=== PATIENT | male | born 1945 | race Caucasian/White ===

== ENCOUNTER 2016-04-01 11:05 | Observation (INO) | payer MEDICARE ==
[~2016-04-01] VITALS: Ht 172.7 cm; Wt 95.3 kg
[~2016-04-01 11:05] MED LIST: ALLO300T2 PO; ALLP300T PO; ATEN-155 PO; ATEN25TA PO; CHOL200025 PO; DOXY100C2 PO; ENAL20TA PO; HCTZ12.5T GT; HYDR-1231 PO; HYDR12.56 PO; NAPR220T66 PO; ONDA8TAB9 PO; OSLT75C PO; PRAV10TA PO; PRD20T PO; PROM25TA14 PO; SCOP1PAT TOP
--- OUTSIDE RECORDS SUMMARY | 2016-04-01 11:11 | XMS REPORT | Continuity of Care Document ---
Author Author [facility] Organization [facility] Address Unknown Phone Unavailable Care Team Providers Care Production Supply Equipment Tender Name Role Phone TETO TORRES MD PCP Insurance Providers Payer Name Policy Number Subscriber Name Relationship s Medicare [id number] Gabe Gli 18 Self / Same As Patient Advance Directives Directive Response Recorded Date/Time Advance Directives No 01/22/14 2:03pm Health Care Power of Gas Operations Superintendent No 01/22/14 2:03pm Organ Donor Yes 01/22/14 2:03pm Resuscitation Status Full Code 01/22/14 2:03pm Problems Medical Problems Problem Onset Date Status Knee pain Unknown Active Chondrocalcinosis of knee Unknown Active Knee effusion, left Unknown Active Knee pain Unknown Active Medications Medication Dose Route Sig Days/Qty Instructions Order Date Discontinued Date Status Allopurinol 300 Mg PO DAILY 03/24/11 Active Enalapril Maleate 20 Mg PO DAILY 03/24/11 Active Atenolol 25 Mg PO DAILY 03/24/11 Active Doxycycline Hyclate (Vibramycin) 1 Each PO TWICE A DAY 10 Days 07/21/13 Discontinued Oseltamivir Phosphate 75 Mg PO TWICE A DAY 5 Days 03/24/11 07/21/13 Discontinued Pravastatin Sodium 10 Mg PO BEDTIME 07/21/13 Active Hydrochlorothiazide 12.5 Mg GT 07/21/13 Active Hydrocodone Bit/Acetaminophen 1 Tab PO EVERY 4HRS PRN PAIN 14 Qty 01/22 Active Prednisone 20 Mg PO DAILY 10 Qty 01/22/14 Active Social History Social History Problem Response Recorded Date/Time Alcohol Use Denies Use 01/22/2014 2:03pm Recreational Drug Use No 01/22/2014 2:03pm Recent Foreign Travel No 01/22/2014 2:01pm Smoking Status Never a Smoker 01/22/2014 2:03pm Query Response Start Date Stop Date Smoking Status Never a Smoker Hospital Discharge Instructions No hospital discharge instructions. Plan of Care No plan of care. Functional Status No functional status results. Allergies, Adverse Reactions, Alerts Allergen Type Severity Reaction Status Last Updated No Known Drug Allergies Active 03/24/11 Immunizations No immunization records. Vital Signs Acute Vital Signs Vital Response Date/Time Temperature (Fahrenheit) 98.0 degrees F (97.6 - 99.5) Temperature (Calculated Celsius) 36.42430 degrees C (36.4 - 37.5) Pulse Rate (adult) 74 bpm (60 - 90) Respiratory Rate 20 bpm (12 - 24) O2 Sat by Pulse Oximetry 97 % (88 - 100) Blood Pressure 200/102 mm Hg Pain Pain Intensity 6 Pain Pain Intensity 6 Height (Feet) 5 feet Height (Inches) 8.00 inches Height (Calculated Centimeters) 172.312742 cm Weight (Pounds) 205 pounds Weight (Calculated Grams) 83365.437 gm Weight (Calculated Kilograms) 92.801493 kilograms Calculated BMI 28.12 Results No known relevant diagnostic tests, laboratory data and/or discharge summary. Procedures No known history of procedures. Encounters Encounter Location Date/Time Departed Emergency Room [facility] 01/22/14 1:46pm Recent Diagnosis
[2016-04-01] MEDS ORDERED: OMEG300C3 PO (11:18)
[2016-04-01] MEDS ORDERED: NS IV 1000 ML 1,000 ML IV ONE (11:35)
[2016-04-01] MEDS ORDERED: ASPI-808 PO (11:39)
--- NOTE | 2016-04-01 11:41 | ED Abdominal Pain ---
General Chief Complaint: -Male Stated Complaint: R SIDE PAIN/DIFF URINATING/FEVER/COUGH Nursing Triage Note: Ambulatory to ED 4 with with reports of trouble urinating, intermittent right abdominal-flank pain, intermittent fevers at home for the past 4 days. Patient denies any other complaints at this time. Sepsis Screen: No Definite Risk Source of Information: Patient, Family Exam Limitations: No Limitations History of Present Illness Time Seen By Provider: 11:28 Initial Comments Here with report of not feeling well over the last 4 days. Does report fever, right flank abdominal pain, decreased urination and diarrhea currently. He reports constipation prior to this and took a laxative a few days ago and now has had diarrhea. States he is not eating or drinking well because he is not feeling well. Does have sinus congestion and did have a nosebleed on the right side the other day. That has subsequently resolved with respect to bleeding but he still has congestion. Does have mild cough without shortness of breath. Timing/Duration: 3-4 Days Severity/Quality: Mild, Moderate, Aching Location: RUQ, Flank Radiation: No Radiation Activities at Onset: None Modifying Factors: Worsens With Eating, Worsens With Movement Associated Symptoms: No Chest Pain, No Diaphoresis, Fever/Chills FatigueNo Headache, No Nausea/Vomiting, No Shortness of Air, Weakness Allergies and Home Medications Allergies Coded Allergies: No Known Drug Allergies (Unverified , 08/11/15) Home Medications Allopurinol 300 Mg Tablet 300 MG PO DAILY (Reported) Aspirin 325 Mg Tablet 325 MG PO PRN PRN PRN HEADACHE (Reported) Atenolol 25 Mg Tablet 25 MG PO DAILY (Reported) Cholecalciferol (Vitamin D3) 2,000 Unit Tablet 2,000 UNIT PO DAILY (Reported) Enalapril Maleate 20 Mg Tablet 40 MG PO DAILY (Reported) TAKES 2 (20MG) TABLETS Hydrochlorothiazide 12.5 Mg Tablet 12.5 MG PO DAILY (Reported) Naproxen Sodium 220 Mg Tablet 440 MG PO BID PRN PRN PAIN (Reported) TAKES 2 (220MG) TABLETS [place]-3 Fatty Acids 300 Mg Capsule Unknown Dose PO (Reported) Pravastatin Sodium 10 Mg Tablet 10 MG PO HS (Reported) Review of Systems Constitutional: see HPI chills fever EENTM: See HPI Nose Congestion Respiratory: See HPI Cough Shortness of Air (mild)Denies Wheezing Cardiovascular: No Symptoms Reported Gastrointestinal: See HPI Abdominal Pain Diarrhea Genitourinary: No Symptoms Reported Musculoskeletal: no symptoms reported Skin: no symptoms reported Psychiatric/Neurological: See HPI Headache Endocrine: No Symptoms Reported All Other Systems Reviewed Negative Unless Noted: Yes Past Ijwpfio-Chsrbb-Diwphv Hx Patient Social History Alcohol Use: Rarely Uses Recreational Drug Use: No Smoking Status: Never a Smoker Former Smoker/When Quit: Feb 19, 2001 2nd Hand Smoke Exposure: No Recent Foreign Travel: No Contact w/Someone Who Travel: No Recent Infectious Disease Expo: No Recent Hopitalizations: No Immunizations Up To Date Tetanus Booster (TDap): Less than 5yrs Seasonal Allergies Seasonal Allergies: No Surgeries HX Surgeries: Yes (RICHARD) Surgeries: Abdominal Respiratory Hx Respiratory Disorders: No Cardiovascular Hx Cardiac Disorders: Yes Cardiac Disorders: High Cholesterol, Hypertension Neurological Hx Neurological Disorders: No Reproductive System Hx Reproductive Disorders: No Sexually Transmitted Disease: No HIV/AIDS: No Genitourinary Hx Genitourinary Disorders: No Gastrointestinal Hx Gastrointestinal Disorders: Yes (RICHARD FUNDOPLICATION) Musculoskeletal Hx Musculoskeletal Disorders: Yes Musculoskeletal Disorders: Gout Endocrine Hx Endocrine Disorders: No HEENT HX ENT Disorders: No Loss of Vision: Denies Hearing Impairment: Denies Cancer Hx Cancer: Yes Cancer: Skin Psychosocial Hx Psychiatric Problems: No Integumentary HX Skin/Integumentary Disorder: Yes (SKIN CANCER) Blood Transfusions Hx Blood Disorders: No Reviewed Nursing Assessment Reviewed/Agree w Nursing PMH: Yes Family Medical History Significant Family History: No Pertinent Family Hx Family Medial History: CVA Physical Exam Vital Signs VS - Last 72 Hours, by Label 04/01/16 11:07 Temp 97.8 Pulse 75 Resp 18 B/P 155/73 Pulse Ox 96 O2 Delivery Room Air Capillary Refill : Less Than 3 Seconds General Appearance: WD/WN no apparent distress HEENT: PERRL/EOMI pharynx normal Neck: full range of motion supple Respiratory: lungs clear normal breath sounds Cardiovascular: regular rate, rhythm no murmur Gastrointestinal: softNo guarding, No rebound, tenderness (right upper quadrant into a lesser extent left upper quadrant and right lower quadrant.)No mass, No hepatomegaly, No spleenomegaly Extremities: non-tender normal inspection Back: normal inspection no CVA tenderness no vertebral tenderness Neurologic/Psychiatric: alert oriented x 3 Skin: normal color warm/dry Progress/Results/Core Measures Results/Orders Lab Results Laboratory Tests Test 04/01/16 11:30 04/01/16 12:45 Range/Units Alanine Aminotransferase (ALT/SGPT) 13 0-55 U/L Albumin 3.7 3.2-4.5 G/DL Alkaline Phosphatase 92 40-136 U/L Amylase Level 38 25-125 U/L Anion Gap 12 5-14 MMOL/L Aspartate Amino Transf (AST/SGOT) 17 5-34 U/L BUN/Creatinine Ratio 16 Band Neutrophils 2 % Basophils # (Auto) 0.0 0.0-0.1 10^3/uL Basophils % (Manual) 0 % Basophils (%) (Auto) 0 0-10 % Blood Morphology Comment NORMAL Blood Urea Nitrogen 31 H 7-18 MG/DL C-Reactive Protein High Sensitivity 22.67 H 0.00-0.50 MG/DL Calcium Level 9.5 8.5-10.1 MG/DL Carbon Dioxide Level 22 21-32 MMOL/L Chloride Level 102 98-107 MMOL/L Creatinine 1.96 H 0.60-1.30 MG/DL Eosinophils # (Auto) 0.1 0.0-0.3 10^3/uL Eosinophils % (Manual) 0 % Eosinophils (%) (Auto) 0 0-10 % Estimat Glomerular Filtration Rate 34 Glucose Level 110 H 70-105 MG/DL Hematocrit 42 40-54 % Hemoglobin 14.3 13.3-17.7 G/DL Lipase 14 8-78 U/L Lymphocytes # (Auto) 2.0 1.0-4.0 X 10^3 Lymphocytes % (Manual) 11 % Lymphocytes (%) (Auto) 10 L 12-44 % Mean Corpuscular Hemoglobin 30 25-34 PG Mean Corpuscular Hemoglobin Concent 34 32-36 G/DL Mean Corpuscular Volume 87 80-99 FL Mean Platelet Volume 12.2 H 7.4-10.4 FL Monocytes # (Auto) 2.2 H 0.0-1.0 X 10^3 Monocytes % (Manual) 12 % Monocytes (%) (Auto) 11 0-12 % Neutrophils # (Auto) 15.8 H 1.8-7.8 X 10^3 Neutrophils % (Manual) 75 % Neutrophils (%) (Auto) 78 H 42-75 % Platelet Count 183 130-400 10^3/uL Potassium Level 4.7 3.6-5.0 MMOL/L Red Blood Count 4.77 4.35-5.85 10^6/uL Red Cell Distribution Width 14.4 10.0-14.5 % Sodium Level 136 135-145 MMOL/L Total Bilirubin 1.1 H 0.1-1.0 MG/DL Total Protein 7.2 6.4-8.2 G/DL Urine Bacteria FEW H /HPF Urine Bilirubin 1+ H NEGATIVE Urine Casts PRESENT /LPF Urine Clarity CLEAR Urine Color YELLOW Urine Crystals NONE /LPF Urine Culture Indicated YES Urine Glucose (UA) NEGATIVE NEGATIVE Urine Granular Casts 2-5 H /LPF Urine Hyaline Casts 5-10 H /LPF Urine Ketones NEGATIVE NEGATIVE Urine Leukocyte Esterase 2+ H NEGATIVE Urine Mucus SMALL H /LPF Urine Nitrite NEGATIVE NEGATIVE Urine Protein 3+ H NEGATIVE Urine RBC NONE /HPF Urine RBC (Auto) 2+ H NEGATIVE Urine Specific [place] 1.015 L 1.016-1.022 Urine Squamous Epithelial Cells 2-5 /HPF Urine Urobilinogen 4 H NORMAL MG/DL Urine WBC 25-50 H /HPF Urine pH 5 5-9 White Blood Count 20.2 H 4.3-11.0 10^3/uL Lactic Acid Level 1.1 0.5-2.0 MMOL/L Micro Results Microbiology 04/01/16 Influenza Types A,B Antigen (AMY) - Final, Complete My Orders Orders-CHARITY WERNER MD Amylase (04/01/16 11:35) Cbc With Automated Diff (04/01/16 11:35) Comprehensive Metabolic Panel (04/01/16 11:35) Hs C Reactive Protein (04/01/16 11:35) Lipase (04/01/16 11:35) Ua Culture If Indicated (04/01/16 11:35) Influenza A And B Antigens (04/01/16 11:35) Saline Lock/Iv-Start (04/01/16 11:35) Ns Iv 1000 Ml (Sodium Chloride 0.9%) (04/01/16 11:35) Manual Differential (04/01/16 11:30) Urine Culture (04/01/16 11:30) Enoxaparin Injection (Lovenox Injection) (04/01/16 12:00) Blood Culture (04/01/16 12:25) Chest Pa/Lat (2 View) (04/01/16 12:25) Lactic Acid Analyzer (04/01/16 12:25) Ct Abdomen/Pelvis Wo (04/01/16 12:59) General/Regular (04/01/16 Lunch) Ceftriaxone Injection (Rocephin Injectio (04/01/16 14:15) Ceftriaxone Injection (Rocephin Injectio (04/01/16 14:17) Ns (Ivpb) (Sodium Chloride 0.9% Ivpb Bag (04/01/16 14:17) Medications Given in ED Current Medications Medications Dose Ordered Sig/Avel Route Start Time Stop Time Status Last Admin Dose Admin Ceftriaxone Sodium/Sodium Chloride 50 ml @ 100 mls/hr ONCE ONCE IV 04/01/16 14:15 04/01/16 14:44 04/01/16 14:22 100 MLS/HR Sodium Chloride 1,000 ml @ 0 mls/hr Q0M ONCE IV 04/01/16 11:35 04/01/16 11:36 DC 04/01/16 11:41 0 MLS/HR Vital Signs/I&O Vital Sign - Last 12Hours 04/01/16 11:07 Temp 97.8 Pulse 75 Resp 18 B/P 155/73 Pulse Ox 96 O2 Delivery Room Air Blood Pressure Mean: 100 Progress Note : Progress Note Seen and evaluated. IV, labs, UA, normal saline 1 L bolus and influenza screen ordered. Monitor patient. Chest x-ray and CT of abdomen and pelvis ordered. White count is markedly elevated. Lactic acid and blood cultures ordered. 1353 : Case discussed with Dr. Piedra. We'll admit the patient, inpatient status due to pyelonephritis findings. He does have some chronic findings on his lungs which could represent infiltrate although it does appear to be chronic area we will treat for pyelonephritis as we do not believe he has pneumonia currently. This is discussed with Dr. Piedra who agrees. Findings and concerns discussed with patient and family who agree with admission. Diagnostic Imaging Diagonstic Imaging: Xray Plain Films/CT/US/NM/MRI: chest Comments [facility] [place] [place] NAME: [facility] REC#: [id number] PT STATUS: REG ER : 1945 PHYSICIAN: CHARITY WERNER MD ADMIT DATE: 04/01/16/ER Draft Date of Exam:04/01/16 CHEST PA/LAT (2 VIEW) INDICATION: Fever for 4 days, right flank pain, difficulty urinating. EXAMINATION: Two-view chest 04/01/2016 COMPARISON: 03/24/2011 FINDINGS: Heart is stable. There is pulmonary vascular congestion. There is an infiltrate in the left infrahilar region suspected but correlate with symptoms. Perihilar densities are stable from previous imaging and perhaps due to chronic scarring. There is no effusion. There is no pneumothorax. IMPRESSION: 1. Chronic changes throughout the lungs with more focal perihilar infiltrate or pulmonary vasculature congestion suspected correlate with symptoms. Left infrahilar infiltrate is possible as well and followup is recommended to assure improvement of findings. Dictated on workstation # [id number] Dict: 04/01/16 1256 Trans: 04/01/16 1259 [facility] [id number] Interpreted by: MARIA TERESA MEJIA MD Electronically signed by: Reviewed: Reviewed by Me Diagonstic Imaging: CT Plain Films/CT/US/NM/MRI: abdomen, pelvis Comments VIA [place], [place] NAME: GAB[facility] GIL [facility] REC#: [id number] PT STATUS: REG ER : 1945 PHYSICIAN: CHARITY WERNER MD ADMIT DATE: 04/01/16/ER Draft Date of Exam:04/01/16 CT ABDOMEN/PELVIS WO PROCEDURE: CT abdomen and pelvis without contrast. TECHNIQUE: Multiple contiguous axial images were obtained through the abdomen and pelvis without the use of intravenous contrast. INDICATION: Fever for 4 days. Pain and shortness of breath. Esophagus and stomach pain. EXAMINATION: CT abdomen and pelvis without contrast 04/01/2016 . COMPARISON: None. FINDINGS: Pleural thickening and calcification is noted within the posterior aspect of the the left lung base. The remaining visualized lung bases demonstrate linear scar or atelectasis with calcifications laterally in the visualized left midlung anteriorly also noted. Within the abdomen and pelvis evaluation is somewhat limited due to lack of contrast. However there is marked diffuse fat stranding about the left kidney. The course of the left ureter demonstrates fat stranding as well but does not appear dilated. No significant hydronephrosis is seen. There are vague hypodensities in left kidney poorly characterized without contrast. The right kidney demonstrates similar findings with fat stranding in a perinephric distribution. Some atrophy of the right kidney is noted perhaps due to old infectious processes. No nephrolithiasis or hydronephrosis is seen. There are no ureteral stones. Bladder wall is slightly thickened but could be due to underdistention versus cystitis. The appendix is unremarkable. Atherosclerotic disease seen throughout the course of the aorta. No evidence for free air or free fluid and no lymphadenopathy. There is no acute osseous abnormality. IMPRESSION: 1. Perinephric stranding about both kidneys nonspecific but perhaps due to polynephritis, correlate with symptoms and history. No stones seen in the kidneys with no hydronephrosis. No ureteral stones. 2. Mild wall thickening of the urinary bladder which could be due to cystitis versus underdistention again correlate clinically. 3. Other incidental findings as discussed above including evidence of likely old asbestos exposure. Dictated on workstation # [id number] Dict: 04/01/16 1324 Trans: 04/01/16 1335 [facility] [id number] Interpreted by: MARIA TERESA MEJIA MD Electronically signed by: Reviewed: Reviewed by Me Departure Communication Time/Spoke to Admitting Phy: 13:53 Impression Impression: Primary Impression: Pyelonephritis Disposition: ADMITTED INPATIENT Condition: Stable Decision to Admit Reason: Admit from ER (General) Decision to Admit/Date: Apr 01, 2016 Time/Decision to Admit Time: 13:53 Departure-Patient Inst. Referrals: TETO TORRES MD (PCP/Family) Primary Care Physician CHARITY WERNER MD Apr 01, 2016 11:41
[2016-04-01 11:44] LABS: BASOPHILS % (AUTO) 0 % (0-10); EOSINOPHILS # (AUTO) 0.1 10^3/uL (0.0-0.3); EOSINOPHILS % (AUTO) 0 % (0-10); KETONES,URINE NEGATIVE (NEGATIVE); LEUKOCYTE ESTERASE ,URINE 2+ (NEGATIVE); LYMPHOCYTES % (AUTO) 10 % (12-44); MEAN CORPUSCULAR HEMOGLOBIN 30 PG (25-34); MEAN CORPUSCULAR HGB CONC 34 G/DL (32-36); MEAN CORPUSCULAR VOLUME 87 FL (80-99); MEAN PLATELET VOLUME 12.2 FL (7.4-10.4); MONOCYTES # (AUTO) 2.2 X 10^3 (0.0-1.0); MONOCYTES % (AUTO) 11 % (0-12); NEUTROPHILS # (AUTO) 15.8 X 10^3 (1.8-7.8); NEUTROPHILS % (AUTO) 78 % (42-75); NITRITE,URINE NEGATIVE (NEGATIVE); PH,URINE 5 (5-9); PLATELET COUNT 183 10^3/uL (130-400); PROTEIN,URINE 3+ (NEGATIVE); RED BLOOD COUNT 4.77 10^6/uL (4.35-5.85); RED CELL DISTRIBUTION WIDTH 14.4 % (10.0-14.5); UROBILINOGEN,URINE 4 MG/DL (NORMAL); WHITE BLOOD COUNT 20.2 10^3/uL (4.3-11.0)
[2016-04-01 11:53] LABS: BILIRUBIN,URINE 1+ (NEGATIVE); WBC,URINE 25-50 /HPF
[2016-04-01] MEDS ORDERED: ENOXAPARIN 100 MG/1 ML (LOVENOX) SYR SC ONE (12:00)
[2016-04-01 12:07] LABS: ALBUMIN 3.7 G/DL (3.2-4.5); BILIRUBIN,TOTAL 1.1 MG/DL (0.1-1.0); CALCIUM 9.5 MG/DL (8.5-10.1); CREATININE SERUM 1.96 MG/DL (0.60-1.30); POTASSIUM 4.7 MMOL/L (3.6-5.0); TOTAL PROTEIN 7.2 G/DL (6.4-8.2)
[2016-04-01 12:08] LABS: hs C REACTIVE PROTEIN 22.67 MG/DL (0.00-0.50)
[2016-04-01 12:10] LABS: BAND NEUTROPHILS 2 %; BASOPHILS % (MANUAL) 0 %; EOSINOPHILS % (MANUAL) 0 %; LYMPHOCYTES % (MANUAL) 11 %; NEUTROPHILS % (MANUAL) 75 %
--- NOTE | 2016-04-01 13:00 | Diagnostic Imaging Report ---
INDICATION: Fever for 4 days, right flank pain, difficulty urinating. EXAMINATION: Two-view chest 04/01/2016 COMPARISON: 03/24/2011 FINDINGS: Heart is stable. There is pulmonary vascular congestion. There is an infiltrate in the left infrahilar region suspected but correlate with symptoms. Perihilar densities are stable from previous imaging and perhaps due to chronic scarring. There is no effusion. There is no pneumothorax. IMPRESSION: 1. Chronic changes throughout the lungs with more focal perihilar infiltrate or pulmonary vasculature congestion suspected correlate with symptoms. Left infrahilar infiltrate is possible as well and followup is recommended to assure improvement of findings. Dictated by: Dictated on workstation # [id number]
--- NOTE | 2016-04-01 13:35 | Diagnostic Imaging Report ---
PROCEDURE: CT abdomen and pelvis without contrast. TECHNIQUE: Multiple contiguous axial images were obtained through the abdomen and pelvis without the use of intravenous contrast. INDICATION: Fever for 4 days. Pain and shortness of breath. Esophagus and stomach pain. EXAMINATION: CT abdomen and pelvis without contrast 04/01/2016 . COMPARISON: None. FINDINGS: Pleural thickening and calcification is noted within the posterior aspect of the the left lung base. The remaining visualized lung bases demonstrate linear scar or atelectasis with calcifications laterally in the visualized left midlung anteriorly also noted. Within the abdomen and pelvis evaluation is somewhat limited due to lack of contrast. However there is marked diffuse fat stranding about the left kidney. The course of the left ureter demonstrates fat stranding as well but does not appear dilated. No significant hydronephrosis is seen. There are vague hypodensities in left kidney poorly characterized without contrast. The right kidney demonstrates similar findings with fat stranding in a perinephric distribution. Some atrophy of the right kidney is noted perhaps due to old infectious processes. No nephrolithiasis or hydronephrosis is seen. There are no ureteral stones. Bladder wall is slightly thickened but could be due to underdistention versus cystitis. The appendix is unremarkable. Atherosclerotic disease seen throughout the course of the aorta. No evidence for free air or free fluid and no lymphadenopathy. There is no acute osseous abnormality. IMPRESSION: 1. Perinephric stranding about both kidneys nonspecific but perhaps due to polynephritis, correlate with symptoms and history. No stones seen in the kidneys with no hydronephrosis. No ureteral stones. 2. Mild wall thickening of the urinary bladder which could be due to cystitis versus underdistention again correlate clinically. 3. Other incidental findings as discussed above including evidence of likely old asbestos exposure. Dictated by: Dictated on workstation # [id number]
[2016-04-01] MEDS ORDERED: cefTRIAXone INJECTION 1,000 MG in NS (IVPB) 50 ML IV ONE (14:15)
[2016-04-01] MEDS ORDERED: cefTRIAXone 1 GM (ROCEPHIN) VIAL ONE (14:17)
[2016-04-01] MEDS ORDERED: NS (IVPB) 50 ML ONE (14:17)
[2016-04-01] MEDS ORDERED: CATHETER FLUSH 10 ML SYR IV PRN (15:15)
[2016-04-01 15:30] VITALS: BP 179/90
[2016-04-01] MEDS: NS IV 1000 ML 1,000 ML IV SCH (15:32)
[2016-04-01] MEDS ORDERED: FLU TRIvalent (5 YOA+) 2016-17 (AFLURIA) 0.5 ML IM ONE (16:00)
[2016-04-01 18:59] VITALS: BP 166/74
[2016-04-01] MEDS: ACETAMINOPHEN 500 MG TAB (TYLENOL) PO PRN (19:30)
[2016-04-01] MEDS ORDERED: ACETAMINOPHEN 500 MG TAB (TYLENOL) PO PRN (19:30)
[2016-04-01 20:00] VITALS: BP 146/67
[2016-04-01] MEDS ORDERED: NON-FORMULARY MEDICATION 1 EA EA (Pravastatin Sodium 10 MG) PO SCH (21:00)
[2016-04-02] VITALS: BP 136/68
[2016-04-02] MEDS: NS IV 1000 ML 1,000 ML IV SCH ×2 (01:35→11:15)
[2016-04-02 04:00] VITALS: BP 172/70
[2016-04-02 04:36] LABS: BASOPHILS % (AUTO) 0 % (0-10); EOSINOPHILS # (AUTO) 0.2 10^3/uL (0.0-0.3); EOSINOPHILS % (AUTO) 3 % (0-10); LYMPHOCYTES # (AUTO) 1.4 X 10^3 (1.0-4.0); LYMPHOCYTES % (AUTO) 15 % (12-44); MEAN CORPUSCULAR HEMOGLOBIN 30 PG (25-34); MEAN CORPUSCULAR HGB CONC 34 G/DL (32-36); MEAN CORPUSCULAR VOLUME 88 FL (80-99); MONOCYTES # (AUTO) 0.9 X 10^3 (0.0-1.0); MONOCYTES % (AUTO) 9 % (0-12); NEUTROPHILS # (AUTO) 6.8 X 10^3 (1.8-7.8); NEUTROPHILS % (AUTO) 73 % (42-75); PLATELET COUNT 146 10^3/uL (130-400); RED BLOOD COUNT 4.58 10^6/uL (4.35-5.85); RED CELL DISTRIBUTION WIDTH 14.3 % (10.0-14.5); WHITE BLOOD COUNT 9.3 10^3/uL (4.3-11.0)
[2016-04-02 05:04] LABS: ALBUMIN 3.2 G/DL (3.2-4.5); BILIRUBIN,TOTAL 0.6 MG/DL (0.1-1.0); CALCIUM 8.7 MG/DL (8.5-10.1); CREATININE SERUM 1.63 MG/DL (0.60-1.30); POTASSIUM 3.8 MMOL/L (3.6-5.0); TOTAL PROTEIN 6.3 G/DL (6.4-8.2)
[2016-04-02] MEDS: ACETAMINOPHEN 500 MG TAB (TYLENOL) PO PRN ×3 (06:19→20:23)
[2016-04-02 08:00] VITALS: BP 169/71
[2016-04-02] MEDS: HYDROCHLOROTHIAZIDE 25 MG (HCTZ) TAB PO SCH ×2 (08:38→09:08)
[2016-04-02] MEDS: ATENOLOL 25 MG (TENORMIN) TAB PO SCH ×2 (08:38→09:08)
[2016-04-02] MEDS: ENALAPRIL 10 MG (VASOTEC) TAB PO SCH ×2 (08:39→09:08)
[2016-04-02] MEDS: ALLOPURINOL 300 MG (ZYLOPRIM) TAB PO SCH ×2 (08:39→09:15)
[2016-04-02] MEDS ORDERED: ENALAPRIL MALEATE 40 MG PO SCH (09:00)
[2016-04-02 12:00] VITALS: BP 137/91
--- NOTE | 2016-04-02 12:22 | History & Physical-Hospitalist ---
HPI History of Present Illness: HPI/Chief Complaint Mr. Monsalve 70-year-old white male who reports 4-5 day history of cough and congestion he's had some intermittent small volume epistaxis with this. He denied shortness of breath. He did report some diarrhea without evidence for blood. For the past several years. 2-3 and decreased stream. It got markedly worse over the past 2-3 days to the point that he was dribbling only which was the major impetus for him coming to the emergency room. He was having pelvic pain and some right upper quadrant and right flank pain with fever and mild chills the day of his admission. He denies any previous history of urinary tract infection. He is retired with no recent travel history. As noted no blood in his urine Date Seen 04/02/[address] Piedra MD PCP Geoff Diez MD Referring Physician Date of Admission Apr 01, 2016 at 14:23 Home Medications & Allergies Home Medications Reviewed patient Home Medication Reconciliation Form Allergies Coded Allergies: No Known Drug Allergies (Unverified , 08/11/15) Past Stknued-Nkbxek-Sotlgb Hx Patient Social History Alcohol Use: Rarely Uses Recreational Drug Use: No Smoking Status: Former Smoker Former smoker/When Quit: Feb 19, 2001 2nd Hand Smoke Exposure: No Physical Abuse Screen: No Sexual Abuse: No Recent Foreign Travel: No Contact w/other who traveled: No Recent Hopitalizations: No Recent Infectious Disease Expo: No Immunizations Up To Date Tetanus Booster (TDap): Less than 5yrs Seasonal Allergies Seasonal Allergies: No Surgeries HX Surgeries: Yes (RICHARD) Surgeries: Abdominal Respiratory Hx Respiratory Disorders: No Cardiovascular Hx Cardiovascular Disorders: Yes Cardiac Disorders: High Cholesterol, Hypertension Neurological Hx Neurological Disorders: No Reproductive System Hx Reproductive Disorders: No Sexually Transmitted Disease: No HIV/AIDS: No Genitourinary Hx Genitourinary Disorders: No Gastrointestinal Hx Gastrointestinal Disorders: Yes (RICHARD FUNDOPLICATION) Musculoskeletal Hx Musculoskeletal Disorders: Yes Musculoskeletal Disorders: Gout Endocrine Hx Endocrine Disorders: No HEENT HX ENT Disorders: No Loss of Vision: Denies Hearing Impairment: Denies Cancer Hx Cancer: Yes Cancer: Skin Psychosocial Hx Psychiatric Problems: No Integumentary HX Skin/Integumentary Disorder: Yes (SKIN CANCER) Blood Transfusions Hx Blood Disorders: No Reviewed Nursing Assessment Reviewed/Agree w Nursing PMH: Yes Family Medical History Significant Family History: No Pertinent Family Hx Family Hx: CVA Review of Systems Constitutional: see HPI chills diaphoresis weakness Respiratory: No no symptoms reported, No see HPI, cough (nonproductive) dyspnea on exertionNo hemoptysis, No orthopnea, No phlegm, No short of breath, No stridor, No wheezing Cardiovascular: No chest pain, No edema, No Hx of Intervention, No syncope, No vascular heart diseas Gastrointestinal: RUQ Genitourinary: No no symptoms reported, No see HPI, decreased outputNo discharge, No dysuria, frequencyNo hematuria, hesitancyNo incontinence, nocturiaNo pain Physical Exam Physical Exam Vital Signs Vital Sign - Last 12Hours 04/01/16 11:07 Temp 97.8 Pulse 75 Resp 18 B/P 155/73 Pulse Ox 96 O2 Delivery Room Air Capillary Refill : Less Than 3 Seconds General Appearance: Anxious Mild Distress Neck: Full Range of Motion Normal Inspection Non Tender Respiratory: Chest Non Tender No Accessory Muscle Use No Respiratory Distress Crackles (in both lung bases that clear with several inspirations. No wheezing or rhonchi are noted) Cardiovascular: Regular Rate, Rhythm No Edema No Gallop No JVD No Murmur Normal Peripheral Pulses Gastrointestinal: Normal Bowel Sounds No Organomegaly No Pulsatile Mass Non Tender Soft Extremity: Normal Capillary Refill Normal Inspection Normal Range of Motion Non Tender No Calf Tenderness No Pedal Edema Neurologic/Psychiatric: Alert Oriented x3 Results Results/Procedures Lab Laboratory Tests 04/01/16 11:30 04/02/16 04:26 Assessment/Plan Admission Diagnosis 1. Acute pyelonephritis possible bilateral disease with likely acute on chronic renal disease with underlying hypertensive nephropathy. Patient is growing Escherichia coli and I expect hayden sensitivity. We'll continue Rocephin. 2. Prostatism most likely major risk factor for number 1 we'll initiate alpha helio therapy. 3. Blood pressure is coming up we will reinitiate antihypertensive therapy. Clinical Quality Measures DVT/VTE Risk/Contraindication: Risk Factor Score Per Nursin RFS Level Per Nursing on Admit: 2=Moderate LANE PIEDRA MD Apr 02, 2016 12:22
[2016-04-02] MEDS ORDERED: cefTRIAXone 1 GM/NS 50 ML IVPB IV SCH ×2 (14:00)
[2016-04-02] MEDS: MEROPENEM 1,000 MG in NS (IVPB) 100 ML IV SCH ×2 (16:40→22:25)
[2016-04-02 16:51] VITALS: BP 159/72
[2016-04-02] MEDS ORDERED: ALFUZOSIN HCL 10 MG TAB (UROXATRAL) PO SCH (18:00)
[2016-04-02 20:00] VITALS: BP 156/70
[2016-04-02] MEDS ORDERED: SIMvastatin 10 MG (ZOCOR) TAB PO SCH (21:00)
[2016-04-03] VITALS: BP 170/74
[2016-04-03] MEDS: MEROPENEM 1,000 MG in NS (IVPB) 100 ML IV SCH ×2 (05:28→13:38)
[2016-04-03 08:39] VITALS: BP 128/69
[2016-04-03] MEDS: HYDROCHLOROTHIAZIDE 25 MG (HCTZ) TAB PO SCH (08:56)
[2016-04-03] MEDS: ATENOLOL 25 MG (TENORMIN) TAB PO SCH (08:56)
[2016-04-03] MEDS: ENALAPRIL 10 MG (VASOTEC) TAB PO SCH (08:56)
[2016-04-03] MEDS: ALLOPURINOL 300 MG (ZYLOPRIM) TAB PO SCH (08:56)
[2016-04-03] MEDS ORDERED: ATENOLOL 25 MG (TENORMIN) TAB PO SCH (09:00)
[2016-04-03] MEDS ORDERED: ENALAPRIL 20 MG TAB PO SCH (09:00)
[2016-04-03] MEDS ORDERED: HYDROCHLOROTHIAZIDE 12.5 MG PO SCH (09:00)
[2016-04-03] MEDS ORDERED: ALLOPURINOL 300 MG (ZYLOPRIM) TAB PO SCH (09:00)
[2016-04-03] MEDS ORDERED: PATIENT MAY USE OWN MEDS, ALL MC SCH (09:00)
[2016-04-03] MEDS ORDERED: OMEG-160 PO (09:33)
[2016-04-03] MEDS: ACETAMINOPHEN 500 MG TAB (TYLENOL) PO PRN (10:18)
--- NOTE | 2016-04-03 12:48 | Progress Note-Hospitalist ---
Standard Progress Note Progress Notes/Assess & Plan Date Seen 04/03/16 Diagnosis 1. Acute pyelonephritis possible bilateral disease with likely acute on chronic renal disease with underlying hypertensive nephropathy. Patient is growing Escherichia coli and I expect hayden sensitivity. We'll continue Rocephin. 2. Prostatism most likely major risk factor for number 1 we'll initiate alpha helio therapy. 3. Blood pressure is coming up we will reinitiate antihypertensive therapy. Assess & Plan/Chief Complaint The patient is a 70-year-old white male. He had presented to the emergency room on 04/01 largely because of inability to empty his bladder. He was found to have evidence of urinary tract infection at that point in time as well. His white count fell from 20,000-9000 after a dose of Rocephin. Subsequently sensitivities have shown a rather broad resistance to everything but amikacin, meropenem and Macrodantin. At this time his performance status suggests that he could be discharged on Macrodantin. He will also need an alpha helio for improved emptying. Physical exam: The patient is well-developed and cheerful he is up and about in his room. Lungs are clear to auscultation. CV is regular without murmur. Abdomen is quite obese. Extremities show no pedal edema. Impression: Urinary tract infection with multiply drug-resistant coli. 2.historically, prostatism with limited bladder emptying Plan: Discharge after next dose of meropenem. By mouth Macrodantin. Appointment with Dr. Diez within the week. The patient will be discharged on Uroxatral. Dr. Diez will discuss Proscar or other testosterone blockers at next appointment. Labs Laboratory Tests 04/02/16 04:26 Copy Copies To 1: TETO DIEZ MD, RODNEY K MD Apr 03, 2016 12:48
[2016-04-03] MEDS ORDERED: ALFU10TA11 PO (12:49)
[2016-04-03 12:51] VITALS: BP 144/82
[2016-04-03] MEDS ORDERED: NITR-68 PO (12:51)
--- NOTE | 2016-04-03 12:52 | Discharge Inst-Simple/Standard ---
Discharge Inst-Standard Discharge Medications New, Converted or Re-Newed RX: Transmitted to Pharmacy Patient Instructions/Follow Up Plan of Care/Instructions/FU: Take Macrodantin as prescribed. First dose tonight after supper. Medications as on the med list. Appointment with Dr. Diez within the week. Activity as Tolerated: Yes Goal: Clearance of infection Improved urine flow Discharge Diet: No Restrictions Return to The Hospital For: Decline in performance RADHA LANIER MD Apr 03, 2016 12:52
[2016-04-03] MEDS ORDERED: PRAVASTATIN 10 MG PO SCH (21:00)
== END 2016-04-03 14:25 | disposition home or self-care (01) ==
LOC: EDUNIT# 11:05 → ER 11:07 → 4TH 14:23 → INTOOBSV 14:23
PROVIDERS: ADMIT Internal Medicine; ATTEND Internal Medicine
DX: N10 Acute pyelonephritis (principal); N40.0 Benign prostatic hyperplasia without lower urinary tract symptoms; B96.20 Unspecified Escherichia coli [E. coli] as the cause of diseases classified elsewhere
CPT/HCPCS: 36415; 71020; 74176; 80053; 81000; 82150; 83605; 83690; 85007; 85025; 85027; 86141; 87040; 87077; 87088; 87186; 87804; 94760; 96361; 96365; G0378

== ENCOUNTER 2016-04-20 12:38 | Inpatient (IN) | payer MEDICARE ==
[~2016-04-20] VITALS: Ht 172.7 cm; Wt 98.0 kg
[~2016-04-20 12:38] MED LIST changes: +ALFU10TA11 PO; +ASPI-808 PO; +NITR-68 PO; +OMEG-160 PO; +OMEG300C3 PO
--- OUTSIDE RECORDS SUMMARY | 2016-04-20 12:45 | XMS REPORT | Continuity of Care Document ---
Author Author [facility] Organization [facility] Address Unknown Phone Unavailable Care Team Providers Care [place] Technician Name Role Phone TETO DIEZ MD PCP Insurance Providers Payer Name Policy Number Subscriber Name Relationship s Medicare [id number] Gabe Gil 18 Self / Same As Patient Advance Directives Directive Response Recorded Date/Time Advance Directives No 04/01/16 3:40pm Health Care Power of Security Advisor No 04/01/16 3:40pm Organ Donor No 04/01/16 3:40pm Resuscitation Status Full Code 04/01/16 3:40pm Chief Complaint and Reason for Visit Chief Complaint PYELONEPHRITIS Reason for Visit Pyelonephritis Problems Active Problems Medical Problem Onset Date Status Chondrocalcinosis of knee Unknown Acute Dehydration Unknown Acute Intractable nausea and vomiting Unknown Acute Knee effusion, left Unknown Acute Knee pain Unknown Acute Knee pain Unknown Acute Pyelonephritis Unknown Acute Medications Current Home Medications Medication Dose Units Route Directions Days/Qty Instructions Start Date Cholecalciferol (Vitamin D3) 2,000 Unit 2,000 Unit Oral Daily Naproxen Sodium 220 Mg 440 Mg Oral Twice A Day as needed for Headache TAKES 2 (220MG) TABLETS 08/11/15 Pravastatin Sodium 10 Mg 10 Mg Oral Bedtime 08/11/15 Hydrochlorothiazide 12.5 Mg 12.5 Mg Oral Daily 06/22/16 Atenolol 25 Mg 25 Mg Oral Daily 08/11/15 Allopurinol 300 Mg 300 Mg Oral Daily 08/11/15 Enalapril Maleate 20 Mg 40 Mg Oral Daily TAKES 2 (20MG) TABLETS Aspirin 325 Mg 325 Mg Oral Daily as needed for Headache 04/01/16 [place]-3/Dha/Epa/Fish Oil 1 Each 1,000 Mg Oral Daily 04/03/16 Alfuzosin Hcl 10 Mg 10 Mg Oral Daily@1800 30 04/03/16 Nitrofurantoin Macrocrystal 100 Mg 100 Mg Oral Twice A Day 04/03/16 Past Home Medications Medication Directions Ordered Status Allopurinol 300 Mg Tab, 300 Mg Oral Daily 03/24/11 Discontinued Enalapril Maleate 20 Mg Tablet, 20 Mg Oral Daily 03/24/11 Discontinued Atenolol 25 Mg Tablet, 25 Mg Oral Daily 03/24/11 Discontinued Doxycycline Hyclate (Vibramycin) 100 Mg Capsule, 1 Each Oral Twice A Day 04/30 Discontinued Oseltamivir Phosphate 75 Mg Cap, 75 Mg Oral Twice A Day 03/24/11 Discontinued Hydrochlorothiazide 12.5 Mg Cap, 12.5 Mg G Tube 07/21/13 Discontinued Hydrocodone Bit/Acetaminophen 1 Tab Tablet, 1 Tab Oral Every 4HRS as needed for Pain 01/22/14 Discontinued Prednisone 20 Mg Tablet, 20 Mg Oral Daily 01/22/14 Discontinued [place]-3 Fatty Acids 300 Mg Capsule, Unknown Dose Oral 04/01/16 Discontinued Social History Social History Problem Response Recorded Date/Time Alcohol Use Denies Use 08/11/2015 3:47pm Recreational Drug Use No 08/11/2015 3:47pm Recent Foreign Travel No 04/01/2016 3:34pm Recent Infectious Disease Exposure No 04/01/2016 3:34pm Hospitalization with Isolation Denies 04/03/2016 2:31pm Sexually Transmitted Disease No 04/01/2016 3:39pm HIV/AIDS No 04/01/2016 3:39pm Smoking Status Former Smoker 04/01/2016 3:37pm Do you dip or chew tobacco? No 08/11/2015 8:10am Recent Hopitalizations No 04/01/2016 3:39pm Sexually Transmitted Disease No 04/01/2016 3:39pm Hospitalization with Isolation Denies 04/03/2016 2:31pm Query Response Start Date Stop Date Smoking Status Former Smoker 02/19/2001 Hospital Discharge Instructions Patient Instructions Physician Instructions New, Converted or Re-Newed RX: Transmitted to Pharmacy Plan of Care/Instructions/FU: Take Macrodantin as prescribed. First dose tonight after supper. Medications as on the med list. Appointment with Dr. Diez within the week. Activity as Tolerated: Yes Goal: Clearance of infection Improved urine flow Discharge Diet: No Restrictions Return to The Hospital For: Decline in performance Care Plan Patient Instructions:: Take Macrodantin as prescribed. First dose tonight after supper.Medications as on the med list.Appointment with Dr. Diez within the week. Goal:: Clearance of infectionImproved urine flow Plan of Care Discharge Date 04/03/16 2:25pm Disposition 01 HOME, SELF-CARE Instructions/Education Provided Extended-Spectrum Beta Lactamase Infection Prescriptions See Medication Section Referrals TETO DIEZ MD (Unspecified) - Address: [place] [id number] [id number] Reason(s) for Referral: Follow up with Dr. Diez April 05 at 3:30pm Care Plan and Goals See Discharge Instructions Section Functional Status Query Response Date Recorded Patient Orientation Person Place Time Situation Eyes Open April 03, 2016 2:31pm Comprehension Ability Understands Concepts April 02, 2016 9:00am Allergies, Adverse Reactions, Alerts No known allergies. Immunizations Name Given Type FLU TRIvalent 5 years - Adult 04/01/16 Administered Vital Signs Acute Vital Signs Vital Response Date/Time Temperature (Fahrenheit) 97.8 degrees F (97.6 - 99.5) 04/03/2016 12:51pm Temperature (Calculated Celsius) 36.37117 degrees C (36.4 - 37.5) 04/03/2016 12:51pm Temperature Source Tympanic 04/03/2016 12:51pm Pulse Rate (adult) 73 bpm (60 - 90) 04/03/2016 12:51pm Respiratory Rate 20 bpm (12 - 24) 04/03/2016 12:51pm O2 Sat by Pulse Oximetry 96 % (88 - 100) 04/03/2016 12:51pm Blood Pressure 144/82 mm Hg 04/03/2016 12:51pm Blood Pressure Mean 102 mm Hg 04/03/2016 12:51pm Pain Numeric Pain Scale 0-No Pain 04/03/2016 12:51pm Height (Feet) 5 feet 04/01/2016 3:34pm Height (Inches) 8.00 inches 04/01/2016 3:34pm Height (Calculated Centimeters) 172.936812 cm 04/01/2016 3:34pm Weight (Pounds) 210 pounds 04/01/2016 3:34pm Weight (Ounces) 0.0 oz 04/01/2016 3:34pm Weight (Calculated Grams) 54758.40 gm 04/01/2016 3:34pm Weight (Calculated Kilograms) 95.135440 kilograms 04/01/2016 3:34pm Calculated BMI 31.9 04/01/2016 3:34pm Capillary Refill Capillary Refill Less Than 3 Seconds 04/01/2016 11:07am Results Laboratory Results Test Name Result Units Flags Reference Collection Date/Time Result Date/ Time Comments White Blood Count 9.3 10^3/uL 4.3-11.0 04/02/2016 4:am 04/02/2016 4: 44am Red Blood Count 4.58 10^6/uL 4.35-5.85 04/02/2016 4:04/02/2016 4: 44am Hemoglobin 13.6 G/DL 13.3-17.7 04/02/2016 4:04/02/2016 4:44am Hematocrit 40 % 40-54 04/02/2016 4:04/02/2016 4:44am Mean Corpuscular Volume 88 FL 80-99 04/02/2016 4:04/02/2016 4: 44am Mean Corpuscular Hemoglobin 30 PG 25-34 04/02/2016 4:04/02/2016 4: 44am Mean Corpuscular Hemoglobin Concent 34 G/DL 32-36 04/02/2016 4:01/2017 4:44am Red Cell Distribution Width 14.3 % 10.0-14.5 04/02/2016 4:2016 4:44am Platelet Count 146 10^3/uL 130-400 04/02/2016 4:04/02/2016 4:44am Mean Platelet Volume 12.0 FL H 7.4-10.4 04/02/2016 4:04/02/2016 4: 44am Neutrophils (%) (Auto) 73 % 42-75 04/02/2016 4:04/02/2016 4:44am Lymphocytes (%) (Auto) 15 % 12-44 04/02/2016 4:04/02/2016 4:44am Monocytes (%) (Auto) 9 % 0-12 04/02/2016 4:04/02/2016 4:44am Eosinophils (%) (Auto) 3 % 0-10 04/02/2016 4:04/02/2016 4:44am Basophils (%) (Auto) 0 % 0-10 04/02/2016 4:04/02/2016 4:44am Neutrophils # (Auto) 6.8 X 10^3 1.8-7.8 04/02/2016 4:04/02/2016 4: 44am Lymphocytes # (Auto) 1.4 X 10^3 1.0-4.0 04/02/2016 4:04/02/2016 4: 44am Monocytes # (Auto) 0.9 X 10^3 0.0-1.0 04/02/2016 4:04/02/2016 4: 44am Eosinophils # (Auto) 0.2 10^3/uL 0.0-0.3 04/02/2016 4:04/02/2016 4 :44am Basophils # (Auto) 0.0 10^3/uL 0.0-0.1 04/02/2016 4:04/02/2016 4: 44am Neutrophils % (Manual) 75 % 04/01/2016 11:30am 04/01/2016 12:10pm Band Neutrophils 2 % 04/01/2016 11:30am 04/01/2016 12:10pm Lymphocytes % (Manual) 11 % 04/01/2016 11:30am 04/01/2016 12:10pm Monocytes % (Manual) 12 % 04/01/2016 11:30am 04/01/2016 12:10pm Eosinophils % (Manual) 0 % 04/01/2016 11:30am 04/01/2016 12:10pm Basophils % (Manual) 0 % 04/01/2016 11:30am 04/01/2016 12:10pm Blood Morphology Comment NORMAL 04/01/2016 11:3004/01/2016 12: 10pm Urine Color YELLOW 04/01/2016 11:30am 04/01/2016 11:54am Urine Clarity CLEAR 04/01/2016 11:30am 04/01/2016 11:54am Urine pH 5 5-9 04/01/2016 11:30am 04/01/2016 11:54am Urine Specific [place] 1.015 * 1.016-1.022 04/01/2016 11:30am 2016 11:54am Urine Protein 3+ * NEGATIVE 04/01/2016 11:30am 04/01/2016 11:54am Urine Glucose (UA) NEGATIVE NEGATIVE 04/01/2016 11:30am 04/01/2016 11 :54am Urine RBC (Auto) 2+ * NEGATIVE 04/01/2016 11:30am 04/01/2016 11:54am Urine Ketones NEGATIVE NEGATIVE 04/01/2016 11:30am 04/01/2016 11: 54am Urine Nitrite NEGATIVE NEGATIVE 04/01/2016 11:30am 04/01/2016 11: 54am Urine Bilirubin 1+ * NEGATIVE 04/01/2016 11:30am 04/01/2016 11:54am ICTOTEST=NEGATIVE Urine Urobilinogen 4 MG/DL * NORMAL 04/01/2016 11:30am 04/01/2016 11: 54am Urine Leukocyte Esterase 2+ * NEGATIVE 04/01/2016 11:30am 04/01/2016 11 :54am Urine RBC NONE /HPF 04/01/2016 11:30am 04/01/2016 11:54am Urine WBC 25-50 /HPF * 04/01/2016 11:30am 04/01/2016 11:54am Urine Bacteria FEW /HPF * 04/01/2016 11:30am 04/01/2016 11:54am Urine Squamous Epithelial Cells 2-5 /HPF 04/01/2016 11:30am 2016 11:54am Urine Crystals NONE /LPF 04/01/2016 11:30am 04/01/2016 11:54am Urine Casts PRESENT /LPF 04/01/2016 11:30am 04/01/2016 11:54am Urine Hyaline Casts 5-10 /LPF * 04/01/2016 11:30am 04/01/2016 11:54am Urine Granular Casts 2-5 /LPF * 04/01/2016 11:30am 04/01/2016 11:54am Urine Mucus SMALL /LPF * 04/01/2016 11:30am 04/01/2016 11:54am Urine Culture Indicated YES 04/01/2016 11:30am 04/01/2016 11:54am Sodium Level 138 MMOL/L 135-145 04/02/2016 4:04/02/2016 5:05am Potassium Level 3.8 MMOL/L 3.6-5.0 04/02/2016 4:04/02/2016 5:05am Chloride Level 108 MMOL/L H 98-107 04/02/2016 4:04/02/2016 5:05am Carbon Dioxide Level 21 MMOL/L 21-32 04/02/2016 4:04/02/2016 5: 05am Anion Gap 9 MMOL/L 5-14 04/02/2016 4:04/02/2016 5:05am Blood Urea Nitrogen 38 MG/DL H 7-18 04/02/2016 4:04/02/2016 5:05am Creatinine 1.63 MG/DL H 0.60-1.30 04/02/2016 4:04/02/2016 5:05am BUN/Creatinine Ratio 23 04/02/2016 4:04/02/2016 5:05am Estimat Glomerular Filtration Rate 42 04/02/2016 4:04/02/2016 5:05am GFR INTERPRETIVE DATA UNITS FOR ESTIMATED GFR (eGFR): mL/min/1.73 M2 REFERENCE RANGE FOR ESTIMATED GFR (eGFR) eGFR NORMAL eGFR >60 MODERATELY DECREASED eGFR 30-59 SEVERLY DECREASED eGFR 15-29 KIDNEY FAILURE <15 (OR DIALYSIS) Glucose Level 120 MG/DL H 70-105 04/02/2016 4:04/02/2016 5:05am Calcium Level 8.7 MG/DL 8.5-10.1 04/02/2016 4:04/02/2016 5:05am Total Bilirubin 0.6 MG/DL 0.1-1.0 04/02/2016 4:04/02/2016 5:05am Alkaline Phosphatase 84 U/L 40-136 04/02/2016 4:04/02/2016 5:05am Aspartate Amino Transf (AST/SGOT) 21 U/L 5-34 04/02/2016 4:26am 2016 5:05am Alanine Aminotransferase (ALT/SGPT) 14 U/L 0-55 04/02/2016 4:26am 04/02 5:05am Total Protein 6.3 G/DL L 6.4-8.2 04/02/2016 4:26am 04/02/2016 5:05am Albumin 3.2 G/DL 3.2-4.5 04/02/2016 4:26am 04/02/2016 5:05am Amylase Level 38 U/L 25-125 04/01/2016 11:30am 04/01/2016 12:09pm Lipase 14 U/L 8-78 04/01/2016 11:30am 04/01/2016 12:09pm Lactic Acid Level 1.1 MMOL/L 0.5-2.0 04/01/2016 12:45pm 04/01/2016 1: 13pm Lactic acid levels can appear lower than actual values in patients receiving NAC (N-Acetyl Cysteine). C-Reactive Protein High Sensitivity 22.67 MG/DL H 0.00-0.50 04/01/2016 11: 30am 04/01/2016 12:09pm Microbiology Results Procedure Source Result Collection Date/Time Result Date/Time Urine Culture Urine, Clean Catch ESCHERICHIA COLI 04/01/2016 11:30am 2016 10:06am Blood Culture Peripheral, Rt Ac No growth 04/01/2016 12:45pm 04/02/2016 5: 13pm Blood Culture Peripheral, Lt Ac No growth 04/01/2016 12:48pm 04/02/2016 5: 13pm Procedures No known history of procedures. Encounters Encounter Location Arrival/Admit Date Discharge/Depart Date Attending Provider Admitted Inpatient (obs) [facility] 04/01/16 2:23pm LANE GRIFFIN MD Recent Diagnosis Pyelonephritis
[2016-04-20 13:32] LABS: BASOPHILS % (AUTO) 0 % (0-10); EOSINOPHILS % (AUTO) 0 % (0-10); LYMPHOCYTES # (AUTO) 0.9 X 10^3 (1.0-4.0); LYMPHOCYTES % (AUTO) 6 % (12-44); MEAN CORPUSCULAR HEMOGLOBIN 30 PG (25-34); MEAN CORPUSCULAR HGB CONC 34 G/DL (32-36); MEAN CORPUSCULAR VOLUME 87 FL (80-99); MEAN PLATELET VOLUME 11.9 FL (7.4-10.4); MONOCYTES # (AUTO) 1.2 X 10^3 (0.0-1.0); MONOCYTES % (AUTO) 8 % (0-12); NEUTROPHILS # (AUTO) 12.4 X 10^3 (1.8-7.8); NEUTROPHILS % (AUTO) 85 % (42-75); PLATELET COUNT 211 10^3/uL (130-400); RED BLOOD COUNT 4.15 10^6/uL (4.35-5.85); RED CELL DISTRIBUTION WIDTH 13.9 % (10.0-14.5); WHITE BLOOD COUNT 14.6 10^3/uL (4.3-11.0)
[2016-04-20 13:33] LABS: BILIRUBIN,URINE NEGATIVE (NEGATIVE); KETONES,URINE NEGATIVE (NEGATIVE); LEUKOCYTE ESTERASE ,URINE 3+ (NEGATIVE); NITRITE,URINE NEGATIVE (NEGATIVE); PH,URINE 5 (5-9); PROTEIN,URINE 3+ (NEGATIVE); UROBILINOGEN,URINE 4 MG/DL (NORMAL)
[2016-04-20] MEDS ORDERED: TYLENOL (13:34)
[2016-04-20 13:42] LABS: WBC,URINE >100 /HPF
--- NOTE | 2016-04-20 13:47 | ED General ---
General Chief Complaint: General Problems/Pain Stated Complaint: FEVER/CHILLS HEADACHE NAUSEA Nursing Triage Note: PT C/O DYSURIA, FEVER, CHILLS, SEGAL, N/V. WAS ADMITTED TO HOSPITAL RECENTLY FOR UTI ET "PROSTATE PROBLEMS." IS SCHEDULED TO SEE DR MARCUS 05/02/16 FOR F/U. C/O INTERMITTENT RIGHT FLANK PAIN ET PAIN OVER UMBILICUS. Nursing Sepsis Screen: Possible Sepsis Risk Source of Information: Patient Exam Limitations: No Limitations History of Present Illness Time Seen by Provider: 13:42 Initial Comments tHE PATIENT IS A 70-YEAR-OLD WHITE MALE KNOWN TO ME FROM A PREVIOUS VISIT LAST MONTH. He was found to have what appeared to be bilateral pyelonephritis. This appeared to be on the basis of rather severe BPH and urinary retention. He was placed on an alpha agonist and Proscar. He continues to have difficulties with the frequency, nocturia and now dysuria. He reports that over the last day or 2 he has had severe urgency and when he gets to the bathroom he has either been incontinent or produces only a very small amount of urine. Today he notes fever and chills. He is to see Dr. Marcus but not for 2 more weeks yet. Timing/Duration: 2-3 Days Associated Systoms: Diaphoresis Fever/Chills Loss of Appetite Nausea/Vomiting Weakness Allergies and Home Medications Allergies Coded Allergies: No Known Drug Allergies (Unverified , 08/11/15) Home Medications (Reported) Alfuzosin HCl 10 Mg Tab.er.24h #30 10 MG PO DAILY@1800 Prescribed by: RADHA LANIER on 04/03/16 1249 Allopurinol 300 Mg Tablet 300 MG PO DAILY (Reported) Atenolol 25 Mg Tablet 25 MG PO DAILY (Reported) Cholecalciferol (Vitamin D3) 2,000 Unit Tablet 2,000 UNIT PO DAILY (Reported) Enalapril Maleate 20 Mg Tablet 40 MG PO DAILY (Reported) TAKES 2 (20MG) TABLETS Hydrochlorothiazide 12.5 Mg Tablet 12.5 MG PO DAILY (Reported) [place]-3/Dha/Epa/Fish Oil 1 Each Capsule 1,000 MG PO DAILY (Reported) Pravastatin Sodium 10 Mg Tablet 10 MG PO HS (Reported) Constitutional: see HPI EENTM: no symptoms reported Respiratory: no symptoms reported Cardiovascular: no symptoms reported Gastrointestinal: nausea Genitourinary: decreased output frequency incontinence nocturia Musculoskeletal: no symptoms reported Skin: no symptoms reported Psychiatric/Neurological: No Symptoms Reported Past Mgwikwo-Cdhytv-Givybw Hx Patient Social History Former Smoker/When Quit: Feb 19, 2001 2nd Hand Smoke Exposure: No Recent Foreign Travel: No Contact w/Someone Who Travel: No Recent Infectious Disease Expo: No Recent Hopitalizations: No Immunizations Up To Date Tetanus Booster (TDap): Less than 5yrs Seasonal Allergies Seasonal Allergies: No Surgeries HX Surgeries: Yes (RICHARD) Surgeries: Abdominal Respiratory Hx Respiratory Disorders: No Cardiovascular Hx Cardiac Disorders: Yes Cardiac Disorders: High Cholesterol, Hypertension Neurological Hx Neurological Disorders: No Reproductive System Hx Reproductive Disorders: No Sexually Transmitted Disease: No HIV/AIDS: No Genitourinary Hx Genitourinary Disorders: No Gastrointestinal Hx Gastrointestinal Disorders: Yes (RICHARD FUNDOPLICATION) Musculoskeletal Hx Musculoskeletal Disorders: Yes Musculoskeletal Disorders: Gout Endocrine Hx Endocrine Disorders: No HEENT HX ENT Disorders: No Loss of Vision: Denies Hearing Impairment: Denies Cancer Hx Cancer: Yes Cancer: Skin Psychosocial Hx Psychiatric Problems: No Integumentary HX Skin/Integumentary Disorder: Yes (SKIN CANCER) Blood Transfusions Hx Blood Disorders: No Family Medical History Significant Family History: No Pertinent Family Hx Family Medial History: CVA Physical Exam-Suspected Sepsis Physical Exam Vital Signs Vital Sign - Last 12Hours 04/20/16 13:10 Temp 103.1 Pulse 84 Resp 28 B/P 156/63 Pulse Ox 96 O2 Delivery Nasal Cannula O2 Flow Rate 2 Capillary Refill : Less Than 3 Seconds Blood Pressure Mean: 94 General Appearance: Mild Distress Moderate Distress Eyes: Bilateral Eye Normal Inspection HEENT: Normal ENT Inspection Neck: Normal Inspection Respiratory: Chest Non Tender Lungs Clear Normal Breath Sounds No Accessory Muscle Use No Respiratory Distress Cardiovascular: Regular Rate, Rhythm No Edema No Gallop No JVD No Murmur Gastrointestinal: Tenderness (generalized tenderness. Bilateral flank pain to percussion) Back: Normal Inspection No CVA Tenderness No Vertebral Tenderness Extremity: Normal Capillary Refill Normal Inspection Normal Range of Motion Non Tender No Calf Tenderness No Pedal Edema Neurologic/Psychiatric: Alert Oriented x3 No Motor/Sensory Deficits Normal Mood/Affect Skin: normal color Lymphatic: No Adenopathy Progress/Results/Core Measures Suspected Sepsis Recent Fever Within 48 Hours: Yes Infection Criteria Present: Suspected New Infection New/Unexplained Altered Menta: No Sepsis Screen: Possible Sepsis Risk Sepsis Diagnosis: SIRS Temperature:103.1 Pulse: 84 Respiratory Rate: 28 Laboratory Tests 04/20/16 13:20: White Blood Count 14.6H Blood Pressure 156 /63 Mean: 94 Laboratory Tests 04/20/16 13:20: Creatinine 2.59H, Platelet Count 211, Total Bilirubin 0.9 Results/Orders Lab Results Laboratory Tests Test 04/20/16 13:17 04/20/16 13:20 Range/Units Urine Bacteria MODERATE H /HPF Urine Bilirubin NEGATIVE NEGATIVE Urine Casts NONE /LPF Urine Clarity CLEAR Urine Color YELLOW Urine Crystals NONE /LPF Urine Culture Indicated YES Urine Glucose (UA) NEGATIVE NEGATIVE Urine Ketones NEGATIVE NEGATIVE Urine Leukocyte Esterase 3+ H NEGATIVE Urine Mucus NEGATIVE /LPF Urine Nitrite NEGATIVE NEGATIVE Urine Protein 3+ H NEGATIVE Urine RBC >100 H /HPF Urine RBC (Auto) 5+ H NEGATIVE Urine Renal Epithelial Cells 5-10 /HPF Urine Specific [place] 1.015 L 1.016-1.022 Urine Urobilinogen 4 H NORMAL MG/DL Urine WBC >100 H /HPF Urine pH 5 5-9 Alanine Aminotransferase (ALT/SGPT) 18 0-55 U/L Albumin 3.3 3.2-4.5 G/DL Alkaline Phosphatase 85 40-136 U/L Anion Gap 10 5-14 MMOL/L Aspartate Amino Transf (AST/SGOT) 19 5-34 U/L BUN/Creatinine Ratio 16 Band Neutrophils 10 % Basophils # (Auto) 0.0 0.0-0.1 10^3/uL Basophils % (Manual) 0 % Basophils (%) (Auto) 0 0-10 % Blood Morphology Comment NORMAL Blood Urea Nitrogen 41 H 7-18 MG/DL Calcium Level 8.9 8.5-10.1 MG/DL Carbon Dioxide Level 19 L 21-32 MMOL/L Chloride Level 105 98-107 MMOL/L Creatinine 2.59 H 0.60-1.30 MG/DL Eosinophils # (Auto) 0.0 0.0-0.3 10^3/uL Eosinophils % (Manual) 0 % Eosinophils (%) (Auto) 0 0-10 % Estimat Glomerular Filtration Rate 25 Glucose Level 140 H 70-105 MG/DL Hematocrit 36 L 40-54 % Hemoglobin 12.3 L 13.3-17.7 G/DL Lymphocytes # (Auto) 0.9 L 1.0-4.0 X 10^3 Lymphocytes % (Manual) 3 % Lymphocytes (%) (Auto) 6 L 12-44 % Mean Corpuscular Hemoglobin 30 25-34 PG Mean Corpuscular Hemoglobin Concent 34 32-36 G/DL Mean Corpuscular Volume 87 80-99 FL Mean Platelet Volume 11.9 H 7.4-10.4 FL Monocytes # (Auto) 1.2 H 0.0-1.0 X 10^3 Monocytes % (Manual) 9 % Monocytes (%) (Auto) 8 0-12 % Neutrophils # (Auto) 12.4 H 1.8-7.8 X 10^3 Neutrophils % (Manual) 78 % Neutrophils (%) (Auto) 85 H 42-75 % Platelet Count 211 130-400 10^3/uL Potassium Level 5.0 3.6-5.0 MMOL/L Red Blood Count 4.15 L 4.35-5.85 10^6/uL Red Cell Distribution Width 13.9 10.0-14.5 % Sodium Level 134 L 135-145 MMOL/L Total Bilirubin 0.9 0.1-1.0 MG/DL Total Protein 6.4 6.4-8.2 G/DL Toxic Granulation 1+ White Blood Count 14.6 H 4.3-11.0 10^3/uL My Orders Orders-RADHA LANIER MD Cbc With Automated Diff (04/20/16 12:44) Comprehensive Metabolic Panel (04/20/16 12:44) Ua Culture If Indicated (04/20/16 12:44) Chest 1 View, Ap/Pa Only (04/20/16 12:44) Manual Differential (04/20/16 13:20) Urine Culture (04/20/16 13:17) Lactic Acid Analyzer (04/20/16 14:28) Vital Signs/I&O Vital Sign - Last 12Hours 04/20/16 13:10 Temp 103.1 Pulse 84 Resp 28 B/P 156/63 Pulse Ox 96 O2 Delivery Nasal Cannula O2 Flow Rate 2 Capillary Refill : Less Than 3 Seconds Blood Pressure Mean: 94 Departure Communication Progress Notes Laboratory yields UA with WBCs too numerous to count. It is noted that on his previous admission he had Escherichia coli which was ESBL positive. Discussed with Dr. Cummings at 1440 and he will be admitted Impression Impression: Primary Impression: pyelonephritis Disposition: ADMITTED INPATIENT Condition: Stable/Unchanged Decision to Admit Reason: Admit from ER (General) Decision to Admit/Date: Apr 20, 2016 Time/Decision to Admit Time: 14:42 Departure-Patient Inst. Referrals: TETO TORRES MD (PCP/Family) Primary Care Physician RADHA LANIER MD Apr 20, 2016 13:46
[2016-04-20 13:53] LABS: ALBUMIN 3.3 G/DL (3.2-4.5); BILIRUBIN,TOTAL 0.9 MG/DL (0.1-1.0); CALCIUM 8.9 MG/DL (8.5-10.1); CREATININE SERUM 2.59 MG/DL (0.60-1.30); TOTAL PROTEIN 6.4 G/DL (6.4-8.2)
[2016-04-20 13:54] LABS: BAND NEUTROPHILS 10 %; BASOPHILS % (MANUAL) 0 %; EOSINOPHILS % (MANUAL) 0 %; LYMPHOCYTES % (MANUAL) 3 %; NEUTROPHILS % (MANUAL) 78 %
--- NOTE | 2016-04-20 14:01 | Diagnostic Imaging Report ---
Portable erect AP chest at 1:46 p.m. INDICATION: Fever, chills. FINDINGS: The heart size is within normal limits and stable when compared to 04/01/2016. The chronic pulmonary changes involving both lungs seen on previous study are again evident and do not appear to have changed significantly. There is still no evidence for acute pneumonia or for a pleural effusion or failure. The mediastinum is not widened. The osseous structures are intact. IMPRESSION: There is chronic pulmonary disease but there is no acute abnormality identified. Overall, there has been no significant change when compared to the prior exam. Dictated by: Dictated on workstation # [id number]
[2016-04-20] MEDS ORDERED: NS IV 1000 ML 1,000 ML IV SCH (14:45)
[2016-04-20] MEDS ORDERED: NS (IVPB) 100 ML ONE (15:12)
[2016-04-20] MEDS ORDERED: MEROPENEM 500 MG VIAL (MERREM) IV ONE (15:12)
[2016-04-20] MEDS ORDERED: ACETAMINOPHEN 500 MG TAB (TYLENOL) ONE (15:25)
[2016-04-20] MEDS ORDERED: SENNA W/DOCUSATE (SENOKOT S) TABLET PO PRN (15:30)
[2016-04-20] MEDS ORDERED: IBUPROFEN TABLET 200 MG TAB PO PRN (15:30)
[2016-04-20] MEDS ORDERED: ONDANSETRON 4 MG/2 ML (SDV) Z0FRAN IVP PRN (15:30)
[2016-04-20] MEDS ORDERED: ACETAMINOPHEN 500 MG TAB (TYLENOL) PO ONE (15:30)
[2016-04-20 15:51] VITALS: BP 125/74
[2016-04-20] MEDS ORDERED: CATHETER FLUSH 10 ML SYR IV PRN (16:00)
[2016-04-20] MEDS: NS IV 1000 ML 1,000 ML IV SCH ×2 (16:05→23:59)
[2016-04-20] MEDS ORDERED: ACET-93 PO (16:10)
[2016-04-20] MEDS ORDERED: FLU TRIvalent (5 YOA+) 2016-17 (AFLURIA) 0.5 ML IM ONE (18:45)
[2016-04-20 18:56] VITALS: BP 165/72
[2016-04-20] MEDS: ACETAMINOPHEN 500 MG TAB (TYLENOL) PO PRN (19:35)
[2016-04-20] MEDS: MEROPENEM 500 MG/NS 100 ML IVPB IV SCH ×2 (21:30)
[2016-04-20] MEDS ORDERED: RT-ALBUTEROL/IPRATROPIUM 3 ML (DUONEB) VIAL ONE (21:45)
[2016-04-20] MEDS ORDERED: MEROPENEM 1,000 MG in NS (IVPB) 100 ML IV SCH ×4 (22:00)
[2016-04-20] MEDS ORDERED: RT-ALBUTEROL/IPRATROPIUM 3 ML (DUONEB) VIAL INH PRN (22:30)
[2016-04-21] VITALS: BP 118/58
[2016-04-21] MEDS: ACETAMINOPHEN 500 MG TAB (TYLENOL) PO PRN ×3 (01:39→15:34)
[2016-04-21 04:00] VITALS: BP 124/80
[2016-04-21] MEDS: MEROPENEM 500 MG/NS 100 ML IVPB IV SCH ×4 (05:33→18:53)
[2016-04-21 06:41] LABS: BASOPHILS % (AUTO) 0 % (0-10); EOSINOPHILS % (AUTO) 0 % (0-10); LYMPHOCYTES # (AUTO) 0.4 X 10^3 (1.0-4.0); LYMPHOCYTES % (AUTO) 3 % (12-44); MEAN CORPUSCULAR HEMOGLOBIN 29 PG (25-34); MEAN CORPUSCULAR HGB CONC 34 G/DL (32-36); MEAN CORPUSCULAR VOLUME 88 FL (80-99); MEAN PLATELET VOLUME 12.9 FL (7.4-10.4); MONOCYTES # (AUTO) 0.7 X 10^3 (0.0-1.0); MONOCYTES % (AUTO) 6 % (0-12); NEUTROPHILS % (AUTO) 90 % (42-75); PLATELET COUNT 176 10^3/uL (130-400); RED BLOOD COUNT 3.98 10^6/uL (4.35-5.85); RED CELL DISTRIBUTION WIDTH 14.1 % (10.0-14.5); WHITE BLOOD COUNT 11.1 10^3/uL (4.3-11.0)
[2016-04-21 07:08] LABS: ALBUMIN 3.1 G/DL (3.2-4.5); BILIRUBIN,TOTAL 0.7 MG/DL (0.1-1.0); CALCIUM 8.6 MG/DL (8.5-10.1); CREATININE SERUM 3.13 MG/DL (0.60-1.30); POTASSIUM 4.8 MMOL/L (3.6-5.0); TOTAL PROTEIN 6.1 G/DL (6.4-8.2)
[2016-04-21] MEDS: RT-ALBUTEROL/IPRATROPIUM 3 ML (DUONEB) VIAL INH SCH ×2 (07:49→19:11)
[2016-04-21 08:00] VITALS: BP 153/68
[2016-04-21] MEDS: NS IV 1000 ML 1,000 ML IV SCH ×2 (09:03→17:28)
[2016-04-21] MEDS: FINASTERIDE (PROSCAR) 5 MG TAB PO SCH (09:09)
[2016-04-21] MEDS ORDERED: ACETAMINOPHEN 500 MG TAB (TYLENOL) PO PRN (09:15)
[2016-04-21] MEDS ORDERED: LIDOCAINE UROJET 2% GEL 10 ML PKG ONE (09:27)
--- NOTE | 2016-04-21 10:15 | History & Physical-Hospitalist ---
HPI History of Present Illness: HPI/Chief Complaint CC: Fever and unable to urinate HPI: This is a 70yoWM pt. of Dr. Horton with past medical hx of BPH, Gout, HTN and HLP that presents to ER with above complaints. Pt was previously hospitalized Apr 01 for similar issues, and followed up with PCP following DC. Pt's symptoms returned and he has been readmitted. Blood Cx was positive, and pt is on antibiotics. Creat was 2.59 on admission, now 3.13 even though aggressive IV fluids of NS is infusing. Dr. Gomez has been consulted and will work with pt in the future to prevent return of symptoms. Patient Interview: Pt states that he has seen Dr. Gomez. Dr. Darling informs pt that Dr. Gomez will be working with pt regarding preventing symptoms from reoccurring. Pt has some pain in his head, but is otherwise comfortable. Pt states that he was last hospitalized Apr 01. Dr. Darling informs pt that he has bacteria in blood, and is on a strong antibiotic. Physical exam stable. Pt confirms that Dr. Diez is PCP. Pt followed-up with Dr. Diez after previous hospitalization. Scribed by Ezio Martinez under the direct supervision of Dr. Darling. Source: patient Exam Limitations: no limitations Date Seen 04/21/16 Attending Physician Briseida Darling Douglas K MD Referring Physician Date of Admission Apr 20, 2016 at 14:49 Home Medications & Allergies Home Medications Reviewed patient Home Medication Reconciliation Form Allergies Coded Allergies: No Known Drug Allergies (Unverified , 08/11/15) Past Wgmtszs-Fzdhlf-Eabpys Hx Patient Social History Marrital Status: Employed/Student: retired Alcohol Use: Rarely Uses Recreational Drug Use: No Smoking Status: Former Smoker Former smoker/When Quit: Feb 19, 2001 2nd Hand Smoke Exposure: No Physical Abuse Screen: No Sexual Abuse: No Recent Foreign Travel: No Contact w/other who traveled: No Recent Hopitalizations: No Recent Infectious Disease Expo: No Immunizations Up To Date Tetanus Booster (TDap): Less than 5yrs Seasonal Allergies Seasonal Allergies: No Surgeries HX Surgeries: Yes (RICHARD) Surgeries: Abdominal Respiratory Hx Respiratory Disorders: No Cardiovascular Hx Cardiovascular Disorders: Yes Cardiac Disorders: High Cholesterol, Hypertension Neurological Hx Neurological Disorders: No Reproductive System Hx Reproductive Disorders: No Sexually Transmitted Disease: No HIV/AIDS: No Genitourinary Hx Genitourinary Disorders: Yes Genitourinary Disorders: Benign Prostatic Hyperpl, Prostate Problems, Renal Failure Gastrointestinal Hx Gastrointestinal Disorders: Yes (RICHARD FUNDOPLICATION) Musculoskeletal Hx Musculoskeletal Disorders: Yes Musculoskeletal Disorders: Gout Endocrine Hx Endocrine Disorders: No HEENT HX ENT Disorders: No Loss of Vision: Denies Hearing Impairment: Denies Cancer Hx Cancer: Yes Cancer: Skin Psychosocial Hx Psychiatric Problems: No Integumentary HX Skin/Integumentary Disorder: Yes (SKIN CANCER) Blood Transfusions Hx Blood Disorders: No Family Medical History Significant Family History: No Pertinent Family Hx Family Hx: CVA Review of Systems Constitutional: chills diaphoresis dizziness fever malaise weakness EENTM: no symptoms reported Respiratory: no symptoms reported Cardiovascular: no symptoms reported Gastrointestinal: nausea vomiting Genitourinary: decreased output dysuria frequency hematuria hesitancy incontinence pain Musculoskeletal: no symptoms reported Skin: no symptoms reported Psychiatric/Neurological: No Symptoms Reported All Other Systems Reviewed Negative Unless Noted: Yes Physical Exam Physical Exam Vital Signs Vital Sign - Last 12Hours 04/20/16 13:10 Temp 103.1 Pulse 84 Resp 28 B/P 156/63 Pulse Ox 96 O2 Delivery Nasal Cannula O2 Flow Rate 2 Capillary Refill : Less Than 3 Seconds General Appearance: WD/WN Moderate Distress Obese Other (acutely ill but stable at bedside) Eyes: Bilateral Eye Normal Inspection, Bilateral Eye PERRL HEENT: PERRL/EOMI Normal ENT Inspection Pharynx Normal Neck: Full Range of Motion Normal Inspection Non Tender Supple Carotid Bruit Respiratory: Chest Non Tender Lungs Clear Normal Breath Sounds No Accessory Muscle Use No Respiratory Distress Cardiovascular: Regular Rate, Rhythm No Edema No Gallop No JVD No Murmur Normal Peripheral Pulses Tachycardia Gastrointestinal: Normal Bowel Sounds No Organomegaly No Pulsatile Mass Non Tender Soft Back: Normal Inspection No CVA Tenderness No Vertebral Tenderness Extremity: Normal Capillary Refill Normal Inspection Normal Range of Motion Non Tender No Calf Tenderness No Pedal Edema Neurologic/Psychiatric: Alert Oriented x3 No Motor/Sensory Deficits Normal Mood/Affect Skin: Normal Color Warm/Dry Lymphatic: No Adenopathy Results Results/Procedures Lab Laboratory Tests 04/20/16 13:20 04/21/16 05:37 Assessment/Plan Admission Diagnosis Assessment: Sepsis with pyelonephritis and outlet obstruction due to BPH presumed Acute on chronic renal failure HTN HLP Gout Assessment and Plan Plan: Maintain antibiotic for bacteria in blood and severe illness Remain at [facility] over the weekend. Pt will follow-up with Dr. Gomez and we appreciate his guidance Reconcile all home meds but held ALIZE inhibitor, HCTZ and allopurinol due to kidney function Clinical Quality Measures DVT/VTE Risk/Contraindication: Risk Factor Score Per Nursin RFS Level Per Nursing on Admit: 4+=Very High BRISEIDA DARLING DO Apr 21, 2016 10:15
--- NOTE | 2016-04-21 10:36 | CONSULTATION REPORT ---
DATE OF CONSULTATION: 04/21/2016 ATTENDING PHYSICIAN: Dr. Cummings. SUMMARY: After reviewing the patient's record, interviewing him and examining him; this is a 70-year-old white man readmitted after a month where he was in the hospital because of a UTI. The infection at that time showed ESBL and was treated accordingly. He was started at that time on Flomax or Uroxatral. The patient and over the last year, does have voiding symptoms in the form of frequency, urgency, nocturia, weak stream, question emptying. He was admitted with a diagnosis of bilateral pyelonephritis based on mild changes in the CAT scan, which really does not impress me at all. There were no other problems from the previous CAT scan a month ago. The symptoms looks to be more like prostatitis and really pyelonephritis, but he does not have really the criteria of pyelonephritis clinically speaking. ALLERGIES: He has no known drug allergies. MEDICATIONS: 1. Uroxatral 10 mg daily. 2. Allopurinol 300 mg daily. 3. Atenolol 25 mg daily. 4. Vitamin D3 2000 units daily. 5. Enalapril 20 mg 2 a day. 6. Hydrochlorothiazide 12.5 mg daily. 7. Fish oil. 8. Pravastatin 10 mg daily. MEDICAL ILLNESSES INCLUDE: 1. Gout. 2. Hypertension. 3. Hyperlipidemia, with some vitamin D deficiency. REVIEW OF SYSTEMS: Negative for all systems, otherwise, except related to the infection, like weakness, nausea, not feeling too well and fever. SOCIAL HISTORY: Quit smoking 2001. No alcohol. No drugs. ALLERGIES: Has no seasonal allergies. SURGERY FOSTER: Had surgery for what sounded like a ruptured duodenal ulcer and a Noemi fundoplication. FAMILY HISTORY: Noncontributory but does have a history of CVA. VITAL SIGNS: His vitals per chart. PHYSICAL EXAMINATION: GENERAL: Well-nourished, well-developed, looks kind of mildly distressed with fever effect. HEAD: Normocephalic. ENT: Unremarkable. NECK: Supple. No bruits. CHEST: Clear, nontender. HEART: Rate rhythm. No murmur. ABDOMEN: Soft. There is no CVA tenderness. EXTREMITIES: Lower extremity no edema or cyanosis. NEUROLOGICAL EXAM: Grossly intact. Oriented x3. RECTAL EXAM: Deferred because of the possibility of acute prostatitis. IMPRESSION: 1. Prostatitis with possible sepsis, doubt bilateral pyelonephritis. 2. Hypertension. 3. Hyperlipidemia. PLAN: 1. Renal ultrasound to check for hydronephrosis. 2. We inserted a Hyde catheter first to check his residual and also give him comfort. Cool off the prostate and to help him with his frequency and urgency symptoms. 3. Continue antibiotic per cultures. 4. Continue Uroxatral. 5. Add Proscar. 6. Later on after he recovers from this infection, at the office as an outpatient, we will proceed with studies including cystoscopy and ultrasound of the prostate. If he has no catheter at that time, we will also do a flow study the bladder sonogram. The plan was fully explained to the patient and his and all of his questions were answered. Job ID: [id number] Dictated Date: 04/21/2016 08:43:30 Manager Truck Date: 04/21/2016 10:22:10/em
[2016-04-21] MEDS ORDERED: ATENOLOL 25 MG (TENORMIN) TAB ONE (11:34)
--- NOTE | 2016-04-21 11:46 | Diagnostic Imaging Report ---
Renal ultrasound. INDICATION: Prostatitis and renal failure. FINDINGS: The right kidney is 11.9 cm, and the left kidney is 12.9 cm in length. There is no hydronephrosis seen in either kidney. The upper pole of the right kidney is partially obscured. The urinary bladder is empty and is not well evaluated. IMPRESSION: No hydronephrosis in either kidney. The upper pole of the right kidney is not well evaluated. Consider CT scan or MRI evaluation if better evaluation is needed. Dictated by: Dictated on workstation # [id number]
[2016-04-21 12:00] VITALS: BP 145/86
[2016-04-21] MEDS: ATENOLOL 25 MG (TENORMIN) TAB PO SCH (12:56)
[2016-04-21] MEDS: HYDROcodone/APAP 5 MG/325 MG (LORTAB) TAB PO PRN (15:37)
[2016-04-21 16:00] VITALS: BP 152/67
[2016-04-21] MEDS: ALFUZOSIN HCL 10 MG TAB (UROXATRAL) PO SCH (18:51)
[2016-04-21 19:44] VITALS: BP 135/70
[2016-04-21] MEDS: SIMvastatin 10 MG (ZOCOR) TAB PO SCH (20:45)
[2016-04-21] MEDS: ALPRAZolam 0.25 MG (XANAX) TAB PO PRN (20:45)
[2016-04-22] VITALS: BP 159/73
[2016-04-22] MEDS: ACETAMINOPHEN 500 MG TAB (TYLENOL) PO PRN ×3 (00:41→14:30)
[2016-04-22] MEDS: NS IV 1000 ML 1,000 ML IV SCH ×4 (03:10→21:01)
[2016-04-22 04:00] VITALS: BP 143/75
[2016-04-22] MEDS: MEROPENEM 500 MG/NS 100 ML IVPB IV SCH ×4 (05:52→17:42)
[2016-04-22 07:13] LABS: BASOPHILS % (AUTO) 0 % (0-10); EOSINOPHILS # (AUTO) 0.1 10^3/uL (0.0-0.3); EOSINOPHILS % (AUTO) 2 % (0-10); LYMPHOCYTES # (AUTO) 0.8 X 10^3 (1.0-4.0); LYMPHOCYTES % (AUTO) 12 % (12-44); MEAN CORPUSCULAR HEMOGLOBIN 29 PG (25-34); MEAN CORPUSCULAR HGB CONC 34 G/DL (32-36); MEAN CORPUSCULAR VOLUME 87 FL (80-99); MEAN PLATELET VOLUME 12.9 FL (7.4-10.4); MONOCYTES # (AUTO) 0.4 X 10^3 (0.0-1.0); MONOCYTES % (AUTO) 6 % (0-12); NEUTROPHILS # (AUTO) 5.5 X 10^3 (1.8-7.8); NEUTROPHILS % (AUTO) 80 % (42-75); PLATELET COUNT 155 10^3/uL (130-400); RED BLOOD COUNT 4.02 10^6/uL (4.35-5.85); RED CELL DISTRIBUTION WIDTH 14.4 % (10.0-14.5); WHITE BLOOD COUNT 6.8 10^3/uL (4.3-11.0)
[2016-04-22 07:33] LABS: ALBUMIN 2.8 G/DL (3.2-4.5); BILIRUBIN,TOTAL 0.4 MG/DL (0.1-1.0); CALCIUM 8.5 MG/DL (8.5-10.1); CREATININE SERUM 3.08 MG/DL (0.60-1.30); POTASSIUM 3.9 MMOL/L (3.6-5.0)
[2016-04-22] MEDS: RT-ALBUTEROL/IPRATROPIUM 3 ML (DUONEB) VIAL INH SCH ×3 (07:39→19:59)
[2016-04-22 08:00] VITALS: BP 157/68
[2016-04-22] MEDS ORDERED: ALLOPURINOL 300 MG (ZYLOPRIM) TAB PO SCH (09:00)
[2016-04-22] MEDS: ATENOLOL 25 MG (TENORMIN) TAB PO SCH (09:17)
[2016-04-22] MEDS: FINASTERIDE (PROSCAR) 5 MG TAB PO SCH (09:17)
[2016-04-22] MEDS: VITAMIN D3 1,000 UNITS (CHOLECALCIFEROL) TABLET PO SCH (09:17)
[2016-04-22 12:00] VITALS: BP 135/86
--- NOTE | 2016-04-22 12:32 | Progress Note-Hospitalist ---
Standard Progress Note Progress Notes/Assess & Plan Date Seen 04/22/16 Diagnosis Assessment: Sepsis with pyelonephritis and outlet obstruction due to BPH presumed Acute on chronic renal failure HTN HLP Gout Assess & Plan/Chief Complaint The patient is a 70-year-old white male. He is known to me from a previous admission last month and again from his presentation in the emergency room on 04/20. As had been anticipated he again grew Escherichia coli which is ESBL positive from the urine. His MAXIMUM TEMPERATURE for the last 24 hours was 102.3 at 1600 hours on 04/21. He reports he is beginning to get a bit of appetite back. Dr. Gomez has seen him in consultation and has filed his observations and opinions. Physical exam: The patient is alert and oriented. He is sitting up at the bedside eating lunch. Lungs are clear to auscultation. CV is regular without murmur. Impression: Recurrent urinary tract infection with Escherichia coli/ESBL +. 2.consider prostate as the source of this recurrent infection. Plan: Leave Hyde catheter in at present. 2.continue meropenem Labs Laboratory Tests 04/20/16 13:20 04/21/16 05:37 04/22/16 06:40 RADHA LANIER MD Apr 22, 2016 12:31
[2016-04-22 16:18] VITALS: BP 141/75
[2016-04-22] MEDS: ALFUZOSIN HCL 10 MG TAB (UROXATRAL) PO SCH (17:41)
[2016-04-22 20:38] VITALS: BP 167/72
[2016-04-22] MEDS: SIMvastatin 10 MG (ZOCOR) TAB PO SCH (21:00)
[2016-04-22] MEDS: ALPRAZolam 0.25 MG (XANAX) TAB PO PRN (21:00)
[2016-04-22] MEDS: HYDROcodone/APAP 5 MG/325 MG (LORTAB) TAB PO PRN (22:54)
[2016-04-23] VITALS: BP 121/94
[2016-04-23] MEDS: MEROPENEM 500 MG/NS 100 ML IVPB IV SCH ×4 (05:48→17:44)
[2016-04-23] MEDS: NS IV 1000 ML 1,000 ML IV SCH ×3 (05:48→23:37)
[2016-04-23 07:02] LABS: CALCIUM 8.3 MG/DL (8.5-10.1); CREATININE SERUM 2.48 MG/DL (0.60-1.30); POTASSIUM 4.3 MMOL/L (3.6-5.0)
[2016-04-23] MEDS: RT-ALBUTEROL/IPRATROPIUM 3 ML (DUONEB) VIAL INH SCH ×3 (07:58→19:31)
[2016-04-23 08:00] VITALS: BP 147/72
[2016-04-23] MEDS: ATENOLOL 25 MG (TENORMIN) TAB PO SCH (08:13)
[2016-04-23] MEDS: HYDROcodone/APAP 5 MG/325 MG (LORTAB) TAB PO PRN ×2 (08:13→14:21)
[2016-04-23] MEDS: FINASTERIDE (PROSCAR) 5 MG TAB PO SCH (08:13)
[2016-04-23] MEDS: VITAMIN D3 1,000 UNITS (CHOLECALCIFEROL) TABLET PO SCH (08:13)
--- NOTE | 2016-04-23 12:00 | Progress Note-Hospitalist ---
Standard Progress Note Progress Notes/Assess & Plan Date Seen 04/23/16 Diagnosis Assessment: Sepsis with pyelonephritis and outlet obstruction due to BPH presumed Acute on chronic renal failure HTN HLP Gout Assess & Plan/Chief Complaint The patient reports that he feels considerably better today than he did yesterday. MAXIMUM TEMPERATURE was 100.6. He is quite hard of hearing but has no other complaints at this time. He then reported that he had had a black stool but this morning stool was green. It would not appear that he is on any iron or bismuth-containing products stool for occult blood was positive. A hemoglobin will be obtained. There is no abdominal pain. Physical exam: Lungs are clear to auscultation. CV is regular without murmur. Abdomen is soft without tenderness to palpation Impression: Escherichia coli/ESBL. 2.prostatitis versus pyelonephritis Labs Laboratory Tests 04/22/16 06:40 04/23/16 05:55 RADHA LANIER MD Apr 23, 2016 12:00
[2016-04-23 12:26] LABS: BASOPHILS % (AUTO) 0 % (0-10); EOSINOPHILS # (AUTO) 0.2 10^3/uL (0.0-0.3); EOSINOPHILS % (AUTO) 4 % (0-10); LYMPHOCYTES % (AUTO) 18 % (12-44); MEAN CORPUSCULAR HEMOGLOBIN 29 PG (25-34); MEAN CORPUSCULAR HGB CONC 33 G/DL (32-36); MEAN CORPUSCULAR VOLUME 87 FL (80-99); MONOCYTES # (AUTO) 0.6 X 10^3 (0.0-1.0); MONOCYTES % (AUTO) 11 % (0-12); NEUTROPHILS # (AUTO) 3.9 X 10^3 (1.8-7.8); NEUTROPHILS % (AUTO) 67 % (42-75); PLATELET COUNT 155 10^3/uL (130-400); RED CELL DISTRIBUTION WIDTH 14.6 % (10.0-14.5); WHITE BLOOD COUNT 5.7 10^3/uL (4.3-11.0)
[2016-04-23 16:00] VITALS: BP 165/69
[2016-04-23] MEDS: ALFUZOSIN HCL 10 MG TAB (UROXATRAL) PO SCH (17:43)
[2016-04-23] MEDS: SIMvastatin 10 MG (ZOCOR) TAB PO SCH (21:07)
[2016-04-24] VITALS: BP 149/71
[2016-04-24] MEDS: ACETAMINOPHEN 500 MG TAB (TYLENOL) PO PRN (00:04)
[2016-04-24] MEDS: MEROPENEM 500 MG/NS 100 ML IVPB IV SCH ×2 (05:40)
[2016-04-24] MEDS: NS IV 1000 ML 1,000 ML IV SCH (06:45)
[2016-04-24] MEDS: RT-ALBUTEROL/IPRATROPIUM 3 ML (DUONEB) VIAL INH SCH (07:33)
[2016-04-24 08:00] VITALS: BP 161/75
[2016-04-24] MEDS: FINASTERIDE (PROSCAR) 5 MG TAB PO SCH (09:07)
[2016-04-24] MEDS: ATENOLOL 25 MG (TENORMIN) TAB PO SCH (09:07)
[2016-04-24] MEDS: VITAMIN D3 1,000 UNITS (CHOLECALCIFEROL) TABLET PO SCH (09:07)
--- NOTE | 2016-04-24 09:41 | Progress Note-Urology ---
Progress Note-Urology Progress Notes/Assess & Plan Progress/Assessment & Plan progressing well, office in 3 weeks for w/u, after full course on IV ABX put on Macrobid BID for 10 days Final Diagnosis prostatitis TUSHAR MARCUS MD Apr 24, 2016 9:41 am
[2016-04-24 10:23] LABS: BASOPHILS % (AUTO) 0 % (0-10); EOSINOPHILS # (AUTO) 0.2 10^3/uL (0.0-0.3); EOSINOPHILS % (AUTO) 4 % (0-10); LYMPHOCYTES # (AUTO) 1.2 X 10^3 (1.0-4.0); LYMPHOCYTES % (AUTO) 21 % (12-44); MEAN CORPUSCULAR HEMOGLOBIN 29 PG (25-34); MEAN CORPUSCULAR HGB CONC 34 G/DL (32-36); MEAN CORPUSCULAR VOLUME 87 FL (80-99); MEAN PLATELET VOLUME 11.9 FL (7.4-10.4); MONOCYTES # (AUTO) 0.6 X 10^3 (0.0-1.0); MONOCYTES % (AUTO) 10 % (0-12); NEUTROPHILS # (AUTO) 3.6 X 10^3 (1.8-7.8); NEUTROPHILS % (AUTO) 65 % (42-75); PLATELET COUNT 163 10^3/uL (130-400); RED BLOOD COUNT 3.57 10^6/uL (4.35-5.85); RED CELL DISTRIBUTION WIDTH 14.5 % (10.0-14.5); WHITE BLOOD COUNT 5.5 10^3/uL (4.3-11.0)
[2016-04-24 10:43] LABS: ALBUMIN 2.7 G/DL (3.2-4.5); BILIRUBIN,TOTAL 0.4 MG/DL (0.1-1.0); CALCIUM 8.5 MG/DL (8.5-10.1); CREATININE SERUM 2.36 MG/DL (0.60-1.30); POTASSIUM 4.5 MMOL/L (3.6-5.0); TOTAL PROTEIN 5.7 G/DL (6.4-8.2)
--- NOTE | 2016-04-24 11:00 | Discharge Summary-Hospitalist ---
Diagnosis/Chief Complaint Date of Admission Apr 20, 2016 at 14:49 Date of Discharge Admission Diagnosis Assessment: Sepsis with pyelonephritis and outlet obstruction due to BPH presumed Acute on chronic renal failure HTN HLP Gout Discharge Diagnosis Assessment: Sepsis with pyelonephritis and outlet obstruction due to BPH requiring catheter urology consultation Acute on chronic renal failure HTN HLP Gout Plan: Maintain antibiotic for bacteria in blood and severe illness Remain at [facility] over the weekend. Pt will follow-up with Dr. Gomez and we appreciate his guidance Reconcile all home meds but held ALIZE inhibitor, HCTZ and allopurinol due to kidney function Reason Hospital Visit/Course CC: Fever and unable to urinate HPI: This is a 70yoWM pt. of Dr. Horton with past medical hx of BPH, Gout, HTN and HLP that presents to ER with above complaints. Pt was previously hospitalized Apr 01 for similar issues, and followed up with PCP following DC. Pt's symptoms returned and he has been readmitted. Blood Cx was positive, and pt is on antibiotics. Creat was 2.59 on admission, now 3.13 even though aggressive IV fluids of NS is infusing. Dr. Gomez has been consulted and will work with pt in the future to prevent return of symptoms. Patient Interview: Pt states that he has seen Dr. Gomez. Dr. Darling informs pt that Dr. Gomez will be working with pt regarding preventing symptoms from reoccurring. Pt has some pain in his head, but is otherwise comfortable. Pt states that he was last hospitalized Apr 01. Dr. Darling informs pt that he has bacteria in blood, and is on a strong antibiotic. Physical exam stable. Pt confirms that Dr. Diez is PCP. Pt followed-up with Dr. Diez after previous hospitalization. Scribed by Ezio Martinez under the direct supervision of Dr. Darling. Notes from 04/25/2016: Chart Review: Max fever 100.2 WBC 5.7 yesterday Creat down to 2.48, will repeat today Review: Dr. Gomez states that pt will be placed on Macrobid for 10 days, and the catheter is able to DC at any time. Patient Interview: Pt states that he had a rough weekend, but is feeling improved now. Pt states that he still has a cough and SEGAL. Pt states that he is eating and drinking regularly, and is having regular BMs. Physical exam reveals fluid on lungs. Pt does not use breathing treatments at home. Pt states that Dr. Gomez will follow-up with pt [address] Darling discusses swingbed with pt in order to maintain IV antibiotics for a few more days. vital signs stable, pleasant, improved, up in chair, at bedside Regular rate and rhythm, clear to auscultation bilaterally except coarseness in the bases No edema Laboratory Tests 04/23/16 12:23 04/24/16 10:16 Plan: SW consult with pt regarding finances IS Macrobid Check labs Swingbed eval Rehab eval PT/OT Scribed by Ezio Martinez under the direct supervision of Dr. Darling. Hospital course: Patient had an uneventful hospital course he was placed on empiric antibiotic treatment due to ESBL history with bacteremia on all blood cultures so meropenem was tolerated well renal insufficiency was monitored closely along with IV fluid resuscitation and on day of swing bed transition his creatinine was 2.36. Overall he did well I did confer with urology and the plan will be to be placed on Macrobid for 10 days after discharge after completing IV antibiotics for this week and work on strengthening to be able to discontinue catheter likely tomorrow to evaluate for any urinary retention issues and will have close follow-up in his office in 3 weeks. Due to the critical illness and bacteremia he does require IV antibiotics of meropenem until the end of this week and we'll discharge home on Macrobid. Discharge Summary Discharge Physical Examination Allergies: Coded Allergies: No Known Drug Allergies (Unverified , 08/11/15) Vitals & I&Os Vital Signs Date Time Temp Pulse Resp B/P Pulse Ox O2 Delivery O2 Flow Rate FiO2 04/24/16 08:00 97 Nasal Cannula 0.50 04/24/16 08:00 97.8 89 20 161/75 Hospital Course Labs (last 24 hrs) Laboratory Tests 04/23/16 12:23: Basophils # (Auto) 0.0, Basophils (%) (Auto) 0, Eosinophils # (Auto) 0.2, Eosinophils (%) (Auto) 4, Hematocrit 31L, Hemoglobin 10.2L, Lymphocytes # (Auto ) 1.0, Lymphocytes (%) (Auto) 18, Mean Corpuscular Hemoglobin 29, Mean Corpuscular Hemoglobin Concent 33, Mean Corpuscular Volume 87, Mean Platelet Volume 12.0H, Monocytes # (Auto) 0.6, Monocytes (%) (Auto) 11, Neutrophils # ( Auto) 3.9, Neutrophils (%) (Auto) 67, Platelet Count 155, Red Blood Count 3.50L , Red Cell Distribution Width 14.6H, White Blood Count 5.7 04/24/16 10:16: Basophils # (Auto) 0.0, Basophils (%) (Auto) 0, Eosinophils # (Auto) 0.2, Eosinophils (%) (Auto) 4, Hematocrit 31L, Hemoglobin 10.5L, Lymphocytes # (Auto ) 1.2, Lymphocytes (%) (Auto) 21, Mean Corpuscular Hemoglobin 29, Mean Corpuscular Hemoglobin Concent 34, Mean Corpuscular Volume 87, Mean Platelet Volume 11.9H, Monocytes # (Auto) 0.6, Monocytes (%) (Auto) 10, Neutrophils # ( Auto) 3.6, Neutrophils (%) (Auto) 65, Platelet Count 163, Red Blood Count 3.57L , Red Cell Distribution Width 14.5, White Blood Count 5.5, Alanine Aminotransferase (ALT/SGPT) 45, Albumin 2.7L, Alkaline Phosphatase 97, Anion Gap 10, Aspartate Amino Transf (AST/SGOT) 50H, BUN/Creatinine Ratio 18, Blood Urea Nitrogen 43H, Calcium Level 8.5, Carbon Dioxide Level 14L, Chloride Level 114H, Creatinine 2.36H, Estimat Glomerular Filtration Rate 28, Glucose Level 98 , Potassium Level 4.5, Sodium Level 138, Total Bilirubin 0.4, Total Protein 5.7L Microbiology 04/20/16 Blood Culture - Final, Complete Escherichia Coli 04/22/16 C. difficile GD Antigen & Toxins - Final, Complete 04/20/16 Urine Culture - Final, Complete Escherichia Coli Pending Labs Laboratory Tests 04/24/16 10:16: Alanine Aminotransferase (ALT/SGPT) 45, Albumin 2.7, Alkaline Phosphatase 97, Anion Gap 10, Aspartate Amino Transf (AST/SGOT) 50, BUN/Creatinine Ratio 18, Basophils # (Auto) 0.0, Basophils (%) (Auto) 0, Blood Urea Nitrogen 43, Calcium Level 8.5, Carbon Dioxide Level 14, Chloride Level 114, Creatinine 2.36, Eosinophils # (Auto) 0.2, Eosinophils (%) (Auto) 4, Estimat Glomerular Filtration Rate 28, Glucose Level 98, Hematocrit 31, Hemoglobin 10.5, Lymphocytes # (Auto) 1.2, Lymphocytes (%) (Auto) 21, Mean Corpuscular Hemoglobin 29, Mean Corpuscular Hemoglobin Concent 34, Mean Corpuscular Volume 87, Mean Platelet Volume 11.9, Monocytes # (Auto) 0.6, Monocytes (%) (Auto) 10, Neutrophils # (Auto) 3.6, Neutrophils (%) (Auto) 65, Platelet Count 163, Potassium Level 4.5, Red Blood Count 3.57, Red Cell Distribution Width 14.5, Sodium Level 138, Total Bilirubin 0.4, Total Protein 5.7, White Blood Count 5.5 Discharge Home Medications: Active Scripts Active Alfuzosin HCl ER (Alfuzosin HCl) 10 Mg Tab.er.24h 10 Mg PO DAILY@1800 Reported Acetaminophen 500 Mg Tablet 500 Mg PO Q6H PRN Fish Oil 1,000 mg Softgel ([place]-3/Dha/Epa/Fish Oil) 1 Each Capsule 1,000 Mg PO Q48H Enalapril Maleate 20 Mg Tablet 40 Mg PO DAILY TAKES 2 (20MG) TABLETS Allopurinol 300 Mg Tablet 300 Mg PO DAILY Atenolol 25 Mg Tablet 25 Mg PO DAILY Hydrochlorothiazide 12.5 Mg Tablet 12.5 Mg PO DAILY Pravastatin Sodium 10 Mg Tablet 10 Mg PO HS Vitamin D3 (Cholecalciferol (Vitamin D3)) 2,000 Unit Tablet 2,000 Unit PO DAILY Instructions to patient/family Please see electonic discharge instructions given to patient. Clinical Quality Measures DVT/VTE Risk/Contraindication: Risk Factor Score Per Nursin RFS Level Per Nursing on Admit: 4+=Very High ROBYN DARLING DO Apr 24, 2016 11:00
--- NOTE | 2016-04-24 11:58 | Physical Therapy Evaluation ---
PT Evaluation-General Medical Diagnosis Admission Date Apr 20, 2016 at 14:49 Medical Diagnosis: pyelonephritis Onset Date: Apr 20, 2016 Therapy Diagnosis Therapy Diagnosis: general debility/weakness Height/Weight Height (Feet): 5 Height (Inches): 8.00 Weight (Pounds): 216 Weight (Ounces): 0.0 Precautions Precautions/Isolations: Contact Isolation, Fall Prevention Referral Physician: Zoila Reason for Referral: Evaluation/Treatment Medical History Pertinent Medical History: HTN, Renal Insufficiency, Smoking Additional Medical History BPH Current History right flank pain;fever;chills, SEGAL; nausea Reviewed History: Yes Social History Home: Single Level Current Living Status: Spouse Prior/Core FIM Prior Level of Function Functional [place] Measure 0=Not Assessed/NA 4=Minimal Assistance 1=Total Assistance 5=Supervision or Setup 2=Maximal Assistance 6=Modified [place] 3=Moderate Assistance 7=Complete [place] Bed Mobility: 7 Transfers (B,C,W/C) (FIM): 7 Gait: 7 PT Evaluation-Current Subjective Patient agrees to PT. Pain Numeric Pain Scale: 0-No Pain Location: No Pain Reported Objective Patient Orientation: Normal For Age Problem Solving: Good Attachments: Oxygen, Hyde Catheter, IV ROM/Strength ROM Lower Extremities bilateral LE WFL Strenght Lower Extremities right knee flexion/extension 4/5; hip flexion 4/5; ankle dorsi/plantarflexion 4/ 5 left knee flexion/extension 4/5; hip flexion 4/5; ankle dorsi/plantarflexion 4/5 Integumentary/Posture Integumentary refer to nursing notes Bowel Incontinence: No Bladder Incontinence: Hyde Cath Posture WNL Neuromuscular (Tone, Coordination, Reflexes) grossly intact Sensory Vision: Functional Hearing: Impaired Sensation Right Lower Extremit: Impaired Sensation Left Lower Extremity: Impaired Transfers Functional [place] Measure 0=Not Assessed/NA 4=Minimal Assistance 1=Total Assistance 5=Supervision or Setup 2=Maximal Assistance 6=Modified [place] 3=Moderate Assistance 7=Complete [place] Transfers (B, C, W/C) (FIM): 6 Scootin Supine to/from Sit: 6 Sit to/from Stand: 6 Gait Mode of Locomotion: Walk Anticipated Mode of Locomotion: Walk Gait (FIM): 6 Distance (FIM): 3=150 ft Distance: 300' Gait Level of Assist: 6 Gait Assistive Device: FWW Comments/Gait Description safe and functional with FWW Balance Sitting Static: Normal Sitting Dynamic: Normal Standing Static: Normal Standing Dynamic: Normal Assessment/Needs 70 y.o. male, will benefit from short term skilled PT to address functional strength and mobility to improve current LOF and to safely return to home with spouse at independent PLOF. Rehab Potential: Good PT Wide Piece Goods Inspector Goals Senior Living Goals PT Wide Piece Goods Inspector Goals Time Frame: May 01, 2016 Transfers (B,C,W/C) (FIM): 7 Gait (FIM): 6 Gait distance (FIM): 3=150 ft Distance: 400' Gait Level of Assist: 6 Gait Assistive Device: None, FWW PT Plan Treatment/Plan Treatment Plan: Continue Plan of Care Treatment Plan: Education, Functional Activity [place], Functional Strength, Gait , Safety, Therapeutic Exercise Treatment Duration: May 01, 2016 # of days/week 5-6 Visits Per Week: 5-6 Pt/Family Agrees w/Plan: Yes Safety Risks/Education Patient Education: Gait Training Teaching Recipient: Patient Teaching Methods: Demonstration Response to Teaching: Return Demonstration Discharge Recommendations Therapy D/C Recommendations: Home w/ Family Support Time/GCodes Time In: 1112 Time Out: 1132 Total Billed Treatment Time: 20 Total Billed Treatment 1 visit EVModC 20 min G Codes Necessary: LELE Lopez PT Apr 24, 2016 11:58
== END 2016-04-24 12:03 | disposition swing bed (61) | DRG 872 ==
LOC: EDUNIT# 12:38 → ER 12:42 → 4TH 14:49
PROVIDERS: ADMIT Internal Medicine; ATTEND Internal Medicine
DX: A41.51 Sepsis due to Escherichia coli [E. coli] (principal); N12 Tubulo-interstitial nephritis, not specified as acute or chronic; N41.9 Inflammatory disease of prostate, unspecified; N17.9 Acute kidney failure, unspecified; N40.1 Benign prostatic hyperplasia with lower urinary tract symptoms; R33.8 Other retention of urine; R35.0 Frequency of micturition; R32 Unspecified urinary incontinence; R35.1 Nocturia; R31.9 Hematuria, unspecified; R30.0 Dysuria; I12.9 Hypertensive chronic kidney disease with stage 1 through stage 4 chronic kidney disease, or unspecified chronic kidney disease; N18.9 Chronic kidney disease, unspecified; M10.9 Gout, unspecified; E78.5 Hyperlipidemia, unspecified; E78.00 Pure hypercholesterolemia, unspecified; E55.9 Vitamin D deficiency, unspecified; Z85.828 Personal history of other malignant neoplasm of skin; Z87.891 Personal history of nicotine dependence
CPT/HCPCS: 36415; 71010; 76770; 80048; 80053; 81000; 82274; 83605; 85007; 85025; 85027; 87040; 87077; 87088; 87186; 87324; 87449; 94640; 94760; 96365

== ENCOUNTER 2016-04-24 11:48 | Inpatient (IN) | payer MEDICARE ==
[~2016-04-24] VITALS: Ht 172.7 cm; Wt 98.0 kg
[~2016-04-24 11:48] MED LIST changes: +ACET-93 PO; +TYLENOL
[2016-04-24] MEDS ORDERED: ALPRAZolam 0.25 MG (XANAX) TAB PO PRN (12:15)
[2016-04-24] MEDS ORDERED: MEROPENEM 500 MG in NS (IVPB) 100 ML IV SCH (12:15)
[2016-04-24] MEDS ORDERED: RT-ALBUTEROL/IPRATROPIUM 3 ML (DUONEB) VIAL INH PRN (12:15)
[2016-04-24] MEDS ORDERED: ONDANSETRON 4 MG/2 ML (SDV) Z0FRAN IVP PRN (12:15)
[2016-04-24] MEDS ORDERED: SENNA W/DOCUSATE (SENOKOT S) TABLET PO PRN (12:15)
--- OUTSIDE RECORDS SUMMARY | 2016-04-24 12:28 | XMS REPORT | Continuity of Care Document ---
Author Author [facility] Organization [facility] Address Unknown Phone Unavailable Care Team Providers Care Quality Control Lead Name Role Phone TETO DIEZ MD PCP Insurance Providers Payer Name Policy Number Subscriber Name Relationship s Medicare [id number] Gabe Gil 18 Self / Same As Patient Advance Directives Directive Response Recorded Date/Time Advance Directives No 04/01/16 3:40pm Health Care Power of Heavy Duty Press Operator No 04/01/16 3:40pm Organ Donor No 04/01/16 [...] Oral Daily as needed for Headache 04/01/16 [place]-3/Dha/Epa/Fish Oil 1 Each 1,000 Mg Oral Daily [...] Tablet, 20 Mg Oral Daily 01/22/14 Discontinued [place]-3 Fatty Acids 300 Mg Capsule, Unknown Dose [...] Referrals TETO DIEZ MD (Unspecified) - Address: [place] [address] [id number] Reason(s) for Referral: Follow up with Dr. [...] - 99.5) 04/03/2016 12:51pm Temperature (Calculated Celsius) 36.46367 degrees C (36.4 - 37.5) 04/03/2016 12:51pm [...] 8.00 inches 04/01/2016 3:34pm Height (Calculated Centimeters) 172.056421 cm 04/01/2016 3:34pm Weight (Pounds) 210 pounds 04/01/2016 3:34pm Weight (Ounces) 0.0 oz 04/01/2016 3:34pm Weight (Calculated Grams) 80300.40 gm 04/01/2016 3:34pm Weight (Calculated Kilograms) 95.523737 kilograms 04/01/2016 3:34pm Calculated BMI 31.9 04/01/2016 [...] 5-9 04/01/2016 11:30am 04/01/2016 11:54am Urine Specific [place] 1.015 * 1.016-1.022 04/01/2016 11:30am 2016 11:54am [...] Date Attending Provider Admitted Inpatient (obs) [facility] 04/01/16 2:23pm LANE GRIFFIN MD Recent Diagnosis Pyelonephritis
[2016-04-24] MEDS: NS IV 1000 ML 1,000 ML IV SCH ×2 (13:31→16:56)
[2016-04-24] MEDS: ACETAMINOPHEN 500 MG TAB (TYLENOL) PO PRN (13:35)
[2016-04-24] MEDS ORDERED: FLU TRIvalent (5 YOA+) 2016-17 (AFLURIA) 0.5 ML IM ONE (14:00)
--- NOTE | 2016-04-24 14:13 | Occupational Therapy Eval ---
OT Evaluation-General/PLF Medical Diagnosis Admission Date Apr 24, 2016 at 12:08 Medical Diagnosis: prostatitis, pyelonephritis, sepsis Onset Date: Apr 20, 2016 Therapy Diagnosis Therapy Diagnosis: weakness, decr self care, decr activity tolerance Height/Weight Height (Feet): 5 Height (Inches): 8.00 Weight (Pounds): 216 Weight (Ounces): 0.0 Precautions Precautions/Isolations: Contact Isolation, Standard Precautions Referral Physician: Zoila Referral Reason: Evaluation/Treatment Medical History Pertinent Medical History: HTN Additional Medical History Recent hospitalization for similar symptoms, Noemi fundoplication, gout, skin cancer, BPH, urinary retention, renal failure Current History Admitted from [facility] for IV antibiotics Reviewed History: Yes Social History Home: mobile home Current Living Status: Spouse Entry Into Home: Stairs With Railing Steps Into Home: 5 ADL-Prior Level of Function ADL PLOF Comments Pt reported that he is able to manage all of his basic self care needs at home, including socks and shoes. 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 Agreeable to OT. Pain reported 0/10 Appearance Alert, cooperative Mental Status/Objective Attachments: Central Line, Jin Catheter, Saline Lock Current Glasses/Contacts: Yes Dentures/Partials: Yes Hand Dominance: Left Upper Extremity ROM Grossly WFL bilat Upper Extremity Strength Grossly 4/5 bilat ADL-Treatment Functional [place] Measure 0=Not Assessed/NA 4=Minimal Assistance 1=Total Assistance 5=Supervision or Setup 2=Maximal Assistance 6=Modified [place] 3=Moderate Assistance 7=Complete IndependenceIRFPAI Quality Coding Scale 6 Independent with activity with or without an assistive device 5 Patient requires set up or clean up by helper. Patient completes activity by themselves 4 Supervision or touching assist (CGA). [place] provide cues , steadying assist 3 The helper provides less than half the effort to complete the activity 2 The helper provides more than half the effort to complete the activity 1 Dependent. The helper does all the effort to complete an activity 7 Patient refused to complete or attempt activity 9 The patient did not perform the activity before the current illness or injury 88 Not attempted due to Medical conditions or safety concerns Eating (FIM): 6 (Cut up food, fed himself) Eating (QC): 6 Grooming (FIM): 5 (Pt's cleaned his dentures but he put them in) Oral Hygiene (QC): 5 (setup) Toileting (FIM): 5 (Pt report, BSC. Help with jin bag and IV) Toileting Hygiene (QC): 5 (Setup. Help with jin bag and IV. Per pt report) Toilet/Commode Transfer (FIM): 5 (Setup, help with jin bag and IV, BSC) Toilet Transfer (QC): 5 (Help with jin bag and IV. setup) Education OT Patient Education: Purpose of tx/functional activities, Rehab process Teaching Recipient: Patient, Family Teaching Methods: Discussion Response to Teaching: Verbalize Understanding OT Sales Representative Health Insurance Goals Half-Way Goals Time Frame: May 01, 2016 Eating (FIM): 6 Eating (QC): 6 Groomin Oral Hygiene (QC): 6 Bathing(FIM): 6 Upper Body Dressing(FIM): 6 Lower Body Dressing(FIM): 6 Toileting(FIM): 6 Toileting Hygiene (QC): 6 Toilet/Commode Transfer(FIM): 6 Toilet/Commode Transfer (QC): 6 Shower Transfer(FIM): 6 Additional Goals: 2-Verbalize Understanding, 3-ImproveStrength/[place] 1=Demonstrate adherence to instructed precautions during ADL tasks. 2=Patient will verbalize/demonstrate understanding of assistive devices/ modifications for ADL. 3=Patient will improve strength/tolerance for activity to enable patient to perform ADL's. OT Education/Plan Problem List/Assessment Assessment: Decreased Activ Tolerance, Decreased UE Strength, Impaired Self- Care Skills Pt would benefit from skilled OT to increase his activity tolerance and self care after hospitalization for sepsis, with IV antibiotics, and to decrease caregiver burden Discharge Recommendations Plan/Recommendations: Continue POC Treatment Plan/Plan of Care Treatment,Training & Education: Yes Patient would benefit from OT for education, treatment and training to promote independence in ADL's, mobility, safety and/or upper extremity function for ADL' s. Plan of Care: ADL Retraining, Functional Mobility, UE Funct Exercise/Act Treatment Duration: May 01, 2016 # of days/week 5 Visits Per Week: 5 Agreement: Yes Rehab Potential: Good Time/GCodes Start Time: 13:46 Stop Time: 14:01 Total Time Billed (hr/min): 15 Billed Treatment Time visit, 15 minutes eval moderate intensity DIO WINSLOW OT Apr 24, 2016 14:13
--- NOTE | 2016-04-24 14:17 | Physical Therapy Evaluation ---
PT Evaluation-General Medical Diagnosis Admission Date Apr 24, 2016 at 12:08 Medical Diagnosis: pyelonephritis Onset Date: Apr 20, 2016 Therapy Diagnosis Therapy Diagnosis: debility Height/Weight Height (Feet): 5 Height (Inches): 8.00 Weight (Pounds): 216 Weight (Ounces): 0.0 Precautions Precautions/Isolations: Contact Isolation, Standard Precautions Referral Physician: Zoila Reason for Referral: Evaluation/Treatment Medical History Pertinent Medical History: HTN, Renal Insufficiency, Smoking Additional Medical History right flank pain/fever/chills/SEGAL Current History SWB status Reviewed History: Yes Social History Home: Single Level Current Living Status: Spouse Entry Into Home: Stairs With Railing PT Steps Into Home: 5 Prior/Core FIM Prior Level of Function Functional [place] Measure 0=Not Assessed/NA 4=Minimal Assistance 1=Total Assistance 5=Supervision or Setup 2=Maximal Assistance 6=Modified [place] 3=Moderate Assistance 7=Complete [place] Bed Mobility: 7 Transfers (B,C,W/C) (FIM): 7 Gait: 7 has a cane and FWW at home he uses PRN PT Evaluation-Current Subjective Patient is very agreeable to participate with PT. Pain Numeric Pain Scale: 0-No Pain Location: No Pain Reported Objective Patient Orientation: Normal For Age Problem Solving: Good Attachments: Oxygen, Hyde Catheter, IV ROM/Strength ROM Lower Extremities bilateral LE WFL Strenght Lower Extremities right knee flexion/extension 4/5; hip flexion/4/5; ankle dorsi/plantarflexion 4/ 5 left knee flexion/extension 4/5; hip flexion 4/5; ankle dorsi/plantarflexion 4/5 Integumentary/Posture Integumentary refer to nursing notes Bowel Incontinence: No Bladder Incontinence: Hyde Cath Posture WNL Neuromuscular (Tone, Coordination, Reflexes) grossly intact Sensory Vision: Functional Hearing: Impaired Sensation Right Lower Extremit: Intact Sensation Left Lower Extremity: Intact Transfers Functional [place] Measure 0=Not Assessed/NA 4=Minimal Assistance 1=Total Assistance 5=Supervision or Setup 2=Maximal Assistance 6=Modified [place] 3=Moderate Assistance 7=Complete [place] Transfers (B, C, W/C) (FIM): 5 Scootin Rollin Supine to/from Sit: 5 Sit to/from Stand: 5 Sit to Lying (QC): 5 Lying to Sitting/Side of Bed(Q: 5 Sit to Stand (QC): 5 Gait Does the Patient Walk?: Yes Mode of Locomotion: Walk Anticipated Mode of Locomotion: Walk Gait (FIM): 5 Distance (FIM): 3=150 ft Distance: 350' Walk 50 ft with 2 Turns(QC): 5 Walk 150 ft (QC): 5 Gait Level of Assist: 5 Gait Assistive Device: FWW Comments/Gait Description safe and functional with FWW; multiple standing recovery periods due to SOA with O2 2L NC in place Balance Sitting Static: Normal Sitting Dynamic: Normal Standing Static: Normal Standing Dynamic: Normal Treatment standing exercises in FWW 10 reps of toe raises, marching, abduction/adduction; seated exercises 10 reps LAQ and AP Assessment/Needs 70 y.o. male, will benefit from skilled PT to address functional strength and mobility to improve current LOF and to safely return to home with spouse at maximum LOF. Rehab Potential: Good PT Pipeline Construction Inspector Goals Pipeline Construction Inspector Goals PT Correction Goals Time Frame: May 01, 2016 Transfers (B,C,W/C) (FIM): 6 Sit to Lying (QC): 6 Lying-Sitting on Side/Bed(QC): 6 Sit to Stand (QC): 6 Rollin Does the Patient Walk: Yes Gait (FIM): 6 Gait distance (FIM): 3=150 ft Distance: 300' Walk 50ft with 2 Turns (QC): 6 Walk 150 ft (QC): 6 Gait Level of Assist: 6 Gait Assistive Device: None, FWW, Cane Single Point Stairs (FIM): 2 # of Steps: 4 Stairs Level Of Assist: 5 PT Plan Problem List Problem List: Activity Tolerance, Functional Strength Treatment/Plan Treatment Plan: Continue Plan of Care Treatment Plan: Bed Mobility, Education, Functional Activity [place], Functional Strength, Gait, Safety, Therapeutic Exercise, Transfers Treatment Duration: May 01, 2016 # of days/week 6 Visits Per Week: 6 Minutes/Day (M-F): 15-30 Minutes/Day (Sat/Wilson): PRN Pt/Family Agrees w/Plan: Yes Safety Risks/Education Patient Education: Safety Issues Teaching Recipient: Patient Teaching Methods: Discussion Response to Teaching: Return Demonstration Discharge Recommendations Therapy D/C Recommendations: Home w/ Family Support Time/GCodes Time In: 1321 Time Out: 1346 Total Billed Treatment Time: 25 Total Billed Treatment 1 visit EVLowC 10 min EX 15 min LELE GÓMEZ PT Apr 24, 2016 14:17
[2016-04-24] MEDS: MEROPENEM 500 MG in NS (IVPB) 100 ML IV SCH ×2 (15:01→22:12)
[2016-04-24] MEDS: RT-ALBUTEROL/IPRATROPIUM 3 ML (DUONEB) VIAL INH SCH ×2 (15:09→19:16)
[2016-04-24 15:40] VITALS: BP 164/79
[2016-04-24] MEDS: ALFUZOSIN HCL 10 MG TAB (UROXATRAL) PO SCH (18:16)
[2016-04-24 18:45] VITALS: BP 161/79
[2016-04-24] MEDS: SIMvastatin 10 MG (ZOCOR) TAB PO SCH (22:13)
[2016-04-25] MEDS: NS IV 1000 ML 1,000 ML IV SCH (02:01)
[2016-04-25 06:00] VITALS: BP 161/72
[2016-04-25] MEDS: MEROPENEM 500 MG in NS (IVPB) 100 ML IV SCH ×3 (06:39→21:23)
[2016-04-25] MEDS: RT-ALBUTEROL/IPRATROPIUM 3 ML (DUONEB) VIAL INH SCH ×3 (07:30→19:48)
[2016-04-25] MEDS: VITAMIN D3 1,000 UNITS (CHOLECALCIFEROL) TABLET PO SCH (08:57)
[2016-04-25] MEDS: FINASTERIDE (PROSCAR) 5 MG TAB PO SCH (08:57)
[2016-04-25] MEDS: ATENOLOL 25 MG (TENORMIN) TAB PO SCH (08:57)
--- NOTE | 2016-04-25 10:05 | Progress Note-Urology ---
Progress Note-Urology Progress Notes/Assess & Plan Progress/Assessment & Plan CONTINUE WELL, SEE OP Final Diagnosis PROSTATITIS TUSHAR MARCUS MD Apr 25, 2016 10:05 am
--- NOTE | 2016-04-25 10:22 | Occupational Ther Daily Note ---
OT Current Status-Daily Note Subjective Pt in bathroom taking shower. Pt agreed to therapy. No c/o pain at this time. Mental Status/Objective Patient Orientation: Person, Place, Time, Situation Functional [place] Measure 0=Not Assessed/NA 4=Minimal Assistance 1=Total Assistance 5=Supervision or Setup 2=Maximal Assistance 6=Modified [place] 3=Moderate Assistance 7=Complete [place] ADL-Treatment Functional [place] Measure 0=Not Assessed/NA 4=Minimal Assistance 1=Total Assistance 5=Supervision or Setup 2=Maximal Assistance 6=Modified [place] 3=Moderate Assistance 7=Complete IndependenceIRFPAI Quality Coding Scale 6 Independent with activity with or without an assistive device 5 Patient requires set up or clean up by helper. Patient completes activity by themselves 4 Supervision or touching assist (CGA). [place] provide cues , steadying assist 3 The helper provides less than half the effort to complete the activity 2 The helper provides more than half the effort to complete the activity 1 Dependent. The helper does all the effort to complete an activity 7 Patient refused to complete or attempt activity 9 The patient did not perform the activity before the current illness or injury 88 Not attempted due to Medical conditions or safety concerns Grooming (FIM): 6 (Pt able to complete all grooming standing at sink by self.) Oral Hygiene (QC): 6 (Completed standing at sink by self.) Bathing (FIM): 6 (Using shower bench, grabbars and hand held shower pt is able to complete bathing/drying by self.) Upper Body (FIM): 7 (Pt able to don/doff clothing by self.) Lower Body Dressing (FIM): 7 (Pt able to don/doff clothing by self.) Toileting (FIM): 6 (Using BSC pt is able to complete by self.) Toileting Hygiene (QC): 6 (Using BSC, pt is able to complete by self.) Transfers (B, C, W/C) (FIM): 7 (Transfers by self.) Toilet/Commode Transfer (FIM): 6 (Grabbars and BSC, transfers by self.) Toilet Transfer (QC): 6 (Grabbars and BSC, transfers by self.) Shower Transfer(FIM): 6 (Grabbars and shower bench, pt transfers by self.) OT Short Term Goals Short Term Goals 1=Demonstrate adherence to instructed precautions during ADL tasks. 2=Patient will verbalize/demonstrate understanding of assistive devices/ modifications for ADL. 3=Patient will improve strength/tolerance for activity to enable patient to perform ADL's. OT Fountain Operator Goals Fountain Operator Goals Time Frame: May 01, 2016 Eating (FIM): 6 Eating (QC): 6 Groomin (met-04/25/16) Oral Hygiene (QC): 6 (met-04/25/16) Bathing(FIM): 6 (met-04/25/16) Upper Body Dressing(FIM): 6 (met-04/25/16) Lower Body Dressing(FIM): 6 (met-04/25/16) Toileting(FIM): 6 (met-04/25/16) Toileting Hygiene (QC): 6 (met-04/25/16) Toilet/Commode Transfer(FIM): 6 (met-04/25/16) Toilet/Commode Transfer (QC): 6 (met-04/25/16) Shower Transfer(FIM): 6 (met-04/25/16) Additional Goals: 2-Verbalize Understanding, 3-ImproveStrength/[place] 1=Demonstrate adherence to instructed precautions during ADL tasks. 2=Patient will verbalize/demonstrate understanding of assistive devices/ modifications for ADL. 3=Patient will improve strength/tolerance for activity to enable patient to perform ADL's. OT Education/Plan Problem List/Assessment Pt would benefit from skilled OT to increase his activity tolerance and self care after hospitalization for sepsis, with IV antibiotics, and to decrease caregiver burden Discharge Recommendations Plan/Recommendations: Continue POC Treatment Plan/Plan of Care Patient would benefit from OT for education, treatment and training to promote independence in ADL's, mobility, safety and/or upper extremity function for ADL' s. Plan of Care: ADL Retraining, Functional Mobility, UE Funct Exercise/Act Treatment Duration: May 01, 2016 Visits Per Week: 5 Agreement: Yes Rehab Potential: Good Time/GCodes Start Time: 09:50 Stop Time: 10:15 Total Time Billed (hr/min): 25 Billed Treatment Time 1 visit-ADL 2 (25 min) ANANTH REA Apr 25, 2016 10:22
--- NOTE | 2016-04-25 10:58 | Progress Note-Hospitalist ---
Progress Note Progress Notes/Assess & Plan Date Seen 04/25/16 Diagonsis/Assessment & Plan Pharmacy Review: Pt remaining on Meropenem through the end of the week, then will switch to Macrobid but there is a question on that due to renal insufficiency. glycerin supervisor: RN states that pt is holding more fluid, and lower extremities are swollen. Pt is not on Lasix. Patient Interview: Pt states that he feels better today. Pt states that he is roughly 20lbs heavier than normal. Physical exam stable. Pt states that his BMs are green and black. laboratory evaluation did return at end of rounds showing creatinine down to 2.0 so we'll give 1 dose of Lasix IV 20 MG vital signs stable, pleasant, much improved, sitting in chair just had shower Regular rate and rhythm, clear to auscultation bilaterally Noted nonpitting type of edema in hands and feet Laboratory Tests 04/25/16 10:50 Assessment: Sepsis due to pyelonephritis due to ESBL bacteriuria placed on meropenem empirically Post obstruction renal insufficiency requiring catheter and urology consultation but discontinued catheter today Chronic renal insufficiency usual creatinine is 1.6 Mild volume overload Plan: BMP in a.m. DC IVF DC Catheter DC Sunday with possible home health Scribed by Ezio Martinez under the direct supervision of Dr. Cummings. ROBYN CUMMINGS DO Apr 25, 2016 10:58
[2016-04-25 11:19] LABS: CALCIUM 8.6 MG/DL (8.5-10.1); CREATININE SERUM 2.01 MG/DL (0.60-1.30); POTASSIUM 4.3 MMOL/L (3.6-5.0)
[2016-04-25] MEDS ORDERED: FUROSEMIDE 40 MG/4 ML INJ (LASIX) IVP NR (11:45)
--- NOTE | 2016-04-25 14:50 | Physical Therapy Daily Note ---
PT Daily Note-Current Subjective Pt sitting in recliner after just finishing on BSC. Pt agrees to PT but asks to stay in room due to since given lactics needing to stay close to restroom. Mental Status Patient Orientation: Person, Place, Time, Situation Attachments: IV Transfers Functional [place] Measure 0=Not Assessed/NA 4=Minimal Assistance 1=Total Assistance 5=Supervision or Setup 2=Maximal Assistance 6=Modified [place] 3=Moderate Assistance 7=Complete IndependenceIRFPAI Quality Coding Scale 6 Independent with activity with or without an assistive device 5 Patient requires set up or clean up by helper. Patient completes activity by themselves 4 Supervision or touching assist (CGA). [place] provide cues , steadying assist 3 The helper provides less than half the effort to complete the activity 2 The helper provides more than half the effort to complete the activity 1 Dependent. The helper does all the effort to complete an activity 7 Patient refused to complete or attempt activity 9 The patient did not perform the activity before the current illness or injury 88 Not attempted due to Medical conditions or safety concerns Transfers (B, C, W/C) (FIM): 6 Scootin Sit to/from Stand: 6 Sit to Stand (QC): 6 Weight Bearing Weight Bearing Restriction: Full Weight Bearing Location Restriction: LE Bilateral Gait Training Does the Patient Walk?: Yes Gait (FIM): 3 Distance (FIM): 9=360-84 ft Distance: 100' Walk 50 ft with 2 Turns(QC): 5 Walk 150 ft (QC): 88 Gait Level of Assist: 5 Gait Persons Needed: 1 Gait Assistive Device: None Pt reports not wanting to get too far from BSC/restroom due to frequency & urgency of urination. Wheelchair Training Does the Pt Use a Wheelchair?: No Exercises Seated Therapy Exercises: Ankle pumps, Long arc quads, Hip flexion, Kicking activity, Hip abd/add Seated Reps: 15 Treatments Pt transfers at Mod I w/o AD. Pt ambulates in room w/o AD. Pt returns to recliner to rest and completes Seated Ex in recliner. Pt is left with all needs met in recliner at end of tx. Sp and nursing present. Assessment Current Status: Fair Progress Pt is able to physically complete ambulation and transfers but trouble with incontinence with lactics. Pt reports swelling in BLE as well as testicles during Seated Ex. PT Apartment Locator Goals Apartment Locator Goals PT Apartment Locator Goals Time Frame: May 01, 2016 Transfers (B,C,W/C) (FIM): 6 Sit to Lying (QC): 6 Lying-Sitting on Side/Bed(QC): 6 Sit to Stand (QC): 6 Rollin Does the Patient Walk: Yes Gait (FIM): 6 Gait distance (FIM): 3=150 ft Distance: 300' Walk 50ft with 2 Turns (QC): 6 Walk 150 ft (QC): 6 Gait Level of Assist: 6 Gait Assistive Device: None, FWW, Cane Single Point Stairs (FIM): 2 # of Steps: 4 Stairs Level Of Assist: 5 PT Plan Problem List Problem List: Activity Tolerance, Functional Strength, Gait Treatment/Plan Treatment Plan: Continue Plan of Care Treatment Plan: Bed Mobility, Education, Functional Activity [place], Functional Strength, Gait, Safety, Therapeutic Exercise, Transfers Treatment Duration: May 01, 2016 Visits Per Week: 6 Minutes/Day (M-F): 15-30 Minutes/Day (Sat/Wilson): PRN Safety Risks/Education Patient Education: Gait Training, Transfer Techniques, Correct Positioning, Safety Issues Teaching Recipient: Patient, Significant Other Teaching Methods: Discussion Response to Teaching: Verbalize Understanding Time/GCodes Time In: 1405 Time Out: 1430 Total Billed Treatment Time: 25 Total Billed Treatment visit, EX (10m) & GT (15m) BEAU BROWN MACHINE REPAIRER Apr 25, 2016 14:49
[2016-04-25] MEDS: HYDROcodone/APAP 5 MG/325 MG (LORTAB) TAB PO PRN (14:58)
[2016-04-25] MEDS: ALFUZOSIN HCL 10 MG TAB (UROXATRAL) PO SCH (17:43)
[2016-04-25 18:15] VITALS: BP 163/71
[2016-04-25] MEDS: SIMvastatin 10 MG (ZOCOR) TAB PO SCH (20:01)
[2016-04-25] MEDS: CATHETER FLUSH 10 ML SYR IV PRN (21:23)
[2016-04-26 05:05] LABS: BASOPHILS % (AUTO) 0 % (0-10); EOSINOPHILS # (AUTO) 0.3 10^3/uL (0.0-0.3); EOSINOPHILS % (AUTO) 5 % (0-10); LYMPHOCYTES # (AUTO) 1.5 X 10^3 (1.0-4.0); LYMPHOCYTES % (AUTO) 20 % (12-44); MEAN CORPUSCULAR HEMOGLOBIN 29 PG (25-34); MEAN CORPUSCULAR HGB CONC 33 G/DL (32-36); MEAN CORPUSCULAR VOLUME 87 FL (80-99); MEAN PLATELET VOLUME 12.2 FL (7.4-10.4); MONOCYTES # (AUTO) 0.6 X 10^3 (0.0-1.0); MONOCYTES % (AUTO) 8 % (0-12); NEUTROPHILS # (AUTO) 5.1 X 10^3 (1.8-7.8); NEUTROPHILS % (AUTO) 67 % (42-75); PLATELET COUNT 201 10^3/uL (130-400); RED CELL DISTRIBUTION WIDTH 14.5 % (10.0-14.5); WHITE BLOOD COUNT 7.5 10^3/uL (4.3-11.0)
[2016-04-26] MEDS: MEROPENEM 500 MG in NS (IVPB) 100 ML IV SCH ×3 (05:16→21:31)
[2016-04-26] MEDS: CATHETER FLUSH 10 ML SYR IV PRN (05:16)
[2016-04-26 05:30] LABS: ALBUMIN 2.8 G/DL (3.2-4.5); BILIRUBIN,TOTAL 0.5 MG/DL (0.1-1.0); CREATININE SERUM 2.01 MG/DL (0.60-1.30); POTASSIUM 4.2 MMOL/L (3.6-5.0); TOTAL PROTEIN 5.9 G/DL (6.4-8.2)
[2016-04-26] MEDS: HYDROcodone/APAP 5 MG/325 MG (LORTAB) TAB PO PRN ×2 (06:30→23:59)
[2016-04-26 06:48] VITALS: BP 161/76
[2016-04-26] MEDS: RT-ALBUTEROL/IPRATROPIUM 3 ML (DUONEB) VIAL INH SCH ×2 (07:35→20:06)
[2016-04-26] MEDS: VITAMIN D3 1,000 UNITS (CHOLECALCIFEROL) TABLET PO SCH (09:08)
[2016-04-26] MEDS: ATENOLOL 25 MG (TENORMIN) TAB PO SCH (09:08)
[2016-04-26] MEDS: FINASTERIDE (PROSCAR) 5 MG TAB PO SCH (09:08)
--- NOTE | 2016-04-26 10:35 | Occupational Ther Daily Note ---
OT Current Status-Daily Note Subjective Pt alert, sitting in recliner. Pt agreed to therapy. No c/o pain at this time. Mental Status/Objective Patient Orientation: Person, Place, Time, Situation Functional [place] Measure 0=Not Assessed/NA 4=Minimal Assistance 1=Total Assistance 5=Supervision or Setup 2=Maximal Assistance 6=Modified [place] 3=Moderate Assistance 7=Complete [place] ADL-Treatment Pt stated that he had already washed up this morning and that his will be bringing clothes for him to change into. Pt is able to manipulate recliner without assistance putting feet up and down and reclining. Pt unable to reach feet to don/doff socks due to increase swelling. Pt states that either nrsg or his completes. Functional [place] Measure 0=Not Assessed/NA 4=Minimal Assistance 1=Total Assistance 5=Supervision or Setup 2=Maximal Assistance 6=Modified [place] 3=Moderate Assistance 7=Complete IndependenceIRFPAI Quality Coding Scale 6 Independent with activity with or without an assistive device 5 Patient requires set up or clean up by helper. Patient completes activity by themselves 4 Supervision or touching assist (CGA). [place] provide cues , steadying assist 3 The helper provides less than half the effort to complete the activity 2 The helper provides more than half the effort to complete the activity 1 Dependent. The helper does all the effort to complete an activity 7 Patient refused to complete or attempt activity 9 The patient did not perform the activity before the current illness or injury 88 Not attempted due to Medical conditions or safety concerns Other Treatment Pt then completed 3 UE exercises against gravity, 15 reps. Then complete 2 sets 5 reps of arm chair pushups. Pt stated he felt dizzy after 5 so required recovery break between sets. After therapy, pt sitting in recliner with call light/phone in reach. all needs met in room. OT Short Term Goals Short Term Goals 1=Demonstrate adherence to instructed precautions during ADL tasks. 2=Patient will verbalize/demonstrate understanding of assistive devices/ modifications for ADL. 3=Patient will improve strength/tolerance for activity to enable patient to perform ADL's. OT Senior Living Goals Senior Living Goals Time Frame: May 01, 2016 Eating (FIM): 6 Eating (QC): 6 Groomin (met-04/25/16) Oral Hygiene (QC): 6 (met-04/25/16) Bathing(FIM): 6 (met-04/25/16) Upper Body Dressing(FIM): 6 (met-04/25/16) Lower Body Dressing(FIM): 6 (met-04/25/16) Toileting(FIM): 6 (met-04/25/16) Toileting Hygiene (QC): 6 (met-04/25/16) Toilet/Commode Transfer(FIM): 6 (met-04/25/16) Toilet/Commode Transfer (QC): 6 (met-04/25/16) Shower Transfer(FIM): 6 (met-04/25/16) Additional Goals: 2-Verbalize Understanding, 3-ImproveStrength/[place] 1=Demonstrate adherence to instructed precautions during ADL tasks. 2=Patient will verbalize/demonstrate understanding of assistive devices/ modifications for ADL. 3=Patient will improve strength/tolerance for activity to enable patient to perform ADL's. OT Education/Plan Problem List/Assessment Pt would benefit from skilled OT to increase his activity tolerance and self care after hospitalization for sepsis, with IV antibiotics, and to decrease caregiver burden Discharge Recommendations Plan/Recommendations: Continue POC Treatment Plan/Plan of Care Patient would benefit from OT for education, treatment and training to promote independence in ADL's, mobility, safety and/or upper extremity function for ADL' s. Plan of Care: ADL Retraining, Functional Mobility, UE Funct Exercise/Act Treatment Duration: May 01, 2016 Visits Per Week: 5 Agreement: Yes Rehab Potential: Good Time/GCodes Start Time: 09:30 Stop Time: 09:45 Total Time Billed (hr/min): 15 Billed Treatment Time 1 visit-FA 1 (15 min) ANANTH REA Apr 26, 2016 10:35
[2016-04-26] MEDS ORDERED: FUROSEMIDE 40 MG/4 ML INJ (LASIX) IVP NR (11:09)
[2016-04-26] MEDS: SIMETHICONE 80 MG (MYLICON) CHEW PO SCH ×3 (11:49→20:30)
--- NOTE | 2016-04-26 11:57 | Progress Note-Hospitalist ---
Progress Note Progress Notes/Assess & Plan Date Seen 04/26/16 Diagonsis/Assessment & Plan Chart Review: No fever Vitals stable. BP 161/76 WBC 7.5 Hgb 10.7 Creat 2 2,300 cc's of UOP after Lasix given. Patient Interview: Pt states that he feels good, and has been urinating often. Dr. Cummings informs pt that he will receive more Lasix to continue fluid output. Pt has not had BM yet today. Physical exam stable. Pt states that he would like to DC when stable, but would like to reduce swelling first. vital signs stable, pleasant, much improved, sitting in chair Regular rate and rhythm, clear to auscultation bilaterally except subtle crackles in the bases Noted nonpitting type of edema in hands and feet improved Laboratory Tests 04/26/16 04:20 Assessment: Sepsis due to pyelonephritis due to ESBL bacteriuria placed on meropenem Post obstruction renal insufficiency requiring catheter and urology consultation but discontinued catheter today Chronic renal insufficiency usual creatinine is 1.6 Mild volume overload Plan: DC Sunday or Sunday with possible home health and close follow-up with Dr. Diez Maintain Lasix dosed once today again Scribed by Ezio Martinez under the direct supervision of Dr. Cummings. ROBYN CUMMINGS DO Apr 26, 2016 11:57
--- NOTE | 2016-04-26 14:12 | Physical Therapy Daily Note ---
PT Daily Note-Current Subjective Pt up in chair, agreeable to do a little. "I've got food coming and they just gave me Lasix, I don't know how much I can do". c/o abdominal pain but no pain rating given. Mental Status Patient Orientation: Person, Place, Time, Situation Transfers Functional [place] Measure 0=Not Assessed/NA 4=Minimal Assistance 1=Total Assistance 5=Supervision or Setup 2=Maximal Assistance 6=Modified [place] 3=Moderate Assistance 7=Complete IndependenceIRFPAI Quality Coding Scale 6 Independent with activity with or without an assistive device 5 Patient requires set up or clean up by helper. Patient completes activity by themselves 4 Supervision or touching assist (CGA). [place] provide cues , steadying assist 3 The helper provides less than half the effort to complete the activity 2 The helper provides more than half the effort to complete the activity 1 Dependent. The helper does all the effort to complete an activity 7 Patient refused to complete or attempt activity 9 The patient did not perform the activity before the current illness or injury 88 Not attempted due to Medical conditions or safety concerns Sit to Stand (QC): 6 Weight Bearing Weight Bearing Restriction: Full Weight Bearing Location Restriction: LE Bilateral Gait Training Does the Patient Walk?: Yes Gait (FIM): 5 Distance (FIM): 3=150 ft Distance: 200 Walk 50 ft with 2 Turns(QC): 4 Walk 150 ft (QC): 4 Gait Level of Assist: 5 Gait Persons Needed: 1 Gait Assistive Device: None Pt ambulated with SBA for safety. Mildly unsteady at times but no LOB. Wheelchair Training Does the Pt Use a Wheelchair?: No Exercises Seated Therapy Exercises: Ankle pumps, Long arc quads, Hip flexion Seated Reps: 15 Treatments Ambulation without AD in hallway, seated LE functional strengthening. Up in chair with all needs met post treatment. Assessment Current Status: Good Progress Pt tolerated well. Mildly unsteady but no keira LOB. Fatigued quickly. PT Senior Care Goals Diamond Expert Goals PT Diamond Expert Goals Time Frame: May 01, 2016 Transfers (B,C,W/C) (FIM): 6 Sit to Lying (QC): 6 Lying-Sitting on Side/Bed(QC): 6 Sit to Stand (QC): 6 Rollin Does the Patient Walk: Yes Gait (FIM): 6 Gait distance (FIM): 3=150 ft Distance: 300' Walk 50ft with 2 Turns (QC): 6 Walk 150 ft (QC): 6 Gait Level of Assist: 6 Gait Assistive Device: None, FWW, Cane Single Point Stairs (FIM): 2 # of Steps: 4 Stairs Level Of Assist: 5 PT Plan Problem List Problem List: Activity Tolerance, Functional Strength, Safety, Balance, Gait, Transfer Treatment/Plan Treatment Plan: Continue Plan of Care Treatment Plan: Bed Mobility, Education, Functional Activity Soledad, Functional Strength, Gait, Safety, Therapeutic Exercise, Transfers Treatment Duration: May 01, 2016 Visits Per Week: 6 Minutes/Day (M-F): 15-30 Minutes/Day (Sat/Wilson): PRN Pt/Family Agrees w/Plan: Yes Time/GCodes Time In: 1345 Time Out: 1400 Total Billed Treatment Time: 15 Total Billed Treatment 1, FA x 15' G Codes Necessary: FARHAD Freed DPEmiliano Apr 26, 2016 14:12
[2016-04-26] MEDS: ALFUZOSIN HCL 10 MG TAB (UROXATRAL) PO SCH (17:00)
[2016-04-26 18:00] VITALS: BP 170/80
[2016-04-26] MEDS: SIMvastatin 10 MG (ZOCOR) TAB PO SCH (20:29)
[2016-04-27 04:54] VITALS: BP 180/81
[2016-04-27] MEDS: MEROPENEM 500 MG in NS (IVPB) 100 ML IV SCH ×2 (05:41→14:00)
[2016-04-27 06:18] LABS: CALCIUM 8.8 MG/DL (8.5-10.1); CREATININE SERUM 1.74 MG/DL (0.60-1.30)
[2016-04-27] MEDS: RT-ALBUTEROL/IPRATROPIUM 3 ML (DUONEB) VIAL INH SCH (08:03)
--- NOTE | 2016-04-27 09:19 | Occupational Ther Daily Note ---
OT Current Status-Daily Note Subjective Pt alert, sitting in recliner and present in room. Pt agreed to therapy. No c/o pain at this time. Mental Status/Objective Patient Orientation: Person, Place, Time, Situation Functional [place] Measure 0=Not Assessed/NA 4=Minimal Assistance 1=Total Assistance 5=Supervision or Setup 2=Maximal Assistance 6=Modified Leon 3=Moderate Assistance 7=Complete Leon Attachments: IV ADL-Treatment Pt in bathroom when OT entered room. Pt completing toileting by self. Pt then requested to take shower. had gotten clothing out for pt. Pt able to complete bathing/shower and drying by self using shower bench, grabbar and hand held shower. Pt doffed socks by self. Completed upper body dressing by self. Pt able to don/doff lower body clothing by self. After therapy, pt sitting in recliner with call light/phone in reach. All needs met in room. Functional Leon Measure 0=Not Assessed/NA 4=Minimal Assistance 1=Total Assistance 5=Supervision or Setup 2=Maximal Assistance 6=Modified [place] 3=Moderate Assistance 7=Complete IndependenceIRFPAI Quality Coding Scale 6 Independent with activity with or without an assistive device 5 Patient requires set up or clean up by helper. Patient completes activity by themselves 4 Supervision or touching assist (CGA). [place] provide cues , steadying assist 3 The helper provides less than half the effort to complete the activity 2 The helper provides more than half the effort to complete the activity 1 Dependent. The helper does all the effort to complete an activity 7 Patient refused to complete or attempt activity 9 The patient did not perform the activity before the current illness or injury 88 Not attempted due to Medical conditions or safety concerns Grooming (FIM): 7 (Standing at sink and completed by self.) Oral Hygiene (QC): 6 Bathing (FIM): 6 Upper Body (FIM): 5 Lower Body Dressing (FIM): 5 Toileting (FIM): 6 Toileting Hygiene (QC): 6 Transfers (B, C, W/C) (FIM): 7 Toilet/Commode Transfer (FIM): 6 Toilet Transfer (QC): 6 Shower Transfer(FIM): 6 OT Short Term Goals Short Term Goals 1=Demonstrate adherence to instructed precautions during ADL tasks. 2=Patient will verbalize/demonstrate understanding of assistive devices/ modifications for ADL. 3=Patient will improve strength/tolerance for activity to enable patient to perform ADL's. OT Penitentiary Goals Calciminer Goals Time Frame: May 01, 2016 Eating (FIM): 6 Eating (QC): 6 Groomin (met-04/25/16) Oral Hygiene (QC): 6 (met-04/25/16) Bathing(FIM): 6 (met-04/25/16) Upper Body Dressing(FIM): 6 (met-04/25/16) Lower Body Dressing(FIM): 6 (met-04/25/16) Toileting(FIM): 6 (met-04/25/16) Toileting Hygiene (QC): 6 (met-04/25/16) Toilet/Commode Transfer(FIM): 6 (met-04/25/16) Toilet/Commode Transfer (QC): 6 (met-04/25/16) Shower Transfer(FIM): 6 (met-04/25/16) Additional Goals: 2-Verbalize Understanding, 3-ImproveStrength/[place]ad 1=Demonstrate adherence to instructed precautions during ADL tasks. 2=Patient will verbalize/demonstrate understanding of assistive devices/ modifications for ADL. 3=Patient will improve strength/tolerance for activity to enable patient to perform ADL's. OT Education/Plan Problem List/Assessment Pt would benefit from skilled OT to increase his activity tolerance and self care after hospitalization for sepsis, with IV antibiotics, and to decrease caregiver burden Discharge Recommendations Plan/Recommendations: Continue POC Treatment Plan/Plan of Care Patient would benefit from OT for education, treatment and training to promote independence in ADL's, mobility, safety and/or upper extremity function for ADL' s. Plan of Care: ADL Retraining, Functional Mobility, UE Funct Exercise/Act Treatment Duration: May 01, 2016 Visits Per Week: 5 Agreement: Yes Rehab Potential: Good Time/GCodes Start Time: 08:55 Stop Time: 09:25 Total Time Billed (hr/min): 30 Billed Treatment Time 1 visit-ADL 2 (30 min) ANANTH REA Apr 27, 2016 09:19
[2016-04-27] MEDS: ATENOLOL 25 MG (TENORMIN) TAB PO SCH (10:43)
[2016-04-27] MEDS: SIMETHICONE 80 MG (MYLICON) CHEW PO SCH ×2 (10:43→13:00)
[2016-04-27] MEDS: FINASTERIDE (PROSCAR) 5 MG TAB PO SCH (10:43)
[2016-04-27] MEDS: VITAMIN D3 1,000 UNITS (CHOLECALCIFEROL) TABLET PO SCH (10:43)
[2016-04-27] MEDS: ACETAMINOPHEN 500 MG TAB (TYLENOL) PO PRN (10:45)
--- NOTE | 2016-04-27 11:03 | Therapy Team Discharge Summary ---
Therapy Discharge Summary Discharge Recommendations Date of Discharge Therapy D/C Recommendations: Home w/ Family Support Physical Therapy Patient to dismiss to home on this date per patient report. Patient is up independently in room and hallway without AD displaying good balance and functional mobility. Patient initially required minimal assist with all gross motor skills and use of FWW for safe ambulation. Patient has attained all functional goals and declined to demonstrate stairs. PT to dismiss patient from services at this time. PT Brush Clearer Surveying Goals Skilled Nursing Goals PT Brush Clearer Surveying Goals Time Frame: May 01, 2016 Transfers (B,C,W/C) (FIM): 6 (met 04/26/16) Sit to Lying (QC): 6 (met 04/26/16) Lying-Sitting on Side/Bed(QC): 6 (met 04/26/16) Sit to Stand (QC): 6 (met 04/26/16) Rollin (met 04/26/16) Does the Patient Walk: Yes Gait (FIM): 6 (met 04/26/16) Gait distance (FIM): 3=150 ft Distance: 300' Walk 50ft with 2 Turns (QC): 6 (met 04/26/16) Walk 150 ft (QC): 6 (met 04/26/16) Gait Level of Assist: 6 (met 04/26/16) Gait Assistive Device: None, FWW, Cane Single Point Stairs (FIM): 2 # of Steps: 4 Stairs Level Of Assist: 5 OT Brush Clearer Surveying Goals Brush Clearer Surveying Goals Time Frame: May 01, 2016 Eating (FIM): 6 Eating (QC): 6 Groomin (met-04/25/16) Oral Hygiene (QC): 6 (met-04/25/16) Bathing(FIM): 6 (met-04/25/16) Upper Body Dressing(FIM): 6 (met-04/25/16) Lower Body Dressing(FIM): 6 (met-04/25/16) Toileting(FIM): 6 (met-04/25/16) Toileting Hygiene (QC): 6 (met-04/25/16) Toilet/Commode Transfer(FIM): 6 (met-04/25/16) Toilet/Commode Transfer (QC): 6 (met-04/25/16) Shower Transfer(FIM): 6 (met-04/25/16) Additional Goals: 2-Verbalize Understanding, 3-ImproveStrength/[place] 1=Demonstrate adherence to instructed precautions during ADL tasks. 2=Patient will verbalize/demonstrate understanding of assistive devices/ modifications for ADL. 3=Patient will improve strength/tolerance for activity to enable patient to perform ADL's. LELE GÓMEZ PT Apr 27, 2016 11:03
--- NOTE | 2016-04-27 11:08 | Discharge Summary-Hospitalist ---
Diagnosis/Chief Complaint Date of Admission Apr 24, 2016 at 12:08 Date of Discharge Discharge Diagnosis Chart Review: No fever Vitals stable. BP 161/76 WBC 7.5 Hgb 10.7 Creat 2 2,300 cc's of UOP after Lasix given. Patient Interview: Pt states that he feels good, and has been urinating often. Dr. Darling informs pt that he will receive more Lasix to continue fluid output. Pt has not had BM yet today. Physical exam stable. Pt states that he would like to DC when stable, but would like to reduce swelling first. vital signs stable, pleasant, much improved, sitting in chair Regular rate and rhythm, clear to auscultation bilaterally except subtle crackles in the bases Noted nonpitting type of edema in hands and feet improved Laboratory Tests 04/26/16 04:20 Assessment: Sepsis due to pyelonephritis due to ESBL bacteriuria placed on meropenem Post obstruction renal insufficiency requiring catheter and urology consultation but discontinued catheter today Chronic renal insufficiency usual creatinine is 1.6 Mild volume overload Plan: DC Sunday or Sunday with possible home health and close follow-up with Dr. Diez Maintain Lasix dosed once today again Scribed by Ezio Martinez under the direct supervision of Dr. Darling. Reason Hospital Visit/Course Notes from 04/27/2016: Chart Review: Creat 1.74 back to baseline BP 180/81 Patient Interview: Pt states that he feels very good today. Pt has been ambulating and showered. Pt states that he would feel comfortable with DC today. Pt states that his swelling is reduced. Pt uses [facility]. Pt denies need for pain medicine. Physical exam stable. No fever, vital signs stable except for elevated blood pressure Regular rate and rhythm, clear to auscultation bilaterally no rales are noted in the bases now Improved edema Plan: DC with antibiotic and water pill. Follow-up with Dr. Gomez and Dr. Diez. Scribed by Ezio Martinez under the direct supervision of Dr. Darling. Hospital course: Patient a lengthy swing bed hospital course because he required IV meropenem until completed treatment. Due to the fact that his renal insufficiency improved enough back to baseline he was placed on Macrobid 100 mg twice a day as urology recommended and he will of close follow-up with Dr. Diez and Dr. Patricia and monitor closely for any other outlet obstruction problems in the meantime. Discharge Summary Discharge Physical Examination Allergies: Coded Allergies: No Known Drug Allergies (Unverified , 08/11/15) Vitals & I&Os Vital Signs Date Time Temp Pulse Resp B/P Pulse Ox O2 Delivery O2 Flow Rate FiO2 04/27/16 08:03 97 04/27/16 04:54 97.3 86 20 180/81 Room Air 04/25/16 18:15 0.75 Hospital Course Labs (last 24 hrs) Laboratory Tests 04/27/16 05:47: Anion Gap 11, BUN/Creatinine Ratio 21, Blood Urea Nitrogen 36H, Calcium Level 8.8, Carbon Dioxide Level 16L, Chloride Level 114H, Creatinine 1.74H, Estimat Glomerular Filtration Rate 39, Glucose Level 94, Potassium Level 4.0, Sodium Level 141 Pending Labs Laboratory Tests 04/27/16 05:47: Anion Gap 11, BUN/Creatinine Ratio 21, Blood Urea Nitrogen 36, Calcium Level 8.8 , Carbon Dioxide Level 16, Chloride Level 114, Creatinine 1.74, Estimat Glomerular Filtration Rate 39, Glucose Level 94, Potassium Level 4.0, Sodium Level 141 Discharge Home Medications: Active Scripts Active Norvasc (Amlodipine Besylate) 5 Mg Tablet 5 Mg PO DAILY Lasix (Furosemide) 20 Mg Tablet 20 Mg PO Q48H Macrobid 100 mg Capsule (Nitrofurantoin Monohyd/M-Cryst) 100 Mg Capsule 1 Tab PO BID [Finasteride] 5 MG Tab 5 Mg PO DAILY Alfuzosin HCl ER (Alfuzosin HCl) 10 Mg Tab.er.24h 10 Mg PO DAILY@1800 Reported Acetaminophen 500 Mg Tablet 500 Mg PO Q6H PRN Fish Oil 1,000 mg Softgel ([place]-3/Dha/Epa/Fish Oil) 1 Each Capsule 1,000 Mg PO Q48H Enalapril Maleate 20 Mg Tablet 40 Mg PO DAILY TAKES 2 (20MG) TABLETS Allopurinol 300 Mg Tablet 300 Mg PO DAILY Atenolol 25 Mg Tablet 25 Mg PO DAILY Hydrochlorothiazide 12.5 Mg Tablet 12.5 Mg PO DAILY Pravastatin Sodium 10 Mg Tablet 10 Mg PO HS Vitamin D3 (Cholecalciferol (Vitamin D3)) 2,000 Unit Tablet 2,000 Unit PO DAILY Instructions to patient/family Please see electonic discharge instructions given to patient. ROBYN DARLING DO Apr 27, 2016 11:08
[2016-04-27] MEDS ORDERED: AMLO5TAB4 PO (11:14)
[2016-04-27] MEDS ORDERED: NITR-65 PO (11:14)
[2016-04-27] MEDS ORDERED: FURO-125 PO (11:14)
[2016-04-27] MEDS ORDERED: Finasteride PO (11:14)
--- NOTE | 2016-04-27 11:15 | Discharge Instructions ---
Discharge Instructions Discharge Medications New, Converted or Re-Newed RX: Transmitted to Pharmacy New Medications: Amlodipine Besylate (Norvasc) 5 Mg Tablet 5 MG PO DAILY #30 TAB Furosemide (Lasix) 20 Mg Tablet 20 MG PO Q48H #15 TAB Nitrofurantoin Monohyd/M-Cryst (Macrobid 100 mg Capsule) 100 Mg Capsule 1 TAB PO BID #20 CAP ([Finasteride]) 5 MG TAB 5 MG PO DAILY #30 TAB Continued Medications: Acetaminophen (Acetaminophen) 500 Mg Tablet 500 MG PO Q6H PRN HEADACHE TAB Alfuzosin HCl (Alfuzosin HCl ER) 10 Mg Tab.er.24h 10 MG PO DAILY@1800 #30 TAB Atenolol (Atenolol) 25 Mg Tablet 25 MG PO DAILY TAB Cholecalciferol (Vitamin D3) (Vitamin D3) 2,000 Unit Tablet 2000 UNIT PO DAILY [place]-3/Dha/Epa/Fish Oil (Fish Oil 1,000 mg Softgel) 1 Each Capsule 1000 MG PO Q48H CAP Pravastatin Sodium (Pravastatin Sodium) 10 Mg Tablet 10 MG PO HS TAB Discontinued Medications: Allopurinol (Allopurinol) 300 Mg Tablet 300 MG PO DAILY TAB Enalapril Maleate (Enalapril Maleate) 20 Mg Tablet 40 MG PO DAILY TAKES 2 (20MG) TABLETS TAB Hydrochlorothiazide (Hydrochlorothiazide) 12.5 Mg Tablet 12.5 MG PO DAILY TAB Patient Instructions Goal/Follow Up Appt: Dr. Diez in one week Dr. Gomez in 2 weeks Activity & Diet Discharge Diet: No Restrictions Activity as Tolerated: Yes Copy Copies To 1: TETO DIEZ MD, MINDI DO Apr 27, 2016 11:15
[2016-04-27] MEDS ORDERED: amLODIPine 5 MG (NORVASC) TAB PO NR (11:30)
[2016-04-27] MEDS ORDERED: FUROSEMIDE 40 MG/4 ML INJ (LASIX) IVP NR (11:31)
[2016-04-27 14:25] VITALS: BP 180/81
--- NOTE | 2016-04-28 08:25 | Therapy Team Discharge Summary ---
Therapy Discharge Summary Discharge Recommendations Date of Discharge Apr 27, 2016 at 14:00 Therapy D/C Recommendations: Home w/ Family Support Occupational Therapy Pt was seen for skilled OT to increase his independence in basic self care to allow him to return home safely with his . On admission pt needed primarily setup assistance with ADLs. By discharge he was independent or modified independent with all basic ADLs, including eating, grooming and toileting. No additional equipment needed. No continued therapy recommended. See tx plan for goals met. DC OT PT Intern Architect Goals Fpc Goals PT Intern Architect Goals Time Frame: May 01, 2016 Transfers (B,C,W/C) (FIM): 6 (met 04/26/16) Sit to Lying (QC): 6 (met 04/26/16) Lying-Sitting on Side/Bed(QC): 6 (met 04/26/16) Sit to Stand (QC): 6 (met 04/26/16) Rollin (met 04/26/16) Does the Patient Walk: Yes Gait (FIM): 6 (met 04/26/16) Gait distance (FIM): 3=150 ft Distance: 300' Walk 50ft with 2 Turns (QC): 6 (met 04/26/16) Walk 150 ft (QC): 6 (met 04/26/16) Gait Level of Assist: 6 (met 04/26/16) Gait Assistive Device: None, FWW, Cane Single Point Stairs (FIM): 2 # of Steps: 4 Stairs Level Of Assist: 5 OT Fpc Goals Intern Architect Goals Time Frame: May 01, 2016 Eating (FIM): 6 Eating (QC): 6 Groomin (met-04/25/16) Oral Hygiene (QC): 6 (met-04/25/16) Bathing(FIM): 6 (met-04/25/16) Upper Body Dressing(FIM): 6 (met-04/25/16) Lower Body Dressing(FIM): 6 (met-04/25/16) Toileting(FIM): 6 (met-04/25/16) Toileting Hygiene (QC): 6 (met-04/25/16) Toilet/Commode Transfer(FIM): 6 (met-04/25/16) Toilet/Commode Transfer (QC): 6 (met-04/25/16) Shower Transfer(FIM): 6 (met-04/25/16) Additional Goals: 2-Verbalize Understanding, 3-ImproveStrength/[place] 1=Demonstrate adherence to instructed precautions during ADL tasks. 2=Patient will verbalize/demonstrate understanding of assistive devices/ modifications for ADL. 3=Patient will improve strength/tolerance for activity to enable patient to perform ADL's. DIO WINSLOW OT Apr 28, 2016 08:25
== END 2016-04-27 14:00 | disposition home or self-care (01) | DRG 872 ==
LOC: 4TH 12:08
PROVIDERS: ADMIT Internal Medicine; ATTEND Internal Medicine
DX: A41.51 Sepsis due to Escherichia coli [E. coli] (principal); N12 Tubulo-interstitial nephritis, not specified as acute or chronic; N41.9 Inflammatory disease of prostate, unspecified; N40.1 Benign prostatic hyperplasia with lower urinary tract symptoms; R33.8 Other retention of urine; R35.0 Frequency of micturition; R32 Unspecified urinary incontinence; N28.9 Disorder of kidney and ureter, unspecified; R35.1 Nocturia; R31.9 Hematuria, unspecified; R30.0 Dysuria; I12.9 Hypertensive chronic kidney disease with stage 1 through stage 4 chronic kidney disease, or unspecified chronic kidney disease; N18.9 Chronic kidney disease, unspecified; E87.70 Fluid overload, unspecified; M10.9 Gout, unspecified; E78.5 Hyperlipidemia, unspecified; E78.00 Pure hypercholesterolemia, unspecified; E55.9 Vitamin D deficiency, unspecified; Z85.828 Personal history of other malignant neoplasm of skin; Z87.891 Personal history of nicotine dependence
CPT/HCPCS: 36415; 80048; 80053; 85025; 94640; 94760

== ENCOUNTER 2016-04-30 23:17 | Emergency (ER) | payer MEDICARE ==
[~2016-04-30] VITALS: Ht 172.7 cm; Wt 97.5 kg
[~2016-04-30 23:17] MED LIST changes: +AMLO5TAB4 PO; +FURO-125 PO; +Finasteride PO; +NITR-65 PO
--- OUTSIDE RECORDS SUMMARY | 2016-04-30 23:24 | XMS REPORT | Continuity of Care Document ---
Author Author [facility] Organization [facility] Address Unknown Phone Unavailable Care Team Providers Care Dental Prosthetist Name Role Phone TETO DIEZ MD PCP Insurance Providers Payer Name Policy Number Subscriber Name Relationship s Medicare [id number] Gabe Gil 19 Self / Same As Patient Advance Directives Directive Response Recorded Date/Time Advance Directives No 04/01/16 3:40pm Health Care Power of Ad Copy Writer No 04/01/16 3:40pm Organ Donor No 04/01/16 [...] Oral Daily as needed for Headache 04/01/16 [place]-3/Dha/Epa/Fish Oil 1 Each 1,000 Mg Oral Daily [...] Tablet, 20 Mg Oral Daily 01/22/14 Discontinued [place]-3 Fatty Acids 300 Mg Capsule, Unknown Dose [...] Referrals TETO DIEZ MD (Unspecified) - Address: [place] [address] [id number] Reason(s) for Referral: Follow up with Dr. [...] - 99.5) 04/03/2016 12:51pm Temperature (Calculated Celsius) 36.96981 degrees C (36.4 - 37.5) 04/03/2016 12:51pm [...] 8.00 inches 04/01/2016 3:34pm Height (Calculated Centimeters) 172.423225 cm 04/01/2016 3:34pm Weight (Pounds) 210 pounds 04/01/2016 3:34pm Weight (Ounces) 0.0 oz 04/01/2016 3:34pm Weight (Calculated Grams) 25696.40 gm 04/01/2016 3:34pm Weight (Calculated Kilograms) 95.443133 kilograms 04/01/2016 3:34pm Calculated BMI 31.9 04/01/2016 [...] 5-9 04/01/2016 11:30am 04/01/2016 11:54am Urine Specific [place] 1.015 * 1.016-1.022 04/01/2016 11:30am 2016 11:54am [...] Date Attending Provider Admitted Inpatient (obs) [facility] 04/01/16 2:23pm LANE GRIFFIN MD Recent Diagnosis Pyelonephritis
[2016-05-01 00:06] LABS: BASOPHILS % (AUTO) 0 % (0-10); EOSINOPHILS # (AUTO) 0.2 10^3/uL (0.0-0.3); EOSINOPHILS % (AUTO) 2 % (0-10); LYMPHOCYTES # (AUTO) 1.6 X 10^3 (1.0-4.0); LYMPHOCYTES % (AUTO) 11 % (12-44); MEAN CORPUSCULAR HEMOGLOBIN 30 PG (25-34); MEAN CORPUSCULAR HGB CONC 34 G/DL (32-36); MEAN CORPUSCULAR VOLUME 87 FL (80-99); MEAN PLATELET VOLUME 11.6 FL (7.4-10.4); MONOCYTES # (AUTO) 1.1 X 10^3 (0.0-1.0); MONOCYTES % (AUTO) 8 % (0-12); NEUTROPHILS # (AUTO) 11.3 X 10^3 (1.8-7.8); NEUTROPHILS % (AUTO) 79 % (42-75); PLATELET COUNT 231 10^3/uL (130-400); RED BLOOD COUNT 3.77 10^6/uL (4.35-5.85); RED CELL DISTRIBUTION WIDTH 14.9 % (10.0-14.5); WHITE BLOOD COUNT 14.3 10^3/uL (4.3-11.0)
--- NOTE | 2016-05-01 00:21 | ED Abdominal Pain ---
General Chief Complaint: Abdominal/GI Problems Stated Complaint: L SIDE AB PAIN LOOSE STOOL Nursing Triage Note: left rib pain radiating to upper abdomen x 1week. worse x2 days Sepsis Screen: No Definite Risk Source of Information: Patient Exam Limitations: No Limitations History of Present Illness Time Seen By Provider: 23:55 Initial Comments Patient complains of left-sided abdominal pain for the past 3 days. He was recently hospitalized here for prostatitis and dehydration. He had a prolonged course receiving IV meropenem. He was discharged on April 27. Since then he has had left-sided abdominal pain that has steadily worsened. It is described as cramping in nature. He denies nausea or vomiting. Stools have been loose and green. Ludmila. Allergies and Home Medications Allergies Coded Allergies: No Known Drug Allergies (Unverified , 08/11/15) Home Medications 5 MG TAB #30 5 MG PO DAILY Prescribed by: ROBYN DARLING on 04/27/16 1114 Acetaminophen 500 Mg Tablet 500 MG PO Q6H PRN PRN HEADACHE (Reported) Alfuzosin HCl 10 Mg Tab.er.24h #30 10 MG PO DAILY@1800 Prescribed by: RADHA LANIER on 04/03/16 1249 Amlodipine Besylate 5 Mg Tablet #30 5 MG PO DAILY Prescribed by: ROBYN DARLING on 04/27/16 1114 Atenolol 25 Mg Tablet 25 MG PO DAILY (Reported) Cholecalciferol (Vitamin D3) 2,000 Unit Tablet 2,000 UNIT PO DAILY (Reported) Furosemide 20 Mg Tablet #15 20 MG PO Q48H Prescribed by: ROBYN DARLING on 04/27/16 1114 Nitrofurantoin Monohyd/M-Cryst 100 Mg Capsule #20 1 TAB PO BID Prescribed by: ROBYN DARLING on 04/27/16 1114 [place]-3/Dha/Epa/Fish Oil 1 Each Capsule 1,000 MG PO Q48H (Reported) Pravastatin Sodium 10 Mg Tablet 10 MG PO HS (Reported) Review of Systems Constitutional: no symptoms reported Respiratory: No Symptoms Reported Cardiovascular: No Symptoms Reported Gastrointestinal: Abdominal Pain Musculoskeletal: no symptoms reported All Other Systems Reviewed Negative Unless Noted: Yes Past Lwbbxtt-Oitftk-Wpxzne Hx Patient Social History Alcohol Use: Occasionally Uses Recreational Drug Use: No Smoking Status: Never a Smoker Former Smoker/When Quit: Feb 19, 2001 2nd Hand Smoke Exposure: No Recent Foreign Travel: No Contact w/Someone Who Travel: No Recent Infectious Disease Expo: No Recent Hopitalizations: Yes (dc'd 04/27) Immunizations Up To Date Tetanus Booster (TDap): Less than 5yrs Seasonal Allergies Seasonal Allergies: No Surgeries HX Surgeries: Yes (RICHARD) Surgeries: Abdominal Respiratory Hx Respiratory Disorders: No Cardiovascular Hx Cardiac Disorders: Yes Cardiac Disorders: High Cholesterol, Hypertension Neurological Hx Neurological Disorders: No Reproductive System Hx Reproductive Disorders: No Sexually Transmitted Disease: No HIV/AIDS: No Genitourinary Hx Genitourinary Disorders: Yes Genitourinary Disorders: Bladder Infection, UTI-Chronic Gastrointestinal Hx Gastrointestinal Disorders: Yes (RICHARD FUNDOPLICATION) Musculoskeletal Hx Musculoskeletal Disorders: Yes Musculoskeletal Disorders: Gout Endocrine Hx Endocrine Disorders: No HEENT HX ENT Disorders: No Loss of Vision: Denies Hearing Impairment: Denies Cancer Hx Cancer: Yes Cancer: Skin Psychosocial Hx Psychiatric Problems: No Integumentary HX Skin/Integumentary Disorder: Yes (SKIN CANCER) Blood Transfusions Hx Blood Disorders: No Reviewed Nursing Assessment Reviewed/Agree w Nursing PMH: Yes Family Medical History Significant Family History: No Pertinent Family Hx Family Medial History: CVA Physical Exam Vital Signs VS - Last 72 Hours, by Label 04/30/16 23:35 Temp 97.8 Pulse 79 Resp 18 B/P 172/86 Pulse Ox 96 O2 Delivery Room Air Capillary Refill : Less Than 3 Seconds General Appearance: WD/WN no apparent distress Neck: supple Respiratory: lungs clear normal breath sounds Cardiovascular: regular rate, rhythm no edema Gastrointestinal: softNo guarding, No rebound, tenderness (mild left upper and lower quadrant tenderness) Extremities: normal inspection Neurologic/Psychiatric: alert normal mood/affect Progress/Results/Core Measures Results/Orders Lab Results Laboratory Tests Test 04/30/16 23:58 05/01/16 00:30 Range/Units Alanine Aminotransferase (ALT/SGPT) 33 0-55 U/L Albumin 3.1 L 3.2-4.5 G/DL Alkaline Phosphatase 90 40-136 U/L Anion Gap 13 5-14 MMOL/L Aspartate Amino Transf (AST/SGOT) 27 5-34 U/L BUN/Creatinine Ratio 14 Basophils # (Auto) 0.0 0.0-0.1 10^3/uL Basophils (%) (Auto) 0 0-10 % Blood Urea Nitrogen 20 H 7-18 MG/DL Calcium Level 8.7 8.5-10.1 MG/DL Carbon Dioxide Level 21 21-32 MMOL/L Chloride Level 103 98-107 MMOL/L Creatinine 1.44 H 0.60-1.30 MG/DL Eosinophils # (Auto) 0.2 0.0-0.3 10^3/uL Eosinophils (%) (Auto) 2 0-10 % Estimat Glomerular Filtration Rate 49 Glucose Level 111 H 70-105 MG/DL Hematocrit 33 L 40-54 % Hemoglobin 11.2 L 13.3-17.7 G/DL Lactic Acid Level 0.74 0.50-2.00 MMOL/L Lipase 18 8-78 U/L Lymphocytes # (Auto) 1.6 1.0-4.0 X 10^3 Lymphocytes (%) (Auto) 11 L 12-44 % Mean Corpuscular Hemoglobin 30 25-34 PG Mean Corpuscular Hemoglobin Concent 34 32-36 G/DL Mean Corpuscular Volume 87 80-99 FL Mean Platelet Volume 11.6 H 7.4-10.4 FL Monocytes # (Auto) 1.1 H 0.0-1.0 X 10^3 Monocytes (%) (Auto) 8 0-12 % Neutrophils # (Auto) 11.3 H 1.8-7.8 X 10^3 Neutrophils (%) (Auto) 79 H 42-75 % Platelet Count 231 130-400 10^3/uL Potassium Level 4.0 3.6-5.0 MMOL/L Red Blood Count 3.77 L 4.35-5.85 10^6/uL Red Cell Distribution Width 14.9 H 10.0-14.5 % Sodium Level 137 135-145 MMOL/L Total Bilirubin 0.6 0.1-1.0 MG/DL Total Protein 6.7 6.4-8.2 G/DL White Blood Count 14.3 H 4.3-11.0 10^3/uL Urine Bacteria TRACE /HPF Urine Bilirubin NEGATIVE NEGATIVE Urine Casts NONE /LPF Urine Clarity CLEAR Urine Color YELLOW Urine Crystals NONE /LPF Urine Culture Indicated NO Urine Glucose (UA) NEGATIVE NEGATIVE Urine Ketones NEGATIVE NEGATIVE Urine Leukocyte Esterase 1+ H NEGATIVE Urine Mucus NEGATIVE /LPF Urine Nitrite NEGATIVE NEGATIVE Urine Protein 3+ H NEGATIVE Urine RBC 0-2 /HPF Urine RBC (Auto) 1+ H NEGATIVE Urine Specific [place] 1.015 L 1.016-1.022 Urine Squamous Epithelial Cells 0-2 /HPF Urine Urobilinogen NORMAL NORMAL MG/DL Urine WBC 0-2 /HPF Urine pH 6 5-9 My Orders Orders-JAKOB TALBOT MD Cbc With Automated Diff (04/30/16 23:24) Comprehensive Metabolic Panel (04/30/16 23:24) Lactic Acid Analyzer (04/30/16 23:24) Lipase (04/30/16 23:24) Ua Culture If Indicated (04/30/16 23:24) Chest 1 View, Ap/Pa Only (05/01/16 00:06) Ct Abdomen/Pelvis Wo (05/01/16 00:06) Hydrocodone/Apap 5/325 Tablet (Lortab 5 (05/01/16 01:15) Rx-Tramadol Hcl (Rx-Ultram) (05/01/16 01:04) Vital Signs/I&O Vital Sign - Last 12Hours 04/30/16 23:35 Temp 97.8 Pulse 79 Resp 18 B/P 172/86 Pulse Ox 96 O2 Delivery Room Air Blood Pressure Mean: 114 Progress Note : Time: 01:[address] findings with patient. No signs of acute abdomen. Patient to continue antibiotics and follow-up primary care physician later this week. Vicodin given for pain in the ER. Diagnostic Imaging Comments Diverticulosis but no diverticulitis no bowel obstruction. Bilateral perinephric stranding and mildly thickened bladder Departure Impression Impression: Primary Impression: Left sided abdominal pain Disposition: 01 HOME, SELF-CARE Condition: Stable Departure-Patient Inst. Decision time for Depature: 01:07 Referrals: TETO TORRES MD (PCP/Family) Primary Care Physician Patient Instructions: Acute Abdomen (Belly Pain), Adult (DC) JAKOB TALBOT MD May 01, 2016 00:21
[2016-05-01 00:24] LABS: ALBUMIN 3.1 G/DL (3.2-4.5); BILIRUBIN,TOTAL 0.6 MG/DL (0.1-1.0); CALCIUM 8.7 MG/DL (8.5-10.1); CREATININE SERUM 1.44 MG/DL (0.60-1.30); TOTAL PROTEIN 6.7 G/DL (6.4-8.2)
[2016-05-01 00:48] LABS: BILIRUBIN,URINE NEGATIVE (NEGATIVE); KETONES,URINE NEGATIVE (NEGATIVE); LEUKOCYTE ESTERASE ,URINE 1+ (NEGATIVE); NITRITE,URINE NEGATIVE (NEGATIVE); PH,URINE 6 (5-9); PROTEIN,URINE 3+ (NEGATIVE); UROBILINOGEN,URINE NORMAL (NORMAL)
[2016-05-01 00:58] LABS: SQUAMOUS EPITHELIAL CELL,UR 0-2 /HPF; WBC,URINE 0-2 /HPF
[2016-05-01] MEDS ORDERED: RX-TRAMADOL 50 MG (ULTRAM) TAB PPK#4 PO STA (01:04)
[2016-05-01 01:12] VITALS: BP 164/80
[2016-05-01] MEDS ORDERED: HYDROcodone/APAP 5 MG/325 MG (LORTAB) TAB PO ONE (01:15)
--- NOTE | 2016-05-01 06:50 | Diagnostic Imaging Report ---
INDICATION: Left-sided abdominal pain. COMPARISON: 04/20/2016. FINDINGS: Stable irregular hyperdensities in the lower left hemithorax from known pleural calcifications. No new airspace disease. No pleural effusion or pneumothorax. Please note posterior lower lobes are poorly evaluated by portable radiography. Stable cardiomediastinal silhouette. Stable regional skeleton. IMPRESSION: 1. Stable irregular hyperdense opacities in the left lung base secondary to known left pleural calcifications. 2. No evidence of new airspace disease. Dictated by: Dictated on workstation # [id number]
--- NOTE | 2016-05-01 07:01 | Diagnostic Imaging Report ---
PROCEDURE: CT abdomen and pelvis without contrast. TECHNIQUE: Multiple contiguous axial images were obtained through the abdomen and pelvis without the use of intravenous contrast. INDICATION: Left-sided abdominal pain. COMPARISON: 04/01/2016. FINDINGS: Stable smooth dense calcifications in the left pleura likely from prior hemothorax/pleurodesis. There is no involvement of the hemidiaphragm to indicate asbestos-related pleural disease. Minimal scattered linear atelectasis in the left lung base is unchanged. Right lung remains clear. No pericardial effusion. No free intraperitoneal air or fluid. Evaluation of abdominal viscera is limited without IV contrast. Allowing for this, the liver, gallbladder and pancreas are normal. There are geographic areas of hypoattenuation in the spleen which may represent splenic infarcts. The adrenals are normal. Kidneys are stable in appearance with bilateral perinephric stranding but no obstructive uropathy. No renal or ureteral calculi are seen. Urinary bladder is partially distended with mild circumferential wall thickening, which is also unchanged. Prostate is not enlarged. No abdominal or pelvic lymphadenopathy. No bowel obstruction. Normal caliber appendix. Sigmoid colon diverticulosis is noted. No acute osseous lesion in the abdomen or pelvis. IMPRESSION: 1. Geographic hypodensities in the spleen are new since prior exam and most compatible with splenic infarcts. 2. No obstructive uropathy or urinary tract calculi. Stable bilateral perinephric stranding which is nonspecific. 3. Stable left basilar pleural calcifications likely from prior hemothorax/pleurodesis. Findings are in general agreement with the preliminary report. Dictated by: Dictated on workstation # [id number]
== END 2016-05-01 01:12 | disposition home or self-care (01) ==
LOC: EDUNIT# 23:17 → ER 23:19
DX: R10.32 Left lower quadrant pain (principal); J98.4 Other disorders of lung; I10 Essential (primary) hypertension; Z79.899 Other long term (current) drug therapy
CPT/HCPCS: 36415; 71010; 74176; 80053; 81000; 83605; 83690; 85025; 99283

== ENCOUNTER 2016-10-18 17:18 | Inpatient (IN) | payer MEDICARE ==
[~2016-10-18] VITALS: Ht 172.7 cm; Wt 90.0 kg
[2016-10-18] MEDS ORDERED: fentaNYL INJECTION 100 MCG/2 ML AMP IVP STA (18:02)
[2016-10-18] MEDS ORDERED: FAMOTIDINE 20MG/2ML IV (PEPCID) IV STA (18:02)
[2016-10-18] MEDS ORDERED: ONDANSETRON 4 MG/2 ML (SDV) Z0FRAN IVP ONE ×2 (18:15→18:45)
[2016-10-18 18:35] LABS: BASOPHILS # (AUTO) 0.1 10^3/uL (0.0-0.1); BASOPHILS % (AUTO) 0 % (0-10); EOSINOPHILS % (AUTO) 0 % (0-10); LYMPHOCYTES # (AUTO) 0.9 X 10^3 (1.0-4.0); LYMPHOCYTES % (AUTO) 2 % (12-44); MEAN CORPUSCULAR HEMOGLOBIN 28 PG (25-34); MEAN CORPUSCULAR HGB CONC 34 G/DL (32-36); MEAN CORPUSCULAR VOLUME 83 FL (80-99); MONOCYTES # (AUTO) 0.7 X 10^3 (0.0-1.0); MONOCYTES % (AUTO) 2 % (0-12); NEUTROPHILS # (AUTO) 45.2 X 10^3 (1.8-7.8); NEUTROPHILS % (AUTO) 97 % (42-75); PLATELET COUNT 312 10^3/uL (130-400); RED BLOOD COUNT 3.78 10^6/uL (4.35-5.85)
[2016-10-18 18:37] LABS: WHITE BLOOD COUNT 46.8 10^3/uL (4.3-11.0)
[2016-10-18 18:49] LABS: ANISOCYTOSIS SLIGHT; BAND NEUTROPHILS 13 %; BASOPHILS % (MANUAL) 0 %; EOSINOPHILS % (MANUAL) 0 %; LYMPHOCYTES % (MANUAL) 3 %; NEUTROPHILS % (MANUAL) 83 %
[2016-10-18 18:54] LABS: ALBUMIN 3.1 GM/DL (3.2-4.5); BILIRUBIN,TOTAL 0.6 MG/DL (0.1-1.0); CALCIUM 9.3 MG/DL (8.5-10.1); CREATININE SERUM 4.93 MG/DL (0.60-1.30); TOTAL PROTEIN 7.3 GM/DL (6.4-8.2)
[2016-10-18] MEDS ORDERED: SOD POLYSTERENE 15 GM/60 ML (KAYEXALATE) UNIT DOSE PO ONE (19:00)
[2016-10-18] MEDS ORDERED: inSUlin (REGULAR) HUMAN 1 UNIT/0.01 ML (CHARGE PER UNIT) IV ONE (19:00)
[2016-10-18] MEDS ORDERED: DEXTROSE 50% 50 ML (IMS) SYR IV ONE (19:00)
--- NOTE | 2016-10-18 19:09 | ED General ---
General Chief Complaint: Fever-Adult/Adol Stated Complaint: ABDOMINAL PAIN,CHILLS Nursing Triage Note: c/o fever/chills/abdominal pain/cough. Symptoms have been intermittant x 2 weeks but worse last night. Pt has been at evaluated at a urgent care x 2 within the last 2 weeks. Currently on Macrodantin 100 mg for prostate prophylaxis and Levaquin 500 mg started on 10-13-16. Nursing Sepsis Screen: No Definite Risk Source of Information: Patient, Spouse History of Present Illness Time Seen by Provider: 17:48 Initial Comments PT ARRIVES VIA POV FROM HOME PT C/O SUBJECTIVE FEVER AND CHILLS, WITH LLQ AND LEFT MID ABDOMINAL PAIN AND NAUSEA/DRY HEAVES SINCE LAST PM PT HAS BEEN SICK OFF AND ON FOR A MONTH WAS SEEN AT [facility] 3-4 WEEKS AGO AND WAS DX WITH PNEUMONIA AND TREATED WITH UNKNOWN ANTIBIOTIC--NO TESTS DONE SEEN AGAIN THERE SUNDAY EVENING 10/13/16 FOR SUBJECTIVE FEVER AND CHILLS--NO TESTS WERE DONE, BUT WAS PLACED ON LEVAQUIN 500 MG--PT AND DO NOT KNOW WHAT HIS DX WAS. PT SAW DR. TORRES YESTERDAY FOR THESE PROBLEMS, NO TESTS AND NO RX GIVEN, NEXT APPOINTMENT 10/31/16 AND IS TO HAVE LAB NEXT WEEK "TO SEE IF HE IS ANEMIC" PT HAS HAD MINIMAL INTAKE THE LAST FEW DAYS--NO APPETITE, AND VERY NAUSEATED PT HAS HAD HIATAL HERNIA REPAIR AND CANNOT VOMIT, BUT HAS BEEN HAVING DRY HEAVES HAD A SMALL LIQUID BM TODAY PT HAS HISTORY OF PROSTATITIS AND TAKES MACROBID ONCE A DAY FOR PROPHYLAXIS PT HAS HAD INCREASED DIFFICULTY URINATING THE LAST COUPLE OF DAYS--MINIMAL OUTPUT PT HAS HAD A MILD NON-PRODUCTIVE COUGH PT APPEARS SHORT OF BREATH, BUT STATES HE DOES NOT FEEL SHORT OF BREATH AND DENIES HISTORY OF RESPIRATORY PROBLEMS. NO KNOWN SICK CONTACTS PCP: DR. TORRES UROLOGY: DR. MARCUS Allergies and Home Medications Allergies Coded Allergies: No Known Drug Allergies (Unverified , 08/11/15) Home Medications Acetaminophen 500 Mg Tablet, 500 MG PO Q6H PRN for HEADACHE, (Reported) Alfuzosin HCl 10 Mg Tab.er.24h, 10 MG PO DAILY@1800, #30 Prescribed by: RADHA LANIER on 04/03/16 1249 Amlodipine Besylate 5 Mg Tablet, 5 MG PO DAILY, #30 Prescribed by: ROBYN DARLING on 04/27/16 1114 Atenolol 25 Mg Tablet, 25 MG PO DAILY, (Reported) Cholecalciferol (Vitamin D3) 2,000 Unit Tablet, 2,000 UNIT PO DAILY, (Reported) Furosemide 20 Mg Tablet, 20 MG PO Q48H, #15 Prescribed by: ROBYN DARLING on 04/27/16 1114 Nitrofurantoin Monohyd/M-Cryst 100 Mg Capsule, 1 TAB PO BID, #20 Prescribed by: ROBYN DARLING on 04/27/16 1114 [place]-3/Dha/Epa/Fish Oil 1 Each Capsule, 1,000 MG PO Q48H, (Reported) Pravastatin Sodium 10 Mg Tablet, 10 MG PO HS, (Reported) [Finasteride] 5 MG TAB, 5 MG PO DAILY, #30 Prescribed by: ROBYN DARLING on 04/27/16 1114 Constitutional: chills, diaphoresis, fever, malaise, weakness EENTM: no symptoms reported Respiratory: see HPI, cough Cardiovascular: no symptoms reported, No chest pain, No edema, No palpitations , No syncope Gastrointestinal: see HPI, abdominal pain (LLQ), No constipation, diarrhea, loss of appetite, nausea, No vomiting (DRY HEAVES) Genitourinary: see HPI, decreased output Musculoskeletal: no symptoms reported Skin: no symptoms reported Psychiatric/Neurological: No Symptoms Reported, Denies Headache Hematologic/Lymphatic: No Symptoms Reported Immunological/Allergic: no symptoms reported Past Oughykj-Vtuidh-Epcjpr Hx Patient Social History Alcohol Use: Regular Use (UP TO 12 PACK OF BEER/DAY, BUT NONE SINCE 08/22/16) Number of Drinks Today: 0 Alcohol Beverage of Choice: Beer Recreational Drug Use: No Smoking Status: Former Smoker (2-3 PPD, QUIT OVER 30 YEARS AGO) Type Used: Cigarettes 2nd Hand Smoke Exposure: No Recent Foreign Travel: No Contact w/Someone Who Travel: No Recent Infectious Disease Expo: No Recent Hopitalizations: 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) Immunizations Up To Date Tetanus Booster (TDap): Less than 5yrs Seasonal Allergies Seasonal Allergies: No Surgeries History of Surgeries: Yes (RICHARD FUNDOPLICATION) Surgeries: Abdominal Respiratory History of Respiratory Disorde: No Currently Using CPAP: No Currently Using BIPAP: No Cardiovascular History of Cardiac Disorders: Yes Cardiac Disorders: High Cholesterol, Hypertension Neurological History of Neurological Disord: No Reproductive System Hx Reproductive Disorders: No Sexually Transmitted Disease: No HIV/AIDS: No Genitourinary History of Genitourinary Disor: Yes (PROSTATITIS; CHRONIC RENAL FAILURE/ INSUFFICIENCY) Genitourinary Disorders: Kidney Infection, Prostate Problems, Bladder Infection , Renal Failure, UTI-Chronic Gastrointestinal History of Gastrointestinal Di: Yes (RICHARD FUNDOPLICATION) Gastrointestinal Disorders: Gastroesophageal Reflux, Esophagitis, Hiatal Hernia , Ulcer Musculoskeletal History of Musculoskeletal Dis: Yes Musculoskeletal Disorders: Gout Endocrine History of Endocrine Disorders: No HEENT Loss of Vision: Denies Hearing Impairment: Hard of Hearing Cancer History of Cancer: Yes Cancer: Skin Psychosocial History of Psychiatric Problem: No Integumentary History of Skin or Integumenta: Yes (SKIN CANCER) Blood Transfusions History of Blood Disorders: No Family Medical History Significant Family History: No Pertinent Family Hx Family Medial History: CVA Physical Exam Vital Signs Vital Sign - Last 12Hours 10/18/16 17:56 Temp 99.2 Pulse 92 Resp 22 B/P (MAP) 141/55 Pulse Ox 97 O2 Delivery Room Air Capillary Refill : Less Than 3 Seconds General Appearance: No Apparent Distress, WD/WN, Other (LOOKS MILDLY ILL) HEENT: PERRL/EOMI, Other (DRY ORAL MUCOSA) Neck: Full Range of Motion, Normal Inspection, Non Tender, Supple Respiratory: Normal Breath Sounds, No Accessory Muscle Use, Other (BUT WITH RAPID AND SLIGHTLY LABORED BREATHING) Cardiovascular: No Murmur, Tachycardia, Other (FEET COOL AND UNABLE TO PALPATE PULSES IN EITHER FOOT) Gastrointestinal: Normal Bowel Sounds, No Organomegaly, No Pulsatile Mass, Soft , No Abnormal Bowel Sounds, No Distended, No Guarding, No Mass, Other (MILD DIFFUSE TENDERNESS, MARKED TENDERNESS IN LLQ, LEFT MID ABDOMEN AND LEFT FLANK) Back: No Vertebral Tenderness, CVA Tenderness (L) Extremity: Normal Range of Motion, Non Tender, Pedal Edema (1+ BILATERALLY) Neurologic/Psychiatric: Alert, Oriented x3, No Motor/Sensory Deficits, Normal Mood/Affect, 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 Norm as Tested Skin: Normal Color, Warm/Dry, Other (POOR TURGOR) Focused Exam Evaluation Lactate Level Laboratory Tests 10/18/16 18:20: Lactic Acid Level 2.21*H 10/18/16 20:40: Lactic Acid Level 2.46*H Lactic Acid Level Progress/Results/Core Measures Results/Orders Lab Results Laboratory Tests Test 10/18/16 18:20 10/18/16 20:40 10/18/16 21:08 10/19/16 00:38 Range/Units White Blood Count 46.8 *H 4.3-11.0 10^3/uL Red Blood Count 3.78 L 4.35-5.85 10^6/uL Hemoglobin 10.6 L 13.3-17.7 G/DL Hematocrit 32 L 40-54 % Mean Corpuscular Volume 83 80-99 FL Mean Corpuscular Hemoglobin 28 25-34 PG Mean Corpuscular Hemoglobin Concent 34 32-36 G/DL Red Cell Distribution Width 16.0 H 10.0-14.5 % Platelet Count 312 130-400 10^3/uL Mean Platelet Volume 11.0 H 7.4-10.4 FL Neutrophils (%) (Auto) 97 H 42-75 % Lymphocytes (%) (Auto) 2 L 12-44 % Monocytes (%) (Auto) 2 0-12 % Eosinophils (%) (Auto) 0 0-10 % Basophils (%) (Auto) 0 0-10 % Neutrophils # (Auto) 45.2 H 1.8-7.8 X 10^3 Lymphocytes # (Auto) 0.9 L 1.0-4.0 X 10^3 Monocytes # (Auto) 0.7 0.0-1.0 X 10^3 Eosinophils # (Auto) 0.0 0.0-0.3 10^3/uL Basophils # (Auto) 0.1 0.0-0.1 10^3/uL Neutrophils % (Manual) 83 % Lymphocytes % (Manual) 3 % Monocytes % (Manual) 1 % Eosinophils % (Manual) 0 % Basophils % (Manual) 0 % Band Neutrophils 13 % Anisocytosis SLIGHT Sodium Level 132 L 131 L 135-145 MMOL/L Potassium Level 6.0 H 6.4 H 3.6-5.0 MMOL/L Chloride Level 105 106 98-107 MMOL/L Carbon Dioxide Level 14 L 13 L 21-32 MMOL/L Anion Gap 13 12 5-14 MMOL/L Blood Urea Nitrogen 76 H 78 H 7-18 MG/DL Creatinine 4.93 H 5.17 H 0.60-1.30 MG/DL Estimat Glomerular Filtration Rate 12 11 BUN/Creatinine Ratio 15 15 Glucose Level 116 H 156 H 70-105 MG/DL Lactic Acid Level 2.21 *H 2.46 *H 0.50-2.00 MMOL/L Calcium Level 9.3 9.2 8.5-10.1 MG/DL Total Bilirubin 0.6 0.1-1.0 MG/DL Aspartate Amino Transf (AST/SGOT) 27 5-34 U/L Alanine Aminotransferase (ALT/SGPT) 34 0-55 U/L Alkaline Phosphatase 93 40-136 U/L Total Protein 7.3 6.4-8.2 GM/DL Albumin 3.1 L 3.2-4.5 GM/DL Amylase Level 44 25-125 U/L Lipase 8 8-78 U/L Urine Color YELLOW Urine Clarity SLIGHTLY CLOUDY Urine pH 5 5-9 Urine Specific [place] 1.010 L 1.016-1.022 Urine Protein 2+ H NEGATIVE Urine Glucose (UA) NEGATIVE NEGATIVE Urine Ketones NEGATIVE NEGATIVE Urine Nitrite NEGATIVE NEGATIVE Urine Bilirubin NEGATIVE NEGATIVE Urine Urobilinogen NORMAL NORMAL MG/DL Urine Leukocyte Esterase 3+ H NEGATIVE Urine RBC (Auto) 3+ H NEGATIVE Urine RBC 0-2 /HPF Urine WBC 10-25 H /HPF Urine Crystals NONE /LPF Urine Bacteria MODERATE H /HPF Urine Casts NONE /LPF Urine Mucus NEGATIVE /LPF Urine Culture Indicated YES My Orders Orders - LUIS KELLEY DO Saline Lock/Iv-Start (10/18/16 17:50) Amylase (10/18/16 17:50) Cbc With Automated Diff (10/18/16 17:50) Comprehensive Metabolic Panel (10/18/16 17:50) Lactic Acid Analyzer (10/18/16 17:50) Lipase (10/18/16 17:50) Ua Culture If Indicated (10/18/16 17:50) Blood Culture (10/18/16 17:50) Ondansetron Injection (Zofran Injectio (10/18/16 18:15) Famotidine Injection (Pepcid Injection) (10/18/16 18:02) Fentanyl Injection (Sublimaze Injection (10/18/16 18:02) Saline Lock/Iv-Start (10/18/16 18:02) Manual Differential (10/18/16 18:20) Ondansetron Injection (Zofran Injectio (10/18/16 18:45) Chest Pa/Lat (2 View) (10/18/16 18:57) Ct Chest/Abdomen/Pelvis Wo (10/18/16 18:57) Sodium Polystyrene Sulfonate (Kayexalate (10/18/16 19:00) D50w (Emergency) Syringe (Dextrose 50% 5 (10/18/16 19:00) Insulin (Regular) Human (Humulin R (Per (10/18/16 19:00) Meropenem (Merrem 1000 Mg) (10/18/16 20:00) Catheter(Urinary) Insert & Ass 03,15 (10/18/16 19:56) Monitor-Rhythm Ecg Trace Only (10/18/16 19:56) Saline Lock/Iv-Start (10/18/16 19:57) Saline Lock/Iv-Start (10/18/16 19:57) Ns Iv 1000 Ml (Sodium Chloride 0.9%) (10/18/16 19:57) Lidocaine 2% (Urojet) (Xylocaine Urojet) (10/18/16 19:57) Lidocaine 2% (Urojet) (Xylocaine Urojet) (10/18/16 20:15) Calcium Chloride 10% Injection (Calcium (10/18/16 20:15) Albuterol Pre-Mix Nebs (Rt) (Proventil P (10/18/16 20:15) Rt Request For Service (10/18/16 20:15) Svn Sm Volume Nebulizer Rt-Rfs (10/18/16 20:15) Urine Culture (10/18/16 21:08) Medications Given in ED Current Medications Medications Dose Ordered Sig/Avel Route Start Time Stop Time Status Last Admin Dose Admin Calcium Chloride 1 gm ONCE ONCE INJ 10/18/16 20:15 10/18/16 20:16 DC 10/18/16 21:21 1 GM Dextrose 50 ml ONCE ONCE IV 10/18/16 19:00 10/18/16 19:01 DC 10/18/16 19:19 50 ML Insulin Human Regular 10 unit ONCE ONCE IV 10/18/16 19:00 10/18/16 19:01 DC 10/18/16 19:23 10 UNIT Lidocaine HCl 10 ml ONCE ONCE TOP 10/18/16 20:15 10/18/16 20:16 DC 10/18/16 20:16 10 ML Ondansetron HCl 4 mg ONCE ONCE IVP 10/18/16 18:15 10/18/16 18:16 DC 10/18/16 18:45 4 MG Ondansetron HCl 4 mg ONCE ONCE IVP 10/18/16 18:45 10/18/16 18:46 DC 10/18/16 18:45 4 MG Sodium Polystyrene Sulfonate 15 gm ONCE ONCE PO 10/18/16 19:00 10/18/16 19:01 DC 10/18/16 19:24 15 GM Sodium Chloride 1,000 ml @ 0 mls/hr Q0M ONCE IV 10/18/16 19:57 10/18/16 19:58 DC 10/18/16 21:02 1,000 MLS/HR Vital Signs/I&O Vital Sign - Last 12Hours 10/18/16 10/18/16 10/18/16 10/18/16 17:56 18:35 20:35 21:41 Temp 99.2 99.2 98.9 Pulse 92 93 Resp 22 13 B/P (MAP) 141/55 Pulse Ox 97 95 96 O2 Delivery Room Air Room Air Room Air 10/18/16 10/18/16 10/18/16 10/18/16 21:45 22:00 22:21 23:00 Pulse 108 105 Resp 13 21 B/P (MAP) 140/73 124/54 Pulse Ox 97 97 96 97 O2 Delivery Room Air Room Air 10/19/16 00:00 Pulse Ox 96 O2 Delivery Room Air Blood Pressure Mean: 83 Progress Note : Progress Note NO DETERIORATION IN PT'S CONDITION DURING ER STAY PAIN AND NAUSEA IMPROVED WITH MEDICATIONS VITALS REMAINED STABLE Diagnostic Imaging Comments CXR--PERIHILAR EDEMA/INFILTRATE-LEFT > RIGHT, LEFT PLEURAL THICKENING--PER RADIOLOGIST REPORT @ 1930 CT CHEST/ABDOMEN/PELVIS--LEFT PLEURAL THICKENING AND CALCIFIC PLAQUES, NO FOCAL INFILTRATES, MILD HEPATOSPLENOMEGALY, INCREASE IN RENAL SIZE WITH PERINEPHRIC INFLAMMATORY CHANGES--GREATEST ON THE LEFT, WITH MILD LEFT HYDROURETER WITHOUT ANY RENAL/URETERAL STONES. PER RADIOLOGIST REPORT @ 193 Reviewed: Reviewed by Me Departure Communication (Admissions) Progress Notes 1939--SPOKE WITH DR. DARLING, ACCEPTS PT FOR ADMIT IF DR. MARCUS COMFORTABLE WITH PT STAYING HERE, WILL START IV ANTIBIOTICS ( PT HAD E.COLI AND SENSITIVE TO MEROPENEM AND AMIKACIN ONLY) , VIGOROUS HYDRATION AND IF NO IMPROVEMENT, SHE WILL TRANSFER PT TO HIGHER LEVEL OF CARE. WILL ALSO CONSULT E-ICU. 1945--SPOKE WITH DR. MARCUS, AND HE IS IN AGREEMENT WITH THE ABOVE AND WILL SEE HIM IN CONSULT DISCUSSED THE ABOVE WITH PT AND AND WOULD LIKE TO STAY HERE IF POSSIBLE, BUT AGREE THAT IF CONDITION DOES NOT IMPROVE, HE WOULD NEED TO BE TRANSFERRED TO ANOTHER FACILITY WITH HIGHER LEVEL OF CARE Impression Impression: Primary Impression: Sepsis Additional Impressions: Pyelonephritis Acute on chronic renal failure Hyperkalemia Dehydration Disposition: ADMITTED INPATIENT Condition: Stable Admissions Decision to Admit Reason: Admit from ER (General) Decision to Admit/Date: Oct 18, 2016 Time/Decision to Admit Time: 19:40 Departure-Patient Inst. Referrals: TETO TORRES MD (PCP/Family) Primary Care Physician LUIS KELLEY DO Oct 18, 2016 19:08
--- NOTE | 2016-10-18 19:21 | Diagnostic Imaging Report ---
INDICATION: Fever and chills with abdominal pain and cough. TECHNIQUE: PA and lateral views of the chest are obtained. COMPARISON is made to the examination of 05/01/2016. FINDINGS: Perihilar infiltrate is again seen, greater on the left. There is no evidence of pneumothorax. There is mild blunting of the left costophrenic sulcus which is not significantly changed. No other change is seen. IMPRESSION: Perihilar edema and/or pneumonitis, greater on the left, with mild left pleural thickening. No focal consolidation or other significant change is seen. Dictated by: Dictated on workstation # [id number]
--- NOTE | 2016-10-18 19:25 | Diagnostic Imaging Report ---
PROCEDURE: CT chest, abdomen, and pelvis without contrast. TECHNIQUE: Multiple contiguous axial images were obtained through the chest, abdomen, and pelvis without the use of intravenous contrast. INDICATION: Abdominal pain with nausea for 6 days including a productive cough, chills and fever. CT CHEST: There is dense pleural thickening in the dependent left hemithorax with scattered areas of calcific plaque seen elsewhere in the left pleura. There is no evidence of infiltrate or pulmonary mass. There is no evidence of pericardial fluid. No pathologically enlarged adenopathy is seen in the thorax. IMPRESSION: Mild left pleural thickening and calcific plaquing which is most pronounced in the dependent portions. This may be related to previous pleural infection or hemorrhage. Otherwise, there is no CT evidence of acute thoracic abnormality. CT ABDOMEN AND PELVIS: Unenhanced images of the liver and spleen reveal mild hepatosplenomegaly without evidence of focal lesion. No gallbladder abnormality is identified and there is no evidence of biliary ductal dilatation. Pancreas and adrenal glands are also unremarkable and not appreciably changed when compared to study of 05/01/2016. There has been further increase in size of kidneys with an increase in perinephric edema and/or inflammation, greater on the left. There is also mild right and mild to moderate left hydronephrosis with left hydroureter to the level of the bladder which demonstrates diffuse mural thickening. Left periureteric inflammation is noted, as well. There is no evidence of organized fluid collection to indicate an abscess. The appendix has a normal appearance. There is moderate lumbar spondylosis. IMPRESSION: Increasing renal size which may be due to inflammation. There has also been an increase in perinephric inflammation, greater on the left with left hydroureteral nephrosis. No definite urinary tract calculus is identified. There could be partial obstruction of ureters due to bladder wall thickening and clinical correlation is recommended. Urinalysis would be of value. Dictated by: Dictated on workstation # [id number]
[2016-10-18] MEDS ORDERED: LIDOCAINE UROJET 2% GEL 10 ML PKG ONE (19:57)
[2016-10-18] MEDS ORDERED: NS IV 1000 ML 1,000 ML IV ONE (19:57)
[2016-10-18] MEDS ORDERED: MEROPENEM 2,000 MG in NS (IVPB) 100 ML IV SCH (20:00)
[2016-10-18] MEDS ORDERED: LIDOCAINE UROJET 2% GEL 10 ML PKG TOP ONE (20:15)
[2016-10-18] MEDS ORDERED: RT-ALBUTEROL SULF 2.5 MG/3 ML PRE-MIX VIAL INH STA (20:15)
[2016-10-18] MEDS ORDERED: CALCIUM CHLORIDE 1 GM/10 ML (IMS) SYR INJ ONE (20:15)
[2016-10-18 21:15] LABS: BILIRUBIN,URINE NEGATIVE (NEGATIVE); KETONES,URINE NEGATIVE (NEGATIVE); LEUKOCYTE ESTERASE ,URINE 3+ (NEGATIVE); NITRITE,URINE NEGATIVE (NEGATIVE); PH,URINE 5 (5-9); PROTEIN,URINE 2+ (NEGATIVE); UROBILINOGEN,URINE NORMAL (NORMAL)
[2016-10-18 22:00] VITALS: BP 140/73
[2016-10-18] MEDS ORDERED: 1/2 NS IV SOLUTION 1,000 ML IV ONE (22:34)
[2016-10-18 23:00] VITALS: BP 124/54
[2016-10-18] MEDS ORDERED: ONDANSETRON 4 MG/2 ML (SDV) Z0FRAN IV PRN (23:00)
[2016-10-18] MEDS ORDERED: 1/2 NS IV SOLUTION 1,000 ML IV SCH (23:00)
[2016-10-18] MEDS ORDERED: NS IV 1000 ML 2,500 ML IV PRN (23:00)
[2016-10-18] MEDS ORDERED: fentaNYL INJECTION 100 MCG/2 ML AMP IV PRN (23:00)
[2016-10-18] MEDS: D5 1/2 NS 1000 ML IV SOLUTION 1,000 ML IV SCH (23:15)
[2016-10-19] VITALS (15 sets, daily range): BP systolic 114–164; BP diastolic 48–81
[2016-10-19 01:27] LABS: CALCIUM 9.2 MG/DL (8.5-10.1); CREATININE SERUM 5.17 MG/DL (0.60-1.30); POTASSIUM 6.4 MMOL/L (3.6-5.0)
[2016-10-19] MEDS: NS IV 1000 ML 1,000 ML IV SCH ×3 (01:27→06:28)
[2016-10-19] MEDS ORDERED: MEROPENEM 2 GM/NS 100 ML IVPB IV SCH ×2 (04:00)
[2016-10-19] MEDS: D5 1/2 NS 1000 ML IV SOLUTION 1,000 ML IV SCH (04:08)
[2016-10-19] MEDS ORDERED: SODIUM BICARB 8.4% 50 MEQ/50 ML (ABBOTT) SYR IV ONE ×2 (04:15→05:15)
[2016-10-19 04:48] LABS: ABG BASE EXCESS -9.1 MMOL/L (-2.5-2.5); ABG OXYGEN SATURATION 98 % (94-100); ABG PCO2 33 MMHG (35-45); ABG PO2 104 MMHG (79-93); ABG TCO2 16.8 MMOL/L (21.0-31.0)
[2016-10-19 04:49] LABS: ALLENS TEST YES-POS
[2016-10-19 04:50] LABS: PATIENT TEMP 99.7
[2016-10-19 04:51] LABS: ABG HCO3 16 MMOL/L (23-27)
[2016-10-19 05:01] LABS: BASOPHILS % (AUTO) 0 % (0-10); EOSINOPHILS % (AUTO) 0 % (0-10); LYMPHOCYTES # (AUTO) 0.6 X 10^3 (1.0-4.0); LYMPHOCYTES % (AUTO) 2 % (12-44); MEAN CORPUSCULAR HEMOGLOBIN 28 PG (25-34); MEAN CORPUSCULAR HGB CONC 33 G/DL (32-36); MEAN CORPUSCULAR VOLUME 83 FL (80-99); MEAN PLATELET VOLUME 10.7 FL (7.4-10.4); MONOCYTES # (AUTO) 0.7 X 10^3 (0.0-1.0); MONOCYTES % (AUTO) 2 % (0-12); NEUTROPHILS # (AUTO) 40.4 X 10^3 (1.8-7.8); NEUTROPHILS % (AUTO) 97 % (42-75); PLATELET COUNT 251 10^3/uL (130-400); RED BLOOD COUNT 3.57 10^6/uL (4.35-5.85); RED CELL DISTRIBUTION WIDTH 15.8 % (10.0-14.5)
[2016-10-19 05:11] LABS: WHITE BLOOD COUNT 41.8 10^3/uL (4.3-11.0)
[2016-10-19 05:29] LABS: ALBUMIN 2.7 GM/DL (3.2-4.5); BILIRUBIN,TOTAL 0.5 MG/DL (0.1-1.0); CALCIUM 8.9 MG/DL (8.5-10.1); CREATININE SERUM 5.25 MG/DL (0.60-1.30); PHOSPHORUS 5.1 MG/DL (2.3-4.7); POTASSIUM 5.6 MMOL/L (3.6-5.0); TOTAL PROTEIN 6.3 GM/DL (6.4-8.2)
[2016-10-19] MEDS ORDERED: FUROSEMIDE 40 MG/4 ML INJ (LASIX) IVP ONE (05:45)
[2016-10-19 05:55] LABS: ABG BASE EXCESS -5.3 MMOL/L (-2.5-2.5); ABG HCO3 19 MMOL/L (23-27); ABG OXYGEN SATURATION 98 % (94-100); ABG PCO2 31 MMHG (35-45); ABG PO2 95 MMHG (79-93); ABG TCO2 19.5 MMOL/L (21.0-31.0)
[2016-10-19 05:56] LABS: ALLENS TEST YES-POS
[2016-10-19 05:57] LABS: PATIENT TEMP 99.6
[2016-10-19] MEDS ORDERED: MAGNESIUM 1 GM/100 ML IVPB 100 ML IV SCH (06:00)
[2016-10-19] MEDS ORDERED: KCL 20 MEQ TAB (K-DUR) PO SCH (06:00)
[2016-10-19] MEDS ORDERED: POTASSIUM CL 10MEQ/50ML IVPB 50 ML IV SCH (06:00)
--- NOTE | 2016-10-19 06:26 | Pulmonary Consultation ---
History of Present Illness History of Present Illness Date of Consultation 10/19/16 06:20 Time Seen by Provider: 06:20 Date of Admission History of Present Illness 71 yo presented to ED secondary to fever, chills, Nausea, LLQ and left mid abdominal pain. that started the evening prior to admission. No prior episodes like this before. PT was dx with PNA and treated with Abx at urgent care and then seen again at Sunday10/13/16. Progressive SOB without productive cough. Allergies and Home Medications Allergies Coded Allergies: No Known Drug Allergies (Unverified , 08/11/15) Home Medications Acetaminophen 500 Mg Tablet, 500 MG PO Q6H PRN for HEADACHE, (Reported) Alfuzosin HCl 10 Mg Tab.er.24h, 10 MG PO DAILY@1800, #30 Prescribed by: RADHA LANIER on 04/03/16 1249 Amlodipine Besylate 5 Mg Tablet, 5 MG PO DAILY, #30 Prescribed by: ROBYN DARLING on 04/27/16 1114 Atenolol 25 Mg Tablet, 25 MG PO DAILY, (Reported) Cholecalciferol (Vitamin D3) 2,000 Unit Tablet, 2,000 UNIT PO DAILY, (Reported) Furosemide 20 Mg Tablet, 20 MG PO Q48H, #15 Prescribed by: ROBYN DARLING on 04/27/16 1114 Nitrofurantoin Monohyd/M-Cryst 100 Mg Capsule, 1 TAB PO BID, #20 Prescribed by: ROBYN DARLING on 04/27/16 1114 Osco-3/Dha/Epa/Fish Oil 1 Each Capsule, 1,000 MG PO Q48H, (Reported) Pravastatin Sodium 10 Mg Tablet, 10 MG PO HS, (Reported) [Finasteride] 5 MG TAB, 5 MG PO DAILY, #30 Prescribed by: ROBYN DARLING on 04/27/16 1114 Past Ptgaclh-Chwied-Rlbmgk Hx Patient Social History Alcohol Use: Regular Use (UP TO 12 PACK OF BEER/DAY, BUT NONE SINCE 08/22/16) Number of Drinks Today: 0 Alcohol Beverage of Choice: Beer Recreational Drug Use: No Smoking Status: Former Smoker (2-3 PPD, QUIT OVER 30 YEARS AGO) Type Used: Cigarettes Former Smoker, Quit: Oct 18, 1984 2nd Hand Smoke Exposure: No Recent Foreign Travel: No Contact w/Someone Who Travel: No Recent Infectious Disease Expo: No Recent Hopitalizations: 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) Immunizations Up To Date Tetanus Booster (TDap): Less than 5yrs Seasonal Allergies Seasonal Allergies: No Surgeries History of Surgeries: Yes (RICHARD FUNDOPLICATION) Surgeries: Abdominal Respiratory History of Respiratory Disorde: No Currently Using CPAP: No Currently Using BIPAP: No Cardiovascular History of Cardiac Disorders: Yes Cardiac Disorders: High Cholesterol, Hypertension Neurological History of Neurological Disord: No Reproductive System Hx Reproductive Disorders: No Sexually Transmitted Disease: No HIV/AIDS: No Genitourinary History of Genitourinary Disor: Yes (PROSTATITIS; CHRONIC RENAL FAILURE/ INSUFFICIENCY) Genitourinary Disorders: Kidney Infection, Prostate Problems, Bladder Infection , Renal Failure, UTI-Chronic Gastrointestinal History of Gastrointestinal Di: Yes (RICHARD FUNDOPLICATION) Gastrointestinal Disorders: Gastroesophageal Reflux, Esophagitis, Hiatal Hernia , Ulcer Musculoskeletal History of Musculoskeletal Dis: Yes Musculoskeletal Disorders: Gout Endocrine History of Endocrine Disorders: No HEENT Loss of Vision: Denies Hearing Impairment: Hard of Hearing Cancer History of Cancer: Yes Cancer: Skin Psychosocial History of Psychiatric Problem: No Integumentary History of Skin or Integumenta: Yes (SKIN CANCER) Blood Transfusions History of Blood Disorders: No Family Medical History Significant Family History: No Pertinent Family Hx Family Medial History: CVA Review of Systems Time Seen by Provider: 06:44 Constitutional: Fever, Sweats, Weakness, Malaise Eyes: No: Pain, Vision change, Conjunctivae inflammation, Eyelid inflammation, Other, Redness ENT: No: Ear pain, Ear discharge, Nose pain, Nose discharge, Nose congestion, Mouth pain, Mouth swelling, Throat pain, Throat swelling, Other Respiratory: Cough, Dry, Shortness of breath, SOB with excertion Cardiovascular: No: Chest Pain, Palpitations, Orthopnea, Paroxysmal Noc. Dyspnea, Edema, Lt Headedness, Other Gastrointestinal: Nausea, Abdominal Pain, No: Vomiting Genitourinary: Dysuria, Retention Neurological: Weakness, Incoordination, Confusion Exam Exam Vital Signs Date Time Temp Pulse Resp B/P (MAP) Pulse Ox O2 Delivery O2 Flow Rate FiO2 10/19/16 06:00 94 13 152/70 97 Room Air 10/19/16 05:45 99.6 10/19/16 05:00 100 36 158/74 99 Room Air 10/19/16 04:49 102 35 30.00 10/19/16 04:00 94 32 164/81 97 Room Air 10/19/16 04:00 99.7 10/19/16 03:00 105 32 130/61 95 Room Air 10/19/16 02:00 98.8 10/19/16 02:00 96 30 114/70 97 Room Air 10/19/16 01:00 99 10/19/16 01:00 96 34 136/61 98 Room Air 10/19/16 00:00 103 34 140/48 97 Room Air 10/19/16 00:00 96 Room Air 10/18/16 23:00 105 21 124/54 97 10/18/16 22:21 96 Room Air 10/18/16 22:00 108 13 140/73 97 10/18/16 21:45 99.1 10/18/16 21:45 97 Room Air 10/18/16 21:41 98.9 93 13 96 Room Air 10/18/16 20:35 95 Room Air 10/18/16 18:35 99.2 10/18/16 17:56 99.2 92 22 141/55 97 Room Air General Appearance: WD/WN, Moderate Distress, Other (LOOKS MILDLY ILL) HEENT: PERRL/EOMI, Other (DRY ORAL MUCOSA) Neck: Full Range of Motion, Normal Inspection, Non Tender, Supple Respiratory: Normal Breath Sounds, No Accessory Muscle Use, Other (BUT WITH RAPID AND SLIGHTLY LABORED BREATHING) Cardiovascular: No Murmur, Tachycardia, Other (FEET COOL AND UNABLE TO PALPATE PULSES IN EITHER FOOT) Capillary Refill: Less Than 3 Seconds Extremity: Normal Range of Motion, Non Tender, Pedal Edema (1+ BILATERALLY) Neurologic/Psychiatric: Alert, Oriented x3, No Motor/Sensory Deficits, Normal Mood/Affect, chief ophthalmic technician II-XII Norm as Tested Skin: Normal Color, Warm/Dry, Other (POOR TURGOR) Results Lab Laboratory Tests 10/18/16 18:20 10/19/16 00:38 10/19/16 04:43 Assessment/Plan Assessment/Plan Acute respiratory failure -Continue BiPAP PRN -trial patient on NC this AM Severe Sepsis secondary to UTI and pyelonephritis ( pt has received 3 liters total since admission) -Continue Merrem -- pt has hx of UTI with Ecoli ESBL + -hayden cultures Acute on chronic renal failure (Baseline Cr is 1.4) with metabolic acidosis and hyperkalemia -PT received 2 amps of HC03 this morning -currently on D5 1/2 NS Hyperkalemia -post 2 amps HC02, and 40mg of lasix 80mg per EICU Metabolic lactic acidosis -IVF, BiCarb -Start bicarb gtt 255 Pt will probably need to transfer for nephrology support. Will d/w today and repeat labs at 10. Clinical Quality Measures DVT/VTE Risk/Contraindication: Risk Factor Score Per Nursin RFS Level Per Nursing on Admit: 4+=Very High ALEYDA JIMÉNEZ DO Oct 19, 2016 06:26
[2016-10-19] MEDS: MAGNESIUM 1 GM/100 ML IVPB 100 ML IV SCH ×2 (06:28→07:30)
[2016-10-19] MEDS ORDERED: RT-ALBUINH IH (08:24)
[2016-10-19] MEDS ORDERED: LEVO500T2 PO (08:24)
[2016-10-19] MEDS ORDERED: PRAV10TA PO (08:24)
[2016-10-19] MEDS ORDERED: ALLO300T2 PO (08:24)
[2016-10-19] MEDS ORDERED: NITR100C PO (08:24)
[2016-10-19] MEDS ORDERED: ALFU10TA PO (08:24)
[2016-10-19] MEDS ORDERED: ENAL20TA PO (08:24)
[2016-10-19] MEDS ORDERED: FINA5TAB PO (08:24)
[2016-10-19] MEDS ORDERED: HYDR12.56 PO (08:24)
[2016-10-19] MEDS ORDERED: OXYB10TA6 PO (08:24)
[2016-10-19] MEDS ORDERED: PANTOPRAZOLE 40 MG/10 ML (PROTONIX) VIAL IV SCH (09:00)
[2016-10-19] MEDS: SODIUM BICARBONATE 8.4% VIAL 75 MEQ in 1/2 NS IV SOLUTION 1,000 ML IV SCH ×2 (09:13→14:59)
--- NOTE | 2016-10-19 09:17 | Diagnostic Imaging Report ---
CLINICAL INDICATION: Patient with dyspnea. EXAM: Portable chest x-ray upright view. COMPARISON: Chest x-ray dated 10/18/2016. FINDINGS: There is interval slight low volumes compared to the prior study with increased airspace opacification bilaterally which may represent atelectasis, but progression of infiltrates cannot be completely excluded. There is interval elevation of the right hemidiaphragm. There is no pleural effusion or pneumothorax. Pulmonary vasculature and cardiac silhouette is within normal limits. IMPRESSION: 1: Interval bilateral lung atelectasis versus progression of infiltrate. There is also slight elevation of the right hemidiaphragm. 2: The remainder of this exam shows no significant interval change compared to the prior study of comparison. Dictated by: Dictated on workstation # [id number]
[2016-10-19 10:06] LABS: CALCIUM 8.6 MG/DL (8.5-10.1); CREATININE SERUM 5.27 MG/DL (0.60-1.30); POTASSIUM 5.2 MMOL/L (3.6-5.0)
--- NOTE | 2016-10-19 10:50 | CONSULTATION REPORT ---
DATE OF SERVICE: 10/19/2016 ATTENDING PHYSICIAN: Briseida Cummings DO SUMMARY: A 71-year-old white man, known to me from previous urosepsis, prostatitis, chronic renal failure, BPH who was admitted through the Emergency Room last evening with severe sepsis secondary to a UTI, prostatitis and pyelonephritis and acute on top of chronic renal failure, metabolic lactic acidosis, hypokalemia and respiratory failure. He was admitted to the ICU, consultation with Dr. Mendoza was obtained. The patient is not improving after fluid management, whether respiratory or renal moahn. IMPRESSION: 1. Acute respiratory failure. 2. Severe sepsis. 3. Acute on top of chronic renal failure. 4. Metabolic lactic acidosis. 5. Hypokalemia. RECOMMENDATIONS: Transfer to a tertiary center. Recommend transfer to [facility]. Job ID: [id number] DocumentID: [id number] Dictated Date: 10/19/2016 10:35:30 Cash Person Date: 10/19/2016 10:49:20 Dictated By: TUSHAR MARCUS MD
--- NOTE | 2016-10-19 11:02 | History & Physical-Hospitalist ---
HPI History of Present Illness: HPI/Chief Complaint CC: Acute renal failure HPI: This is a 71 [address]WM pt of Dr[address] Diez known to me from prior and admission and DC on 04/27/16 for acute renal failure, ESBL UTI. Initial Creat of 3 at that time , and was aggressively treated by holding alize inhibitor and maintain fluids. Follow up with Dr. Gomez for outlet obstruction BPH. Presented to ER for symptoms that persisted 3 weeks. Pt on multiple abx, like Levaquin, pt began to not tolerate PO intake. Presented to ER with Creat of 4.9, repeated at midnight 5.1 repeated again 5.2. WBC 47,000 now to 42, hgb stable 9.9, ABG 7.30/33/104 now has normalized on bicarb drip because bicarb was 14 on admit, lactic acid elevated 2.39, pt empirically placed on Meropenem due to ESBL hx and now all blood cx reveals gram negative rods, matching urine cx chip mixer: Picc line will be placed Pt on BiPap Hyde out put 350 this am Patient Interview: Pt opened his eyes when spoken too and seemed to want to talk Physical exam stable. Pt confirms experiencing pain in his lower abdomen Scribed by Kim Davidson under the direct supervision of Dr. Darling. Source: RN/MD Exam Limitations: clinical condition (critically ill) Date Seen 10/19/16 Time Seen by Provider: 10:00 Attending Physician Briseida Darling DO PCP Geoff Diez MD Referring Physician Date of Admission Oct 18, 2016 at 20:29 Home Medications & Allergies Home Medications Reviewed patient Home Medication Reconciliation Form Allergies Allergies Coded Allergies No Known Drug Allergies (Unverified08/11/15) Past Tlnizrs-Kpnpvz-Cdciws Hx Patient Social History Marrital Status: Employed/Student: retired Alcohol Use: Regular Use (UP TO 12 PACK OF BEER/DAY, BUT NONE SINCE 08/22/16) Number of Drinks Today: 0 Alcohol Beverage of Choice: Beer Recreational Drug Use: No Smoking Status: Former Smoker (2-3 PPD, QUIT OVER 30 YEARS AGO) Former Smoker, Quit: Oct 18, 1984 Type Used: Cigarettes 2nd Hand Smoke Exposure: No Physical Abuse Screen: No Sexual Abuse: No Recent Foreign Travel: No Contact w/other who traveled: No Recent Hopitalizations: 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) Recent Infectious Disease Expo: No Immunizations Up To Date Tetanus Booster (TDap): Less than 5yrs Seasonal Allergies Seasonal Allergies: No Surgeries Yes (RICHARD FUNDOPLICATION) Abdominal Respiratory No Currently Using CPAP: No Currently Using BIPAP: No Cardiovascular Yes High Cholesterol, Hypertension Neurological No Reproductive System Hx Reproductive Disorders: No Sexually Transmitted Disease: No HIV/AIDS: No Genitourinary Yes (PROSTATITIS; CHRONIC RENAL FAILURE/INSUFFICIENCY) Kidney Infection, Prostate Problems, Bladder Infection, Renal Failure, UTI- Chronic Gastrointestinal Yes (RICHARD FUNDOPLICATION) Gastroesophageal Reflux, Esophagitis, Hiatal Hernia, Ulcer Musculoskeletal Yes Gout Endocrine History of Endocrine Disorders: No HEENT Loss of Vision: Denies Hearing Impairment: Hard of Hearing Cancer Yes Skin Psychosocial History of Psychiatric Problem: No Integumentary History of Skin or Integumenta: Yes (SKIN CANCER) Blood Transfusions History of Blood Disorders: No Family Medical History Significant Family History: No Pertinent Family Hx Family Hx: CVA Review of Systems Constitutional: see HPI, weakness EENTM: no symptoms reported Respiratory: short of breath Cardiovascular: no symptoms reported Gastrointestinal: loss of appetite, nausea, vomiting Genitourinary: decreased output Musculoskeletal: back pain Skin: no symptoms reported Psychiatric/Neurological: No Symptoms Reported Physical Exam Physical Exam Vital Signs Vital Sign - Last 12Hours 10/18/16 10/19/16 17:56 04:49 Temp 99.2 Pulse 92 Resp 22 B/P (MAP) 141/55 Pulse Ox 97 O2 Delivery Room Air O2 Flow Rate 30.00 Capillary Refill : Less Than 3 Seconds General Appearance: WD/WN, Chronically ill, Mild Distress, Other (on BiPAP) Eyes: Bilateral Eye Normal Inspection, Bilateral Eye PERRL HEENT: PERRL/EOMI, Normal ENT Inspection, Pharynx Normal Neck: Full Range of Motion, Normal Inspection, Non Tender, Supple, Carotid Bruit Respiratory: Chest Non Tender, No Accessory Muscle Use, No Respiratory Distress , Decreased Breath Sounds Cardiovascular: Regular Rate, Rhythm, No Edema, No Gallop, No JVD, No Murmur, Normal Peripheral Pulses, Tachycardia Gastrointestinal: Normal Bowel Sounds, No Organomegaly, No Pulsatile Mass, Non Tender, Soft Back: Normal Inspection, No CVA Tenderness, No Vertebral Tenderness Extremity: Normal Capillary Refill, Normal Inspection, Normal Range of Motion, Non Tender, No Calf Tenderness, No Pedal Edema Neurologic/Psychiatric: Alert, Oriented x3, No Motor/Sensory Deficits, Depressed Affect Skin: Normal Color, Warm/Dry Lymphatic: No Adenopathy Results Results/Procedures Lab Laboratory Tests 10/18/16 18:20 10/19/16 00:38 10/19/16 04:43 10/19/16 08:30 Assessment/Plan Admission Diagnosis Assessment: Acute pyelonephritis with ESBL history placed on meropenem empirically renal dosed now with blood cultures with gram-negative rods Acute renal failure with creatinine 4.9 on admit now 5.27 on repeat this morning with oliguria Respiratory insufficiency requiring BiPAP therapy Severe dehydration ALIZE inhibitor maintenance while dehydrated Outlet obstruction managed by Dr. Gomez Baseline chronic renal insufficiency Hypertension Hyponatremia of 131 Hyperkalemia Anemia of kidney disease Assessment and Plan Plan: Maintain BiPap Maintain Hyde PICC May need transfer for dialysis Bicarb drip Clinical Quality Measures DVT/VTE Risk/Contraindication: Risk Factor Score Per Nursin RFS Level Per Nursing on Admit: 4+=Very High BRISEIDA DARLING DO Oct 19, 2016 11:02
--- NOTE | 2016-10-19 15:12 | Pulmonary Progress Note ---
Standard Progress Note Progress Notes Time Seen by Provider: 15:08 Assessment & Plan Acute respiratory failure with pneumonia -Continue BiPAP PRN -trial patient on NC this AM Severe Sepsis secondary to UTI and pyelonephritis ( pt has received 3 liters total since admission) -Continue Merrem -- pt has hx of UTI with Ecoli ESBL + -hayden cultures Bacteremia Acute on chronic renal failure (Baseline Cr is 1.4) with metabolic acidosis and hyperkalemia -PT received 2 amps of HC03 this morning -currently on D5 1/2 NS Hyperkalemia -post 2 amps HC02, and 40mg of lasix 80mg per EICU Metabolic lactic acidosis -IVF, BiCarb -Start bicarb gtt I discussed with family and patient need for transfer secondary to renal failure. They agree with transfer to [facility]. [facility] called and I discussed case with Dr. Kim who accepts patient for transfer. 30min spent with transferring patient to [facility]. 255 ALEYDA JIMÉNEZ DO Oct 19, 2016 15:12
--- NOTE | 2016-10-19 15:16 | Discharge Summary ---
Diagnosis/Chief Complaint Date of Admission Oct 18, 2016 at 20:29 Date of Discharge 10/18/16 Discharge Date: Oct 19, 2016 Discharge Time: 15:14 Admission Diagnosis Admission Diagnosis severe sepsis Discharge Diagnosis Acute respiratory failure -Continue BiPAP PRN -trial patient on NC this AM Severe Sepsis secondary to UTI and pyelonephritis ( pt has received 3 liters total since admission) -Continue Merrem -- pt has hx of UTI with Ecoli ESBL + -hayden cultures Acute on chronic renal failure (Baseline Cr is 1.4) with metabolic acidosis and hyperkalemia -PT received 2 amps of HC03 this morning -currently on D5 1/2 NS Hyperkalemia -post 2 amps HC02, and 40mg of lasix 80mg per EICU Metabolic lactic acidosis -IVF, BiCarb -Start bicarb gtt transfer to [facility] Discharge Summary Hospital Course Hospital Course PT was admitted for Sepsis and respiratory failure however secondary to ARF with Cr 5 he is being transferred to [facility] Labs Laboratory Tests 10/18/16 18:20: White Blood Count 46.8*H, Red Blood Count 3.78L, Hemoglobin 10.6L, Hematocrit 32L, Red Cell Distribution Width 16.0H, Mean Platelet Volume 11.0H, Neutrophils (%) (Auto) 97H, Lymphocytes (%) (Auto) 2L, Neutrophils # (Auto) 45.2H, Lymphocytes # (Auto) 0.9L, Sodium Level 132L, Potassium Level 6.0H, Carbon Dioxide Level 14L, Blood Urea Nitrogen 76H, Creatinine 4.93H, Glucose Level 116H , Lactic Acid Level 2.21*H, Albumin 3.1L 10/18/16 20:40: Lactic Acid Level 2.46*H 10/18/16 21:08: Urine Specific [place] 1.010L, Urine Protein 2+H, Urine Leukocyte Esterase 3+H, Urine RBC (Auto) 3+H, Urine WBC 10-25H, Urine Bacteria MODERATEH 10/19/16 00:38: Sodium Level 131L, Potassium Level 6.4H, Carbon Dioxide Level 13L, Blood Urea Nitrogen 78H, Creatinine 5.17H, Glucose Level 156H 10/19/16 04:35: Arterial Blood pH 7.30*L, Arterial Blood Partial Pressure CO2 33L, Arterial Blood Partial Pressure O2 104H, Arterial Blood HCO3 16*L, Arterial Blood Total CO2 16.8L, Arterial Blood Base Excess -9.1L 10/19/16 04:43: White Blood Count 41.8*H, Red Blood Count 3.57L, Hemoglobin 9.9L, Hematocrit 30L , Red Cell Distribution Width 15.8H, Mean Platelet Volume 10.7H, Neutrophils (% ) (Auto) 97H, Lymphocytes (%) (Auto) 2L, Neutrophils # (Auto) 40.4H, Lymphocytes # (Auto) 0.6L, Sodium Level 133L, Potassium Level 5.6H, Carbon Dioxide Level 15L, Blood Urea Nitrogen 77H, Creatinine 5.25H, Glucose Level 153H , Lactic Acid Level 3.21*H, Phosphorus Level 5.1H, Magnesium Level 1.0*L, Total Protein 6.3L, Albumin 2.7L 10/19/16 05:45: Arterial Blood Partial Pressure CO2 31L, Arterial Blood Partial Pressure O2 95H , Arterial Blood HCO3 19L, Arterial Blood Total CO2 19.5L, Arterial Blood Base Excess -5.3L 10/19/16 08:30: Sodium Level 131L, Potassium Level 5.2H, Carbon Dioxide Level 20L, Blood Urea Nitrogen 78H, Creatinine 5.27H, Glucose Level 160H, Lactic Acid Level 2.39*H Procedures None. Discharge Physical Examination Allergies: Coded Allergies: No Known Drug Allergies (Unverified , 08/11/15) Vitals & I&Os Vital Signs Date Time Temp Pulse Resp B/P (MAP) Pulse Ox O2 Delivery O2 Flow Rate FiO2 10/19/16 14:00 82 35 135/68 99 NIV Bilevel 30.00 10/19/16 11:00 98.3 Discharge Home Medications Reviewed and agree with Discharge Medication list on patient's Discharge Instruction sheet Instructions to Patient/Family Please see electonic discharge instructions given to patient. Clinical Quality Measures DVT/VTE Risk/Contraindication: Risk Factor Score Per Nursin RFS Level Per Nursing on Admit: 4+=Very High ALEYDA JIMÉNEZ DO Oct 19, 2016 15:16
[2016-10-19] MEDS ORDERED: MEROPENEM 500 MG/NS 100 ML IVPB IV SCH ×2 (21:00)
== END 2016-10-19 17:00 | disposition short-term general hospital (02) | DRG 189 ==
LOC: EDUNIT# 17:18 → ER 17:20 → ICU 20:29
PROVIDERS: ADMIT Internal Medicine; ATTEND Internal Medicine
DX: J96.00 Acute respiratory failure, unspecified whether with hypoxia or hypercapnia (principal); A41.9 Sepsis, unspecified organism; R65.20 Severe sepsis without septic shock; N10 Acute pyelonephritis; N17.9 Acute kidney failure, unspecified; E87.2 Acidosis; E87.1 Hypo-osmolality and hyponatremia; I12.9 Hypertensive chronic kidney disease with stage 1 through stage 4 chronic kidney disease, or unspecified chronic kidney disease; N18.9 Chronic kidney disease, unspecified; D63.1 Anemia in chronic kidney disease; E86.0 Dehydration; E78.00 Pure hypercholesterolemia, unspecified; E87.5 Hyperkalemia; K21.9 Gastro-esophageal reflux disease without esophagitis; B96.20 Unspecified Escherichia coli [E. coli] as the cause of diseases classified elsewhere; Z87.891 Personal history of nicotine dependence
CPT/HCPCS: 36415; 51702; 71010; 71020; 71250; 74176; 80048; 80053; 81000; 82150; 82805; 83605; 83690; 83735; 84100; 85007; 85025; 85027; 87040; 87077; 87081; 87088; 93005; 93041; 94640; 94660; 96361; 96374; 96375

== ENCOUNTER 2016-11-02 16:00 | Emergency (ER) | payer MEDICARE ==
[~2016-11-02] VITALS: Ht 172.7 cm; Wt 89.4 kg
[~2016-11-02 16:00] MED LIST changes: +ALFU10TA PO; +FINA5TAB PO; +LEVO500T2 PO; +NITR100C PO; +OXYB10TA6 PO; +RT-ALBUINH IH
[2016-11-02 16:42] LABS: BASOPHILS # (AUTO) 0.1 10^3/uL (0.0-0.1); BASOPHILS % (AUTO) 1 % (0-10); EOSINOPHILS # (AUTO) 0.2 10^3/uL (0.0-0.3); EOSINOPHILS % (AUTO) 3 % (0-10); LYMPHOCYTES % (AUTO) 23 % (12-44); MEAN CORPUSCULAR HEMOGLOBIN 27 PG (25-34); MEAN CORPUSCULAR HGB CONC 31 G/DL (32-36); MEAN CORPUSCULAR VOLUME 85 FL (80-99); MEAN PLATELET VOLUME 11.7 FL (7.4-10.4); MONOCYTES # (AUTO) 1.2 X 10^3 (0.0-1.0); MONOCYTES % (AUTO) 13 % (0-12); NEUTROPHILS # (AUTO) 5.4 X 10^3 (1.8-7.8); NEUTROPHILS % (AUTO) 60 % (42-75); PLATELET COUNT 396 10^3/uL (130-400); RED BLOOD COUNT 2.93 10^6/uL (4.35-5.85); RED CELL DISTRIBUTION WIDTH 15.5 % (10.0-14.5)
--- NOTE | 2016-11-02 16:43 | ED General ---
General Chief Complaint: General Problems/Pain Stated Complaint: ANEMIA Nursing Triage Note: pt reports he was sent over from [facility] per Dr. Diez due to recent labs drawn that indidcate anemia. Nursing Sepsis Screen: No Definite Risk History of Present Illness Time Seen by Provider: 16:40 Initial Comments The [facility] had called prior to the patient's arrival. They were totally oblivious to any recent lab or plans. After arrival it was found that the patient had been scheduled for a type and cross today and an outpatient transfusion at home day care provider at 0900 tomorrow. Blood will be drawn and the plan will be executed Allergies and Home Medications Allergies Coded Allergies: No Known Drug Allergies (Unverified , 08/11/15) Home Medications Acetaminophen 500 Mg Tablet, 500-1,000 MG PO Q6H PRN for PAIN-MILD, (Reported) Albuterol Sulfate 1 Puff Puff, 1-2 PUFF IH Q4H PRN for SHORTNESS OF BREATH, ( Reported) 1 PUFF = 90 MCG Alfuzosin HCl 10 Mg Tab.sr.24h, 10 MG PO DAILY, (Reported) Allopurinol 300 Mg Tablet, 300 MG PO DAILY, (Reported) Atenolol 25 Mg Tablet, 25 MG PO DAILY, (Reported) Cholecalciferol (Vitamin D3) 2,000 Unit Tablet, 2,000 UNIT PO DAILY, (Reported) Enalapril Maleate 20 Mg Tablet, 20 MG PO BID, (Reported) Finasteride 5 Mg Tablet, 5 MG PO DAILY, (Reported) Hydrochlorothiazide 12.5 Mg Tablet, 12.5 MG PO DAILY, (Reported) Levofloxacin 500 Mg Tablet, 500 MG PO DAILY for 10 Days, (Reported) 10 DAY THEARPY FILLED 8-25-17 Nitrofurantoin Macrocrystal 100 Mg Capsule, 100 MG PO DAILY, (Reported) FILLED #30 8-18-17 Oxybutynin Chloride 10 Mg Tab.er.24, 10 MG PO HS, (Reported) Pravastatin Sodium 10 Mg Tablet, 10 MG PO HS, (Reported) Constitutional: see HPI Past Teqkkcf-Dxtdxg-Rzykeg Hx Patient Social History Alcohol Use: Occasionally Uses Number of Drinks Today: AA Alcohol Beverage of Choice: Beer Recreational Drug Use: No Smoking Status: Former Smoker Type Used: Cigarettes Former Smoker, Quit: Oct 18, 1984 2nd Hand Smoke Exposure: No Recent Foreign Travel: No Contact w/Someone Who Travel: No Recent Infectious Disease Expo: No Recent Hopitalizations: 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) Physical Abuse: No Sexual Abuse: No Mistreated: No Fear: No Immunizations Up To Date Tetanus Booster (TDap): Less than 5yrs Seasonal Allergies Seasonal Allergies: No Surgeries History of Surgeries: Yes (RICHARD FUNDOPLICATION, picc, dialysis port) Surgeries: Abdominal Respiratory History of Respiratory Disorde: No Currently Using CPAP: No Currently Using BIPAP: No Cardiovascular History of Cardiac Disorders: Yes Cardiac Disorders: High Cholesterol, Hypertension Neurological History of Neurological Disord: No Reproductive System Hx Reproductive Disorders: No Sexually Transmitted Disease: No HIV/AIDS: No Genitourinary History of Genitourinary Disor: Yes (PROSTATITIS; CHRONIC RENAL FAILURE/ INSUFFICIENCY) Genitourinary Disorders: Kidney Infection, Prostate Problems, Bladder Infection , Renal Failure, Dialysis, UTI-Chronic Gastrointestinal History of Gastrointestinal Di: Yes (RICHARD FUNDOPLICATION) Gastrointestinal Disorders: Gastroesophageal Reflux, Esophagitis, Hiatal Hernia , Ulcer Musculoskeletal History of Musculoskeletal Dis: Yes Musculoskeletal Disorders: Gout Endocrine History of Endocrine Disorders: No HEENT Loss of Vision: Denies Hearing Impairment: Hard of Hearing Cancer History of Cancer: Yes Cancer: Skin Psychosocial History of Psychiatric Problem: No Suicide Risk Score: 0 Integumentary History of Skin or Integumenta: Yes (SKIN CANCER) Blood Transfusions History of Blood Disorders: No Family Medical History Significant Family History: No Pertinent Family Hx Family Medial History: CVA Physical Exam Vital Signs Vital Sign - Last 12Hours 11/02/16 16:30 Temp 98.3 Pulse 73 Resp 18 B/P (MAP) 151/67 Pulse Ox 99 Capillary Refill : Less Than 3 Seconds General Appearance: No Apparent Distress Progress/Results/Core Measures Results/Orders Lab Results Laboratory Tests Test 11/02/16 16:27 Range/Units My Orders Orders - RADHA LANIER MD Cbc With Automated Diff (11/02/16 16:06) Comprehensive Metabolic Panel (11/02/16 16:06) Red Cells Leukocytes Reduced (11/02/16 16:06) Type And Screen (11/02/16 16:06) Vital Signs/I&O Vital Sign - Last 12Hours 11/02/16 16:30 Temp 98.3 Pulse 73 Resp 18 B/P (MAP) 151/67 Pulse Ox 99 Blood Pressure Mean: 95 Departure Impression Impression: Primary Impression: anemia Disposition: 01 HOME, SELF-CARE Condition: Stable/Unchanged Departure-Patient Inst. Decision time for Depature: 16:41 Referrals: TETO DIEZ MD (PCP/Family) Primary Care Physician Add. Discharge Instructions: All discharge instructions reviewed with patient and/or family. Voiced understanding. Return at 0900 for planned transfusion at home day care provider. RADHA LANIER MD Nov 02, 2016 16:42
[2016-11-02 17:03] LABS: ALBUMIN 2.9 GM/DL (3.2-4.5); BILIRUBIN,TOTAL 0.7 MG/DL (0.1-1.0); CALCIUM 8.1 MG/DL (8.5-10.1); CREATININE SERUM 1.8 MG/DL (0.60-1.30); POTASSIUM 3.2 MMOL/L (3.6-5.0); TOTAL PROTEIN 7.8 GM/DL (6.4-8.2)
[2016-11-02 17:28] VITALS: BP 140/90
== END 2016-11-02 17:28 | disposition home or self-care (01) ==
LOC: EDUNIT# 16:00 → ER 16:03
DX: D64.9 Anemia, unspecified (principal); E78.00 Pure hypercholesterolemia, unspecified; I12.0 Hypertensive chronic kidney disease with stage 5 chronic kidney disease or end stage renal disease; N18.6 End stage renal disease; K21.9 Gastro-esophageal reflux disease without esophagitis; M10.9 Gout, unspecified; Z85.828 Personal history of other malignant neoplasm of skin; Z99.2 Dependence on renal dialysis; Z87.891 Personal history of nicotine dependence; Z87.440 Personal history of urinary (tract) infections; Z87.448 Personal history of other diseases of urinary system; Z87.19 Personal history of other diseases of the digestive system
CPT/HCPCS: 36415; 80053; 85025; 86850; 86900; 86901; 86920; 99281

== ENCOUNTER → 2016-11-03 | Outpatient (CLI) | payer MEDICARE ==
[~2016-11-03] VITALS: Ht 172.7 cm; Wt 89.6 kg
[2016-11-03] VITALS (8 sets, daily range): BP systolic 137–145; BP diastolic 65–74
[~2016-11-03] MED LIST changes: +NS IV 500 ML 500 ML ONE
[2016-11-03] MEDS: FUROSEMIDE 40 MG/4 ML INJ (LASIX) IVP SCH ×2 (12:25→15:14)
== END ==
LOC: SDC 08:45
PROVIDERS: ATTEND Family Medicine
DX: D64.9 Anemia, unspecified (principal)
CPT/HCPCS: 36415; 36430; 86850; 86900; 86901; 86920

== ENCOUNTER → 2016-11-04 | Outpatient (CLI) | payer MEDICARE ==
[~2016-11-04] MED LIST changes: -NS IV 500 ML 500 ML ONE
== END ==
LOC: CVS 07:00
PROVIDERS: ATTEND Family Medicine
DX: D64.9 Anemia, unspecified (principal)
CPT/HCPCS: 85014; 85018

== ENCOUNTER 2016-12-11 12:58 | Outpatient (RCR) | payer MEDICARE ==
[2016-12-02 13:21] VITALS: BP 141/59
[2016-12-02 13:24] VITALS: BP 141/59
[2016-12-02] MEDS: NS IV SCH (13:38)
[2016-12-02] MEDS: ERTAPENEM IV SCH (13:38)
[2016-12-03 13:27] VITALS: BP 124/61
[2016-12-03] MEDS: NS IV SCH (13:29)
[2016-12-03] MEDS: ERTAPENEM IV SCH (13:29)
[2016-12-04 13:36] LABS: BASOPHILS # (AUTO) 0.1 10^3/uL (0.0-0.1); BASOPHILS % (AUTO) 1 % (0-10); EOSINOPHILS # (AUTO) 0.5 10^3/uL (0.0-0.3); EOSINOPHILS % (AUTO) 6 % (0-10); HEMATOCRIT 30 % (40-54); HEMOGLOBIN 9.9 G/DL (13.3-17.7); LYMPHOCYTES % (AUTO) 25 % (12-44); MEAN CORPUSCULAR HEMOGLOBIN 29 PG (25-34); MEAN CORPUSCULAR HGB CONC 33 G/DL (32-36); MEAN CORPUSCULAR VOLUME 88 FL (80-99); MEAN PLATELET VOLUME 10.8 FL (7.4-10.4); MONOCYTES # (AUTO) 0.6 X 10^3 (0.0-1.0); MONOCYTES % (AUTO) 8 % (0-12); NEUTROPHILS # (AUTO) 4.9 X 10^3 (1.8-7.8); NEUTROPHILS % (AUTO) 61 % (42-75); PLATELET COUNT 204 10^3/uL (130-400); RED BLOOD COUNT 3.43 10^6/uL (4.35-5.85); RED CELL DISTRIBUTION WIDTH 16.1 % (10.0-14.5); WHITE BLOOD COUNT 8.1 10^3/uL (4.3-11.0)
[2016-12-04] MEDS: ERTAPENEM IV SCH (13:37)
[2016-12-04] MEDS: NS IV SCH (13:37)
[2016-12-04 13:55] LABS: ALBUMIN 3.1 GM/DL (3.2-4.5); BILIRUBIN,TOTAL 0.4 MG/DL (0.1-1.0); CALCIUM 8.8 MG/DL (8.5-10.1); CREATININE SERUM 2.86 MG/DL (0.60-1.30); POTASSIUM 3.5 MMOL/L (3.6-5.0); TOTAL PROTEIN 6.6 GM/DL (6.4-8.2)
[2016-12-04 14:10] VITALS: BP 135/69
[2016-12-04 14:12] LABS: ERYTHROCYTE SEDIMENTATION RATE 39 MM/HR (0-30)
[2016-12-05 13:00] VITALS: BP 132/64
[2016-12-05] MEDS: NS IV SCH (13:05)
[2016-12-05] MEDS: ERTAPENEM IV SCH (13:05)
[2016-12-06 13:15] VITALS: BP 129/84
[2016-12-06] MEDS: ERTAPENEM IV SCH (13:18)
[2016-12-06] MEDS: NS IV SCH (13:18)
[2016-12-07 12:55] VITALS: BP 130/73
[2016-12-07] MEDS: NS IV SCH (13:00)
[2016-12-07] MEDS: ERTAPENEM IV SCH (13:00)
[2016-12-08 12:50] VITALS: BP 130/72
[2016-12-08] MEDS: NS IV SCH (13:00)
[2016-12-08] MEDS: ERTAPENEM IV SCH (13:00)
[2016-12-09 13:54] VITALS: BP 127/58
[2016-12-09] MEDS: ERTAPENEM IV SCH (13:59)
[2016-12-09] MEDS: NS IV SCH (13:59)
[2016-12-10] MEDS: ERTAPENEM IV SCH (13:45)
[2016-12-10] MEDS: NS IV SCH (13:45)
[2016-12-10 14:15] VITALS: BP 143/90
[~2016-12-11] VITALS: Ht 172.7 cm; Wt 80.5 kg
[2016-12-11 13:21] LABS: BASOPHILS % (AUTO) 0 % (0-10); EOSINOPHILS # (AUTO) 0.4 10^3/uL (0.0-0.3); EOSINOPHILS % (AUTO) 4 % (0-10); HEMATOCRIT 32 % (40-54); HEMOGLOBIN 10.5 G/DL (13.3-17.7); LYMPHOCYTES # (AUTO) 2.3 X 10^3 (1.0-4.0); LYMPHOCYTES % (AUTO) 24 % (12-44); MEAN CORPUSCULAR HEMOGLOBIN 29 PG (25-34); MEAN CORPUSCULAR HGB CONC 33 G/DL (32-36); MEAN CORPUSCULAR VOLUME 88 FL (80-99); MEAN PLATELET VOLUME 10.7 FL (7.4-10.4); MONOCYTES % (AUTO) 10 % (0-12); NEUTROPHILS # (AUTO) 5.9 X 10^3 (1.8-7.8); NEUTROPHILS % (AUTO) 61 % (42-75); PLATELET COUNT 253 10^3/uL (130-400); RED BLOOD COUNT 3.63 10^6/uL (4.35-5.85); RED CELL DISTRIBUTION WIDTH 15.3 % (10.0-14.5); WHITE BLOOD COUNT 9.7 10^3/uL (4.3-11.0)
[2016-12-11] MEDS: ERTAPENEM IV SCH (13:30)
[2016-12-11] MEDS: NS IV SCH (13:30)
[2016-12-11 13:40] LABS: ALBUMIN 3.2 GM/DL (3.2-4.5); BILIRUBIN,TOTAL 0.4 MG/DL (0.1-1.0); CALCIUM 9.3 MG/DL (8.5-10.1); CREATININE SERUM 3.6 MG/DL (0.60-1.30); POTASSIUM 3.5 MMOL/L (3.6-5.0); TOTAL PROTEIN 7.4 GM/DL (6.4-8.2)
[2016-12-11 13:58] LABS: ERYTHROCYTE SEDIMENTATION RATE 66 MM/HR (0-30)
[2016-12-11 14:05] VITALS: BP 147/65
== END 2017-03-02 | disposition home or self-care (01) ==
LOC: SDC 12:58
PROVIDERS: ATTEND Family Medicine
DX: N10 Acute pyelonephritis (principal); B96.20 Unspecified Escherichia coli [E. coli] as the cause of diseases classified elsewhere
CPT/HCPCS: 36415; 36592; 80053; 85025; 85652; 96365; 99211

== ENCOUNTER 2017-04-02 15:01 | Emergency (ER) | payer MEDICARE ==
[~2017-04-02] VITALS: Ht 172.7 cm; Wt 88.5 kg
[2017-04-02] MEDS ORDERED: ASPIRIN 81 MG CHEW (CHILDREN'S ASA) ONE (15:38)
[2017-04-02] MEDS: NITROGLYCERIN 0.4 MG SL TABS BTL 25'S SL PRN ×2 (15:38→15:43)
--- NOTE | 2017-04-02 15:39 | ED Chest Pain ---
General Chief Complaint: Chest Pain Stated Complaint: L SIDE CHEST AND ARM PAIN Nursing Triage Note: Pt c/o L sided chest pain starting yesterday evening and worsening over last hour. Pt reports pain radiates down L arm. Nursing Sepsis Screen: No Definite Risk Source: patient, spouse Exam Limitations: no limitations History of Present Illness Date Seen by Provider: Apr 02, 2017 Time Seen by Provider: 15:20 Initial Comments Patient presents to ER by private conveyance with a chief complaint of substernal chest pain radiating to his left shoulder and a little bit into the back of his neck. Pain is pressure, sharp and severe. He took 2 Tylenol this morning and it did not help. The pain initially started about 8:00 last night and has been intermittent but in the last hour to became constant so he decided to come to the ER. He does not have an history of heart disease although he is on dialysis for end-stage renal failure in [place], [place]. He has a double- lumen dialysis catheter in his right subclavian and has started a fistula formation on his left upper arm that is not mature yet. He has had no nausea, chills, sweats, fever. He does have a history of ulcers in his stomach and has had a Noemi fundoplication. He is not having any abdominal pain, diarrhea or vomiting. He denies any recent falls or trauma. He quit smoking 35 years ago. Pain is not reproducible to palpation. He does not have diabetes but he does have high blood pressure and hypercholesterolemia. Allergies and Home Medications Allergies Coded Allergies: No Known Drug Allergies (Unverified , 08/11/15) Home Medications Acetaminophen 500 Mg Tablet, 500-1,000 MG PO Q6H PRN for PAIN-MILD, (Reported) Albuterol Sulfate 1 Puff Puff, 1-2 PUFF IH Q4H PRN for SHORTNESS OF BREATH, ( Reported) 1 PUFF = 90 MCG Alfuzosin HCl 10 Mg Tab.sr.24h, 10 MG PO DAILY, (Reported) Allopurinol 300 Mg Tablet, 300 MG PO DAILY, (Reported) Atenolol 25 Mg Tablet, 25 MG PO DAILY, (Reported) Cholecalciferol (Vitamin D3) 2,000 Unit Tablet, 2,000 UNIT PO DAILY, (Reported) Enalapril Maleate 20 Mg Tablet, 20 MG PO BID, (Reported) Finasteride 5 Mg Tablet, 5 MG PO DAILY, (Reported) Hydrochlorothiazide 12.5 Mg Tablet, 12.5 MG PO DAILY, (Reported) Levofloxacin 500 Mg Tablet, 500 MG PO DAILY for 10 Days, (Reported) 10 DAY THEARPY FILLED 10-13-16 Nitrofurantoin Macrocrystal 100 Mg Capsule, 100 MG PO DAILY, (Reported) FILLED #30 10-06-16 Oxybutynin Chloride 10 Mg Tab.er.24, 10 MG PO HS, (Reported) Pravastatin Sodium 10 Mg Tablet, 10 MG PO HS, (Reported) Review of Systems Constitutional: No chills, No diaphoresis, No fever EENTM: No Blurred Vision, No Double Vision Respiratory: Denies Cough, Shortness of Air (mild) Cardiovascular: See HPI, Chest Pain, Denies Edema, Denies Syncope Gastrointestinal: Denies Abdomen Distended, Denies Abdominal Pain, Denies Constipated, Denies Diarrhea, Denies Nausea Genitourinary: Denies Burning, Denies Discharge Skin: No pruritus, No rash Psychiatric/Neurological: Denies Headache, Denies Numbness, Denies Paresthesia Past Zxkxzjv-Czhdiu-Hevmce Hx Patient Social History Alcohol Use: Denies Use Alcohol Beverage of Choice: Beer Recreational Drug Use: No Smoking Status: Former Smoker Type Used: Cigarettes Former Smoker, Quit: Oct 18, 1984 2nd Hand Smoke Exposure: No Recent Foreign Travel: No Contact w/Someone Who Travel: No Recent Infectious Disease Expo: No Recent Hopitalizations: 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) Immunizations Up To Date Tetanus Booster (TDap): Less than 5yrs Seasonal Allergies Seasonal Allergies: No Surgeries History of Surgeries: Yes (NOEMI FUNDOPLICATION, picc, dialysis port) Surgeries: Abdominal Respiratory History of Respiratory Disorde: No Currently Using CPAP: No Currently Using BIPAP: No Cardiovascular History of Cardiac Disorders: Yes Cardiac Disorders: High Cholesterol, Hypertension Neurological History of Neurological Disord: No Reproductive System Hx Reproductive Disorders: No Sexually Transmitted Disease: No HIV/AIDS: No Genitourinary History of Genitourinary Disor: Yes (PROSTATITIS; CHRONIC RENAL FAILURE/ INSUFFICIENCY) Genitourinary Disorders: Kidney Infection, Prostate Problems, Bladder Infection , Renal Failure, Dialysis, UTI-Chronic Gastrointestinal History of Gastrointestinal Di: Yes (NOEMI FUNDOPLICATION) Gastrointestinal Disorders: Gastroesophageal Reflux, Esophagitis, Hiatal Hernia , Ulcer Musculoskeletal History of Musculoskeletal Dis: Yes Musculoskeletal Disorders: Gout Endocrine History of Endocrine Disorders: No HEENT Loss of Vision: Denies Hearing Impairment: Hard of Hearing Cancer History of Cancer: Yes Cancer: Skin Psychosocial History of Psychiatric Problem: No Integumentary History of Skin or Integumenta: Yes (SKIN CANCER) Blood Transfusions History of Blood Disorders: No Family Medical History Significant Family History: No Pertinent Family Hx Family Medial History: CVA Physical Exam Vital Signs Vital Signs - First Documented 04/02/17 15:25 O2 Flow Rate 2.00 Capillary Refill : Less Than 3 Seconds General Appearance: No Apparent Distress, WD/WN HEENT: PERRL/EOMI, Pharynx Normal Neck: Full Range of Motion, Normal Inspection, Non Tender, Supple Respiratory: Chest Non Tender, Lungs Clear, Normal Breath Sounds, No Accessory Muscle Use, No Respiratory Distress Cardiovascular: Regular Rate, Rhythm, No Edema, No JVD, Normal Peripheral Pulses Gastrointestinal: Normal Bowel Sounds, No Organomegaly, Non Tender, Soft Extremity: Normal Capillary Refill, Normal Inspection, No Pedal Edema Neurologic/Psychiatric: Alert, Oriented x3, No Motor/Sensory Deficits, Normal Mood/Affect Skin: Normal Color, Warm/Dry Progress/Results/Core Measures Results/Orders Lab Results Laboratory Tests Test 04/02/17 15:32 Range/Units White Blood Count 9.5 4.3-11.0 10^3/uL Red Blood Count 3.74 L 4.35-5.85 10^6/uL Hemoglobin 11.9 L 13.3-17.7 G/DL Hematocrit 35 L 40-54 % Mean Corpuscular Volume 93 80-99 FL Mean Corpuscular Hemoglobin 32 25-34 PG Mean Corpuscular Hemoglobin Concent 34 32-36 G/DL Red Cell Distribution Width 14.2 10.0-14.5 % Platelet Count 255 130-400 10^3/uL Mean Platelet Volume 10.9 H 7.4-10.4 FL Neutrophils (%) (Auto) 51 42-75 % Lymphocytes (%) (Auto) 37 12-44 % Monocytes (%) (Auto) 9 0-12 % Eosinophils (%) (Auto) 3 0-10 % Basophils (%) (Auto) 0 0-10 % Neutrophils # (Auto) 4.8 1.8-7.8 X 10^3 Lymphocytes # (Auto) 3.5 1.0-4.0 X 10^3 Monocytes # (Auto) 0.9 0.0-1.0 X 10^3 Eosinophils # (Auto) 0.3 0.0-0.3 10^3/uL Basophils # (Auto) 0.0 0.0-0.1 10^3/uL Prothrombin Time 13.0 12.2-14.7 SEC INR Comment 1.0 0.8-1.4 Activated Partial Thromboplast Time 26 24-35 SEC Sodium Level 138 135-145 MMOL/L Potassium Level 4.9 3.6-5.0 MMOL/L Chloride Level 100 98-107 MMOL/L Carbon Dioxide Level 24 21-32 MMOL/L Anion Gap 14 5-14 MMOL/L Blood Urea Nitrogen 52 H 7-18 MG/DL Creatinine 5.52 H 0.60-1.30 MG/DL Estimat Glomerular Filtration Rate 10 BUN/Creatinine Ratio 9 Glucose Level 96 70-105 MG/DL Calcium Level 9.7 8.5-10.1 MG/DL Magnesium Level 2.3 1.8-2.4 MG/DL Total Bilirubin 0.5 0.1-1.0 MG/DL Aspartate Amino Transf (AST/SGOT) 20 5-34 U/L Alanine Aminotransferase (ALT/SGPT) 12 0-55 U/L Alkaline Phosphatase 101 40-136 U/L Myoglobin 92.0 10.0-92.0 NG/ML Troponin I < 0.30 <0.30 NG/ML B-Type Natriuretic Peptide 78.9 <100.0 PG/ML Total Protein 7.9 6.4-8.2 GM/DL Albumin 4.0 3.2-4.5 GM/DL My Orders Orders - PIERCEGABRIELLE Ekg Tracing (04/02/17 15:21) Cbc With Automated Diff (04/02/17 15:33) Magnesium (04/02/17 15:33) Chest 1 View, Ap/Pa Only (04/02/17 15:33) Cardiac Profile 1 (04/02/17 15:33) Comprehensive Metabolic Panel (04/02/17 15:33) Myoglobin Serum (04/02/17 15:33) Protime With Inr (04/02/17 15:33) Partial Thromboplastin Time (04/02/17 15:33) O2 (04/02/17 15:33) Monitor-Rhythm Ecg Trace Only (04/02/17 15:33) Aspirin Tablet (Aspirin Tablet) (04/02/17 15:45) Nitroglycerin 0.4 Mg Btl 25's (Nitrostat (04/02/17 15:45) Saline Lock/Iv-Start (04/02/17 15:33) BNP (04/02/17 15:33) Aspirin Chewable Tablet (Baby Aspirin Ch (04/02/17 15:45) Aspirin Chewable Tablet (Baby Aspirin Ch (04/02/17 15:38) Cefepime Injection (Maxipime Injection) (04/02/17 17:02) Medications Given in ED Current Medications Medications Dose Ordered Sig/Avel Route Start Time Stop Time Status Last Admin Dose Admin Aspirin 324 mg ONCE ONCE PO 04/02/17 15:45 04/02/17 15:46 DC 04/02/17 15:42 324 MG Nitroglycerin 0.4 mg UD PRN SL 04/02/17 15:45 04/02/17 17:54 DC 04/02/17 15:43 0.4 MG Vital Signs/I&O Vital Sign - Last 12Hours 04/02/17 04/02/17 04/02/17 04/02/17 15:18 15:18 15:25 17:50 Temp 97.3 97.5 Pulse 93 90 Resp 18 18 B/P (MAP) 181/72 (108) Pulse Ox 99 100 98 O2 Delivery Room Air Room Air Nasal Cannula O2 Flow Rate 2.00 Blood Pressure Mean: 108 Progress Note : Time: 15:41 Progress Note Chest pain do a cardiac origin is very possible. He is not having any wheezing or shortness of breath so bronchospasms less likely. He does have a history of ulcers so a GI source could be a cause of his pain and we will try a GI cocktail if the nitroglycerin was unsuccessful obtaining his pain. A pulmonary embolism would usually come with some coughing or shortness of breath and the patient has no decrease oxygen saturations. He has no swelling or pain in his calves either. A d-dimer will not be helpful in this case as he has a double- lumen dialysis catheter as well as a fistula in place ECG Initial ECG Impression Date: Apr 02, 2017 Initial ECG Impression Time: 15:11 Initial ECG Rate: 91 Initial ECG Rhythm: Normal Sinus Initial ECG Intervals: QRS (352) Initial ECG Impression: Normal, Nonspecific Changes Initial ECG Comparisson: Unchanged Comment No T-wave elevation or depression. PVC times one. Diagnostic Imaging Diagonstic Imaging: Xray Plain Films/CT/US/NM/MRI: chest (1v) Comments [facility]. [place], [place] NAME: GABE GIL [facility] REC#: [id number] PT STATUS: REG ER : 1945 PHYSICIAN: GABRIELLE PELAYO MD ADMIT DATE: 04/02/17/ER Draft Date of Exam:04/02/17 CHEST 1 VIEW, AP/PA ONLY INDICATION: Severe left chest and shoulder pain. FINDINGS: There is no pneumothorax. Heart size within normal limits. A central venous catheter via right IJ is at the cavoatrial junction. There is some hazy increased parenchymal density in the left midlung as a change from prior. Developing infiltrate in the setting of left chest pain could not be excluded. IMPRESSION: Questionable developing left lung infiltrate. No pneumothorax, failure or pleural fluid. Dictated on workstation # [id number] Dict: 04/02/17 1559 Trans: 04/02/17 1612 [facility] [id number] Interpreted by: LEONARDO MART Electronically signed by: Reviewed: Reviewed by Me Departure Impression Impression: Primary Impression: Chest pain Qualified Codes: R07.9 - Chest pain, unspecified Additional Impressions: Pneumonia Qualified Codes: J18.1 - Lobar pneumonia, unspecified organism ESRD (end stage renal disease) on dialysis Disposition: S[facility]-TRM HOSP Condition: Stable Transfer Time Spoke to Accepting Phy: 17:00 Transfer Progress Notes Spoke with Dr. Jenkins, internal medicine discussed case and the patient will need a cardiac workup. We discussed his lab and EKG imaging and findings and concern for pneumonia and that we will give him cefepime. He accepts the patient. Transfer Time: 17:50 Transfer Facility: [place], [place] Method of Transfer: EMS Departure-Patient Inst. Referrals: MACKENZIE FERRER MD (PCP/Family) Primary Care Physician Copy Copies To 1: MACKENZIE FERRER MD, TITUS J Apr 02, 2017 15:39
[2017-04-02 15:42] LABS: BASOPHILS % (AUTO) 0 % (0-10); EOSINOPHILS # (AUTO) 0.3 10^3/uL (0.0-0.3); EOSINOPHILS % (AUTO) 3 % (0-10); HEMATOCRIT 35 % (40-54); HEMOGLOBIN 11.9 G/DL (13.3-17.7); LYMPHOCYTES # (AUTO) 3.5 X 10^3 (1.0-4.0); LYMPHOCYTES % (AUTO) 37 % (12-44); MEAN CORPUSCULAR HEMOGLOBIN 32 PG (25-34); MEAN CORPUSCULAR HGB CONC 34 G/DL (32-36); MEAN CORPUSCULAR VOLUME 93 FL (80-99); MEAN PLATELET VOLUME 10.9 FL (7.4-10.4); MONOCYTES # (AUTO) 0.9 X 10^3 (0.0-1.0); MONOCYTES % (AUTO) 9 % (0-12); NEUTROPHILS # (AUTO) 4.8 X 10^3 (1.8-7.8); NEUTROPHILS % (AUTO) 51 % (42-75); PLATELET COUNT 255 10^3/uL (130-400); RED BLOOD COUNT 3.74 10^6/uL (4.35-5.85); RED CELL DISTRIBUTION WIDTH 14.2 % (10.0-14.5); WHITE BLOOD COUNT 9.5 10^3/uL (4.3-11.0)
[2017-04-02] MEDS ORDERED: ASPIRIN 81 MG CHEW (CHILDREN'S ASA) PO ONE (15:45)
[2017-04-02] MEDS ORDERED: ASPIRIN 325 MG (5 GR) TABLET PO ONE (15:45)
[2017-04-02 16:10] LABS: ALANINE AMINOTRANSFERASE 12 U/L (0-55); ALKALINE PHOSPHATASE 101 U/L (40-136); BILIRUBIN,TOTAL 0.5 MG/DL (0.1-1.0); BUN/CREATININE RATIO 9; CALCIUM 9.7 MG/DL (8.5-10.1); CARBON DIOXIDE 24 MMOL/L (21-32); CHLORIDE 100 MMOL/L (98-107); CREATININE SERUM 5.52 MG/DL (0.60-1.30); GFR ESTIMATED 10; GLUCOSE 96 MG/DL (70-105); MAGNESIUM 2.3 MG/DL (1.8-2.4); POTASSIUM 4.9 MMOL/L (3.6-5.0); SODIUM 138 MMOL/L (135-145); TOTAL PROTEIN 7.9 GM/DL (6.4-8.2)
--- NOTE | 2017-04-02 16:13 | Diagnostic Imaging Report ---
INDICATION: Severe left chest and shoulder pain. FINDINGS: There is no pneumothorax. Heart size within normal limits. A central venous catheter via right IJ is at the cavoatrial junction. There is some hazy increased parenchymal density in the left midlung as a change from prior. Developing infiltrate in the setting of left chest pain could not be excluded. IMPRESSION: Questionable developing left lung infiltrate. No pneumothorax, failure or pleural fluid. Dictated by: Dictated on workstation # [id number]
[2017-04-02] MEDS ORDERED: CEFEPIME INJECTION 1,000 MG in NS (IVPB) 50 ML IV STA (17:02)
[2017-04-02 17:50] VITALS: BP 159/70
== END 2017-04-02 17:50 | disposition other institution (70) ==
LOC: EDUNIT# 15:01 → ER 15:03
DX: R07.2 Precordial pain (principal); J18.9 Pneumonia, unspecified organism; N18.6 End stage renal disease; K21.9 Gastro-esophageal reflux disease without esophagitis; E78.00 Pure hypercholesterolemia, unspecified; I10 Essential (primary) hypertension; Z99.2 Dependence on renal dialysis; Z87.891 Personal history of nicotine dependence; Z85.828 Personal history of other malignant neoplasm of skin
CPT/HCPCS: 36415; 71045; 80053; 83735; 83874; 83880; 84484; 85025; 85610; 85730; 93005; 93041; 96365; 96366

== ENCOUNTER 2017-05-18 12:40 | Outpatient (RCR) | payer MEDICARE ==
[2017-05-08] MEDS: MEROPENEM 500 MG in NS (IVPB) 100 ML IV SCH (13:33)
[2017-05-08 13:40] VITALS: BP 145/78
[2017-05-09] MEDS: MEROPENEM 500 MG in NS (IVPB) 100 ML IV SCH (12:57)
[2017-05-09 12:58] VITALS: BP 160/64
[2017-05-10 13:20] VITALS: BP 146/83
[2017-05-10] MEDS: MEROPENEM 500 MG in NS (IVPB) 100 ML IV SCH (13:30)
[2017-05-11] MEDS: MEROPENEM 500 MG in NS (IVPB) 100 ML IV SCH (13:02)
[2017-05-11 18:31] VITALS: BP 147/82
[2017-05-12] MEDS: MEROPENEM 500 MG in NS (IVPB) 100 ML IV SCH (10:36)
[2017-05-12 11:03] VITALS: BP 148/60
[2017-05-13] MEDS: MEROPENEM 500 MG in NS (IVPB) 100 ML IV SCH (10:25)
[2017-05-13 10:52] VITALS: BP 141/58
[2017-05-14 12:40] VITALS: BP 145/80
[2017-05-14] MEDS: MEROPENEM 500 MG in NS (IVPB) 100 ML IV SCH (12:50)
[2017-05-15] MEDS: MEROPENEM 500 MG in NS (IVPB) 100 ML IV SCH (12:59)
[2017-05-15 13:00] VITALS: BP 136/62
[2017-05-15 13:26] VITALS: BP 136/62
[2017-05-16 12:50] VITALS: BP 141/60
[2017-05-16] MEDS: MEROPENEM 500 MG in NS (IVPB) 100 ML IV SCH (12:55)
[2017-05-17] MEDS: MEROPENEM 500 MG in NS (IVPB) 100 ML IV SCH (13:04)
[2017-05-17 13:40] VITALS: BP 142/53
[~2017-05-18] VITALS: Ht 172.7 cm; Wt 88.6 kg
[~2017-05-18 12:40] MED LIST changes: +MEROPENEM 500 MG VIAL (MERREM) IV ONE; +NS (IVPB) 100 ML ONE; -SCOP1PAT TOP; +SCOP1PAT11 TOP
[2017-05-18] MEDS: MEROPENEM 500 MG in NS (IVPB) 100 ML IV SCH (12:47)
[2017-05-18 13:51] VITALS: BP 137/55
== END 2017-05-18 14:11 | disposition home or self-care (01) ==
LOC: SDC 12:40
PROVIDERS: ATTEND Family Medicine
DX: A41.51 Sepsis due to Escherichia coli [E. coli] (principal); J18.9 Pneumonia, unspecified organism; D72.825 Bandemia; Z16.12 Extended spectrum beta lactamase (ESBL) resistance
CPT/HCPCS: 96365

== ENCOUNTER → 2017-06-01 | Outpatient (CLI) | payer MEDICARE, MEDICAID ==
[~2017-06-01] VITALS: Ht 170.2 cm; Wt 89.4 kg
[~2017-06-01] MED LIST changes: -MEROPENEM 500 MG VIAL (MERREM) IV ONE; -NS (IVPB) 100 ML ONE; +REGADENOSON 0.4 MG/5 ML SYR (LEXISCAN) IV ONE
[2017-06-01] MEDS: CATHETER FLUSH 10 ML SYR IV PRN ×2 (07:44→09:26)
[2017-06-01 09:22] VITALS: BP 177/58
--- NOTE | 2017-06-01 16:03 | STRESS TEST ---
DATE OF SERVICE: 06/01/2017 RESTING AND POST-REGADENOSON TECHNETIUM 99M TETROFOSMIN SPECT CT IMAGING ORDERING PHYSICIAN: Odell Garcia MD, ABDIAS, FACP, FACC. PRIMARY PHYSICIAN: Dr. Hutchinson. CLINICAL DIAGNOSIS: Chest discomfort. Baseline images were carried out after injection of 10.41 mCi of technetium-99m tetrofosmin. This was followed by 0.4 mg regadenoson and 28.1 mCi of technetium-99m tetrofosmin for stress imaging. The electrocardiogram showed sinus rhythm with isolated premature ventricular contractions. The echocardiogram did not change significantly with the regadenoson infusion. The patient tolerated the procedure well. Review of images at rest and following stress does not indicate any distinct perfusion defects consistent with significant myocardial ischemia or infarction. Gated images show normal global left ventricular systolic function with normal regional wall motion. Left ventricular ejection fraction is calculated to be 63%. Left ventricular end-diastolic volume is 56 mL. TID is absent (1.07). CONCLUSIONS: 1. No evidence of any significant myocardial ischemia or infarction of this study. 2. Normal regional wall motion. 3. Normal global left ventricular systolic function with a calculated ejection fraction of 63%. 4. Normal left ventricular cavity size. Job ID: [id number] DocumentID: [id number] Dictated Date: 06/01/2017 15:07:41 Programmer Or Analyst Date: 06/01/2017 16:02:23 Dictated By: ODELL GARCIA MD, ABDIAS, FACP, FACC,
== END ==
LOC: CARD 07:20
PROVIDERS: ATTEND Internal Medicine Cardiovascular Disease
DX: E11.9 Type 2 diabetes mellitus without complications (principal); I10 Essential (primary) hypertension; E66.8 Other obesity; E78.4 Other hyperlipidemia; R07.89 Other chest pain; R06.02 Shortness of breath
CPT/HCPCS: 78452; 93017

== ENCOUNTER → 2017-06-15 | Outpatient (CLI) | payer MEDICARE, MEDICAID ==
[~2017-06-15] MED LIST changes: -REGADENOSON 0.4 MG/5 ML SYR (LEXISCAN) IV ONE
== END ==
LOC: CARD 08:31
PROVIDERS: ATTEND Internal Medicine Cardiovascular Disease
DX: R07.9 Chest pain, unspecified (principal); R06.02 Shortness of breath; E11.9 Type 2 diabetes mellitus without complications; I10 Essential (primary) hypertension; E66.8 Other obesity; E78.4 Other hyperlipidemia
CPT/HCPCS: 93306

== ENCOUNTER 2017-07-20 12:41 | Outpatient (RCR) | payer MEDICARE, MEDICAID ==
[2017-07-04 12:45] VITALS: BP_SYST 0; BP_SYST 138; BP_DIAS 0; BP_DIAS 54
[2017-07-04] MEDS: ERTAPENEM IV SCH (12:55)
[2017-07-04] MEDS: NS IV SCH (12:55)
[2017-07-05 12:50] VITALS: BP 174/72
[2017-07-05] MEDS: NS IV SCH (12:59)
[2017-07-05] MEDS: ERTAPENEM IV SCH (12:59)
[2017-07-06 13:00] VITALS: BP 168/68
[2017-07-06] MEDS: ERTAPENEM IV SCH (13:05)
[2017-07-06] MEDS: NS IV SCH (13:05)
[2017-07-07 13:05] VITALS: BP 175/78
[2017-07-07] MEDS: NS IV SCH (13:28)
[2017-07-07] MEDS: ERTAPENEM IV SCH (13:28)
[2017-07-08] MEDS: ERTAPENEM IV SCH (12:30)
[2017-07-08] MEDS: NS IV SCH (12:30)
[2017-07-08 12:45] VITALS: BP 157/80
[2017-07-09 12:45] VITALS: BP 169/73
[2017-07-09] MEDS: ERTAPENEM IV SCH (13:10)
[2017-07-09] MEDS: NS IV SCH (13:10)
[2017-07-10 12:50] VITALS: BP 146/63
[2017-07-10] MEDS: ERTAPENEM IV SCH (12:55)
[2017-07-10] MEDS: NS IV SCH (12:55)
[2017-07-11 12:35] VITALS: BP 134/56
[2017-07-11] MEDS: NS IV SCH (13:15)
[2017-07-11] MEDS: ERTAPENEM IV SCH (13:15)
[2017-07-12 12:40] VITALS: BP 115/68
[2017-07-12] MEDS: ERTAPENEM IV SCH (13:00)
[2017-07-12] MEDS: NS IV SCH (13:00)
[2017-07-12 13:24] LABS: BASOPHILS # (AUTO) 0.1 10^3/uL (0.0-0.1); BASOPHILS % (AUTO) 1 % (0-10); EOSINOPHILS # (AUTO) 0.2 10^3/uL (0.0-0.3); EOSINOPHILS % (AUTO) 3 % (0-10); HEMATOCRIT 29 % (40-54); HEMOGLOBIN 9.8 G/DL (13.3-17.7); LYMPHOCYTES # (AUTO) 1.9 X 10^3 (1.0-4.0); LYMPHOCYTES % (AUTO) 27 % (12-44); MEAN CORPUSCULAR HEMOGLOBIN 32 PG (25-34); MEAN CORPUSCULAR HGB CONC 34 G/DL (32-36); MEAN CORPUSCULAR VOLUME 95 FL (80-99); MEAN PLATELET VOLUME 10.2 FL (7.4-10.4); MONOCYTES # (AUTO) 0.7 X 10^3 (0.0-1.0); MONOCYTES % (AUTO) 9 % (0-12); NEUTROPHILS # (AUTO) 4.3 X 10^3 (1.8-7.8); NEUTROPHILS % (AUTO) 60 % (42-75); PLATELET COUNT 352 10^3/uL (130-400); RED BLOOD COUNT 3.06 10^6/uL (4.35-5.85); RED CELL DISTRIBUTION WIDTH 14.4 % (10.0-14.5); WHITE BLOOD COUNT 7.2 10^3/uL (4.3-11.0)
[2017-07-12 13:43] LABS: ALBUMIN 3.5 GM/DL (3.2-4.5); BILIRUBIN,TOTAL 0.6 MG/DL (0.1-1.0); CALCIUM 8.8 MG/DL (8.5-10.1); CREATININE SERUM 3.11 MG/DL (0.60-1.30); POTASSIUM 3.8 MMOL/L (3.6-5.0); TOTAL PROTEIN 7.8 GM/DL (6.4-8.2)
[2017-07-12 13:47] LABS: ERYTHROCYTE SEDIMENTATION RATE 71 MM/HR (0-30)
[2017-07-13] MEDS: ERTAPENEM IV SCH (13:16)
[2017-07-13] MEDS: NS IV SCH (13:16)
[2017-07-13 16:08] VITALS: BP 150/79
[2017-07-14 13:00] VITALS: BP 120/60
[2017-07-14] MEDS: NS IV SCH (13:16)
[2017-07-14] MEDS: ERTAPENEM IV SCH (13:16)
[2017-07-15 09:13] VITALS: BP 177/66
[2017-07-15] MEDS: NS IV SCH (09:20)
[2017-07-15] MEDS: ERTAPENEM IV SCH (09:20)
[2017-07-16] MEDS: NS IV SCH (10:31)
[2017-07-16] MEDS: ERTAPENEM IV SCH (10:31)
[2017-07-16 10:43] LABS: BASOPHILS % (AUTO) 1 % (0-10); EOSINOPHILS # (AUTO) 0.4 10^3/uL (0.0-0.3); EOSINOPHILS % (AUTO) 5 % (0-10); HEMATOCRIT 27 % (40-54); HEMOGLOBIN 9.1 G/DL (13.3-17.7); LYMPHOCYTES # (AUTO) 2.1 X 10^3 (1.0-4.0); LYMPHOCYTES % (AUTO) 32 % (12-44); MEAN CORPUSCULAR HEMOGLOBIN 32 PG (25-34); MEAN CORPUSCULAR HGB CONC 34 G/DL (32-36); MEAN CORPUSCULAR VOLUME 95 FL (80-99); MEAN PLATELET VOLUME 10.9 FL (7.4-10.4); MONOCYTES # (AUTO) 0.6 X 10^3 (0.0-1.0); MONOCYTES % (AUTO) 9 % (0-12); NEUTROPHILS # (AUTO) 3.5 X 10^3 (1.8-7.8); NEUTROPHILS % (AUTO) 53 % (42-75); PLATELET COUNT 343 10^3/uL (130-400); RED BLOOD COUNT 2.85 10^6/uL (4.35-5.85); RED CELL DISTRIBUTION WIDTH 14.4 % (10.0-14.5); WHITE BLOOD COUNT 6.6 10^3/uL (4.3-11.0)
[2017-07-16 11:02] LABS: ERYTHROCYTE SEDIMENTATION RATE 91 MM/HR (0-30)
[2017-07-16 11:05] VITALS: BP 137/58
[2017-07-17 13:14] VITALS: BP 133/78
[2017-07-17] MEDS: NS IV SCH (13:14)
[2017-07-17] MEDS: ERTAPENEM IV SCH (13:14)
[2017-07-17 13:30] LABS: ALBUMIN 3.6 GM/DL (3.2-4.5); BILIRUBIN,TOTAL 0.7 MG/DL (0.1-1.0); CALCIUM 8.8 MG/DL (8.5-10.1); CREATININE SERUM 4.26 MG/DL (0.60-1.30); POTASSIUM 3.6 MMOL/L (3.6-5.0); TOTAL PROTEIN 8.1 GM/DL (6.4-8.2)
[2017-07-18] MEDS: NS IV SCH (13:01)
[2017-07-18] MEDS: ERTAPENEM IV SCH (13:01)
[2017-07-18 13:32] VITALS: BP 135/67
[2017-07-19] MEDS: NS IV SCH (13:07)
[2017-07-19] MEDS: ERTAPENEM IV SCH (13:07)
[2017-07-19 13:59] VITALS: BP 131/71
[~2017-07-20] VITALS: Ht 170.2 cm; Wt 89.4 kg
[~2017-07-20 12:41] MED LIST changes: +ERTAPENEM (NON-FORMULARY) 1,000 MG in NS (IVPB) 50 ML IV ONE; +ERTAPENEM 1000 MG (INVanz) VIAL ONE; +NS (IVPB) 50 ML ONE
[2017-07-20 12:55] VITALS: BP 131/60
[2017-07-20] MEDS: NS IV SCH (12:55)
[2017-07-20] MEDS: ERTAPENEM IV SCH (12:55)
== END 2017-10-02 | disposition home or self-care (01) ==
LOC: SDC 12:41
PROVIDERS: ATTEND Internal Medicine Infectious Disease
DX: N12 Tubulo-interstitial nephritis, not specified as acute or chronic (principal); R78.81 Bacteremia; N18.6 End stage renal disease; B96.20 Unspecified Escherichia coli [E. coli] as the cause of diseases classified elsewhere
CPT/HCPCS: 36415; 36592; 80053; 85025; 85652; 96365; 99211

== ENCOUNTER 2018-05-07 11:25 | Emergency (ER) | payer MEDICAID, MEDICARE ==
[~2018-05-07] VITALS: Ht 172.7 cm; Wt 86.2 kg
[~2018-05-07 11:25] MED LIST changes: -ERTAPENEM (NON-FORMULARY) 1,000 MG in NS (IVPB) 50 ML IV ONE; -ERTAPENEM 1000 MG (INVanz) VIAL ONE; -NS (IVPB) 50 ML ONE
--- NOTE | 2018-05-07 13:39 | NUR ---
SEE LIST FOR MEDS
[2018-05-07 13:48] LABS: BASOPHILS % (AUTO) 0 % (0-10); EOSINOPHILS # (AUTO) 0.1 10^3/uL (0.0-0.3); EOSINOPHILS % (AUTO) 2 % (0-10); HEMATOCRIT 32 % (40-54); HEMOGLOBIN 10.8 G/DL (13.3-17.7); LYMPHOCYTES # (AUTO) 1.7 X 10^3 (1.0-4.0); LYMPHOCYTES % (AUTO) 26 % (12-44); MEAN CORPUSCULAR HEMOGLOBIN 32 PG (25-34); MEAN CORPUSCULAR HGB CONC 34 G/DL (32-36); MEAN CORPUSCULAR VOLUME 93 FL (80-99); MONOCYTES # (AUTO) 0.6 X 10^3 (0.0-1.0); MONOCYTES % (AUTO) 9 % (0-12); NEUTROPHILS # (AUTO) 4.1 X 10^3 (1.8-7.8); NEUTROPHILS % (AUTO) 63 % (42-75); PLATELET COUNT 228 10^3/uL (130-400); WHITE BLOOD COUNT 6.5 10^3/uL (4.3-11.0)
[2018-05-07 14:11] LABS: BILIRUBIN,URINE NEGATIVE (NEGATIVE); CLARITY,URINE CLEAR; COLOR,URINE YELLOW; GLUCOSE, URINE (UA) NEGATIVE (NEGATIVE); KETONES,URINE NEGATIVE (NEGATIVE); LEUKOCYTE ESTERASE ,URINE NEGATIVE (NEGATIVE); NITRITE,URINE NEGATIVE (NEGATIVE); PH,URINE 9 (5-9); PROTEIN,URINE 3+ (NEGATIVE); UROBILINOGEN,URINE NORMAL (NORMAL)
[2018-05-07 14:15] LABS: ALBUMIN 4.1 GM/DL (3.2-4.5); BILIRUBIN,TOTAL 0.5 MG/DL (0.1-1.0); CREATININE SERUM 3.35 MG/DL (0.60-1.30); POTASSIUM 3.7 MMOL/L (3.6-5.0); TOTAL PROTEIN 7.1 GM/DL (6.4-8.2)
--- NOTE | 2018-05-07 14:17 | ED Abdominal Pain ---
General Chief Complaint: Abdominal/GI Problems Stated Complaint: ABD PAIN Nursing Triage Note: PT SENT TO ED BY SHANNA HAD CT THAT HAD PROBLEM PT UNAWARE OF WHAT IS EXACTLY HAPPENING PT DENIES ABD PAIN AT THIS X. 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 PT HAD BM TODAY WHILE WAITING FOR ED ROOM Sepsis Screen: No Definite Risk Source of Information: Patient, Family Exam Limitations: No Limitations History of Present Illness Date Seen by Provider: May 07, 2018 Time Seen by Provider: 13:15 Initial Comments Here with report of being told to come to the emergency department for possible bowel perforation. Apparently had CT scan at [facility] yesterday and evaluation for renal transplant. That CT noted pneumoperitoneum in the upper abdomen. Patient denies any pain, fever, vomiting or any recent procedures or injuries. He did not know that he had any problems. Does have history of perforated ulcer many years ago doesn't feel like that today. Does have dialysis catheter in the right upper chest wall. 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 Last dialysis was this morning. SHANNA was able to cloud the images to us for evaluation. Timing/Duration: 1 Day Severity/Quality: Mild Location: Other Radiation: No Radiation Activities at Onset: None Modifying Factors: Improves With Resting Associated Symptoms: No Shortness of Air, No Weakness Allergies and Home Medications Allergies Coded Allergies: No Known Drug Allergies (Unverified , 08/11/15) Home Medications Acetaminophen 500 Mg Tablet, 500-1,000 MG PO Q6H PRN for PAIN-MILD, (Reported) Albuterol Sulfate 1 Puff Puff, 1-2 PUFF IH Q4H PRN for SHORTNESS OF BREATH, ( Reported) 1 PUFF = 90 MCG Alfuzosin HCl 10 Mg Tab.sr.24h, 10 MG PO DAILY, (Reported) Allopurinol 300 Mg Tablet, 300 MG PO DAILY, (Reported) Atenolol 25 Mg Tablet, 25 MG PO DAILY, (Reported) Cholecalciferol (Vitamin D3) 2,000 Unit Tablet, 2,000 UNIT PO DAILY, (Reported) Enalapril Maleate 20 Mg Tablet, 20 MG PO BID, (Reported) Finasteride 5 Mg Tablet, 5 MG PO DAILY, (Reported) Hydrochlorothiazide 12.5 Mg Tablet, 12.5 MG PO DAILY, (Reported) Levofloxacin 500 Mg Tablet, 500 MG PO DAILY, (Reported) 10 DAY THEARPY FILLED 8-25-17 Nitrofurantoin Macrocrystal 100 Mg Capsule, 100 MG PO DAILY, (Reported) FILLED #30 10-06-16 Oxybutynin Chloride 10 Mg Tab.er.24, 10 MG PO HS, (Reported) Pravastatin Sodium 10 Mg Tablet, 10 MG PO HS, (Reported) Patient Home Medication List Home Medication List Reviewed: Yes Review of Systems Review of Systems Constitutional: see HPI; No chills, No fever EENTM: No Symptoms Reported Respiratory: Denies Cough, Denies Shortness of Air Cardiovascular: Denies Chest Pain, Denies Edema Gastrointestinal: Denies Abdominal Pain, Denies Vomiting Genitourinary: No Symptoms Reported Musculoskeletal: no symptoms reported Skin: No lesions, No rash Psychiatric/Neurological: No Symptoms Reported All Other Systems Reviewed Negative Unless Noted: Yes Past Bdhegec-Rkfpzh-Xompdu Hx Past Med/Social Hx: Reviewed Nursing Past Med/Soc Hx Patient Social History Alcohol Use: Denies Use Alcohol Beverage of Choice: Beer Recreational Drug Use: No Smoking Status: Never a Smoker Type Used: Cigarettes Former Smoker, Quit: Oct 18, 1984 2nd Hand Smoke Exposure: No Recent Foreign Travel: No Contact w/Someone Who Travel: No Recent Infectious Disease Expo: No Recent Hopitalizations: 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) Immunizations Up To Date Tetanus Booster (TDap): Less than 5yrs Seasonal Allergies Seasonal Allergies: No Past Medical History Surgeries: Yes (RICHARD FUNDOPLICATION, picc, dialysis port) Abdominal Respiratory: No Currently Using CPAP: No Currently Using BIPAP: No Cardiac: Yes High Cholesterol, Hypertension Neurological: No Reproductive Disorders: No Sexually Transmitted Disease: No HIV/AIDS: No Genitourinary: Yes (PROSTATITIS; CHRONIC RENAL FAILURE/INSUFFICIENCY) Kidney Infection, Prostate Problems, Bladder Infection, Renal Failure, Dialysis , UTI-Chronic Gastrointestinal: Yes (RICHARD FUNDOPLICATION) Gastroesophageal Reflux, Esophagitis, Hiatal Hernia, Ulcer Musculoskeletal: Yes Gout Endocrine: No Loss of Vision: Denies Hearing Impairment: Hard of Hearing Cancer: Yes Skin Psychosocial: No Integumentary: Yes (SKIN CANCER) Blood Disorders: No Family Medical History Reviewed Nursing Family Hx CVA No Pertinent Family Hx Physical Exam Vital Signs Vital Signs - First Documented 05/07/18 12:45 Temp 97.9 Pulse 84 Resp 23 B/P (MAP) 145/73 (97) Pulse Ox 99 Capillary Refill : Less Than 3 Seconds Height/Weight/BMI Height: 5'8.00" Weight: 190lbs. 0.0oz. 86.354329hd; 30.9 BMI Method:Stated General Appearance: WD/WN, no apparent distress HEENT: PERRL/EOMI, pharynx normal Neck: full range of motion, supple Respiratory: lungs clear, normal breath sounds Cardiovascular: regular rate, rhythm, no murmur Peripheral Pulses: 2+ Dorsalis Pedis (R), 2+ Left Dors-Pedis (L), 2+ Radial Pulses (R), 2+ Radial Pulses (L) Gastrointestinal: non tender, soft Extremities: non-tender, normal inspection Back: normal inspection, no CVA tenderness, no vertebral tenderness Neurologic/Psychiatric: alert, oriented x 3 Skin: normal color, warm/dry Progress/Results/Core Measures Results/Orders Lab Results Laboratory Tests Test 05/07/18 13:37 05/07/18 13:49 Range/Units White Blood Count 6.5 4.3-11.0 10^3/uL Red Blood Count 3.43 L 4.35-5.85 10^6/uL Hemoglobin 10.8 L 13.3-17.7 G/DL Hematocrit 32 L 40-54 % Mean Corpuscular Volume 93 80-99 FL Mean Corpuscular Hemoglobin 32 25-34 PG Mean Corpuscular Hemoglobin Concent 34 32-36 G/DL Red Cell Distribution Width 14.0 10.0-14.5 % Platelet Count 228 130-400 10^3/uL Mean Platelet Volume 11.0 H 7.4-10.4 FL Neutrophils (%) (Auto) 63 42-75 % Lymphocytes (%) (Auto) 26 12-44 % Monocytes (%) (Auto) 9 0-12 % Eosinophils (%) (Auto) 2 0-10 % Basophils (%) (Auto) 0 0-10 % Neutrophils # (Auto) 4.1 1.8-7.8 X 10^3 Lymphocytes # (Auto) 1.7 1.0-4.0 X 10^3 Monocytes # (Auto) 0.6 0.0-1.0 X 10^3 Eosinophils # (Auto) 0.1 0.0-0.3 10^3/uL Basophils # (Auto) 0.0 0.0-0.1 10^3/uL Sodium Level 139 135-145 MMOL/L Potassium Level 3.7 3.6-5.0 MMOL/L Chloride Level 97 L 98-107 MMOL/L Carbon Dioxide Level 32 21-32 MMOL/L Anion Gap 10 5-14 MMOL/L Blood Urea Nitrogen 15 7-18 MG/DL Creatinine 3.35 H 0.60-1.30 MG/DL Estimat Glomerular Filtration Rate 18 BUN/Creatinine Ratio 4 Glucose Level 91 70-105 MG/DL Calcium Level 9.0 8.5-10.1 MG/DL Corrected Calcium 8.9 8.5-10.1 MG/DL Total Bilirubin 0.5 0.1-1.0 MG/DL Aspartate Amino Transf (AST/SGOT) 12 5-34 U/L Alanine Aminotransferase (ALT/SGPT) 9 0-55 U/L Alkaline Phosphatase 95 40-136 U/L Total Protein 7.1 6.4-8.2 GM/DL Albumin 4.1 3.2-4.5 GM/DL Urine Color YELLOW Urine Clarity CLEAR Urine pH 9 5-9 Urine Specific Chauncey 1.015 L 1.016-1.022 Urine Protein 3+ H NEGATIVE Urine Glucose (UA) NEGATIVE NEGATIVE Urine Ketones NEGATIVE NEGATIVE Urine Nitrite NEGATIVE NEGATIVE Urine Bilirubin NEGATIVE NEGATIVE Urine Urobilinogen NORMAL NORMAL MG/DL Urine Leukocyte Esterase NEGATIVE NEGATIVE Urine RBC (Auto) NEGATIVE NEGATIVE Urine RBC NONE /HPF Urine WBC NONE /HPF Urine Squamous Epithelial Cells 0-2 /HPF Urine Crystals NONE /LPF Urine Bacteria NEGATIVE /HPF Urine Casts NONE /LPF Urine Mucus NEGATIVE /LPF Urine Culture Indicated NO My Orders Orders - CHARITY WERNER MD Outside Films For Comparison (05/06/18 ) Pantoprazole Injection (Protonix Injecti (05/07/18 15:15) Ns Iv 1000 Ml (Sodium Chloride 0.9%) (05/07/18 15:15) Vital Signs/I&O 05/07/18 12:45 Temp 97.9 Pulse 84 Resp 23 B/P (MAP) 145/73 (97) Pulse Ox 99 Blood Pressure Mean: 97 Progress Progress Note : Progress Note Seen and evaluated we will check labs and review films from [facility]. Patient was very difficult stick and has only one arm available for lab draw or blood. I was able to initiate IV to the left EJ with 20-gauge. Labs were drawn. I did discuss the case with Dr. Edwards [id number]. He reviewed the films. There is definitely free air but there is no significant area of inflammation. Patient is nontender and has normal white count currently. We're pending the remainder of his labs. Repeat CTs not indicated at this point. Likely will need to be monitored inpatient and remain nothing by mouth but he is on dialysis on Sunday , and Sunday and we do not have dialysis available here. Typically he goes to [facility] in [facility]. We'll await remainder labs and then initiate transfer proceedings. 1445: I have initiated transfer proceedings with [facility] in [facility]. All findings and concerns were discussed with the patient and family who agree with transfer. Patient is currently stable and without distress. Still without abdominal pain on exam. Pending call back and availability of beds. 1505: I did discuss the case with Dr. Crystal, hospitalist on-call and also discussed with the surgeon hydro electric station operator regarding the patient's case. They have accepted the patient for transfer to bed surgical floor. Pending bed assignment. I did rediscuss this with the patient and family who agree with plan. Currently stable without concerns. Films were clouded to [facility] in [facility] Diagnostic Imaging Diagonstic Imaging: CT Plain Films/CT/US/NM/MRI: abdomen, pelvis Comments CT results from [facility] from 05/06/18. Right pneumoperitoneum with scattered gas collections within the upper abdomen. This may be postprocedural or from a recent bowel perforation. Correlation with recent medical history is suggested. Mild scattered calcified aortic plaque and minimal ossified iliac plaque without aneurysm. Previous right nephrectomy with out right renal fossa fluid collection. Moderate left renal atrophy with nonspecific perinephric stranding. Moderate colonic diverticulosis without focal inflammatory mass or ascites. Departure Impression Primary Impression: Bowel perforation Disposition: 02 XFER SHT-TRM HOSP Condition: Stable Transfer Time Spoke to Accepting Phy: 15:05 Transfer Time: 15:05 Transfer Facility: [place], [place], Dr. Crystal accepting. Method of Transfer: EMS Departure-Patient Inst. Referrals: MACKENZIE FERRER MD (PCP/Family) Primary Care Physician CHARITY WERNER MD May 07, 2018 14:17
[2018-05-07 14:19] LABS: BACTERIA,URINE NEGATIVE /HPF; SQUAMOUS EPITHELIAL CELL,UR 0-2 /HPF
--- NOTE | 2018-05-07 14:43 | NUR ---
Pt's recognized this gas operator and engaged in sharing about her 's hospitalizations at [facility].
[2018-05-07] MEDS ORDERED: NS IV 1000 ML 1,000 ML IV SCH (15:15)
[2018-05-07] MEDS ORDERED: PANTOPRAZOLE 40 MG (PROTONIX) VIAL IV ONE (15:15)
[2018-05-07 16:41] VITALS: BP 155/66
== END 2018-05-07 16:44 | disposition short-term general hospital (02) ==
LOC: ER 11:27 → EDUNIT# 11:32 → ER 16:44
DX: K63.1 Perforation of intestine (nontraumatic) (principal); E78.00 Pure hypercholesterolemia, unspecified; K21.9 Gastro-esophageal reflux disease without esophagitis; I12.0 Hypertensive chronic kidney disease with stage 5 chronic kidney disease or end stage renal disease; N18.6 End stage renal disease; Z85.828 Personal history of other malignant neoplasm of skin; Z87.440 Personal history of urinary (tract) infections; Z87.448 Personal history of other diseases of urinary system; Z87.19 Personal history of other diseases of the digestive system; Z79.51 Long term (current) use of inhaled steroids; Z87.891 Personal history of nicotine dependence
CPT/HCPCS: 36415; 80053; 81000; 85025; 96374

== ENCOUNTER → 2018-08-16 | Outpatient (CLI) | payer MEDICARE ==
--- NOTE | 2018-08-16 16:08 | Diagnostic Imaging Report ---
PROCEDURE: CT chest without contrast. TECHNIQUE: Multiple contiguous axial images were obtained through the chest without the use of intravenous contrast. Auto Exposure Controls were utilized during the CT exam to meet ALARA standards for radiation dose reduction. INDICATION: Palpable fullness in the right axilla on physical exam. FINDINGS: There is no axillary lymphadenopathy. The axilla appears symmetric and unremarkable with no mass or fluid collection. No bony abnormality. The lungs are free of acute infiltrate. There is some chronic volume loss in the left lung with pleural thickening and pleural calcifications which may reflect sequelae of previous talc pleurodesis or benign asbestos pleural-related disease or old hemothorax. This is a chronic finding. Infiltration of the left perinephric fat is partially visualized and unchanged when correlated with abdominal CT of 05/06/2018. The right kidney is surgically absent. No acute upper abdominal abnormality. IMPRESSION: No evidence for axillary adenopathy, mass, or fluid collection. Chronic pleural calcifications in the left hemithorax. Chronic or recurrent nonspecific induration and infiltration of the left perinephric fat partially visualized, unchanged. Dictated by: Dictated on workstation # [id number]
== END ==
LOC: RAD 14:12
PROVIDERS: ATTEND Family Medicine
DX: J94.8 Other specified pleural conditions (principal); Z90.5 Acquired absence of kidney
CPT/HCPCS: 71250

== ENCOUNTER → 2019-04-28 | Outpatient (CLI) | payer MEDICARE ==
[~2019-04-28] MED LIST changes: -ALFU10TA11 PO; +ALFU10TA12 PO
== END ==
LOC: CARD 07:58
PROVIDERS: ATTEND Internal Medicine Cardiovascular Disease
DX: Z01.818 Encounter for other preprocedural examination (principal)
CPT/HCPCS: 93306

== ENCOUNTER → 2019-05-09 | Outpatient (CLI) | payer MEDICARE, OTHER ==
[~2019-05-09] VITALS: Ht 67 cm; Wt 87.0 kg
[~2019-05-09] MED LIST changes: +REGADENOSON 0.4 MG/5 ML SYR (LEXISCAN) IV ONE
[2019-05-09] MEDS: CATHETER FLUSH 10 ML SYR IV PRN ×2 (08:12→09:31)
[2019-05-09 09:29] VITALS: BP 153/69
--- NOTE | 2019-05-09 19:52 | STRESS TEST ---
DATE OF SERVICE: 05/09/2019 RESTING AND POST REGADENOSON TECHNETIUM-99M TETROFOSMIN SPECT CT IMAGING ORDERING PHYSICIAN: Dr. Ling Zaldivar. OTHER PHYSICIAN: Dr. Garcia. CLINICAL DIAGNOSES: Pre-transplantation evaluation for end-stage renal disease, diabetes, hypertension, hyperlipidemia. Baseline images were carried out after injection of 10.1 mCi of technetium-99m Tetrofosmin. This was followed by 0.4 mg regadenoson and 30.4 mCi of technetium-99m Tetrofosmin for stress imaging. The electrocardiogram showed sinus rhythm with isolated premature ventricular contractions. The patient tolerated the procedure well and did not report symptoms. Review of images at rest and following stress does not indicate evidence of myocardial ischemia or infarction. Gated images show normal regional wall motion. Global left ventricular systolic function is calculated to be global left ventricular ejection fraction is calculated to be 51%. Left ventricular end diastolic volume is 75 mL. TID is absent (1.04). CONCLUSIONS: 1. No evidence of any significant myocardial ischemia or infarction on this study. 2. Normal regional wall motion. 3. Normal global left ventricular systolic function with a calculated ejection fraction of 51%. Job ID: [id number] DocumentID: [id number] Dictated Date: 05/09/2019 16:19:07 Web Marketing Intern Date: 05/09/2019 19:51:49 Dictated By: PEE GARCIA MD, MA, FACP, FACC, MTDD
== END ==
LOC: CARD 07:38
PROVIDERS: ATTEND Internal Medicine Cardiovascular Disease
DX: Z01.818 Encounter for other preprocedural examination (principal); I12.0 Hypertensive chronic kidney disease with stage 5 chronic kidney disease or end stage renal disease; E11.22 Type 2 diabetes mellitus with diabetic chronic kidney disease; N18.5 Chronic kidney disease, stage 5; E78.5 Hyperlipidemia, unspecified
CPT/HCPCS: 78452; 93017

== ENCOUNTER → 2020-03-24 | Outpatient (CLI) | payer MEDICARE ==
[~2020-03-24] MED LIST changes: +ENAL20TA16 PO; -REGADENOSON 0.4 MG/5 ML SYR (LEXISCAN) IV ONE
== END ==
LOC: CARD 09:49
PROVIDERS: ATTEND Registered Nurse
DX: I08.1 Rheumatic disorders of both mitral and tricuspid valves (principal); I50.9 Heart failure, unspecified
CPT/HCPCS: 93306

== ENCOUNTER → 2020-04-19 | Outpatient (CLI) | payer MEDICARE | LOC: CARD 11:16 | PROVIDERS: ATTEND Nurse Practitioner Family | DX: I48.0 Paroxysmal atrial fibrillation (principal) | CPT/HCPCS: 93225; 93226 ==

== ENCOUNTER → 2020-04-30 | Outpatient (CLI) | payer MEDICARE ==
--- NOTE | 2020-04-30 16:59 | Diagnostic Imaging Report ---
PROCEDURE: CT chest without contrast. TECHNIQUE: Multiple contiguous axial images were obtained through the chest without the use of intravenous contrast. Auto Exposure Controls were utilized during the CT exam to meet ALARA standards for radiation dose reduction. INDICATION: Shortness of air. Recent pneumonia. Productive cough. CORRELATION: 08/16/2018. FINDINGS: Partially visualized thyroid gland unremarkable. There are a few mildly prominent scattered mediastinal lymph nodes. These overall appear to be slightly more prominent from prior. Marker lymph node in right paratracheal region, short axis dimension at 1 cm. Heart size normal with scattered prominent coronary artery calcification. Prominent calcification of the thoracic aorta. Small hiatal hernia. There has been development of a small to moderate right pleural effusion which layers dependently. Maximum thickness just under 3 cm. Focal calcified pleural plaquing posteriorly with small amount of plaquing anteriorly in left hemithorax. Small, 5 mm nodule in left lung apex (image 25 series 3). 7 mm nodule adjacent fissure plane superior aspect left lower lobe (image 72 series 3). The visualized portions of the upper abdomen are unremarkable. Soft tissue density in retroareolar region compatible with likely gynecomastia. Mildly accentuated thoracic kyphosis with degenerative changes of the thoracic spine. IMPRESSION: 1. Development of a small right pleural effusion. 2. Unchanged pleural thickening in left hemithorax. May be owing to previous infection and/or hemorrhage. 3. Small left-sided pulmonary nodules. Follow-up imaging evaluation in approximately one year would be recommended. Dictated by: Dictated on workstation # [id number]
== END ==
LOC: RAD 14:12
PROVIDERS: ATTEND Internal Medicine Critical Care Medicine
DX: Z13.83 Encounter for screening for respiratory disorder NEC (principal); R91.8 Other nonspecific abnormal finding of lung field; R06.00 Dyspnea, unspecified
CPT/HCPCS: 71250

== ENCOUNTER → 2020-05-21 | Outpatient (CLI) | payer MEDICARE ==
[~2020-05-21] MED LIST changes: +RT-ALBUTEROL SULF 2.5 MG/3 ML PRE-MIX VIAL INH ONE
== END ==
LOC: RT 10:30
PROVIDERS: ATTEND Internal Medicine Critical Care Medicine
DX: Z13.83 Encounter for screening for respiratory disorder NEC (principal); R06.00 Dyspnea, unspecified
CPT/HCPCS: 94060; 94726; 94729

== ENCOUNTER → 2020-06-23 | Outpatient (CLI) | payer MEDICARE ==
[~2020-06-23] MED LIST changes: -RT-ALBUTEROL SULF 2.5 MG/3 ML PRE-MIX VIAL INH ONE
--- NOTE | 2020-06-23 15:32 | Diagnostic Imaging Report ---
INDICATION: Pneumonia. Dyspnea. Followup. COMPARISON: 04/30/2020. FINDINGS: Frontal and lateral radiographic views of the chest were obtained and show small bibasilar effusions. Calcified pleural plaque is noted posteriorly on the left. Otherwise, no focal consolidation is seen. There is no pneumothorax. The cardiac silhouette and pulmonary vasculature are within normal limits. The osseous structures show no gross acute abnormalities. IMPRESSION: Small bibasilar effusions. Dictated by: Dictated on workstation # [id number]
== END ==
LOC: RAD 14:42
PROVIDERS: ATTEND Registered Nurse
DX: J18.9 Pneumonia, unspecified organism (principal); J90 Pleural effusion, not elsewhere classified; I50.9 Heart failure, unspecified
CPT/HCPCS: 71046

== ENCOUNTER → 2020-10-20 | Outpatient (CLI) | payer MEDICARE ==
--- NOTE | 2020-10-20 11:30 | Diagnostic Imaging Report ---
PROCEDURE: CT chest without contrast. TECHNIQUE: Multiple contiguous axial images were obtained through the chest without the use of intravenous contrast. Auto Exposure Controls were utilized during the CT exam to meet ALARA standards for radiation dose reduction. INDICATION: Abnormal chest x-ray. Pleural effusion. COMPARISON: Comparison is made with a prior CT from 04/30/2020. FINDINGS: The lungs are well expanded with no mass or infiltrate. There is a right-sided pleural effusion which layers to a depth of 3-5 cm, which previously had a depth of 2-3 cm. No loculation is seen. There is some pleural calcification on the left which is stable. There is cardiomegaly which is stable. There are mildly prominent mediastinal lymph nodes which are stable. There is no acute bony abnormality. IMPRESSION: There has been an interval increase in the right-sided pleural effusion with no loculation or other change in the thorax evident. There has developed a [id number] amount of ascites in the abdomen, which was not evident on the prior CT of the chest. Dictated by: Dictated on workstation # [id number]
== END ==
LOC: RAD 10:45
PROVIDERS: ATTEND Nurse Practitioner Family
DX: J90 Pleural effusion, not elsewhere classified (principal); R91.8 Other nonspecific abnormal finding of lung field
CPT/HCPCS: 71250

== ENCOUNTER → 2020-11-12 | Outpatient (CLI) | payer MEDICARE ==
[~2020-11-12] VITALS: Ht 170.2 cm; Wt 86.4 kg
[2020-11-12 09:57] LABS: INR 1.2 (0.8-1.4); PROTHROMBIN TIME PATIENT 15.7 SEC (12.2-14.7)
[2020-11-12 10:45] VITALS: BP 137/70
[2020-11-12 11:02] VITALS: BP 138/71
[2020-11-12 11:19] VITALS: BP 137/68
[2020-11-12 13:15] LABS: ALBUMIN,BODY FLUID 2.4 G/DL; TOTAL PROTEIN,BODY FLUID 4.2 G/DL
--- NOTE | 2020-11-16 14:09 | Diagnostic Imaging Report ---
EXAMINATION: Ultrasound-guided paracentesis. INDICATION: Ascites. DETAILS OF THE PROCEDURE: Following aseptic preparation of the skin and administration of local anesthesia, a paracentesis catheter was advanced into the right lower quadrant using ultrasound guidance. Approximately 2650 cc of light brown fluid was removed. The patient tolerated the procedure well and was dismissed in good condition. IMPRESSION: There has been a successful paracentesis. Dictated on workstation # [id number]
== END ==
LOC: RAD 10:00
PROVIDERS: ATTEND Nurse Practitioner Family
DX: R18.8 Other ascites (principal); R06.00 Dyspnea, unspecified
CPT/HCPCS: 49083; 82042; 83615; 84157; 85610; A7048; 36415

== ENCOUNTER → 2020-12-10 | Outpatient (CLI) | payer MEDICARE ==
[~2020-12-10] VITALS: Ht 170.2 cm; Wt 86.4 kg
[~2020-12-10] MED LIST changes: +SCOP1PAT10 TOP; -SCOP1PAT11 TOP
[2020-12-10 10:24] LABS: INR 1.2 (0.8-1.4); PROTHROMBIN TIME PATIENT 15.3 SEC (12.2-14.7)
--- NOTE | 2020-12-10 12:31 | Diagnostic Imaging Report ---
INDICATION: Ascites. Patient presents for ultrasound-guided paracentesis. Patient was brought to the procedure room and placed on the table in the supine position. Ultrasound imaging of the abdomen was performed to evaluate appropriate entry site. Right abdomen was prepped and draped in the usual sterile fashion. A small amount of 1% lidocaine was utilized for local anesthesia. Paracentesis catheter was advanced into the peritoneal space in the right abdomen and placed to suction drainage. A total of 2150 mL of fluid was removed. Catheter was withdrawn, and hemostasis was obtained using manual compression. Patient tolerated the procedure well and left the department in stable condition. IMPRESSION: Successful ultrasound-guided paracentesis obtaining 2150 mL of fluid. Dictated by: Dictated on workstation # [id number]
[2020-12-10 12:42] LABS: TOTAL PROTEIN,BODY FLUID 4.2 G/DL
[2020-12-10 12:43] LABS: LDH,BODY FLUID 75 U/L
--- NOTE | 2020-12-10 12:54 | Diagnostic Imaging Report ---
INDICATION: Ascites. TIME OF EXAM: 11:55 AM Correlation is made with prior chest 06/23/2020. FINDINGS: Heart size stable. Left-sided pleural plaquing is again noted unchanged. Lungs are clear of acute infiltrates. There appear to be small effusions, similar to prior study. There is no pneumothorax. IMPRESSION: Stable chest with stable bilateral effusion since exam from 06/23/2020. Dictated by: Dictated on workstation # [id number]
[2020-12-10 13:38] LABS: BODY FLUID COLOR YELLOW; BODY FLUID SOURCE PERITON
[2020-12-10 13:39] LABS: BF OTHER CELLS 13 %; BODY FLUID APPEARENCE SLT CLDY; BODY FLUID RBC COUNT 2750 /uL; BODY FLUID WBC TOTAL COUNT 610 /uL; LYMPHOCYTES,BODY FLUID 79 %
[2020-12-10 13:47] LABS: BODY FLUID PH 7.7
== END ==
LOC: RAD 10:30
PROVIDERS: ATTEND Nurse Practitioner Family
DX: J90 Pleural effusion, not elsewhere classified (principal); R18.8 Other ascites
CPT/HCPCS: 49083; 71046; 82378; 83615; 83986; 84157; 85610; 86705; 89051; A7048; G0499; 36415; 86706

== ENCOUNTER 2021-04-29 19:23 | Emergency (ER) | payer MEDICARE ==
[~2021-04-29] VITALS: Ht 173 cm; Wt 87.0 kg
[2021-04-29] MEDS ORDERED: fentaNYL INJ 100 MCG/2 ML AMP IVP ONE ×2 (19:30→19:45)
[2021-04-29] MEDS ORDERED: morphine INJ 10 MG/ML 1ML (SYR OR VIAL) IVP STA (19:31)
--- NOTE | 2021-04-29 19:48 | ED Fall/Injury ---
General Stated Complaint: FALL Source: patient Exam Limitations: no limitations History of Present Illness Date Seen by Provider: Apr 29, 2021 Time Seen by Provider: 19:23 Initial Comments Here by EMS after being called for same level fall at home. Apparently he was leaving the house when he went off the edge of his concrete on his sidewalk and fell to his right side. Landed on the right knee and right hip. Denies hitting his head, loss of consciousness or other injury. Has severe pain to the right hip with external rotation and shortening noted. Family and friends were able to gently move him back into the house and summon EMS. EMS did arrive and initiated IV to the right arm and gave 100 mcg of fentanyl IV which did help wit h the pain some. Denies nausea or vomiting. Patient is on dialysis for end- stage renal disease and has shot to the left arm. He is normally on dialysis on Sunday, and Sunday and is due tomorrow. Follows through the [facility] system. Last meal was approximately 1730 p.m. tonight Occurred: just prior to arrival (Approximately 30 minutes ago) Severity: moderate, severe Injuries/Pain Location: lower extremity (Right hip) Context: tripped Loss of Consciousness: no loss of consciousness Modifying Factors: Improves With Immobilization; Worse With Movement; Improves With Pain Medication Associated Symptoms (Fall): No Abdominal Pain, No Chest Pain, No Confusion, No Headache, No Nausea/Vomiting, No Neck Pain, No Shortness of Air Allergies and Home Medications Allergies Coded Allergies: No Known Drug Allergies (Unverified , 08/11/15) Patient Home Medication List Home Medication List Reviewed: Yes Acetaminophen (Acetaminophen) 500 Mg Tablet, 500-1,000 MG PO Q6H PRN for PAIN- MILD, (Reported) Entered as Reported by: JOSE BETANCOURT on 04/20/16 1610 Albuterol Sulfate (Ventolin Hfa) 1 Puff Puff, 1-2 PUFF IH Q4H PRN for SHORTNESS OF BREATH, (Reported) Entered as Reported by: CASSANDRA GEE on 10/19/16823 Alfuzosin HCl (Uroxatral) 10 Mg Tab.sr.24h, 10 MG PO DAILY, (Reported) Entered as Reported by: CASSANDRA GEE on 10/19/16823 Allopurinol (Allopurinol) 300 Mg Tablet, 300 MG PO DAILY, (Reported) Entered as Reported by: CASSANDRA GEE on 10/19/16823 Atenolol (Atenolol) 25 Mg Tablet, 25 MG PO DAILY, (Reported) Entered as Reported by: CASSANDRA GEE on 08/11/15927 Cholecalciferol (Vitamin D3) (Vitamin D3) 2,000 Unit Tablet, 2,000 UNIT PO DAILY, (Reported) Entered as Reported by: CASSANDRA GEE on 08/11/15927 Enalapril Maleate (Enalapril Maleate) 20 Mg Tablet, 20 MG PO BID, (Reported) Entered as Reported by: CASSANDRA GEE on 10/19/16823 Finasteride (Proscar) 5 Mg Tablet, 5 MG PO DAILY, (Reported) Entered as Reported by: CASSANDRA GEE on 10/19/16823 Hydrochlorothiazide (Hydrochlorothiazide) 12.5 Mg Tablet, 12.5 MG PO DAILY, (Reported) Entered as Reported by: CASSANDRA GEE on 10/19/16823 Levofloxacin (Levaquin) 500 Mg Tablet, 500 MG PO DAILY, (Reported) Entered as Reported by: CASSANDRA GEE on 10/19/16823 Nitrofurantoin Macrocrystal (Nitrofurantoin) 100 Mg Capsule, 100 MG PO DAILY, (Reported) Entered as Reported by: CASSANDRA GEE on 10/19/16823 Oxybutynin Chloride (Ditropan Xl) 10 Mg Tab.er.24, 10 MG PO HS, (Reported) Entered as Reported by: CASSANDRA GEE on 10/19/16823 Pravastatin Sodium (Pravastatin Sodium) 10 Mg Tablet, 10 MG PO HS, (Reported) Entered as Reported by: CASSANDRA GEE on 10/19/16823 Review of Systems Review of Systems Constitutional: see HPI; No chills, No fever Eyes: No Symptoms Reported Ears, Nose, Mouth, Throat: no symptoms reported Respiratory: No cough, No short of breath Cardiovascular: No chest pain, No edema Gastrointestinal: No abdominal pain, No nausea, No vomiting Genitourinary: no symptoms reported Musculoskeletal: No back pain; joint pain, muscle pain; No neck pain Skin: No change in color, No lesions Psychiatric/Neurological: Denies Headache, Denies Numbness, Denies Weakness All Other Systems Reviewed Negative Unless Noted: Yes Past Uypmggh-Wxrewa-Hupzfr Hx Patient Social History Tobacco Use?: No Smoking Status: Former Smoker Substance use?: No Alcohol Use?: No Immunizations Up To Date Tetanus Booster (TDap): Less than 5yrs Seasonal Allergies Seasonal Allergies: No Past Medical History Surgeries: Yes (RICHARD FUNDOPLICATION, picc, dialysis port, right nephrectomy) Abdominal, Vascular Surgery Respiratory: No Currently Using CPAP: No Currently Using BIPAP: No Cardiac: Yes High Cholesterol, Hypertension Neurological: No Reproductive Disorders: No Sexually Transmitted Disease: No HIV/AIDS: No Genitourinary: Yes (PROSTATITIS; CHRONIC RENAL FAILURE/INSUFFICIENCY) Kidney Infection, Prostate Problems, Bladder Infection, Renal Failure, Dialysis, UTI-Chronic Gastrointestinal: Yes (RICHARD FUNDOPLICATION) Gastroesophageal Reflux, Esophagitis, Hiatal Hernia, Ulcer Musculoskeletal: Yes Gout Endocrine: No Loss of Vision: Denies Hearing Impairment: Hard of Hearing Cancer: Yes Skin Psychosocial: No Integumentary: Yes (SKIN CANCER) Blood Disorders: No Family Medical History Reviewed Nursing Family Hx CVA No Pertinent Family Hx Physical Exam Vital Signs Vital Signs - First Documented 04/29/21 19:29 Temp 36.6 Pulse 87 Resp 20 B/P (MAP) 174/77 (109) Pulse Ox 100 O2 Delivery Room Air Capillary Refill : Height, Weight, BMI Height: 5'8.00" Weight: 190lbs. 0.0oz. [id number]; 29.82 BMI Method:Stated General Appearance: WD/WN, moderate distress HEENT: PERRL/EOMI, pharynx normal Neck: non-tender, full range of motion, supple, normal inspection Cardiovascular: regular rate, rhythm, no murmur Respiratory: lungs clear, normal breath sounds Gastrointestinal: non tender, soft Back: normal inspection, no CVA tenderness Extremities: pelvis stable, other (Shortening and rotation externally on the right leg with pain significant at the right hip.) Neurologic/Psychiatric: alert, oriented x 3 Skin: normal color, warm/dry Neda Coma Score Best Eye Response: (4) Open Spontaneously Best Verbal Response: (5) Oriented Best Motor Response: (6) Obeys Commands Progress/Results/Core Measures Results/Orders Lab Results Laboratory Tests Test 04/29/21 19:39 04/29/21 20:05 Range/Units White Blood Count 7.6 4.3-11.0 10^3/uL Red Blood Count 4.01 L 4.30-5.52 10^6/uL Hemoglobin 12.1 L 13.3-17.7 g/dL Hematocrit 36 L 40-54 % Mean Corpuscular Volume 89 80-99 fL Mean Corpuscular Hemoglobin 30 25-34 pg Mean Corpuscular Hemoglobin Concent 34 32-36 g/dL Red Cell Distribution Width 13.7 10.0-14.5 % Platelet Count 289 130-400 10^3/uL Mean Platelet Volume 10.2 9.0-12.2 fL Immature Granulocyte % (Auto) 0 % Neutrophils (%) (Auto) 61 42-75 % Lymphocytes (%) (Auto) 26 12-44 % Monocytes (%) (Auto) 10 0-12 % Eosinophils (%) (Auto) 2 0-10 % Basophils (%) (Auto) 0 0-10 % Neutrophils # (Auto) 4.6 1.8-7.8 10^3/uL Lymphocytes # (Auto) 2.0 1.0-4.0 10^3/uL Monocytes # (Auto) 0.7 0.0-1.0 10^3/uL Eosinophils # (Auto) 0.2 0.0-0.3 10^3/uL Basophils # (Auto) 0.0 0.0-0.1 10^3/uL Immature Granulocyte # (Auto) 0.0 0.0-0.1 10^3/uL Prothrombin Time 14.2 12.2-14.7 SEC INR Comment 1.1 0.8-1.4 Activated Partial Thromboplast Time 33 24-35 SEC Sodium Level 133 L 135-145 MMOL/L Potassium Level 4.4 3.6-5.0 MMOL/L Chloride Level 91 L 98-107 MMOL/L Carbon Dioxide Level 23 21-32 MMOL/L Anion Gap 19 H 5-14 MMOL/L Blood Urea Nitrogen 68 H 7-18 MG/DL Creatinine 7.20 H 0.60-1.30 MG/DL Estimat Glomerular Filtration Rate 7 BUN/Creatinine Ratio 9 Glucose Level 108 H 70-105 MG/DL Calcium Level 8.5 8.5-10.1 MG/DL Corrected Calcium 8.6 8.5-10.1 MG/DL Total Bilirubin 0.7 0.1-1.0 MG/DL Aspartate Amino Transf (AST/SGOT) 17 5-34 U/L Alanine Aminotransferase (ALT/SGPT) 13 0-55 U/L Alkaline Phosphatase 152 H 40-136 U/L Total Protein 7.7 6.4-8.2 GM/DL Albumin 3.9 3.2-4.5 GM/DL SARS-CoV-2 RNA (RT-PCR) Not Detected Not Detecte My Orders Orders - CHARITY WERNER MD Hydromorphone Injection (Dilaudid Inject (04/29/21 20:45) Ondansetron Injection (Zofran Injectio (04/29/21 21:25) Medications Given in ED Vital Signs/I&O 04/29/21 04/30/21 19:29 00:00 Temp 36.6 36.7 Pulse 87 98 Resp 20 18 B/P (MAP) 174/77 (109) 156/63 Pulse Ox 100 98 O2 Delivery Room Air Room Air Progress Progress Note : Progress Note Seen and evaluated. IV by EMS. Normal saline 500 mL bolus running. Patient has received fentanyl 100 mcg IV and we will add another 50 mcg IV to do continued pain. Basic labs as well as x-ray of the right hip and pelvis and chest x-ray ordered. Monitor patient. 2100: Initiated transfer proceedings with [facility] in [place], [place] secondary to right hip fracture and they are talking with the orthopedist. 2121: Orthopedist will except if we are unable to care for the patient. Due to the patient's dialysis need tomorrow and we are unable to provide dialysis, patient will need to be in center that has dialysis capability as well as Ortho capability. We have clouded the films to their facility. I did discuss the case with Dr. Villanueva, hospitalist functional mental disability teacher. We have reviewed the labs and information. He has accepted the patient for admission to their facility. We are pending bed assignment. Patient did receive Dilaudid 0.5 mg IV for continued pain. He also received morphine 5 mg IV earlier which did not definitely help. He is much more comfortable currently although has some nausea so Zofran has been ordered. He is agreeable to the transfer and agrees with plan. Initial ECG Impression Date: Apr 29, 2021 Initial ECG Impression Time: 20:01 Initial ECG Rate: 86 Initial ECG Rhythm: Normal Sinus Comment Sinus rhythm with normal axis. Borderline prolonged QT interval. No evidence of ST elevation PA. Similar to previous of 03/23/2017. Interpreted by me. Diagnostic Imaging Plain Films/CT/US/NM/MRI: pelvis, hip Comments [facility] [place] [place] NAME: GABE GIL [facility] REC#: [id number] PT STATUS: REG ER : 1945 PHYSICIAN: SAIMA MARQUEZ APRN ADMIT DATE: 04/29/21/ER Draft Date of Exam:04/29/21 PELVIS WITH RIGHT HIP 2-3VIEWS INDICATION: Right hip pain status post fall. COMPARISON: None. FINDINGS: Frontal radiographic view of the pelvis and two dedicated radiographic views of the right hip were obtained. There is acute fracture of the neck of the proximal right femur. There is moderate angulation at the fracture site. Femoral vascular joint space is maintained. Left hip appears intact. No additional acute fracture of the pelvis is seen. No unexpected radiopaque foreign bodies are identified. IMPRESSION: Acute fracture of the proximal right femur. Dictated on workstation # [id number] Dict: 04/29/212002 Trans: 04/29/212004 E [id number] Interpreted by: KRZYSZTOF LUNA MD Electronically signed by: Reviewed: Reviewed by Me Diagonstic Imaging: Xray Plain Films/CT/US/NM/MRI: chest Comments [facility] [place] [place] NAME: GABE GIL MED REC#: [id number] PT STATUS: REG ER : 1945 PHYSICIAN: SAIMA MARQUEZ APRN ADMIT DATE: 04/29/21/ER Draft Date of Exam:04/29/21 CHEST 1 VIEW, AP/PA ONLY INDICATION: Fall. Right hip fracture. Dialysis patient. COMPARISON: 12/10/2020. FINDINGS: Single frontal radiographic view of the chest was obtained and demonstrates mild enlargement of the cardiac silhouette. This may be exaggerated by portable technique. Pulmonary vasculature is within normal limits. Lungs are clear and there is no focal consolidation, large effusion or pneumothorax. Osseous structures show no acute abnormality. Note is made of calcified pleural plaques. IMPRESSION: Mild enlargement of the cardiac silhouette, which again may be exaggerated by portable technique. There is otherwise no evidence of failure or focal infiltrate. Dictated on workstation # [id number] Dict: 04/29/212003 Trans: 04/29/212005 [id number] Interpreted by: KRZYSZTOF LUNA MD Electronically signed by: Reviewed: Reviewed by Me Departure Impression Primary Impression: Closed right hip fracture Qualified Codes: S72.001A - Fracture of unspecified part of neck of right femur, initial encounter for closed fracture Additional Impression: End stage renal disease on dialysis Disposition: XFER SHT-TRM HOSP Condition: Stable Transfer Transfer Reason: Exceeds level of care Time Spoke to Accepting Phy: 21:22 Transfer Time: 00:05 Transfer Facility: [facility], Dr. Villanueva accepting. Method of Transfer: EMS Departure-Patient Inst. Referrals: PARAM GUZMAN MD (PCP/Family) Primary Care Physician CHARITY WERNER MD Apr 29, 2021 19:48
[2021-04-29 19:49] LABS: BASOPHILS % (AUTO) 0 % (0-10); EOSINOPHILS # (AUTO) 0.2 10^3/uL (0.0-0.3); EOSINOPHILS % (AUTO) 2 % (0-10); HEMATOCRIT 36 % (40-54); HEMOGLOBIN 12.1 g/dL (13.3-17.7); LYMPHOCYTES % (AUTO) 26 % (12-44); MEAN CORPUSCULAR HEMOGLOBIN 30 pg (25-34); MEAN CORPUSCULAR HGB CONC 34 g/dL (32-36); MEAN CORPUSCULAR VOLUME 89 fL (80-99); MEAN PLATELET VOLUME 10.2 fL (9.0-12.2); MONOCYTES # (AUTO) 0.7 10^3/uL (0.0-1.0); MONOCYTES % (AUTO) 10 % (0-12); NEUTROPHILS # (AUTO) 4.6 10^3/uL (1.8-7.8); NEUTROPHILS % (AUTO) 61 % (42-75); PLATELET COUNT 289 10^3/uL (130-400); WHITE BLOOD COUNT 7.6 10^3/uL (4.3-11.0)
[2021-04-29 20:02] LABS: INR 1.1 (0.8-1.4); PROTHROMBIN TIME PATIENT 14.2 SEC (12.2-14.7)
[2021-04-29 20:05] LABS: ALBUMIN 3.9 GM/DL (3.2-4.5); BILIRUBIN,TOTAL 0.7 MG/DL (0.1-1.0); CALCIUM 8.5 MG/DL (8.5-10.1); CREATININE SERUM 7.2 MG/DL (0.60-1.30); POTASSIUM 4.4 MMOL/L (3.6-5.0); TOTAL PROTEIN 7.7 GM/DL (6.4-8.2)
--- NOTE | 2021-04-29 20:05 | Diagnostic Imaging Report ---
INDICATION: Right hip pain status post fall. COMPARISON: None. FINDINGS: Frontal radiographic view of the pelvis and two dedicated radiographic views of the right hip were obtained. There is acute fracture of the neck of the proximal right femur. There is moderate angulation at the fracture site. Femoral vascular joint space is maintained. Left hip appears intact. No additional acute fracture of the pelvis is seen. No unexpected radiopaque foreign bodies are identified. IMPRESSION: Acute fracture of the proximal right femur. Dictated by: Dictated on workstation # [id number]
--- NOTE | 2021-04-29 20:07 | Diagnostic Imaging Report ---
INDICATION: Fall. Right hip fracture. Dialysis patient. COMPARISON: 12/10/2020. FINDINGS: Single frontal radiographic view of the chest was obtained and demonstrates mild enlargement of the cardiac silhouette. This may be exaggerated by portable technique. Pulmonary vasculature is within normal limits. Lungs are clear and there is no focal consolidation, large effusion or pneumothorax. Osseous structures show no acute abnormality. Note is made of calcified pleural plaques. IMPRESSION: Mild enlargement of the cardiac silhouette, which again may be exaggerated by portable technique. There is otherwise no evidence of failure or focal infiltrate. Dictated by: Dictated on workstation # [id number]
[2021-04-29] MEDS ORDERED: HYDROmorphone 2 MG/ML VIAL (DILAUDID) IV ONE (20:45)
[2021-04-29] MEDS ORDERED: ONDANSETRON 4 MG/2 ML (SDV) Z0FRAN ONE (21:25)
[2021-04-30] VITALS: BP 156/63
== END 2021-04-30 | disposition short-term general hospital (02) ==
LOC: EDUNIT# 19:23 → ER 19:25
DX: S72.001A Fracture of unspecified part of neck of right femur, initial encounter for closed fracture (principal); N18.6 End stage renal disease; Z87.891 Personal history of nicotine dependence; Z20.822 Contact with and (suspected) exposure to COVID-19; W18.30XA Fall on same level, unspecified, initial encounter; Y92.009 Unspecified place in unspecified non-institutional (private) residence as the place of occurrence of the external cause
CPT/HCPCS: 36415; 71045; 80053; 85025; 85610; 85730; 87636; 93005

== ENCOUNTER → 2021-05-23 | Outpatient (CLI) | payer MEDICARE | LOC: WOUNDCARE 13:00 | PROVIDERS: ATTEND Family Medicine | DX: L89.610 Pressure ulcer of right heel, unstageable (principal); L89.620 Pressure ulcer of left heel, unstageable; L03.116 Cellulitis of left lower limb; L03.115 Cellulitis of right lower limb; N18.6 End stage renal disease; L60.0 Ingrowing nail | CPT/HCPCS: 87070; 87077; 87205; A6197; G0463; 99214; 99215 ==

== ENCOUNTER → 2021-05-30 | Outpatient (CLI) | payer MEDICARE ==
--- NOTE | 2021-05-30 17:08 | Diagnostic Imaging Report ---
EXAMINATION: Left foot radiograph EXAM DATE: 05/30/2021 COMPARISON: None available. HISTORY: Bilateral foot pain TECHNIQUE: 3 views of the bilateral feet FINDINGS: There is no acute fracture, dislocation, or destructive osseous process. There are degenerative changes seen throughout both feet. Mild soft tissue swelling and edema. IMPRESSION: 1. No acute osseous abnormality of the bilateral feet. No erosive process seen. Dictated by: Dictated on workstation # [id number]
== END ==
LOC: RAD 13:50
PROVIDERS: ATTEND Family Medicine
DX: L89.610 Pressure ulcer of right heel, unstageable (principal); L89.620 Pressure ulcer of left heel, unstageable; L03.116 Cellulitis of left lower limb; L03.115 Cellulitis of right lower limb; N18.6 End stage renal disease; L60.0 Ingrowing nail
CPT/HCPCS: 36415; 85652; 86141

== ENCOUNTER → 2021-05-30 | Outpatient (CLI) | payer MEDICARE | LOC: WOUNDCARE 12:46 | PROVIDERS: ATTEND Family Medicine | DX: I96 Gangrene, not elsewhere classified (principal); L89.610 Pressure ulcer of right heel, unstageable; L89.620 Pressure ulcer of left heel, unstageable; L03.116 Cellulitis of left lower limb; L03.115 Cellulitis of right lower limb; N18.6 End stage renal disease; L60.0 Ingrowing nail | CPT/HCPCS: 99213 ==

== ENCOUNTER → 2021-06-08 | Outpatient (CLI) | payer MEDICARE | LOC: WOUNDCARE 13:54 | PROVIDERS: ATTEND Family Medicine | DX: L97.419 Non-pressure chronic ulcer of right heel and midfoot with unspecified severity (principal); L97.429 Non-pressure chronic ulcer of left heel and midfoot with unspecified severity; N18.9 Chronic kidney disease, unspecified; Z99.2 Dependence on renal dialysis; L60.0 Ingrowing nail; I96 Gangrene, not elsewhere classified | CPT/HCPCS: 11750; G0463 ==

== ENCOUNTER → 2021-06-15 | Outpatient (CLI) | payer MEDICARE | LOC: WOUNDCARE 13:51 | PROVIDERS: ATTEND Family Medicine | DX: L89.610 Pressure ulcer of right heel, unstageable (principal); L89.620 Pressure ulcer of left heel, unstageable; N18.6 End stage renal disease; I96 Gangrene, not elsewhere classified | CPT/HCPCS: 97597; G0463 ==

== ENCOUNTER → 2021-06-22 | Outpatient (CLI) | payer MEDICARE | LOC: WOUNDCARE 14:09 | PROVIDERS: ATTEND Family Medicine | DX: L89.610 Pressure ulcer of right heel, unstageable (principal); L89.620 Pressure ulcer of left heel, unstageable; N18.6 End stage renal disease; I96 Gangrene, not elsewhere classified | CPT/HCPCS: 99212 ==

== ENCOUNTER → 2021-06-29 | Outpatient (CLI) | payer MEDICARE | LOC: WOUNDCARE 13:54 | PROVIDERS: ATTEND Family Medicine | DX: I96 Gangrene, not elsewhere classified (principal); L89.620 Pressure ulcer of left heel, unstageable; L89.613 Pressure ulcer of right heel, stage 3; N18.6 End stage renal disease | CPT/HCPCS: 97597; A6212; G0463 ==

== ENCOUNTER → 2021-07-06 | Outpatient (CLI) | payer MEDICARE | LOC: WOUNDCARE 13:55 | PROVIDERS: ATTEND Family Medicine | DX: N18.6 End stage renal disease (principal); L89.613 Pressure ulcer of right heel, stage 3; L89.623 Pressure ulcer of left heel, stage 3; I96 Gangrene, not elsewhere classified; R26.89 Other abnormalities of gait and mobility | CPT/HCPCS: 11042; 97597; A6212; G0463 ==

== ENCOUNTER → 2021-07-13 | Outpatient (CLI) | payer MEDICARE | LOC: WOUNDCARE 13:47 | PROVIDERS: ATTEND Family Medicine | DX: L89.613 Pressure ulcer of right heel, stage 3 (principal); L89.623 Pressure ulcer of left heel, stage 3; N18.6 End stage renal disease; G90.09 Other idiopathic peripheral autonomic neuropathy; I96 Gangrene, not elsewhere classified | CPT/HCPCS: 11042; 87070; 87205; A6212; G0463; 87077 ==

== ENCOUNTER → 2021-07-20 | Outpatient (CLI) | payer MEDICARE | LOC: WOUNDCARE 13:23 | PROVIDERS: ATTEND Family Medicine | DX: I96 Gangrene, not elsewhere classified (principal); L89.613 Pressure ulcer of right heel, stage 3; L89.623 Pressure ulcer of left heel, stage 3; G90.09 Other idiopathic peripheral autonomic neuropathy; A49.01 Methicillin susceptible Staphylococcus aureus infection, unspecified site | CPT/HCPCS: 11042; A6212; G0463 ==

== ENCOUNTER → 2021-07-27 | Outpatient (CLI) | payer MEDICARE | LOC: WOUNDCARE 13:23 | PROVIDERS: ATTEND Family Medicine | DX: L89.613 Pressure ulcer of right heel, stage 3 (principal); L89.623 Pressure ulcer of left heel, stage 3; N18.6 End stage renal disease; Z99.2 Dependence on renal dialysis; R26.89 Other abnormalities of gait and mobility; G90.09 Other idiopathic peripheral autonomic neuropathy; A49.02 Methicillin resistant Staphylococcus aureus infection, unspecified site; I96 Gangrene, not elsewhere classified | CPT/HCPCS: 11042; A6212; G0463 ==

== ENCOUNTER → 2021-07-29 | Outpatient (CLI) | payer MEDICARE ==
--- NOTE | 2021-07-29 15:57 | Diagnostic Imaging Report ---
BONE SCAN 3 PHASE INDICATION: Pressure sore on the left and right heels. COMPARISON: Bilateral foot radiograph of 05/30/2021. TECHNIQUE: Three-phase scintigraphic imaging of the bilateral feet was performed after the intravenous administration of 26.8 mCi of technetium 99m medronate. FINDINGS: On blood flow imaging, there is symmetric increased radiotracer uptake in the posterior heel fat pads. This radiotracer activity persists in the region of the heel fat pads on blood pool imaging. Delayed-phase imaging shows abnormal radiotracer uptake involving the calcaneal tuberosity on both sides. IMPRESSION: Positive three-phase bone scan suggests soft tissue infection/inflammation with potential osteomyelitis of the underlying calcaneal tuberosities. Dictated by: Dictated on workstation # [id number]
== END ==
LOC: CARD 12:00
PROVIDERS: ATTEND Family Medicine
DX: N18.6 End stage renal disease (principal); L89.613 Pressure ulcer of right heel, stage 3; L89.623 Pressure ulcer of left heel, stage 3; G90.09 Other idiopathic peripheral autonomic neuropathy; M86.8X8 Other osteomyelitis, other site; Z99.2 Dependence on renal dialysis
CPT/HCPCS: 78315; A9503

== ENCOUNTER → 2021-08-03 | Outpatient (CLI) | payer MEDICARE | LOC: WOUNDCARE 13:24 | PROVIDERS: ATTEND Family Medicine | DX: L89.613 Pressure ulcer of right heel, stage 3 (principal); L89.623 Pressure ulcer of left heel, stage 3; N18.6 End stage renal disease; Z99.2 Dependence on renal dialysis; G90.09 Other idiopathic peripheral autonomic neuropathy; B95.62 Methicillin resistant Staphylococcus aureus infection as the cause of diseases classified elsewhere; I96 Gangrene, not elsewhere classified | CPT/HCPCS: 11042; A6212; G0463 ==

== ENCOUNTER → 2021-08-10 | Outpatient (CLI) | payer MEDICARE | LOC: WOUNDCARE 13:26 | PROVIDERS: ATTEND Family Medicine | DX: N18.6 End stage renal disease (principal); L89.613 Pressure ulcer of right heel, stage 3; L89.623 Pressure ulcer of left heel, stage 3; G90.09 Other idiopathic peripheral autonomic neuropathy; B95.61 Methicillin susceptible Staphylococcus aureus infection as the cause of diseases classified elsewhere; I96 Gangrene, not elsewhere classified; R26.89 Other abnormalities of gait and mobility | CPT/HCPCS: 11042; A6212; G0463 ==

== ENCOUNTER → 2021-08-17 | Outpatient (CLI) | payer MEDICARE | LOC: WOUNDCARE 13:27 | PROVIDERS: ATTEND Family Medicine | DX: N18.6 End stage renal disease (principal); L89.613 Pressure ulcer of right heel, stage 3; G90.09 Other idiopathic peripheral autonomic neuropathy; L89.623 Pressure ulcer of left heel, stage 3; B95.61 Methicillin susceptible Staphylococcus aureus infection as the cause of diseases classified elsewhere; I96 Gangrene, not elsewhere classified; R26.89 Other abnormalities of gait and mobility | CPT/HCPCS: 11042; A6021; A6212; G0463 ==

== ENCOUNTER → 2021-08-24 | Outpatient (CLI) | payer MEDICARE | LOC: WOUNDCARE 13:24 | PROVIDERS: ATTEND Family Medicine | DX: L89.613 Pressure ulcer of right heel, stage 3 (principal); L89.623 Pressure ulcer of left heel, stage 3; N18.6 End stage renal disease; Z99.2 Dependence on renal dialysis; R26.89 Other abnormalities of gait and mobility; G90.09 Other idiopathic peripheral autonomic neuropathy; A49.02 Methicillin resistant Staphylococcus aureus infection, unspecified site; I96 Gangrene, not elsewhere classified | CPT/HCPCS: 11042; A6212; G0463 ==

== ENCOUNTER → 2021-09-07 | Outpatient (CLI) | payer MEDICARE | LOC: WOUNDCARE 13:27 | PROVIDERS: ATTEND Family Medicine | DX: L89.613 Pressure ulcer of right heel, stage 3 (principal); L89.623 Pressure ulcer of left heel, stage 3; N18.6 End stage renal disease; Z99.2 Dependence on renal dialysis; R26.89 Other abnormalities of gait and mobility; G90.09 Other idiopathic peripheral autonomic neuropathy; A49.02 Methicillin resistant Staphylococcus aureus infection, unspecified site; I96 Gangrene, not elsewhere classified | CPT/HCPCS: 11042; A6212; G0463 ==

== ENCOUNTER → 2021-09-14 | Outpatient (CLI) | payer MEDICARE | LOC: WOUNDCARE 11:13 | PROVIDERS: ATTEND Family Medicine | DX: L89.613 Pressure ulcer of right heel, stage 3 (principal); L89.623 Pressure ulcer of left heel, stage 3; N18.6 End stage renal disease; Z99.2 Dependence on renal dialysis; R26.89 Other abnormalities of gait and mobility; G90.09 Other idiopathic peripheral autonomic neuropathy; B95.61 Methicillin susceptible Staphylococcus aureus infection as the cause of diseases classified elsewhere; I96 Gangrene, not elsewhere classified | CPT/HCPCS: 11042; A6212; G0463 ==

== ENCOUNTER 2021-09-21 05:35 | Outpatient (RCR) | payer MEDICARE ==
[~2021-09-21] VITALS: Ht 172.7 cm; Wt 84.5 kg
[2021-09-21] MEDS ORDERED: APIX2.5T PO (15:48)
[2021-09-21] MEDS ORDERED: DILT240T10 PO (15:51)
[2021-09-21] MEDS ORDERED: TIOT18CA2 IH (15:56)
[2021-09-21] MEDS ORDERED: NALO4SPR3 NS (15:56)
== END 2021-09-21 16:32 | disposition home or self-care (01) ==
LOC: PREOP 05:35 → EDSTATUS 10:30 → PREOP 16:32
PROVIDERS: ATTEND Podiatrist Foot & Ankle Surgery
DX: Z01.818 Encounter for other preprocedural examination (principal)

== ENCOUNTER → 2021-09-23 | Outpatient (CLI) | payer MEDICARE ==
[~2021-09-23] MED LIST changes: +ACHD5005 PO; +APIX2.5T PO; +CEPH500C PO; +DILT240T10 PO; +NALO4SPR3 NS; +TIOT18CA2 IH
[2021-09-23 08:00] LABS: BASOPHILS # (AUTO) 0.1 10^3/uL (0.0-0.1); BASOPHILS % (AUTO) 1 % (0-10); EOSINOPHILS # (AUTO) 0.2 10^3/uL (0.0-0.3); EOSINOPHILS % (AUTO) 3 % (0-10); HEMATOCRIT 34 % (40-54); HEMOGLOBIN 11.6 g/dL (13.3-17.7); LYMPHOCYTES # (AUTO) 2.2 10^3/uL (1.0-4.0); LYMPHOCYTES % (AUTO) 25 % (12-44); MEAN CORPUSCULAR HEMOGLOBIN 32 pg (25-34); MEAN CORPUSCULAR HGB CONC 34 g/dL (32-36); MEAN CORPUSCULAR VOLUME 93 fL (80-99); MEAN PLATELET VOLUME 9.6 fL (9.0-12.2); MONOCYTES # (AUTO) 0.8 10^3/uL (0.0-1.0); MONOCYTES % (AUTO) 10 % (0-12); NEUTROPHILS # (AUTO) 5.3 10^3/uL (1.8-7.8); NEUTROPHILS % (AUTO) 62 % (42-75); PLATELET COUNT 266 10^3/uL (130-400); WHITE BLOOD COUNT 8.6 10^3/uL (4.3-11.0)
[2021-09-23 08:14] LABS: POTASSIUM 4.4 MMOL/L (3.6-5.0)
[2021-09-23 08:15] LABS: ALBUMIN 3.9 GM/DL (3.2-4.5)
[2021-09-23 08:16] LABS: CALCIUM 9.1 MG/DL (8.5-10.1)
[2021-09-23 08:17] LABS: TOTAL PROTEIN 7.4 GM/DL (6.4-8.2)
[2021-09-23 08:19] LABS: BILIRUBIN,TOTAL 0.8 MG/DL (0.1-1.0)
[2021-09-23 08:21] LABS: CREATININE SERUM 5.02 MG/DL (0.60-1.30)
--- NOTE | 2021-09-23 10:14 | Diagnostic Imaging Report ---
INDICATION: Preop foot surgery PA and lateral chest Comparison made to study from 12/10/2020 show some scarring in the left lower lung. There are no acute alveolar infiltrates. There are no effusions or pneumothoraces. IMPRESSION: Scarring in the left lower chest unchanged compared to 12/10/2020. Dictated by: Dictated on workstation # [id number]
== END ==
LOC: RAD 07:33
PROVIDERS: ATTEND Registered Nurse
DX: Z01.810 Encounter for preprocedural cardiovascular examination (principal); Z01.812 Encounter for preprocedural laboratory examination; J44.9 Chronic obstructive pulmonary disease, unspecified; J98.4 Other disorders of lung
CPT/HCPCS: 36415; 71046; 80053; 80061; 85025

== ENCOUNTER 2021-09-26 08:00 | Day surgery (SDC) | payer MEDICARE ==
[~2021-09-26] VITALS: Ht 172 cm; Wt 84.5 kg
[2021-09-26] VITALS (8 sets, daily range): BP systolic 158–190; BP diastolic 72–94
[~2021-09-26 08:00] MED LIST changes: -ACHD5005 PO; -CEPH500C PO; +ceFAZolin INJECTION 1,000 MG VIAL IV ONE
[2021-09-26] MEDS ORDERED: LACTATED RINGERS 1,000 ML IV PRN (08:15)
[2021-09-26] MEDS ORDERED: NS IV 500 ML 500 ML IV PRN (08:45)
[2021-09-26] MEDS ORDERED: proPOfol 200 MG/20 ML (DIPRIVAN) VIAL IV ONE (09:26)
[2021-09-26] MEDS ORDERED: PROPOFOL INJECTION 50 ML IV ONE (09:27)
[2021-09-26 09:30] LABS: CALCIUM 9.3 MG/DL (8.5-10.1); CREATININE SERUM 6.48 MG/DL (0.60-1.30); POTASSIUM 4.4 MMOL/L (3.6-5.0)
[2021-09-26] MEDS ORDERED: LIDOCAINE 1% INJ 20 ML VIAL ONE (09:33)
[2021-09-26] MEDS ORDERED: BUPIVACAINE 0.5% 30 ML (SENSORCAINE) VIAL ONE (09:33)
--- NOTE | 2021-09-26 09:33 | Progress Note-Pre Operative ---
Pre-Operative Progress Note Date of Available H&P: Sep 26, 2021 Date H&P Reviewed: Sep 26, 2021 Time H&P Reviewed: 09:33 Pre-Operative Diagnosis: Osteomyelitis, bilateral calcaneus REINALDO MIDDLETON DPM Sep 26, 2021 09:33
[2021-09-26] MEDS ORDERED: ESMOLOL 100 MG/10 ML (BREVIBLOC) VIAL ONE (10:26)
[2021-09-26] MEDS ORDERED: SILVER SULFADIAZINE 50 GM CREAM ONE (10:44)
--- NOTE | 2021-09-26 11:08 | Progress Note-Post Operative ---
Post-Operative Progess Note Surgeon (s)/Psych Rn (s) Surgeon REINALDO MIDDLETON DPM Psych Rn: none Pre-Operative Diagnosis Osteomyelitis, bilateral calcaneus Post-Operative Diagnosis Same Procedure & Operative Findings Date of Procedure 09/26/21 Procedure Performed/Findings Bone biopsy of calcaneus, bilaterally Debridement of Ulceration, bilateral heel Anesthesia Type MAC Estimated Blood Loss Estimated blood loss (mL): Minimal Specimens/Packing Specimens Removed Bone from the Calcaneus, bilaterally REINALDO MIDDLETON DPM Sep 26, 2021 11:08
--- NOTE | 2021-09-26 11:09 | Anesthesia-General Post-Op ---
MAC Patient Condition Mental Status/LOC: Same as Preop Cardiovascular: Satisfactory Nausea/Vomiting: Absent Respiratory: Satisfactory Pain: Controlled Complications: Absent Post Op Complications Complications None Follow Up Care/Instructions Patient Instructions None needed. Anesthesiology Discharge Order Discharge Order Patient is doing well, no complaints, stable vital signs, no apparent adverse anesthesia problems. No complications reported per nursing. VALENTINE MCKNIGHT CRNA Sep 26, 2021 11:09
[2021-09-26] MEDS ORDERED: ACHD5005 PO (11:13)
[2021-09-26] MEDS ORDERED: CEPH500C PO (11:13)
[2021-09-26] MEDS ORDERED: morphine INJ 10 MG/ML 1ML (SYR OR VIAL) IVP ONE (11:15)
[2021-09-26] MEDS ORDERED: MEPERIDINE (DEMEROL) INJ 50 MG/ML IVP ONE (11:15)
[2021-09-26] MEDS ORDERED: ONDANSETRON 4 MG/2 ML (SDV) Z0FRAN IVP PRN (11:15)
[2021-09-26] MEDS ORDERED: HYDROcodone/APAP 5 MG/325 MG (LORTAB) TAB PO PRN (11:15)
[2021-09-26] MEDS ORDERED: LACTATED RINGERS 1,000 ML IV SCH (11:15)
[2021-09-26] MEDS ORDERED: BUPIVACAINE 0.25% 30 ML (SENSORCAINE) VIAL ONE (12:30)
--- NOTE | 2021-09-26 15:05 | OPERATIVE REPORT ---
DATE OF SERVICE: 09/26/2021 SURGEON: Eva Serrano DPM. PREOPERATIVE DIAGNOSIS: Osteomyelitis, bilateral calcaneus. POSTOPERATIVE DIAGNOSIS: Osteomyelitis, bilateral calcaneus. PROCEDURE: Bone biopsy with culture and sensitivity, bilateral calcaneus. WOUND CLASS: Contaminated. ANESTHESIA: Monitored anesthesia care. HEMOSTASIS: Pneumatic ankle tourniquet at 250 mmHg. INDICATIONS: This 76-year-old male presents with chronic wounds to the posterior lateral aspect of the calcaneus. Due to poor healing, a bone scan was ordered and indicated significant inflammation associated with the delayed views of the calcaneus bilaterally, right worse than left. Osteomyelitis diagnosis was made. The purpose of this procedure is to evaluate for what bacteria might be infecting the calcaneus for potential long-term IV antibiotic use. The patient understands there are no guarantees, and he is willing to proceed. DESCRIPTION OF PROCEDURE: The patient was brought back to the operating table, placed in secure supine position. Appropriate timeout was performed. Pneumatic ankle tourniquet was placed on bilateral lower extremity over several layers of padding. The lateral aspect of the calcaneus was anesthetized utilizing aseptic technique with 9 mL of 1:1 mixture of 1% Xylocaine, 0.5% Marcaine injected to the lateral aspect of the left calcaneus and 8 mL on the right-hand side of the right calcaneus. The feet were then prepped and draped in normal sterile manner. The left foot was then elevated, allowed to exsanguinate after which the tourniquet was inflated to 250 mmHg. To the lateral aspect of the left calcaneus area, a less than 1 cm incision was created. Blunt dissection was carried out to bone, after which a cannula was introduced into the wound. A 3 mm trocar was introduced, and a sample of the lateral calcaneus inferior aspect was achieved. Portion of the bone specimen was sent for gross and microscopic evaluation, the other was sent for culture and sensitivity. The wound was flushed with copious amounts of normal saline and closure was performed. The skin was coapted utilizing 4-0 Prolene in a simple interrupted type stitch. Attention was then directed to the lateral aspect of the right calcaneus where a similar procedure was performed where a less than 1 cm incision was created after which blunt dissection was carried out to the bone. Trocar was introduced and a 3 mm specimen of bone was retrieved. A portion was sent for culture and sensitivity, the rest was sent for pathological evaluation. The wound was flushed to the right calcaneus after which skin was coapted utilizing 4-0 Prolene in a simple interrupted type stitch. Attention was then directed to the plantar aspect of the calcaneus where two open wounds were identified to the each lower extremity. Utilizing separate instrumentation, the wounds had copious amounts of fibrotic tissue with hyperkeratotic border. Neither probed completely down to bone but one on the right was approximately 9 mm in depth. The one on the left was approximately 12 mm in depth and probed anteriorly along the inferior aspect of the calcaneus, but not down to bone. The wound on the right was approximately 2.5 x 2 cm. The one on the left was approximately 1.5 x 1.5 cm. These two were flushed with copious amounts of normal saline after which Silvadene cream, Adaptic and sterile gauze dressing was applied. The whole wound was secured with Kerlix and Coban wrap. The tourniquets were released, and appropriate capillary refill time was then noted to the hallux bilaterally. The patient tolerated the anesthesia and procedure well and was transported from the operating room to the recovery area with vital signs stable and vascular status intact to all digits bilaterally. Postoperative instructions are to leave the dressing intact until the visit with Dr. Washington of the wound care at [facility]. I will see the patient back in my office in approximately 10 days' period of time or sooner if necessary. Job ID: [id number] DocumentID: [id number] Dictated Date: 09/26/2021 11:22:16 City Dispatcher Date: 09/26/2021 15:05:16 Dictated By: SALAS OLIVARES
--- NOTE | 2021-09-26 16:38 | Diagnostic Imaging Report ---
FOOT, BILATERAL, 2 VIEWS INDICATION: Postop surveillance after bilateral foot surgery. COMPARISON: None available. TECHNIQUE: 2 views of each foot were obtained for a total of 4 views. FINDINGS: There are now 2 lucent tracks within the plantar surface of the left calcaneus that are likely from surgical pins that have been placed and removed. No new osseous abnormality in the right foot. Mild degenerative joint space narrowing in the bilateral 1st MTP joints. Extensive vascular calcifications are noted. No soft tissue gas or radiopaque foreign body on either side. IMPRESSION: 1. New lucent tracks within the plantar surface of the left calcaneus appear postoperative in nature. No fracture or other postoperative complication on either side. Dictated by: Dictated on workstation # [id number]
== END 2021-09-26 12:20 ==
LOC: SDC 08:00
PROVIDERS: ATTEND Podiatrist Foot & Ankle Surgery
DX: D16.31 Benign neoplasm of short bones of right lower limb (principal); D16.32 Benign neoplasm of short bones of left lower limb
CPT/HCPCS: 36415; 80048; 87070; 87075; 87077; 87081; 87101; 87205

== ENCOUNTER 2021-10-03 13:00 | Emergency (ER) | payer MEDICARE ==
[~2021-10-03] VITALS: Ht 170.2 cm; Wt 83.9 kg
[~2021-10-03 13:00] MED LIST changes: +ACHD5005 PO; +CEPH500C PO; -ceFAZolin INJECTION 1,000 MG VIAL IV ONE
--- NOTE | 2021-10-03 14:37 | ED Integumentary General ---
General Chief Complaint: Skin/Wound Problems Stated Complaint: RASH ALL OVER Nursing Triage Note: pt to room by wheelchair with pt . pt reports he gets around at home with a walker. pt recently had foot surgery to "remove bone from a wound." pt reports he has dialysis T, TH, Sat. pt reports he felt itchy last night and pt noticed an all over rash on pt body this am. pt A&Ox4 on arrival, pt is [place] [employer], one hearing aid in place in left ear Source: patient, family History of Present Illness Date Seen by Provider: Oct 03, 2021 Time Seen by Provider: 14:22 Initial Comments Patient is a 76-year-old male with a history of end-stage renal disease on hemodialysis who presents with his for chief complaint of diffuse itchy rash. Patient states that the rash started yesterday, he was up all night last night unable to sleep due to the itching. He cannot recall any new soaps, lotions or detergents. He recently had foot surgery for chronic wounds in his bilateral feet. He has been on antibiotics and hydrocodone for about a week. He denies being outside, exposed to the sunlight. He has not been working in the garden. No new foods or other exposures. He has not taken anything for the rash. He also complains of a frontal headache that has been present since Sunday after dialysis. He states he occasionally gets headaches. Nothing really makes it any better or any worse. He did take some extra strength Tylenol this morning at about 8 AM. He states it helped a little bit. He is not nauseous. His states that he has had some cataract/vision complaints in recent weeks and has an appointment this week for a visual exam. No recent illnesses such as fevers, chills, cough or congestion. He is not diabetic. All other review of systems reviewed and negative except as stated Timing/Duration: yesterday Severity: moderate Location: torso Possible Cause: no cause identified Associated Symptoms: headache Allergies and Home Medications Allergies Coded Allergies: No Known Drug Allergies (Unverified , 09/26/21) Patient Home Medication List Home Medication List Reviewed: Yes Acetaminophen (Acetaminophen) 500 Mg Tablet, 500-1,000 MG PO Q6H PRN for PAIN- MILD, (Reported) Entered as Reported by: JOSE BETANCOURT on 04/20/16 1610 Albuterol Sulfate (Ventolin Hfa) 1 Puff Puff, 1-2 PUFF IH Q4H PRN for SHORTNESS OF BREATH, (Reported) Entered as Reported by: CASSANDRA GEE on 10/19/16823 Alfuzosin HCl (Uroxatral) 10 Mg Tab.sr.24h, 10 MG PO DAILY, (Reported) Entered as Reported by: CASSANDRA GEE on 10/19/16823 Allopurinol (Allopurinol) 300 Mg Tablet, 300 MG PO DAILY, (Reported) Entered as Reported by: CASSANDRA GEE on 10/19/16823 Apixaban (Eliquis) 2.5 Mg Tablet, 2.5 MG PO BID, (Reported) Entered as Reported by: ARNALDO GARRISON on 09/21/21 1548 Atenolol (Atenolol) 25 Mg Tablet, 25 MG PO DAILY, (Reported) Entered as Reported by: CASSANDRA GEE on 08/11/15 09 Cephalexin (Cephalexin) 500 Mg Capsule, 1 CAP PO TID Prescribed by: REINALDO MIDDLETON on 09/26/21 111 Diltiazem HCl (Diltiazem ER) 240 Mg Tab.er.24h, 240 MG PO DAILY, (Reported) Entered as Reported by: ARNALDO GARRISON on 09/21/21 155 Enalapril Maleate (Enalapril Maleate) 20 Mg Tablet, 20 MG PO BID, (Reported) Entered as Reported by: CASSANDRA GEE on 10/19/16823 Finasteride (Proscar) 5 Mg Tablet, 5 MG PO DAILY, (Reported) Entered as Reported by: CASSANDRA GEE on 10/19/16823 Hydrochlorothiazide (Hydrochlorothiazide) 12.5 Mg Tablet, 12.5 MG PO DAILY, (Reported) Entered as Reported by: CASSANDRA GEE on 10/19/16823 Hydrocodone/Acetaminophen (Hydrocodone-Acetamin 5-325 mg) 5 Mg-325 Mg Tablet, 1 TAB PO Q6H PRN for PAIN-MODERATE (5-7) Prescribed by: REINALDO MIDDLETON on 09/26/21 111 Naloxone HCl (Naloxone HCl) 4 Mg/Actuation [place], 4 MG NS, (Reported) Entered as Reported by: ARNALDO GARRISON on 09/21/21 1556 Pravastatin Sodium (Pravastatin Sodium) 10 Mg Tablet, 10 MG PO HS, (Reported) Entered as Reported by: CASSANDRA GEE on 10/19/16 0824 Tiotropium [place] (Spiriva) 18 Mcg Aerp, 1 INH IH, (Reported) Entered as Reported by: ARNALDO GARRISON on 09/21/21 1556 Review of Systems Review of Systems Constitutional: see HPI EENTM: no symptoms reported Respiratory: no symptoms reported Cardiovascular: no symptoms reported Gastrointestinal: no symptoms reported Genitourinary: no symptoms reported Musculoskeletal: no symptoms reported Skin: pruritus, rash Psychiatric/Neurological: Headache All Other Systems Reviewed Negative Unless Noted: Yes Past Mwxxiua-Hjxqqg-Fimnik Hx Patient Social History Tobacco Use?: No Smokeless Tobacco Frequency: Former User Use of E-Cig and/or Vaping dev: No Substance use?: No Alcohol Use?: No Immunizations Up To Date Tetanus Booster (TDap): Unknown Influenza Vaccine Up-to-Date: Yes; Up-to-Date First/Initial COVID19 Vaccinat: 05/09 Second COVID19 Vaccination Cristian: 06/09 Seasonal Allergies Seasonal Allergies: No Past Medical History Surgery/Hospitalization HX: NEPHRECTOMY, HIATAL HERNIA, HIGH CHOLESTEROL, HTN, PROSTATIS, RENAL FAILURE, SKIN CA, GERD, GOUT Surgeries: Yes (RICHARD FUNDOPLICATION, picc, dialysis port, right nephrectomy, Right Hip) Abdominal, Vascular Surgery Respiratory: No Asthma, COPD Currently Using CPAP: No Currently Using BIPAP: No Cardiac: Yes (murmur) High Cholesterol, Hypertension Neurological: No Reproductive Disorders: No Sexually Transmitted Disease: No HIV/AIDS: No Genitourinary: Yes (PROSTATITIS; CHRONIC RENAL FAILURE/INSUFFICIENCY) Kidney Infection, Prostate Problems, Renal Failure, Dialysis, UTI-Chronic Gastrointestinal: Yes (RICHARD FUNDOPLICATION) Gastroesophageal Reflux, Esophagitis, Hiatal Hernia, Ulcer Musculoskeletal: Yes Arthritis, Gout Endocrine: No HEENT: No Cataract Loss of Vision: Denies Hearing Impairment: Hard of Hearing, Bilateral Hearing Aide Cancer: Yes Skin Psychosocial: No Integumentary: No Blood Disorders: No Family Medical History CVA No Pertinent Family Hx Physical Exam Vital Signs Vital Signs - First Documented 10/03/21 13:35 Temp 36.2 Pulse 81 Resp 19 B/P (MAP) 128/54 (78) Pulse Ox 99 Capillary Refill : General Appearance: WD/WN, mild distress (due to itching) HEENT: PERRL/EOMI Neck: full range of motion, supple Cardiovascular: irregularly irregular Respiratory: lungs clear, normal breath sounds, no respiratory distress, no accessory muscle use Gastrointestinal: non tender, soft Back: other (Diffuse coalescing maculopapular, hive like rash) Extremities: normal range of motion, non-tender, normal inspection, other (AV fistula left upper extremity some hives extending down over the proximal portion of the left upper extremity) Neurologic/Psychiatric: alert, normal mood/affect, oriented x 3 Skin: rash Skin Problem Location: generalized (Generalized maculopapular rash that coalesces over the torso anteriorly and posteriorly. He has a small amount of hives noted on the neck and lower face. No intraoral swelling or lesions are appreciated) Progress/Results/Core Measures Results/Orders My Orders Orders - MATI ROMERO MD Famotidine Tablet (Pepcid Tablet) (10/03/21 14:45) Diphenhydramine Tablet (Benadryl Tablet) (10/03/21 14:45) Acetaminophen Tablet (Tylenol Tablet) (10/03/21 14:45) Prednisone Tablet (Deltasone Tablet) (10/03/21 14:45) Medications Given in ED Current Medications Medications Dose Ordered Sig/Avel Route Start Time Stop Time Status Last Admin Dose Admin Acetaminophen 1,000 mg ONCE ONCE PO 10/03/21 14:45 10/03/21 14:46 DC 10/03/21 14:38 1,000 MG Diphenhydramine HCl 50 mg ONCE ONCE PO 10/03/21 14:45 10/03/21 14:46 DC 10/03/21 14:38 50 MG Famotidine 20 mg ONCE ONCE PO 10/03/21 14:45 10/03/21 14:46 DC 10/03/21 14:38 20 MG Prednisone 50 mg ONCE ONCE PO 10/03/21 14:45 10/03/21 14:46 DC 10/03/21 14:38 50 MG Vital Signs/I&O 10/03/21 13:35 Temp 36.2 Pulse 81 Resp 19 B/P (MAP) 128/54 (78) Pulse Ox 99 Blood Pressure Mean: 78 Progress Progress Note : Time: 15:26 Progress Note Patient reevaluated approximately 45 minutes after prednisone, Benadryl and Pepcid. He also received some Tylenol. He states his headache has "lightened up" and he feels a little better. His itching is resolving. The hives appear to be fading but they are not gone. He is continuing to not have any complaints of shortness of breath mouth swelling difficulty swallowing. No voice changes. His is comfortable taking him home. I recommended aiuo-ojw-wwfekbc Benadryl 2 tablets every 6 hours for the itching and rash as well as Pepcid twice a day and I will give him 4 more doses of 50 mg of prednisone. Return precautions are provided to the patient and his . They verbalized understanding. All questions are sought and answered. Departure Impression Primary Impression: Hives Disposition: 01 HOME, SELF-CARE Condition: Improved Departure-Patient Inst. Decision time for Depature: 15:27 Referrals: NO,LOCAL PHYSICIAN (PCP) Primary Care Physician MATI MCCORMACK (Family) Primary Care Physician Patient Instructions: Stephy (DC) Add. Discharge Instructions: Bathes with cool water not hot water as this will cause the hives to worsen. Take wwrr-zoa-hjnuiwy Benadryl 2 tablets every 6 hours as needed for the rash and itching. This medication may make you sleepy. You need to get some izfe-ptz-cjfrehp Pepcid, 20 mg tab. Take 1 of these twice a day for the next week. Also prednisone 50 mg to start tomorrow take 1 once a day for the next 4 days. If you notice worsening rash with mouth swelling or difficulty swallowing or increasing shortness of breath please come back to the emergency department for reevaluation. Keep your follow-up appointment with your eye doctor this week and your primary care doctor at the first week of October. Scripts Prednisone (Prednisone) 50 Mg Tab 50 MG PO DAILY for 4 Days, #4 TAB start on 10/04/21 Prov: MATI ROMERO MD 10/03/21 MATI ROMERO MD Oct 03, 2021 14:37
[2021-10-03] MEDS ORDERED: FAMOTIDINE 20 MG (PEPCID) TABLET PO ONE (14:45)
[2021-10-03] MEDS ORDERED: ACETAMINOPHEN 500 MG TAB (TYLENOL) PO ONE (14:45)
[2021-10-03] MEDS ORDERED: diphenhydrAMINE 25 MG TAB (BENADRYL) PO ONE (14:45)
[2021-10-03] MEDS ORDERED: predniSONE 20 MG TAB PO ONE (14:45)
[2021-10-03] MEDS ORDERED: PRD50T PO (15:29)
[2021-10-03 15:45] VITALS: BP 152/57
== END 2021-10-03 15:45 | disposition home or self-care (01) ==
LOC: EDUNIT# 13:00 → ER 13:01
DX: L50.9 Urticaria, unspecified (principal); R51.9 Headache, unspecified; Z87.891 Personal history of nicotine dependence
CPT/HCPCS: 99283

== ENCOUNTER → 2021-10-12 | Outpatient (CLI) | payer MEDICARE ==
[~2021-10-12] MED LIST changes: +PRD50T PO
== END ==
LOC: WOUNDCARE 13:14
PROVIDERS: ATTEND Family Medicine
DX: N18.6 End stage renal disease (principal); L89.613 Pressure ulcer of right heel, stage 3; L89.623 Pressure ulcer of left heel, stage 3; G90.09 Other idiopathic peripheral autonomic neuropathy; B95.62 Methicillin resistant Staphylococcus aureus infection as the cause of diseases classified elsewhere; I96 Gangrene, not elsewhere classified; R26.89 Other abnormalities of gait and mobility
CPT/HCPCS: 11042; A6212; G0463

== ENCOUNTER 2021-10-13 06:10 | Outpatient (CLI) | payer MEDICARE ==
[~2021-10-13] VITALS: Ht 170.2 cm; Wt 84.1 kg
[2021-10-17] MEDS ORDERED: DOXY100T2 PO (13:13)
[2021-10-17] MEDS ORDERED: FLUT1DIS26 IH (13:13)
[2021-10-17] MEDS ORDERED: CALC667T7 PO (13:13)
[2021-10-17] MEDS ORDERED: ACHD5005 PO (13:13)
[2021-10-17] MEDS ORDERED: CHOL20003 PO (13:13)
[2021-10-17] MEDS ORDERED: CARV12.53 PO (13:13)
== END 2021-10-17 13:17 ==
LOC: PREOP 06:10
PROVIDERS: ATTEND Specialist
DX: Z01.818 Encounter for other preprocedural examination (principal); H26.9 Unspecified cataract

== ENCOUNTER → 2021-10-19 | Outpatient (CLI) | payer MEDICARE ==
[~2021-10-19] MED LIST changes: +CALC667T7 PO; +CARV12.53 PO; +CHOL20003 PO; +DOXY100T2 PO; +FLUT1DIS26 IH
== END ==
LOC: WOUNDCARE 13:21
PROVIDERS: ATTEND Family Medicine
DX: I96 Gangrene, not elsewhere classified (principal); L89.613 Pressure ulcer of right heel, stage 3; L89.623 Pressure ulcer of left heel, stage 3; N18.6 End stage renal disease; G90.09 Other idiopathic peripheral autonomic neuropathy; A49.01 Methicillin susceptible Staphylococcus aureus infection, unspecified site
CPT/HCPCS: 11042; A6212; G0463

== ENCOUNTER 2021-10-21 10:34 | Day surgery (SDC) | payer MEDICARE ==
[~2021-10-21] VITALS: Ht 170.2 cm; Wt 84.1 kg
[2021-10-21] MEDS ORDERED: MOXIFLOXACIN OPHTH SOLN 5 MG/ML 0.3 ML SYRINGE OP ONE (11:30)
[2021-10-21] MEDS ORDERED: POVIDONE (BETADINE) OPHTH SOLN 5% 30 ML OP ONE (11:30)
[2021-10-21] MEDS ORDERED: TIMOLOL MALEATE 0.5% 5 ML (TIMOPTIC) BTL OU PRN (11:30)
[2021-10-21] MEDS: TETRACAINE 0.5% OPHTH SOLN 4 ML BTL (SINGLE DOSE ONLY) OU PRN ×4 (11:30→11:50)
[2021-10-21] MEDS: TROPICAMIDE 1% OPH SOLN (MYDRIACYL) 15 ML BTL OP SCH ×3 (11:39→11:50)
[2021-10-21] MEDS: PHENYLEPHRINE 10% OPHTH (NEO-SYN) 5 ML BTL OU SCH ×3 (11:39→11:50)
[2021-10-21 11:51] VITALS: BP 109/57
--- NOTE | 2021-10-21 12:00 | Ophthalmologist Pre-Op Note ---
Pre-Operative Progress Note H&P Reviewed The H&P was reviewed, patient examined and no changes noted. Date H&P Reviewed: Oct 21, 2021 Time H&P Reviewed: 12:00 Pre-Op Dx Cataract, Left Eye PA ESTEVEZ MD Oct 21, 2021 12:00
[2021-10-21] MEDS ORDERED: MIDAZOLAM 2 MG/2 ML (VERSED) VIAL ONE (12:09)
[2021-10-21] MEDS ORDERED: acetaZOLAMIDE ER 500 MG CAP (DIAMOX SEQUELS) PO ONE (12:30)
--- NOTE | 2021-10-21 12:30 | Ophthalmology Operative Report ---
Cataract, Miotic Pupil PREOPERATIVE DIAGNOSIS: 1. Cataract Left Eye 2. Miotic Pupil POSTOPERATIVE DIAGNOSIS: 1. Cataract Left Eye 2. Miotic Pupil PROCEDURE: 1. Cataract removal and placement of posterior chamber implant, left eye 2. Pupillary expansion with malyugin ring SURGEON: Donald Estevez ANESTHESIA: Topical with sedation COMPLICATIONS: None ESTIMATED BLOOD LOSS: Minimal DESCRIPTION OF PROCEDURE: After proper informed consent was obtained, the patient, a 76 male, was taken to the Operating Room and the left eye was anesthetized with Tetracaine. The eye was then prepped and draped in the usual manner. A wire lid speculum was placed. A paracentesis was made at the left hand position. Preservative free lid ocaine was injected into anterior chamber followed by viscoelastic. A clear corneal incision was made in the temporal position. The malyugin ring was injected into the anterior chamber and the pupil was dilated. A capsulorrhexis was preformed and the central nuclear and cortical material were removed. The posterior capsule was polished and Julio C 22.0 AU00T0 IOL was placed into the capsular bag. The myalgian ring was removed. The residual viscoelastic was aspirated and the balanced saline solution was injected into the anterior chamber. Moxifloxacin was injected into the anterior chamber. The wound was checked and found to be water tight. The patient tolerated the procedure well without complications. [Limbal Relaxing Incision placed ] [ ]mm at [ ]. DONALD ETSEVEZ MD Oct 21, 2021 12:30
[2021-10-21 12:47] VITALS: BP 123/58
--- NOTE | 2021-10-21 12:58 | Anesthesia-General Post-Op ---
MAC Patient Condition Mental Status/LOC: Same as Preop Cardiovascular: Satisfactory Nausea/Vomiting: Absent Respiratory: Satisfactory Pain: Controlled Complications: Absent Post Op Complications Complications None Follow Up Care/Instructions Patient Instructions None needed. Anesthesiology Discharge Order Discharge Order Patient is doing well, no complaints, stable vital signs, no apparent adverse anesthesia problems. No complications reported per nursing. MICHELLE ZELAYA CRNA Oct 21, 2021 12:58
== END 2021-10-21 12:49 | disposition home or self-care (01) ==
LOC: SDC 10:34
PROVIDERS: ATTEND Specialist
DX: H25.9 Unspecified age-related cataract (principal); H57.03 Miosis; Z79.01 Long term (current) use of anticoagulants; Z99.2 Dependence on renal dialysis; Z87.891 Personal history of nicotine dependence
CPT/HCPCS: 66982; V2632

== ENCOUNTER → 2021-10-26 | Outpatient (CLI) | payer MEDICARE | LOC: WOUNDCARE 12:50 | PROVIDERS: ATTEND Family Medicine | DX: L89.613 Pressure ulcer of right heel, stage 3 (principal); N18.6 End stage renal disease; Z99.2 Dependence on renal dialysis; R26.89 Other abnormalities of gait and mobility; L89.623 Pressure ulcer of left heel, stage 3; G90.09 Other idiopathic peripheral autonomic neuropathy; I96 Gangrene, not elsewhere classified | CPT/HCPCS: 11042; A6212; G0463 ==

== ENCOUNTER 2021-10-31 05:37 | Outpatient (CLI) | payer MEDICARE ==
[~2021-10-31] VITALS: Ht 170.2 cm; Wt 84.1 kg
== END 2021-10-31 13:17 | disposition home or self-care (01) ==
LOC: PREOP 05:37
PROVIDERS: ATTEND Specialist
DX: Z01.818 Encounter for other preprocedural examination (principal)

== ENCOUNTER → 2021-11-02 | Outpatient (CLI) | payer MEDICARE | LOC: WOUNDCARE 13:22 | PROVIDERS: ATTEND Family Medicine | DX: L89.613 Pressure ulcer of right heel, stage 3 (principal); L89.623 Pressure ulcer of left heel, stage 3; G90.09 Other idiopathic peripheral autonomic neuropathy; R26.89 Other abnormalities of gait and mobility; N18.6 End stage renal disease; Z99.2 Dependence on renal dialysis; I96 Gangrene, not elsewhere classified | CPT/HCPCS: 11042; 87070; 87205; A6212; G0463 ==

== ENCOUNTER 2021-11-04 09:16 | Day surgery (SDC) | payer MEDICARE ==
[~2021-11-04] VITALS: Ht 170.2 cm; Wt 84.1 kg
[2021-11-04] MEDS ORDERED: acetaZOLAMIDE ER 500 MG CAP (DIAMOX SEQUELS) PO ONE (09:30)
[2021-11-04] MEDS ORDERED: POVIDONE (BETADINE) OPHTH SOLN 5% 30 ML OP ONE (09:30)
[2021-11-04] MEDS ORDERED: MOXIFLOXACIN OPHTH SOLN 5 MG/ML 0.3 ML SYRINGE OP ONE (09:30)
[2021-11-04] MEDS: TETRACAINE 0.5% OPHTH SOLN 4 ML BTL (SINGLE DOSE ONLY) OU PRN ×4 (09:30→09:51)
[2021-11-04] MEDS ORDERED: TIMOLOL MALEATE 0.5% 5 ML (TIMOPTIC) BTL OU PRN (09:30)
[2021-11-04 09:37] VITALS: BP 167/70
[2021-11-04] MEDS: TROPICAMIDE 1% OPH SOLN (MYDRIACYL) 15 ML BTL OP SCH ×3 (09:41→09:51)
[2021-11-04] MEDS: PHENYLEPHRINE 10% OPHTH (NEO-SYN) 5 ML BTL OU SCH ×3 (09:41→09:51)
[2021-11-04] MEDS ORDERED: MIDAZOLAM 2 MG/2 ML (VERSED) VIAL ONE (09:56)
--- NOTE | 2021-11-04 10:19 | Ophthalmologist Pre-Op Note ---
Pre-Operative Progress Note H&P Reviewed The H&P was reviewed, patient examined and no changes noted. Date H&P Reviewed: Nov 04, 2021 Time H&P Reviewed: 10:19 Pre-Op Dx Cataract, Right Eye PA ESTEVEZ MD Nov 04, 2021 10:19
--- NOTE | 2021-11-04 10:43 | Ophthalmology Operative Report ---
Cataract, Miotic Pupil PREOPERATIVE DIAGNOSIS: 1. Cataract Right Eye 2. Miotic Pupil POSTOPERATIVE DIAGNOSIS: 1. Cataract Right Eye 2. Miotic Pupil PROCEDURE: 1. Cataract removal and placement of posterior chamber implant, right eye 2. Pupillary expansion with malyugin ring SURGEON: Donald Estevez ANESTHESIA: Topical with sedation COMPLICATIONS: None ESTIMATED BLOOD LOSS: Minimal DESCRIPTION OF PROCEDURE: After proper informed consent was obtained, the patient, a 76 male, was taken to the Operating Room and the right eye was anesthetized with Tetracaine. The eye was then prepped and draped in the usual manner. A wire lid speculum was placed. A paracentesis was made at the left hand position. Preservative free lidocaine was injected into anterior chamber followed by viscoelastic. A clear corneal incision was made in the temporal position. The malyugin ring was injected into the anterior chamber and the pupil was dilated. A capsulorrhexis was preformed and the central nuclear and cortical material were removed. The posterior capsule was polished and Julio C 22.0 AU00T0 IOL was placed into the capsular bag. The malyugin ring was removed. The residual viscoelastic was aspirated and the balanced saline solution was injected into the anterior chamber. Moxifloxacin was injected into the anterior chamber. The wound was checked and found to be water tight. The patient tolerated the procedure well without complications. DONALD ESTEVEZ MD Nov 04, 2021 10:43
[2021-11-04 10:52] VITALS: BP 167/70
--- NOTE | 2021-11-04 14:42 | Anesthesia-General Post-Op ---
MAC Patient Condition Mental Status/LOC: Same as Preop Cardiovascular: Satisfactory Nausea/Vomiting: Absent Respiratory: Satisfactory Pain: Controlled Complications: Absent Post Op Complications Complications None Follow Up Care/Instructions Patient Instructions None needed. Anesthesiology Discharge Order Discharge Order Patient is doing well, no complaints, stable vital signs, no apparent adverse anesthesia problems. No complications reported per nursing. BESS MORENO CRNA Nov 04, 2021 14:42
== END 2021-11-04 10:54 | disposition home or self-care (01) ==
LOC: SDC 09:16
PROVIDERS: ATTEND Specialist
DX: H25.9 Unspecified age-related cataract (principal); H57.03 Miosis; Z87.891 Personal history of nicotine dependence
CPT/HCPCS: 66982; V2632

== ENCOUNTER → 2021-11-07 | Outpatient (CLI) | payer MEDICARE ==
--- NOTE | 2021-11-07 13:20 | Diagnostic Imaging Report ---
PROCEDURE: US Bilateral lower extremity arterial. TECHNIQUE: Multiple real-time grayscale images are obtained through both lower extremity arterial systems with color Doppler imaging and color Doppler spectral analysis. INDICATION: Bilateral lower extremity wounds. COMPARISON: None. FINDINGS: Biphasic waveforms are visualized in the right common femoral, superficial femoral, and popliteal arteries. Mildly elevated flow velocity is seen in the right common femoral artery of 168 cm/s. Monophasic waveforms are seen in the right profunda femoris artery. There are biphasic waveforms in the anterior and midportion of the anterior tibial artery. Waveforms become monophasic in the distal right anterior tibial artery. Monophasic waveforms are seen in the posterior tibial artery and dorsalis pedis artery on the right. There are elevated flow velocities in the dorsalis pedis artery of 173 cm/s. Monophasic waveforms are seen in the left common femoral artery with elevated flow velocities of 353 cm/s. Biphasic waveforms are seen in the left profunda femoris, superficial femoral, and popliteal arteries. Mildly elevated flow velocities are seen in the proximal left superficial femoral artery of 176 cm/s. There are biphasic waveforms in the left anterior tibial artery with monophasic waveforms in the left posterior tibial artery. Biphasic waveforms are seen in the left dorsalis pedis artery. Widespread atherosclerotic plaque is seen throughout the bilateral lower extremity arterial systems. IMPRESSION: 1. Monophasic waveforms with elevated flow velocities in the left common femoral artery. Findings indicate stenosis at this level although this is not well-visualized on this exam. 2. Monophasic waveforms in the distal anterior tibial artery, posterior tibial artery, and dorsalis pedis on the right. There are elevated flow velocities in the right dorsalis pedis artery of 173 cm/s. 2. Large burden of atherosclerotic plaque in the bilateral lower extremity arterial systems, consistent with peripheral arterial disease. Dictated by: Dictated on workstation # [id number]
== END ==
LOC: RAD 12:00
PROVIDERS: ATTEND Family Medicine
DX: N18.6 End stage renal disease (principal); R26.89 Other abnormalities of gait and mobility; L89.613 Pressure ulcer of right heel, stage 3; L89.623 Pressure ulcer of left heel, stage 3; G90.09 Other idiopathic peripheral autonomic neuropathy; I70.201 Unspecified atherosclerosis of native arteries of extremities, right leg; I70.202 Unspecified atherosclerosis of native arteries of extremities, left leg; S81.802A Unspecified open wound, left lower leg, initial encounter; S81.801A Unspecified open wound, right lower leg, initial encounter
CPT/HCPCS: 93925

== ENCOUNTER → 2021-11-09 | Outpatient (CLI) | payer MEDICARE ==
[~2021-11-09] MED LIST changes: +ALLO100T PO; +FLUC100T10 PO; +LNZ600T PO
== END ==
LOC: WOUNDCARE 13:20
PROVIDERS: ATTEND Family Medicine
DX: N18.6 End stage renal disease (principal); L89.613 Pressure ulcer of right heel, stage 3; L89.623 Pressure ulcer of left heel, stage 3; G90.09 Other idiopathic peripheral autonomic neuropathy; I70.234 Atherosclerosis of native arteries of right leg with ulceration of heel and midfoot; I70.244 Atherosclerosis of native arteries of left leg with ulceration of heel and midfoot; B95.2 Enterococcus as the cause of diseases classified elsewhere; B37.2 Candidiasis of skin and nail; I96 Gangrene, not elsewhere classified; R26.89 Other abnormalities of gait and mobility
CPT/HCPCS: 11042; A6212; G0463

== ENCOUNTER 2021-11-11 08:30 | Day surgery (SDC) | payer MEDICARE ==
[~2021-11-11] VITALS: Ht 170.2 cm; Wt 87.3 kg
[2021-11-11] VITALS (11 sets, daily range): BP systolic 114–140; BP diastolic 42–64
[2021-11-11 07:56] LABS: HEMATOCRIT 35 % (40-54); HEMOGLOBIN 11.8 g/dL (13.3-17.7); MEAN CORPUSCULAR HEMOGLOBIN 33 pg (25-34); MEAN CORPUSCULAR HGB CONC 33 g/dL (32-36); MEAN CORPUSCULAR VOLUME 99 fL (80-99); MEAN PLATELET VOLUME 11.2 fL (9.0-12.2); PLATELET COUNT 228 10^3/uL (130-400); WHITE BLOOD COUNT 9.8 10^3/uL (4.3-11.0)
[2021-11-11 08:15] LABS: BILIRUBIN,TOTAL 0.9 MG/DL (0.1-1.0); CALCIUM 9.2 MG/DL (8.5-10.1); CREATININE SERUM 5.97 MG/DL (0.60-1.30); POTASSIUM 4.3 MMOL/L (3.6-5.0); TOTAL PROTEIN 7.5 GM/DL (6.4-8.2)
[~2021-11-11 08:30] MED LIST changes: +HEParin (CATH LAB) 2,000 ML IV ONE; +LIDOCAINE 1% INJ 30 ML (XYLOCAINE) VIAL ONE; +MIDAZOLAM 2 MG/2 ML (VERSED) VIAL ONE; +NS IV 1000 ML 1,000 ML IV SCH; +NS IV 1000 ML 1,000 ML ONE; +fentaNYL INJ 100 MCG/2 ML AMP ONE
[2021-11-11 08:32] LABS: INR 1.1 (0.8-1.4); PROTHROMBIN TIME PATIENT 14.6 SEC (12.2-14.7)
--- NOTE | 2021-11-11 09:29 | Cardiac Procedure Note-CS/ASA ---
Pre-Procedure Note Pre-Op Procedure Note Date of Available H&P: Nov 07, 2021 Date H&P Reviewed: Nov 11, 2021 Time H&P Reviewed: 08:30 History & Physical: H&P Reviewed, No changes noted Changes from last HP Noninvasive w/u (arterial Doppler of the legs) indicated significant PAD. Wound clinic requested angio (and intervention, if needed/feasible) Conscious Sedation Pre-Proced Time 08:30 ASA Score 4 For ASA 3 and 4: Consider anesthesia and medical clearance. Also, for patients with a history of failed moderate sedation consider anesthesia. Airway Lungs Heart ASA score ASA 1: a normal healthy patient ASA 2: a patient with a mild systemic disease (mid diabetes, controlled hypertension, obesity ASA 3: a patient with a severe systemic disease that limits activity (angina, COPD, prior Myocardial infarction) ASA 4: a patient with an incapacitating disease that is a constant threat to life (CHF, renal failure) ASA 5: a moribund patient not expected to survive 24 hrs. (ruptured aneurysm) ASA 6: a declared brain- patient whose organs are being harvested. For emergent operations, add the letter E after the classification Mallampati Classification Grade 2 Sedation Plan Analgesia, Amnesia, Plan communicated to team members, Discussed options with patient/fam, Discussed risks with patient/fam The patient is an appropriate candidate to undergo the planned procedure, sedation, and anesthesia. The patient immediately re-assessed prior to indication. PEE YODER MD FACP FAC CCDS Nov 11, 2021 09:29
--- NOTE | 2021-11-11 09:38 | Discharge Inst-Post CATH ---
Discharge Inst-CATH/EP Post Cardiac Cath/EP D/C Inst Follow Up/Plan Proceed with dialysis tomorrow F/u with Dr Garcia in 2 weeks ACTIVITY * Go Home directly and rest. * Limit activity of the leg (or wrist if it was used) for 7 days including aerobics, swimming, jogging, bicycling, etc. * Restrict stair-climbing for 7 days if possible, if not, climb up with your non-cath leg, then bring together on the same step. * Avoid lifting, pushing, pulling or excessive movement of the affected extremity for 7 days. * Customary sexual activity may be resumed after 2 days-use caution not to use a position that strains or causes pain to the affected extremity. * No driving for 24 hours. * NO SMOKING. * Avoid straining for bowel movements for 7 days. * Gentle walking on level ground is allowed. * Returning to work will depend on the type of procedure and the results. Your doctor will discuss this with you. CALL YOUR DOCTOR FOR ANY OF THE FOLLOWING: *If bleeding from the puncture site occurs- Apply gentle pressure to site with clean cloth and call your doctor or EMS. * If a knot or lump forms under the skin, increases in size, or causes pain. * If bruising appears to be worsening or moving further down your leg instead of disappearing. * Temperature above 101 F. CARE OF YOUR GROIN INCISION; * Bruising or purple discoloration of the skin near the puncture site is common. * You may shower only, no bathtub bathing for 5 days. Be careful to avoid slipping as your leg may feel stiff. * If a closure device was used on your femoral artery, please see the attached guide regarding care of the device and your leg. * Leave dressing on FOR 24 hours. CARE OF YOUR WRIST INCISION; * Bruising or purple discoloration of the skin near the puncture site is common. * You may shower. * DO NOT submerge wrist. * Leave dressing on FOR 24 hours. PEE GARCIA MD FACP FAC CCDS Nov 11, 2021 09:38
--- NOTE | 2021-11-11 09:39 | Discharge Inst-Cardiology ---
Discharge Inst-Cardiac Discharge Medications Continued Medications: Acetaminophen (Acetaminophen) 500 Mg Tablet 500-1000 MG PO Q6H PRN for PAIN-MILD, TAB Albuterol Sulfate (Ventolin Hfa) 1 Puff Puff 1-2 PUFF IH Q4H PRN for SHORTNESS OF BREATH, PUFF 1 PUFF = 90 MCG Alfuzosin HCl (Uroxatral) 10 Mg Tab.sr.24h 10 MG PO DAILY, TAB Allopurinol (Allopurinol) 100 Mg Tablet 100 MG PO DAILY, TAB Apixaban (Eliquis) 2.5 Mg Tablet 2.5 MG PO BID, TAB Diltiazem HCl (Diltiazem ER) 240 Mg Tab.er.24h 240 MG PO DAILY, TAB Finasteride (Proscar) 5 Mg Tablet 5 MG PO DAILY, TAB Fluconazole (Fluconazole) 100 Mg Tablet 100 MG PO DAILY, TAB Fluticasone/Salmeterol (Advair 250-50 Diskus) 250 Mcg-50 Mcg/Dose Blst.w.dev 1 EACH IH BID Hydrocodone/Acetaminophen (Hydrocodone-Acetamin 5-325 mg) 5 Mg-325 Mg Tablet 1 TAB PO Q6H PRN for PAIN-MODERATE (5-7), TAB Linezolid (Linezolid) 600 Mg Tablet 600 MG PO BID, TAB Pravastatin Sodium (Pravastatin Sodium) 10 Mg Tablet 10 MG PO HS, TAB Tiotropium [place] (Spiriva) 18 Mcg Aerp 1 INH IH DAILY, EA Discontinued Medications: Enalapril Maleate (Enalapril Maleate) 20 Mg Tablet 20 MG PO DAILY, TAB PEE YODER MD FACP [facility] CCDS Nov 11, 2021 09:39
[2021-11-11] MEDS ORDERED: PATIENT MAY USE OWN MEDS, ALL PO SCH (09:45)
[2021-11-11] MEDS ORDERED: NS IV 1000 ML 1,000 ML IV SCH (09:45)
--- NOTE | 2021-11-11 12:16 | OPERATIVE REPORT ---
DATE OF SERVICE: PERIPHERAL ANGIOGRAPHY REPORT INDICATION FOR PROCEDURE: The patient is a 76-year-old gentleman, who has poorly healing ulcers of the heels on both sides. Noninvasive workup (arterial ultrasound of the legs) has indicated considerable peripheral arterial disease. Peripheral angiography was recommended by the wound clinic. It was carried out today after having obtained an informed consent. DESCRIPTION OF PROCEDURE: He was brought to the cardiac catheterization laboratory in a fasting state. The right groin was prepared and draped in the usual sterile fashion. Lidocaine 1% was used for local anesthesia. Modified Seldinger technique was used to advance a 5-South African sheath into the right femoral artery. A 5-South African pigtail catheter was used for abdominal aortic angiography. The pigtail catheter was then pulled down to the level just superior to the aortoiliac bifurcation and a runoff was performed down to the level of the ankles. He tolerated the procedure well. At the end of the procedure, angiography of the right femoral artery was carried out through the sheath and Mynx was used to achieve hemostasis. He was then transferred to the recovery area. ABDOMINAL AORTIC ANGIOGRAPHY: Abdominal aortic angiography indicated mild plaque of the abdominal aorta. The renal arteries appeared to be intact, although the right renal artery is not very well visualized. Aortoiliac bifurcation does not show significant disease. BILATERAL LEG ARTERY ANGIOGRAPHY: The iliac arteries are intact on both sides. On the left side, the external iliac has approximately 50% stenosis. The superficial femoral arteries on both sides have mild to moderate plaque. On both sides, the legs have a 2-vessel runoff. The posterior tibial artery appears to be chronically occluded on both sides. CONCLUSIONS: Moderate peripheral arterial disease consisting of mild to moderate plaque in the superficial femoral arteries on both sides and approximately 50% stenosis in the left external iliac. 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 DISCUSSION AND RECOMMENDATIONS: These results were reviewed with the patient and his and also with Dr. Washington. Given the anatomy as described above, it appears appropriate to continue a conservative approach. The chronic total occlusions of one of the three vessels on each side does not appear amenable to intervention. I also spoke with the patient's apparel cutter, Dr. Hedy Pina. The patient is on regular hemodialysis and is due to undergo hemodialysis tomorrow. Job ID: [id number] DocumentID: [id number] Dictated Date: 11/11/2021 09:47:19 Sheriffs Detective Date: 11/11/2021 12:16:05 Dictated By: PEE YODER MD, MA, FACP, FACC,
== END 2021-11-11 13:15 | disposition home or self-care (01) ==
LOC: CATH 08:30 → SDC 09:45 → CATH 13:15
PROVIDERS: ATTEND Internal Medicine Cardiovascular Disease
DX: I25.10 Atherosclerotic heart disease of native coronary artery without angina pectoris (principal); Z79.899 Other long term (current) drug therapy; E66.9 Obesity, unspecified; Z68.30 Body mass index [BMI] 30.0-30.9, adult; Z87.891 Personal history of nicotine dependence; E11.22 Type 2 diabetes mellitus with diabetic chronic kidney disease; N18.6 End stage renal disease; I77.9 Disorder of arteries and arterioles, unspecified; I48.91 Unspecified atrial fibrillation; L97.409 Non-pressure chronic ulcer of unspecified heel and midfoot with unspecified severity
CPT/HCPCS: 75625; 75716; 80053; 80061; 85027; 85610; 85730; 87081; 93005; C1760; C1894; 36415

== ENCOUNTER → 2021-11-16 | Outpatient (CLI) | payer MEDICARE ==
[~2021-11-16] MED LIST changes: -HEParin (CATH LAB) 2,000 ML IV ONE; -LIDOCAINE 1% INJ 30 ML (XYLOCAINE) VIAL ONE; -MIDAZOLAM 2 MG/2 ML (VERSED) VIAL ONE; -NS IV 1000 ML 1,000 ML IV SCH; -NS IV 1000 ML 1,000 ML ONE; -fentaNYL INJ 100 MCG/2 ML AMP ONE
== END ==
LOC: WOUNDCARE 13:22
PROVIDERS: ATTEND Family Medicine
DX: I96 Gangrene, not elsewhere classified (principal); L89.613 Pressure ulcer of right heel, stage 3; L89.623 Pressure ulcer of left heel, stage 3; G90.09 Other idiopathic peripheral autonomic neuropathy; I70.234 Atherosclerosis of native arteries of right leg with ulceration of heel and midfoot; I70.244 Atherosclerosis of native arteries of left leg with ulceration of heel and midfoot; B95.2 Enterococcus as the cause of diseases classified elsewhere; N18.6 End stage renal disease
CPT/HCPCS: 11042; A6212; G0463

== ENCOUNTER → 2021-11-23 | Outpatient (CLI) | payer MEDICARE | LOC: WOUNDCARE 13:29 | PROVIDERS: ATTEND Family Medicine | DX: L89.613 Pressure ulcer of right heel, stage 3 (principal); N18.9 Chronic kidney disease, unspecified; R26.89 Other abnormalities of gait and mobility; G90.09 Other idiopathic peripheral autonomic neuropathy; I70.234 Atherosclerosis of native arteries of right leg with ulceration of heel and midfoot; I70.244 Atherosclerosis of native arteries of left leg with ulceration of heel and midfoot; B95.2 Enterococcus as the cause of diseases classified elsewhere; I96 Gangrene, not elsewhere classified | CPT/HCPCS: 11042; A6212; G0463 ==

== ENCOUNTER → 2021-11-30 | Outpatient (CLI) | payer MEDICARE | LOC: WOUNDCARE 12:57 | PROVIDERS: ATTEND Family Medicine | DX: I96 Gangrene, not elsewhere classified (principal); N18.6 End stage renal disease; L89.613 Pressure ulcer of right heel, stage 3; G90.09 Other idiopathic peripheral autonomic neuropathy; I70.234 Atherosclerosis of native arteries of right leg with ulceration of heel and midfoot | CPT/HCPCS: 11042; A6212; G0463 ==

== ENCOUNTER → 2021-12-07 | Outpatient (CLI) | payer MEDICARE | LOC: WOUNDCARE 13:15 | PROVIDERS: ATTEND Family Medicine | DX: I96 Gangrene, not elsewhere classified (principal); L89.613 Pressure ulcer of right heel, stage 3; N18.6 End stage renal disease; G90.09 Other idiopathic peripheral autonomic neuropathy; I70.234 Atherosclerosis of native arteries of right leg with ulceration of heel and midfoot | CPT/HCPCS: 11042; A6212; G0463 ==

== ENCOUNTER → 2021-12-21 | Outpatient (CLI) | payer MEDICARE | LOC: WOUNDCARE 13:19 | PROVIDERS: ATTEND Family Medicine | DX: I96 Gangrene, not elsewhere classified (principal); L89.613 Pressure ulcer of right heel, stage 3; G90.09 Other idiopathic peripheral autonomic neuropathy; I70.244 Atherosclerosis of native arteries of left leg with ulceration of heel and midfoot; N18.6 End stage renal disease; R26.89 Other abnormalities of gait and mobility; Z68.28 Body mass index [BMI] 28.0-28.9, adult | CPT/HCPCS: 11042; A6207; A6212; G0463 ==

== ENCOUNTER → 2022-01-04 | Outpatient (CLI) | payer MEDICARE | LOC: WOUNDCARE 12:49 | PROVIDERS: ATTEND Family Medicine | DX: N18.6 End stage renal disease (principal); G90.09 Other idiopathic peripheral autonomic neuropathy | CPT/HCPCS: 99212 ==

== ENCOUNTER 2022-02-22 11:40 | Outpatient (CLI) | payer MEDICARE ==
[~2022-02-22] VITALS: Wt 87.3 kg
[2022-02-22 12:10] VITALS: BP 167/66
--- NOTE | 2022-02-22 13:05 | Diagnostic Imaging Report ---
PROCEDURE: US Abdomen, limited. TECHNIQUE: Multiple realtime grayscale images were obtained over the abdomen in various projections. INDICATION: History of ascites. COMPARISON: None FINDINGS: Limited sonographic evaluation the abdomen was performed to assess for ascites. There is no appreciable ascites seen throughout. IMPRESSION: 1. No ascites. Dictated by: Dictated on workstation # [id number]
== END 2022-02-22 12:15 ==
LOC: RAD 11:40
PROVIDERS: ATTEND Nurse Practitioner Family
DX: R18.8 Other ascites (principal)
CPT/HCPCS: 76705

== ENCOUNTER 2022-09-14 09:49 | Day surgery (SDC) | payer MEDICARE ==
[~2022-09-14] VITALS: Ht 170.1 cm; Wt 90.7 kg
[2022-09-14] VITALS (11 sets, daily range): BP systolic 135–166; BP diastolic 51–85
[~2022-09-14 09:49] MED LIST changes: +CALC667C10 PO; +CARV12.52 PO; +ENAL-70 PO; -ENAL20TA16 PO; +FLUT9.9S NS
[2022-09-14] MEDS ORDERED: LIDOCAINE/EPI 1%-1:100,000 (XYLOCAINE) 20ML ONE (10:15)
[2022-09-14] MEDS ORDERED: NS (IVPB) 50 ML 50 ML ONE (10:24)
[2022-09-14] MEDS ORDERED: ceFAZolin INJECTION 2,000 MG ONE (10:24)
[2022-09-14] MEDS ORDERED: LIDOCAINE PF 2% 5 ML (XYLOCAINE) VIAL ONE (10:41)
[2022-09-14] MEDS ORDERED: SEVOFLURANE (ULTANE) 15 ML INHAL SOLN ONE (10:41)
[2022-09-14] MEDS ORDERED: proPOfol 200 MG/20 ML (DIPRIVAN) VIAL IV ONE (10:41)
[2022-09-14] MEDS ORDERED: ONDANSETRON 4 MG/2 ML (SDV) Z0FRAN ONE ×2 (10:41→13:29)
[2022-09-14] MEDS ORDERED: fentaNYL INJ 100 MCG/2 ML AMP ONE (10:41)
--- NOTE | 2022-09-14 10:42 | Progress Note-Pre Operative ---
Pre-Operative Progress Note Date H&P Reviewed: Sep 14, 2022 Time H&P Reviewed: 10:40 History & Physical: H&P Reviewed, Patient Examed, No changes noted Pre-Operative Diagnosis: Right inguinal hernia ANANT SPAIN STUDENT SUCCESS COACH Sep 14, 2022 10:42
[2022-09-14] MEDS ORDERED: ACHD5005 PO (10:43)
--- NOTE | 2022-09-14 10:43 | Discharge Inst-Surgical ---
D/C Lap Instructions-KIDO Reconcile Patient Problems Problems Reviewed?: Yes New, Converted, or Re-Newed RX: RX on Chart Follow Up Appt in 2 weeks Activity as tolerated No driving for 24 hours No driving while on pain medications Incentive Spirometry use every 2 hours while awake Regular Diet Symptoms to Report: Fever over 101 degree F, Nausea/Vomiting Infection Signs and Symptoms to report: Increased redness, Foul odor of wound, Increased drainage Bathing instructions: May shower Operative Area Clean/Dry; Keep incision clean/dry If any problems/questions: Contact your physician or go to Emergency Room ANANT SPAIN APRN Sep 14, 2022 10:43
[2022-09-14] MEDS ORDERED: NS IV 500 ML 500 ML IV ONE (10:45)
[2022-09-14] MEDS ORDERED: ONDANSETRON 4 MG/2 ML (SDV) Z0FRAN IVP PRN ×2 (10:45→12:45)
[2022-09-14] MEDS ORDERED: HYDROcodone/ACETAMINOPHEN 5 MG/325 MG TABLET PO ONE (10:45)
[2022-09-14] MEDS ORDERED: ACETAMINOPHEN 325 MG TABLET PO PRN (10:45)
[2022-09-14] MEDS ORDERED: ceFAZolin INJECTION 2,000 MG in NS (IVPB) 50 ML 50 ML IV ONE (10:45)
[2022-09-14] MEDS ORDERED: morphine INJ 10 MG/ML 1ML (SYR OR VIAL) IVP PRN (10:45)
[2022-09-14] MEDS ORDERED: LACTATED RINGERS 1,000 ML IV PRN (10:45)
[2022-09-14] MEDS ORDERED: NEOSTIGMINE (BLOXIVERZ ) 1 MG/1ML 10 ML VIAL ONE (12:10)
[2022-09-14] MEDS ORDERED: GLYCOPYRROLATE 0.2 MG/ML (ROBINUL) 2 ML VIAL ONE (12:10)
[2022-09-14] MEDS ORDERED: ISOFLURANE (FORANE) 15 ML/15 MIN INHALATION ONE (12:19)
--- NOTE | 2022-09-14 12:37 | Progress Note-Post Operative ---
Post-Operative Progess Note Surgeon (s)/Compliance Project Manager (s) Surgeon FRANKLIN WILKERSON MD Compliance Project Manager: mina hatch DISCHARGE SPECIALIST Pre-Operative Diagnosis Right inguinal hernia Post-Operative Diagnosis incarcerated right indirect inguinal hernia, ascites Procedure & Operative Findings Date of Procedure 09/14/22 Procedure Performed/Findings laparoscopic right inguinal hernia repair with mesh. Anesthesia Type get Estimated Blood Loss Estimated blood loss (mL): minimal Specimens/Packing Specimens Removed none FRANKLIN WILKERSON MD Sep 14, 2022 12:37
[2022-09-14] MEDS ORDERED: ROCURONIUM 50 MG/5 ML (ZEMURON) VIAL IV ONE (12:43)
[2022-09-14] MEDS ORDERED: fentaNYL INJ 100 MCG/2 ML AMP IVP ONE (12:45)
--- NOTE | 2022-09-14 13:05 | Anesthesia-General Post-Op ---
General Patient Condition Mental Status/LOC: Same as Preop Cardiovascular: Satisfactory Nausea/Vomiting: Absent Respiratory: Satisfactory Pain: Controlled Complications: Absent Post Op Complications Complications None Follow Up Care/Instructions Patient Instructions None needed. Anesthesia/Patient Condition Patient Condition Patient is awake in PACU and doing well. He does complain of abdominal pain, which is to be expected, and has stable vital signs, no apparent adverse anesthesia problems. No complications reported per nursing. IAM HARGROVE DO Sep 14, 2022 13:05
--- NOTE | 2022-09-14 13:38 | OPERATIVE REPORT ---
DATE OF SERVICE: 09/14/2022 ATTENDING HOUSEHOLD REFRIGERATOR MECHANIC: Leila Garcia APRN PREOPERATIVE DIAGNOSIS: Symptomatic incarcerated right inguinal hernia. POSTOPERATIVE DIAGNOSIS: Symptomatic incarcerated right indirect inguinal hernia, ascites. PROCEDURE: Laparoscopic right inguinal hernia repair with mesh. SURGEON: Linda Schafer MD DENTAL MOLD MAKER: Reza Potts APRN ANESTHESIA: General endotracheal. ESTIMATED BLOOD LOSS: Minimal. FINDINGS: Symptomatic incarcerated right indirect inguinal hernia, ascites. DISPOSITION: The patient tolerated the procedure well. INDICATIONS: The patient is a 77-year-old male known to us. He has a history of gastroesophageal reflux disease and underwent a Noemi fundoplication in 2006 in [place], [place]. He then underwent a colonoscopy by us in 2018 and was found to have a stage II external and internal hemorrhoids and moderate sigmoid diverticulosis. We had also done an EGD on him in 2021 where he was found to have reflux esophagitis, Roy grade C, small recurrent hiatal hernia 1.5 cm in size as well as moderate to severe gastritis. We had also seen him in 01/2022 for ascites and the patient does have a history of chronic kidney disease, requiring dialysis and also liver failure. He has had 2 previous paracentesis in the past as well. The patient developed a right inguinal outpouching which has been extremely painful and was examined in the office and found to have an incarcerated right inguinal hernia, which was tender to palpation. The patient was deemed high risk from his primary care physician as well as compliance attorney and the risks and benefits of the procedure were explained to the patient in depth and if the hernia was significantly symptomatic enough to interfere with his regular everyday functioning and if it was worth repairing and he was adamant about having the hernia repaired due to the pain upon normal movements as well as coughing. DESCRIPTION OF PROCEDURE: The patient was brought to the operating room, laid supine on the table. After adequate IV pain and sedative medications and general endotracheal intubation, the abdomen was prepped and draped in standard surgical fashion. A 0.5% Marcaine with epinephrine was then used to anesthetize the overlying skin in the left upper abdominal quadrant. The skin incision in infraumbilical rim was made using a #15 blade and a sharp towel clamp was used to retract the abdominal wall anteriorly. The Veress needle inserted with a low opening pressure of 0 mmHg and the abdomen was then insufflated to 15 mmHg pressure. The Veress needle removed and a 10 mm trocar placed followed by a 10 mm 45-degree angle laparoscope, visualizing the peritoneal cavity. A 4-quadrant abdominal exploration was performed. There was significant amount of ascites throughout the peritoneal cavity. No left inguinal hernia and there was a right incarcerated indirect inguinal hernia. Under direct visualization, we then proceeded to place bilateral 5 mm ports under direct visualization after the skin and peritoneal lining were anesthetized using 0.5% Marcaine with epinephrine and transverse skin incision was made using a #15 blade. The patient was then placed in Trendelenburg position. The peritoneal lining was then opened laterally using the Sonicision by the conjoined tendon and inguinal ligament. We then proceeded medially until Kurt's ligament was identified. We then proceeded with inferior dissection encompassing the entire hernia sac. The cord and its surrounding contents identified and spared throughout the process. Good hemostasis was observed. A medium size 3DMax polypropylene mesh was then placed through the 10 mm port site and tacked to Kurt's ligament medially with an absorbable tack and into the inguinal ligament laterally. The peritoneal lining was then placed over the mesh and a few absorbable tacks placed to hold this in place with visualization of good hemostasis. The ascites was evacuated, which equaled approximately 2600 mL of straw yellow transudative fluid. The 10 mm port site fascia and peritoneum were then closed under direct visualization using a Eleno-Wellington device and 0 Vicryl suture. The abdomen was desufflated and remaining ports were removed. All skin incisions were closed using 4-0 Monocryl running subcuticular sutures. Wounds were then cleaned and covered with Dermabond. The patient tolerated the procedure well. We will start IV and oral pain medication as well as a clear liquid diet. Once tolerating clears, has good pain control with oral pain medications, ambulating well, we will discharge him home where he will be instructed to keep the scrotal support on as well as do no heavy lifting or exertion for the next 2 weeks. Job ID: [id number] DocumentID: [id number] Dictated Date: 09/14/2022 12:15:21 Backing In Machine Tender Date: 09/14/2022 13:36:00 Dictated By: MD JEFFREY DUGGAN
[2022-09-14] MEDS ORDERED: HYDROcodone/ACETAMINOPHEN 5 MG/325 MG TABLET ONE (13:55)
== END 2022-09-14 14:52 ==
LOC: SDC 09:49
PROVIDERS: ATTEND Surgery
DX: K40.30 Unilateral inguinal hernia, with obstruction, without gangrene, not specified as recurrent (principal); R18.8 Other ascites; F17.210 Nicotine dependence, cigarettes, uncomplicated
CPT/HCPCS: 49650; 87081; C1781

== ENCOUNTER 2022-10-03 12:46 | Observation (INO) | payer MEDICARE ==
[~2022-10-03] VITALS: Ht 173.7 cm; Wt 89.2 kg
[~2022-10-03 12:46] MED LIST changes: -1/2 NS + KCL 20 MEQ/L 1,000 ML 1,000 ML IV SCH; -HYDR-34 PO; -HYDR-3817 PO; -HYDROcodone/ACETAMINOPHEN 7.5 MG/325 MG TABLET PO PRN; -ONDA4TAB11 SL; -ONDANSETRON INJECTION 4 MG/2 ML (SDV) IVP PRN; -PANTOPRAZOLE INJECTION 40 MG VIAL IV SCH; -PROMETHAZINE INJ 25 MG/ML VIAL IVP PRN; -fentaNYL INJECTION 100 MCG/2 ML VIAL IVP PRN
[2022-10-03 13:00] VITALS: BP 192/84
--- OUTSIDE RECORDS SUMMARY | 2022-10-03 14:09 | XMS REPORT | Clinical Summary ---
Author Author [facility] Organization [facility] Address Unknown Phone Unavailable Care Team Providers Care Senior Backup Administrator Name Role Phone Nicky Hutchinson MD PCP Unavailable Julio Pina MD [phone] Source Comments Some departments are not documenting in the electronic medical record. If you d o not see the information that you expected, contact Release of Information in [facility] [employer] Information Management department at [phone] for further assistan ce in locating additional records.[facility] Allergies Not on File Medications End Date Status Medication Sig Dispensed Refills Start Date Active enalapril (VASOTEC) 20 mg Take 20 mg by 0 01/19 tablet mouth daily. 8 Active CARTIA XT 180 mg capsule Take 180 mg 0 04/27 by mouth 9 daily. Active pravastatin (PRAVACHOL) Take 10 mg by 0 10 mg tablet mouth at 9 bedtime daily. Active alfuzosin(+) (UROXATRAL) Take 10 mg by 0 04/18 10 mg tablet mouth at 9 bedtime daily. Active clopiDOGrel (PLAVIX) 75 Take 75 mg by 0 mg tablet mouth daily. 9 Active finasteride (PROSCAR) 5 Take 5 mg by 0 mg tablet mouth daily. 9 Active allopurinol (ZYLOPRIM) Take 300 mg 0 01 300 mg tablet by mouth 9 daily. Active calcium acetate (PHOSLO) Take 667 mg 0 02/14 667 mg capsule by mouth 8 three times daily with meals. Active acetaminophen (TYLENOL) Take 500 mg 0 500 mg tablet by mouth 7 three times daily as needed. Active Problems Not on file Social History Date Tobacco Use Types Packs/Day Years Used Smoking Tobacco: Former Smokeless Tobacco: Former Chew Date Recorded Alcohol Use Answer Alcohol Use Not on file Male: 9+ ounces (15+ Standard Drinks) per week 0 Threshold Female: 4.8+ ounces (8+ Standard Drinks) per week No t on file Threshold Date Recorded Sex and Gender Information Value Sex Assigned at Not on file Gender Identity Not on file Sexual Orientation Not on file Obstetrics History Last Filed Vital Signs Reading Time Taken Comments Vital Sign 151/56 05/06/2018 10:58 AM CDT Blood Pressure 85 05/06/2018 10:58 AM CDT Pulse 36.6 C (97.9 F) 05/06/2018 10:57 AM CDT Temperature - - Respiratory Rate 100% 05/06/2018 10:57 AM CDT Oxygen Saturation - - Inhaled Oxygen Concentration 89 kg (196 lb 3.2 oz) 05/06/2018 10:57 AM CDT Weight 172 cm (5' 7.72") 05/06/2018 10:57 AM CDT Height 30.08 05/06/2018 10:57 AM CDT Body Mass Index Plan of Treatment Health Maintenance Due Date Last Done Comments MEDICARE ANNUAL WELLNESS 1945 VISIT COVID-19 VACCINE (#1) 1945 DTAP/TDAP VACCINES (1 - 1964 Tdap) HEPATITIS C SCREENING 1964 PHYSICAL (COMPREHENSIVE) 1964 EXAM SHINGLES RECOMBINANT 1996 VACCINE (1 of 2) PNEUMOCOCCAL VACCINE 65+ 06/14/2011 03/20/2017 YRS (1 - PCV) ADVANCED CARE PLANNING 02/19/2022 DISCUSSION AND DOCUMENTATION DEPRESSION SCREENING 02/19/2022 INFLUENZA VACCINE (#1) 2022 Results Not on filefrom Last 3 Months Insurance Type Payer Benefit Subscriber ID Effective Phone Address Plan / Dates Group Medicare AETNA MEDICARE AETNA [id number] 2019-P [phone] [id number] PPO [place] [phone] Care Teams Start Date End Date Senior Backup Administrator Relationship Specialty 03/07/18 Nicky Hutchinson MD PCP - General Family [address] [place] [address] 05/06/18 Julio Pina MD REFERRING MD Dialysis [address] [place] [address] [place] [id number]
--- OUTSIDE RECORDS SUMMARY | 2022-10-03 14:09 | XMS REPORT ---
Author Author [facility] Organization [facility] Address Unknown Phone Unavailable Care Team Providers Care Curator [employer] Museum Name Role Phone Nicyk Hutchinson MD PCP Unavailable Julio Pina MD [phone] Transplant Episode Kidney Candidate [facility] ([place], [place]) - [facility] Evaluation began on 05/06/2018 Marked as Ineligible on 10/21/2020 Reason: Unable to Contact Patient Kidney CoordinatorNhi Terry RN Phone: N/A Fax: N/A Email: N/A Exceptions/Reasons Score Value Updated CPRA Not available EPTS (Calc) 95 10/03/2022 Fax Email Name Role Phone N/A N/A Nhi Kidney Coordinator N/A ROSALIO Terry [phone] N/A Julio MUELLER MD [phone] MD Silvana [phone] N/A Ling Zaldivar, Transplant Physician [phone] N/A N/A Carmen Cedillo Financial N/A Coordinator Pre-Transplant Referred: 03/01/2018 Evaluation 05/06/2018 began: Committee: 05/08/2018 Dialysis History Center Start End Type Comments [facility] 10/28/2016 Hemo Fax Address Center [phone] [address] [facility] [address] [facility] [phone] [place]
[2022-10-03] MEDS ORDERED: PROMETHAZINE INJ 25 MG/ML VIAL IVP PRN (14:30)
[2022-10-03] MEDS ORDERED: fentaNYL INJECTION 100 MCG/2 ML VIAL IVP PRN (14:30)
[2022-10-03] MEDS: ONDANSETRON INJECTION 4 MG/2 ML (SDV) IVP PRN (14:57)
[2022-10-03] MEDS: PANTOPRAZOLE INJECTION 40 MG VIAL IV SCH (15:01)
[2022-10-03] MEDS: 1/2 NS + KCL 20 MEQ/L 1,000 ML 1,000 ML IV SCH (15:01)
[2022-10-03 15:59] VITALS: BP 162/74
[2022-10-03] MEDS: HYDROcodone/ACETAMINOPHEN 7.5 MG/325 MG TABLET PO PRN (18:03)
[2022-10-03] MEDS ORDERED: PATIENT MAY USE OWN MEDS, ALL MC SCH (18:30)
[2022-10-03] MEDS ORDERED: RT-ALBUTEROL HFA 8.5 GM INHALER IH PRN (18:45)
[2022-10-03 19:39] VITALS: BP 147/65
[2022-10-04 00:08] VITALS: BP 154/73
[2022-10-04] MEDS: 1/2 NS + KCL 20 MEQ/L 1,000 ML 1,000 ML IV SCH ×2 (02:01→13:28)
[2022-10-04 04:15] VITALS: BP 174/81
[2022-10-04] MEDS: HYDROcodone/ACETAMINOPHEN 7.5 MG/325 MG TABLET PO PRN ×2 (07:39→15:17)
[2022-10-04 07:44] VITALS: BP 181/87
[2022-10-04] MEDS: ONDANSETRON INJECTION 4 MG/2 ML (SDV) IVP PRN (08:01)
[2022-10-04] MEDS: PANTOPRAZOLE INJECTION 40 MG VIAL IV SCH (09:44)
[2022-10-04 11:40] VITALS: BP 180/82
[2022-10-04 15:28] VITALS: BP 127/61
[2022-10-04] MEDS ORDERED: ONDA4TAB11 SL (15:45)
[2022-10-04] MEDS ORDERED: PROM25TA14 PO (15:45)
[2022-10-04] MEDS ORDERED: HYDR-34 PO (15:45)
[2022-10-04] MEDS ORDERED: HYDR-3817 PO (16:05)
--- NOTE | 2022-10-11 15:24 | HISTORY AND PHYSICAL ---
DATE OF SERVICE: 10/03/2022 ATTENDING PRIMARY CARE PHYSICIAN:Jessica Garcia APRN. HISTORY OF PRESENT ILLNESS: The patient is a 77-year-old male known to us. He has a history of gastroesophageal reflux disease and underwent a Noemi fundoplication in 2006. We also did a colonoscopy on him in 2019 and found to have a chronic external and internal hemorrhoids as well as moderate sigmoid diverticulosis. He has also had polyps in the past, which were biopsied and found to be benign. He has also had a history of peptic ulcer disease and Velasquez's esophagus; however, this has been monitored and there has been no change. The patient has also developed chronic kidney disease and does require dialysis 3 times a week through left upper extremity AV fistula. The patient has also developed liver failure over the years as well. The patient had a significant incarcerated right inguinal hernia, which she stated was painful on an everyday basis and did interfere with his normal functioning of life. His biofuels production associate was consulted for clearance and he was deemed high risk. However, this was explained to the patient in depth and he had stated that the benefits outweighed the risk for him and he wanted to proceed with inguinal hernia repair, which was done on 09/14/2022. The patient did well after surgery and was sent home later that day. The patient was seen in the office today for swelling along the abdominal wall layers on the right lateral abdomen. The patient had also developed nausea and vomiting. An ultrasound was performed, which did show edema within the abdominal wall layers on the right side; however, only a small amount of ascites in the peritoneal cavity. There was also gallstones identified in the gallbladder; however, we had known about this previously another diagnostic imaging. We will admit the patient, start him on antiemetics, pyophylactic antibiotics as well as bowel rest with a clear liquid diet and hopefully over time, advanced diet and continue with medical management and no surgeries due to his high risk status. PAST MEDICAL HISTORY: Chronic kidney disease, gout, hypertension, benign prostatic hypertrophy, coronary artery disease, atrial fibrillation, gastroesophageal reflux disease, liver failure, ascites. 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 ALLERGIES: No known drug allergies. MEDICATIONS: Spiriva inhaler, naloxone, fluticasone, salmeterol, Coreg, albuterol, diltiazem, allopurinol, Eliquis 2.5 mg daily, alfuzosin, finasteride, enalapril, pravastatin. SOCIAL HISTORY: Positive smoke 60 pack years. Rare alcohol. FAMILY HISTORY: Mother, brain cancer. Sister, breast cancer. VITAL SIGNS: Stable. Blood pressure 144/80, current weight 200 pounds at 5 feet 7 inches and a body mass index of 31. REVIEW OF SYSTEMS: A well nourished male, currently guarded secondary to the nausea. No hematemesis, no coffee-ground emesis. He is having bowel function with looser stools, no red blood per rectum, no dark tarry stools. No fever, chills, no recent inadvertent weight loss. All other review of systems negative. PHYSICAL EXAMINATION: CHEST: Scattered rales and wheezes bilaterally. HEART: Regular. No murmurs. EXTREMITIES: No lower extremity edema. Negative Homans sign. HEENT: No scleral icterus. No cervical lymphadenopathy. ABDOMEN: Soft, nondistended. There is some swelling along the right lateral abdomen along the abdominal wall layers, which is slightly tender to palpation. There is no surrounding redness or erythema or any fluctuance to indicate any abscess. SKIN: Warm, dry. ASSESSMENT AND PLAN: A 77-year-old male with right-sided abdominal wall edema, likely secondary to coughing and increased intraperitoneal pressure and ascites causing infiltration of ascites in the abdominal wall layers. There does not appear to be any infection or abscess. The patient also did develop nausea; however, this is multifactorial and could be related to his electrolyte abnormalities and dialysis. He has a known history of cholelithiasis; however, this does not appear to be the major etiology of his nausea and vomiting and also he is at high risk for surgery and recently underwent a laparoscopic surgery and with subsequent general anesthesia, the risk increases even higher and we will try to avoid surgery at all cost and proceed with medical management. For now, we will start him on prophylactic antibiotics, IV hydration, and antiemetics and adequate pain control. JEFFREY
[2022-10-15] MEDS ORDERED: FLUTICASONE NASAL SPRAY (120 SPRAYS) NS SCH (09:00)
== END 2022-10-04 18:38 | disposition home or self-care (01) ==
LOC: UNDOADMOB 13:00 → 4TH 13:00 → INTOOBSV 13:00 → 4TH 13:57 → UNDODISOB 10-04 18:38
PROVIDERS: ADMIT Surgery; ATTEND Surgery
DX: R18.8 Other ascites (principal); R11.2 Nausea with vomiting, unspecified; K80.20 Calculus of gallbladder without cholecystitis without obstruction; E87.8 Other disorders of electrolyte and fluid balance, not elsewhere classified; F17.210 Nicotine dependence, cigarettes, uncomplicated
CPT/HCPCS: 96374; 96375; 96376; G0378; G0379

== ENCOUNTER → 2022-10-03 | Outpatient (CLI) | payer MEDICARE ==
[~2022-10-03] MED LIST changes: +1/2 NS + KCL 20 MEQ/L 1,000 ML 1,000 ML IV SCH; +HYDR-34 PO; +HYDR-3817 PO; +HYDROcodone/ACETAMINOPHEN 7.5 MG/325 MG TABLET PO PRN; +ONDA4TAB11 SL; +ONDANSETRON INJECTION 4 MG/2 ML (SDV) IVP PRN; +PANTOPRAZOLE INJECTION 40 MG VIAL IV SCH; +PROMETHAZINE INJ 25 MG/ML VIAL IVP PRN; +fentaNYL INJECTION 100 MCG/2 ML VIAL IVP PRN
--- NOTE | 2022-10-03 12:48 | Diagnostic Imaging Report ---
INDICATION: Ascites. PROCEDURE: Ultrasound abdomen complete. TECHNIQUE: Multiple real-time grayscale images were obtained of the abdomen in various projections. COMPARISON: CT abdomen and pelvis of 10/18/2016. FINDINGS: The liver measures 16 cm. It has normal echogenicity and is without focal mass. The portal vein is patent with normal direction of flow. A gallstone is present within the fundus. No gallbladder wall thickening or pericholecystic fluid. The common bile duct measures up to 0.6 cm in diameter. No intrahepatic biliary dilation. The visualized portions of the pancreas are normal. Portions of the head and tail are obscured by overlying bowel gas. The kidneys are normal in size. No hydronephrosis, shadowing calculi, or suspicious mass lesion. The spleen is normal in size measuring 10 cm. There is no focal splenic mass. Aorta is obscured by overlying bowel gas. IVC is normal where seen. A small amount of ascites is present in the upper abdomen. Subcutaneous edema is present around the umbilicus. IMPRESSION: 1. Small volume of ascites. 2. Liver is normal in size without sonographic features of cirrhosis. 3. Cholelithiasis without acute cholecystitis. Dictated by: Dictated on workstation # [id number]
== END ==
LOC: RAD 11:14
PROVIDERS: ATTEND Surgery
DX: K80.20 Calculus of gallbladder without cholecystitis without obstruction (principal); R18.8 Other ascites
CPT/HCPCS: 76700

== ENCOUNTER → 2022-11-13 | Outpatient (CLI) | payer MEDICARE ==
[~2022-11-13] MED LIST changes: +FINA-33 PO; -FINA5TAB PO; +HYDR-34 PO; +HYDR-3817 PO; +ONDA4TAB11 SL
--- NOTE | 2022-11-13 13:18 | Diagnostic Imaging Report ---
INDICATION: Ascites. PROCEDURE: Ultrasound abdomen complete. TECHNIQUE: Multiple Real-time grayscale images were obtained of the abdomen in various projections. FINDINGS: The liver is normal in size at 15 cm. The portal vein is patent and shows normal direction of flow. The gallbladder does demonstrate some wall thickening measuring 4 to 6 mm in size. No definite stones or sludge are identified. No biliary ductal dilatation is identified. The pancreas is obscured by bowel gas. The spleen is enlarged at 15.3 cm. The aorta is obscured by bowel gas. The IVC is patent. The right kidney is surgically absent. The left kidney does contain a small cyst. No calculus or hydronephrosis is identified. There is moderate ascites. The greatest fluid is located in the right lower quadrant. IMPRESSION: 1. Moderate ascites. 2. There is some gallbladder wall thickening which could be secondary to the ascites. No definite stones or sludge are identified. 3. Small left renal cyst. Dictated by: Dictated on workstation # [id number]
== END ==
LOC: RAD 08:28
PROVIDERS: ATTEND Surgery
DX: N28.1 Cyst of kidney, acquired (principal); K82.8 Other specified diseases of gallbladder; R18.8 Other ascites
CPT/HCPCS: 76700

== ENCOUNTER → 2022-12-08 | Outpatient (CLI) | payer MEDICARE ==
[~2022-12-08] VITALS: Wt 86.4 kg
[2022-12-08 12:59] VITALS: BP 121/62
--- NOTE | 2022-12-08 20:09 | OPERATIVE REPORT ---
DATE OF SERVICE: 12/08/2022 ATTENDING ROD CUP FILLER: Jeri THAKUR PREOPERATIVE DIAGNOSIS: Recurrent symptomatic ascites. POSTOPERATIVE DIAGNOSIS: Recurrent symptomatic ascites. PROCEDURE: Paracentesis. SURGEON: Franklin Wilkerson M.D. ANESTHESIA: Local. ESTIMATED BLOOD LOSS: Minimal. FINDINGS: Straw yellow transudative fluid. DISPOSITION: The patient tolerated the procedure well. INDICATIONS: The patient is a 77-year-old male known to us. He has a history of gastroesophageal reflux disease and underwent a Noemi fundoplication in 2006 in [place], [place]. We had done a colonoscopy and was found to have external and internal hemorrhoids as well as sigmoid diverticulosis. We had seen him in 01/2022 for ascites and a history of chronic kidney disease, requiring dialysis as well as liver failure. The patient had developed a right inguinal hernia, which was extremely painful and incarcerated. The patient was deemed high risk by his buttonhole marker and the risks and benefits of the procedure were explained to the patient in depth; however, he stated that the discomfort did interfere with his normal daily functioning and he underwent a laparoscopic right inguinal hernia repair on 09/14/2022. He did have a significant amount of ascites during the laparoscopy, where 2600 mL of straw yellow transudative fluid was evacuated. Since that time, he has had recurrent symptomatic episodes of ascites with his last paracentesis being performed on 11/15/2022 where 4200 mL of straw yellow fluid were evacuated. Again, in the past 3-4 weeks, he has redeveloped abdominal distention, which has caused worsening shortness of breath as well as bilateral lower extremity edema. DESCRIPTION OF PROCEDURE: The abdomen was prepped and draped in standard surgical fashion. 1% lidocaine was then used to anesthetize skin, subcutaneous tissue, and muscle layers as well as the peritoneal lining. A transverse skin incision was then made using an 11 blade. A trocar and catheter were then introduced into the peritoneal cavity until a straw yellow transudative fluid was withdrawn and the catheter was then advanced over the trocar without any resistance. The catheter was then connected to tubing and gravity drainage bag. Catheter was then cleaned and covered with sterile gauze followed by Op-Site. The patient tolerated the procedure well. We will continue with drainage until the patient is less symptomatic with decompression of the abdomen, and then we will instruct staff to remove the catheter and place Dermabond. Again, it was explained to the patient that when he does again becomes symptomatic, to call the office and we will schedule him for repeat paracentesis. Job ID: [id number] DocumentID: [id number] Dictated Date: 12/08/2022 12:36:12 Assistant Restaurant General Manager Date: 12/08/2022 20:07:00 Dictated By: FRANKLIN WILKERSON MD
== END ==
LOC: SDC 10:50
PROVIDERS: ATTEND Surgery
DX: R18.8 Other ascites (principal); R06.02 Shortness of breath; Z98.84 Bariatric surgery status
CPT/HCPCS: 49083

== ENCOUNTER 2023-01-03 12:00 | Outpatient (CLI) | payer MEDICARE ==
[~2023-01-03] VITALS: Wt 86.4 kg
[2023-01-03 18:00] VITALS: BP 136/64
--- NOTE | 2023-01-03 23:23 | OPERATIVE REPORT ---
DATE OF SERVICE: 01/03/2023 ATTENDING PRIMARY PLASTIC TOP ASSEMBLER: Leila joseph APRN PREOPERATIVE DIAGNOSIS: Symptomatic recurrent ascites. POSTOPERATIVE DIAGNOSIS: Symptomatic recurrent ascites. PROCEDURE: Paracentesis. SURGEON: Franklin Wilkerson MD ANESTHESIA: Local. ESTIMATED BLOOD LOSS: Minimal. FINDINGS: Straw yellow transudative fluid. DISPOSITION: The patient tolerated the procedure well. INDICATIONS: The patient is a 77-year-old male known to us. He has a history of gastroesophageal reflux disease and underwent a Noemi fundoplication in 2006 in [place], [place]. We had done a colonoscopy on him and he was found to have external and internal hemorrhoids as well as a sigmoid diverticulosis. We had then seen him as an inpatient consultation on 01/2022 for ascites as well as a history of chronic kidney disease, requiring dialysis and liver failure. The patient had also developed a right inguinal hernia, which we had conservatively managed due to his other medical comorbidities. However, the lesion became incarcerated and more painful. He was deemed high risk by his monogram machine operator and the risks and benefits of the procedure were explained to the patient in depth; however, he stated that the discomfort did interfere with his normal daily functioning and he wanted to proceed with surgery and underwent a laparoscopic right inguinal hernia repair on 09/14/2022. During the laparoscopy portion a significant amount of ascites, it was identified during the laparoscopy in 2600 mL of straw yellow transudative fluid was evacuated. Since that time, he has had recurrent symptomatic ascites, which has become more frequent and now at around every 4 week intervals. Each time at least 4000 mL of straw yellow transudative fluid had been evacuated. His last paracentesis was done on 12/08/2022 and again he has had recurrent development of abdominal distention with a positive fluid shift wave consistent with a recurrent ascites. DESCRIPTION OF PROCEDURE: The abdomen was prepped and draped in standard surgical fashion. 1% lidocaine was then used to anesthetize the overlying skin, subcutaneous tissue and muscle layers and the peritoneal lining in the right lower abdominal quadrant. A transverse skin incision was made using 11 blade. A trocar and catheter were then introduced into the peritoneal cavity until a straw yellow transudative fluid was withdrawn and the catheter was advanced over the trocar without any resistance. The catheter was then connected to tubing and gravity drainage bag. The catheter was then cleaned and covered with sterile gauze followed by Op-Site. The patient tolerated the procedure well. We will continue with drainage until the patient is less symptomatic with decompression of the abdomen and then we will instruct the staff to remove the catheter and placed Dermabond. If the patient does become symptomatic again, he is instructed to call the office and schedule another outpatient repeat paracentesis in same day surgery. Job ID: [id number] DocumentID: [id number] Dictated Date: 01/03/2023 15:54:32 Weeder Thinner Date: 01/03/2023 23:21:00 Dictated By: FRANKLIN WILKERSON MD
== END 2023-01-03 18:00 ==
LOC: SDC 12:00
PROVIDERS: ATTEND Surgery
DX: R18.8 Other ascites (principal); K40.30 Unilateral inguinal hernia, with obstruction, without gangrene, not specified as recurrent; Z98.890 Other specified postprocedural states
CPT/HCPCS: 49083

== ENCOUNTER → 2023-01-24 | Outpatient (CLI) | payer MEDICARE | LOC: CARD 12:49 | PROVIDERS: ATTEND Nurse Practitioner Family | DX: I08.3 Combined rheumatic disorders of mitral, aortic and tricuspid valves (principal); R18.8 Other ascites | CPT/HCPCS: 93306 ==